=== PATIENT | female | born 1965 ===

== ENCOUNTER 2020-07-03 15:12 | Outpatient (REF) | payer OTHER, SELFPAY | END 2020-07-03 15:13 | disposition home or self-care (01) | LOC: HO.LAB 15:12 | PROVIDERS: Visit Provider Internal Medicine | DX: Z20.828 Contact with and (suspected) exposure to other viral communicable diseases (principal) | CPT/HCPCS: C9803; U0003 ==

== ENCOUNTER 2020-11-23 22:08 | Emergency (ER) | payer OTHER, SELFPAY ==
--- NOTE | ~2020-11-23 | US_ITS ---
EXAMINATION: US ABDOMEN LIMITED CLINICAL INFORMATION: Upper abdominal pain. Question cholecystitis.. COMPARISON: None TECHNIQUE: Real-time imaging of the right upper quadrant abdominal viscera. FINDINGS: PANCREAS: Normal. LIVER: The liver is normal in size. The liver contour is normal. There is diffuse increased liver parenchymal echogenicity, consistent with hepatic steatosis. Focal fatty sparing near the gallbladder fossa. No focal hepatic lesion. There is no intrahepatic biliary duct dilatation seen. GALLBLADDER: Normal. The gallbladder is physiologically distended without evidence of stones, sludge, polyps, wall thickening or pericholecystic fluid. COMMON BILE DUCT: Normal in caliber measuring 0.5 cm in diameter. RIGHT KIDNEY: Upper pole simple cyst measuring 2.7 x 2.5 x 2.3 cm. No hydronephrosis. No renal calculi or solid parenchymal lesions. The kidney measures 10.8 cm in maximum dimension. FREE FLUID: None. US/US abdomen limited IMPRESSION: Hepatic steatosis. Normal appearance of the gallbladder. Simple right renal cyst. No follow-up recommended.
[2020-11-23 22:25] VITALS: BP 129/85; PULSE 113; RESP 16; TEMP 36.6; O2SAT 98; BMI 28.3
--- NOTE | 2020-11-23 22:42 | ED.GENADULT ---
HPI - General Adult General Chief complaint: General Medical Stated complaint: Flu like symptoms Time Seen by Provider: 11/23/20 22:42 Source: patient Mode of arrival: ambulatory Limitations: no limitations Related Data Previous Rx's Medication Instructions Recorded metoprolol succinate 50 mg 50 mg PO BID #60 tab 06/18/20 tablet,extended release 24 hr Allergies Allergy/AdvReac Type Severity Reaction Status Date / Time aspirin [ASA] Allergy Intermediate SWELLING Verified 11/23/20 22:25 Sulfa (Sulfonamide Allergy Intermediate RASH, Verified 11/23/20 22:25 Antibiotics) SWELLING [SULFA (SULFONAMIDE ANTIBIOTICS)] ibuprofen Allergy Unknown swelling Uncoded 03/25/13 00:00 [facility] Past Medical History Medical History (Updated 11/23/20 @ 22:29 by Hope Hicks) COVID-19 Social History Social History Advance Directives: No Advance Directives Information Provided: No Physical Exam Vital Signs: Vital Signs: Last Vital Signs Temp 98 F 11/23/20 22:25 Pulse 113 H 11/23/20 22:25 Resp 16 11/23/20 22:25 BP 129/85 11/23/20 22:25 Pulse Ox 98 11/23/20 22:25 Body Mass Index 28.3 Discharge Plan Discharge Prescriptions: No Action metoprolol succinate 50 mg tablet extended release 24 hr 50 mg PO BID Qty: 60 RF: 5
[2020-11-23 22:57] LABS: MANUAL DIFF FLAG NO
--- NOTE | 2020-11-23 22:58 | ED.ABDPAIN ---
HPI - Abdominal Pain General Chief Complaint: General Medical Stated Complaint: Flu like symptoms Time Seen by Provider: 11/23/20 22:42 Source: patient Mode of arrival: ambulatory Limitations: no limitations History of Present Illness HPI narrative: Patient with history of IBS with diarrhea noticed little discomfort upper abdomen after eating steak last night and today since morning been having more pain in epigastric area with nausea vomiting and diarrhea. Patient vomited more than 10 times and same number of time she had watery stool. Patient feeling chills no fever no abdominal distension patient does not get this kind of problem very often with IBS she does get diarrhea and diffuse abdominal pain .patient had COVID 19 in 09/20. No cough no shortness of breath MD elicited complaint: abdominal pain Pertinent past history: other (IBS) Onset (ago): day(s) Pain Consistency: constant Location: epigastric Severity: moderate Quality: cramping Migration to: no migration Exacerbating factors: eating Relieving factors: nothing Associated symptoms: nausea, vomiting, diarrhea and chills Related Data Previous Rx's Medication Instructions Recorded metoprolol succinate 50 mg 50 mg PO BID #60 tab 06/18/20 tablet,extended release 24 hr Allergies Allergy/AdvReac Type Severity Reaction Status Date / Time aspirin [ASA] Allergy Intermediate SWELLING Verified 11/23/20 22:25 Sulfa (Sulfonamide Allergy Intermediate RASH, Verified 11/23/20 22:25 Antibiotics) SWELLING [SULFA (SULFONAMIDE ANTIBIOTICS)] ibuprofen Allergy Unknown swelling Uncoded 03/25/13 00:00 Review of Systems Review of Systems Constitutional : No Weight loss, No Fever, + Chills ENT/Mouth : No sore throat, No Rhinorrhea Eyes: No Eye Pain, No Swelling Cardiovascular : No Chest Pain, no palpitations Respiratory : No Cough, No Sputum, no shortness of breath Gastrointestinal : +Nausea, ++ Vomiting, + Diarrhea,+ abdominal Pain, no black stools Genitourinary : No Dysuria, No Urinary Frequency Musculoskeletal : No joint pain, No Myalgias, No Joint Swelling Skin : No Skin Lesions, No rash Neuro : No Weakness, No Numbness, No Dizziness, No Headache Psych : No Anxiety/Panic, No Depression Heme/Lymph: No Bruising, No Lymphadenopathy Endocrine : No Polyuria, No Polydipsia All other systems reviewed and are negative Physical Exam Vital Signs: Vital Signs: Last Vital Signs Temp 98 F 11/23/20 22:25 Pulse 89 11/23/20 23:18 Resp 15 11/23/20 23:18 BP 122/81 11/23/20 23:18 Pulse Ox 95 11/23/20 23:18 Body Mass Index 28.3 Appearance: Alert. Oriented X3. No acute distress. Eyes: PERRLA, No Nystagmus ENT: Pharynx normal. Oral Mucosa moist Neck: Normal inspection. Neck supple. CVS: Normal heart rate and rhythm. Pulses normal. Respiratory: No respiratory distress. Equal air entry bilateral, no wheezing/rales/rhonchi Abdomen: Soft epigastric tenderness+ no rebound tenderness or guarding Bowel sounds are present, no mass palpable, no CVA tenderness Skin: Skin warm and dry. Normal skin color. Normal skin turgor. Extremities: No lower extremity edema. No calf tenderness Neuro: Oriented X 3. No motor deficit. No sensory deficit.No cerebellar signs , cranial nerves II-XII intact MDM - Abdominal Pain MDM Narrative Medical decision making narrative: Patient feeling much better now taking p.o. fluids workup is negative for any acute pathology liver functions are normal ultrasound abdomen negative for cholelithiasis will discharge patient home no more vomiting or diarrhea at this time Medical Records Attestation: I reviewed the patient's medical records. Lab Data Attestation: I reviewed the patient's lab results. Result diagrams: 11/23/20 22:48 11/23/20 22:48 Labs: Lab Results 11/23/20 11/23/20 11/23/20 Range/Units 22:48 22:48 22:58 WBC 12.7 H (4.8-10.8) X10*3/uL RBC 5.14 (4.20-5.50) X10*6/uL Hgb 13.7 (12.0-16.0) g/dl Hct 42.7 (37-47) % MCV 83.1 (80-98) fL MCH 26.7 L (27.0-33.0) pg MCHC 32.1 (31.0-35.0) g/dl RDW 14.0 (11.0-16.0) % Plt Count 315 (160-400) X10*3/uL MPV 9.6 (9.4-12.3) fL Immature Gran % (Auto) 0.2 (0.0-0.4) % Neut % (Auto) 82.0 H (45-73) % Lymph % (Auto) 11.3 L (20-40) % Snyder % (Auto) 5.9 (2-11) % Eos % (Auto) 0.4 (0-4) % Baso % (Auto) 0.2 (0-2) % Lymph # (Auto) 1.4 (1.2-4.9) X10*3/uL Snyder # (Auto) 0.8 (0.1-1.2) X10*3/uL Eos # (Auto) 0.1 (0.0-0.4) X10*3/uL Baso # (Auto) 0.0 (0.0-0.2) X10*3/uL Abs Immat Gran (auto) 0.03 (0.00-0.03) X10*3/uL Absolute Neuts (auto) 10.4 H (2.0-8.3) X10*3/uL Absolute Nucleated RBC 0.000 (0.0-0.012) X10*3/uL Nucleated RBC % (auto) 0.0 (0.0-0.2) /100WBC Hold Blue Top Sodium 142 (135-145) mmol/L Potassium 3.6 (3.3-5.1) mmol/L Chloride 106 (96-108) mmol/L Carbon Dioxide 21 L (22-29) mmol/L Anion Gap 19 (12-20) BUN 20 H (9-16) mg/dL Creatinine 1.02 (0.5-1.4) mg/dL Estim Creat Clear Calc 58.1 Estimated GFR 56 Random Glucose 153 H (60-115) mg/dL Lactic Acid 1.8 (0.5-2.0) mmol/L Calcium 9.2 (8.4-10.2) mg/dL Magnesium 1.7 (1.6-2.6) mg/dL Total Bilirubin 0.7 (0.0-1.0) mg/dL AST 24 (5-31) U/L ALT 28 (0-31) U/L Alkaline Phosphatase 112 (39-117) U/L Total Protein 7.7 (6.5-8.0) g/dL Albumin 4.3 (3.5-5.0) g/dL Lipase 24 (8-78) U/L COVID-19 (MELONY) (Negative) COVID-19 Clin Com 11/23/20 11/23/20 Range/Units 22:59 23:02 WBC (4.8-10.8) X10*3/uL RBC (4.20-5.50) X10*6/uL Hgb (12.0-16.0) g/dl Hct (37-47) % MCV (80-98) fL MCH (27.0-33.0) pg MCHC (31.0-35.0) g/dl RDW (11.0-16.0) % Plt Count (160-400) X10*3/uL MPV (9.4-12.3) fL Immature Gran % (Auto) (0.0-0.4) % Neut % (Auto) (45-73) % Lymph % (Auto) (20-40) % Snyder % (Auto) (2-11) % Eos % (Auto) (0-4) % Baso % (Auto) (0-2) % Lymph # (Auto) (1.2-4.9) X10*3/uL Snyder # (Auto) (0.1-1.2) X10*3/uL Eos # (Auto) (0.0-0.4) X10*3/uL Baso # (Auto) (0.0-0.2) X10*3/uL Abs Immat Gran (auto) (0.00-0.03) X10*3/uL Absolute Neuts (auto) (2.0-8.3) X10*3/uL Absolute Nucleated RBC (0.0-0.012) X10*3/uL Nucleated RBC % (auto) (0.0-0.2) /100WBC Hold Blue Top SEE NOTE Sodium (135-145) mmol/L Potassium (3.3-5.1) mmol/L Chloride (96-108) mmol/L Carbon Dioxide (22-29) mmol/L Anion Gap (12-20) BUN (9-16) mg/dL Creatinine (0.5-1.4) mg/dL Estim Creat Clear Calc Estimated GFR Random Glucose (60-115) mg/dL Lactic Acid (0.5-2.0) mmol/L Calcium (8.4-10.2) mg/dL Magnesium (1.6-2.6) mg/dL Total Bilirubin (0.0-1.0) mg/dL AST (5-31) U/L ALT (0-31) U/L Alkaline Phosphatase (39-117) U/L Total Protein (6.5-8.0) g/dL Albumin (3.5-5.0) g/dL Lipase (8-78) U/L COVID-19 (MELONY) Negative (Negative) COVID-19 Clin Com See Note Discharge Plan Discharge Prescriptions: No Action metoprolol succinate 50 mg tablet extended release 24 hr 50 mg PO BID Qty: 60 RF: 5 PMFSH Past Medical History Medical History COVID-19 Social History Social History Alcohol intake: never Smoking Status: Never smoker Use of substances other than those prescribed or required for medical reasons: No Advance Directives: No Advance Directives Information Provided: No
[2020-11-23 22:59] LABS: Basophils Percent Auto 0.2 % (0-2); Eosinophils Absolute Auto 0.1 X10*3/uL (0.0-0.4); Eosinophils Percent Auto 0.4 % (0-4); Hematocrit 42.7 % (37-47); Hemoglobin 13.7 g/dl (12.0-16.0); Imm Gran Abs Auto 0.03 X10*3/uL (0.00-0.03); Imm Gran Pct Auto 0.2 % (0.0-0.4); Lymphocytes Absolute Auto 1.4 X10*3/uL (1.2-4.9); Lymphocytes Percent Auto 11.3 % (20-40); Mean Corpuscular HGB Conc 32.1 g/dl (31.0-35.0); Mean Corpuscular Hemoglobin 26.7 pg (27.0-33.0); Mean Corpuscular Volume 83.1 fL (80-98); Mean Platelet Volume 9.6 fL (9.4-12.3); Monocytes Absolute Auto 0.8 X10*3/uL (0.1-1.2); Monocytes Percent Auto 5.9 % (2-11); Neutrophils Absolute Auto 10.4 X10*3/uL (2.0-8.3); Platelet Count 315 X10*3/uL (160-400); Red Blood Count 5.14 X10*6/uL (4.20-5.50); White Blood Count 12.7 X10*3/uL (4.8-10.8)
[2020-11-23] MEDS: Famotidine/PF 20 MG/2 ML VIAL IVPUSH (23:09)
[2020-11-23] MEDS: ondansetron HCL 4 MG/2 ML VIAL IVPUSH (23:09)
[2020-11-23] MEDS: LORazepam 2 MG/ML VIAL 1 MG IVPUSH (23:09)
[2020-11-23] MEDS: 0.9 % Sodium Chloride 1,000 ML 999 ML IV (23:15)
[2020-11-23 23:18] VITALS: BP 122/81; PULSE 89; RESP 15; O2SAT 95
[2020-11-23 23:22] LABS: Alanine Aminotransferase 28 U/L (0-31); Albumin Level 4.3 g/dL (3.5-5.0); Alkaline Phosphatase 112 U/L (39-117); Anion Gap 19 (12-20); Aspartate Amino Transferase 24 U/L (5-31); Bilirubin Total 0.7 mg/dL (0.0-1.0); Blood Urea Nitrogen 20 mg/dL (9-16); Calcium 9.2 mg/dL (8.4-10.2); Carbon Dioxide 21 mmol/L (22-29); Chloride 106 mmol/L (96-108); Creatinine Clr Calc Pharmacy 58.1; Estimated Glomerular Filt Rate 56; Glucose Random 153 mg/dL (60-115); Lipase 24 U/L (8-78); Potassium 3.6 mmol/L (3.3-5.1); Sodium 142 mmol/L (135-145); Total Protein 7.7 g/dL (6.5-8.0)
[2020-11-23 23:28] LABS: COVID-19 Test Negative (Negative); IDNOW Serial# 9DD0AD1C
[2020-11-23 23:37] LABS: Lactic Acid 1.8 mmol/L (0.5-2.0)
[2020-11-23 23:39] LABS: Magnesium 1.7 mg/dL (1.6-2.6)
[2020-11-24] MEDS: 0.9 % Sodium Chloride 1,000 ML 999 ML IVCONT (01:02)
[2020-11-24 01:40] VITALS: BP 131/84; PULSE 81; RESP 18; O2SAT 95
== END 2020-11-24 02:16 | disposition home or self-care (01) ==
PROVIDERS: Emergency Provider Internal Medicine; PCP Family Medicine
DX: K58.9 Irritable bowel syndrome, unspecified (principal); R10.13 Epigastric pain; Z86.16 Personal history of COVID-19; Z20.822 Contact with and (suspected) exposure to COVID-19; Z79.899 Other long term (current) drug therapy
CPT/HCPCS: 36415; 76705; 80053; 83605; 83690; 83735; 85025; 87635; 96365; 96375; 99284; J2060; J2405

== ENCOUNTER 2021-04-23 12:26 | Outpatient (REF) | payer OTHER, SELFPAY ==
--- NOTE | ~2021-04-23 | XR_ITS ---
EXAMINATION: X-RAY OF THE CERVICAL SPINE AND T-SPINE. CLINICAL INFORMATION: 55-year-old female patient with pain. COMPARISON: Cervical spine x-ray on 12/06/2017. TECHNIQUE: 4 views of the C-spine and 2 views of the T-spine. FINDINGS: C-spine: Vertebral height and alignment are maintained. No fracture. There is some straightening of the normal lordotic curve. Posterior elements are normal. The disc spaces are normal. There is no change in appearance of the small ossific bodies adjacent to the anterior inferior aspects of the C4-C6 vertebral bodies. These could represent secondary areas of ossification. The C1-C2 articulation is normal. The prevertebral soft tissues are normal. T-spine: Vertebral height and alignment are normal. There is no evidence of fracture or subluxation. Paraspinal soft tissues are normal. Calcification of the nucleus pulposus is present at T4-T7. XR/XR cervical spine 3V IMPRESSION: No acute bone or joint abnormalities. Calcified nucleus pulposus in the thoracic spine.
--- NOTE | ~2021-04-23 | XR_ITS ---
EXAMINATION: X-RAY OF THE CERVICAL SPINE AND T-SPINE. CLINICAL INFORMATION: 55-year-old female patient with pain. COMPARISON: Cervical spine x-ray on 12/06/2017. TECHNIQUE: 4 views of the C-spine and 2 views of the T-spine. FINDINGS: C-spine: Vertebral height and alignment are maintained. No fracture. There is some straightening of the normal lordotic curve. Posterior elements are normal. The disc spaces are normal. There is no change in appearance of the small ossific bodies adjacent to the anterior inferior aspects of the C4-C6 vertebral bodies. These could represent secondary areas of ossification. The C1-C2 articulation is normal. The prevertebral soft tissues are normal. T-spine: Vertebral height and alignment are normal. There is no evidence of fracture or subluxation. Paraspinal soft tissues are normal. Calcification of the nucleus pulposus is present at T4-T7. XR/XR thoracic spine 3V IMPRESSION: No acute bone or joint abnormalities. Calcified nucleus pulposus in the thoracic spine.
== END 2021-04-23 12:27 | disposition home or self-care (01) ==
LOC: HO.XRAY 12:26
PROVIDERS: PCP Family Medicine; Visit Provider Family Medicine
DX: M25.50 Pain in unspecified joint (principal)
CPT/HCPCS: 72040; 72072

== ENCOUNTER 2021-05-03 12:35 | Outpatient (REF) | payer OTHER, SELFPAY ==
--- NOTE | ~2021-05-03 | MM_ITS ---
EXAMINATION: MM SCREENING DIGITAL BREAST TOMOSYNTHESIS, BILATERAL CLINICAL INFORMATION: Screening. Asymptomatic. The lifetime risk of breast cancer based on the Tyrer-Cuzick Model is 5%. COMPARISON: Mammography: 11/23/2017, 10/05/2016, 09/11/2015 TECHNIQUE: Digital breast tomosynthesis is performed in both the craniocaudal and mediolateral oblique views along with computer-aided detection (CAD). Synthesized 2D images are generated from the tomosynthesis. Additional left CC view is provided. FINDINGS: There are scattered areas of fibroglandular density (ACR BI-RADS breast composition Category b). There are no significant masses, abnormal calcifications, or other abnormalities. Parenchymal pattern is similar to prior exams. There is a small stable intramammary node posterior central 3:00 left breast similar to prior studies. The axilla and skin contours are unremarkable. MM/MM tomosynthesis screening BI IMPRESSION: No mammographic evidence of malignancy. ASSESSMENT: BI-RADS 2: Benign RECOMMENDATION: Routine annual mammography screening. This patient's information was entered into a reminder system with a target due date for their next mammogram.
== END 2021-05-03 12:36 | disposition home or self-care (01) ==
LOC: HO.MAMMO 12:35
PROVIDERS: Visit Provider Family Medicine
DX: Z12.31 Encounter for screening mammogram for malignant neoplasm of breast (principal)
CPT/HCPCS: 77063; 77067

== ENCOUNTER 2021-05-27 09:49 | Outpatient (REF) | payer OTHER, SELFPAY ==
--- NOTE | 2021-05-27 09:53 | EMG_ITS ---
Bilateral median and ulnar motor and sensory studies were performed. Bilateral radial sensory studies were performed and paraspinal muscles were tested with a needle. IMPRESSION: Unremarkable study with no evidence of entrapment neuropathy or radiculopathy. MD MARY Hogan/JANNETTE / [phone]
== END 2021-05-27 09:50 | disposition home or self-care (01) ==
LOC: HO.NEURO 09:49
PROVIDERS: PCP Family Medicine; Visit Provider Family Medicine
DX: R20.2 Paresthesia of skin (principal)
CPT/HCPCS: 95886; 95911

== ENCOUNTER → 2021-06-18 09:58 | Outpatient (BNVA) | payer OTHER, SELFPAY | PROVIDERS: PCP Family Medicine; Visit Provider Internal Medicine Gastroenterology ==

== ENCOUNTER → 2021-09-16 13:55 | Outpatient (BNVA) | payer OTHER, SELFPAY | PROVIDERS: PCP Family Medicine; Referring Provider Family Medicine; Visit Provider Internal Medicine Cardiovascular Disease | DX: R07.89 Other chest pain (principal); I49.3 Ventricular premature depolarization; I10 Essential (primary) hypertension; Z79.899 Other long term (current) drug therapy | CPT/HCPCS: 93005; 99212 ==

== ENCOUNTER 2022-07-05 13:17 | Emergency (ER) | payer OTHER, SELFPAY ==
--- NOTE | ~2022-07-05 | CT_ITS ---
EXAMINATION: CT HEAD WITHOUT CONTRAST CLINICAL INFORMATION: Right-sided severe headache. COMPARISON: Head CT 12/26/2012. TECHNIQUE: Contiguous axial imaging was performed from the skull base to vertex without intravenous administration of contrast. This CT examination was performed using dose optimization techniques as appropriate, variously including the following: *Automated exposure control *Adjustment of mA and/or kV according to patient size (this includes techniques or standardized protocols for targeted exams where dose is matched to indication/reason for exam; i.e. extremities or head) *Use of iterative reconstruction technique DLP: 676 mGy-cm. FINDINGS: There is no intracranial hemorrhage, extra-axial collection, or mass effect. Focal hypoattenuation is seen within the left occipital lobe best seen on series 2 image /55. Remainder of the rice-white differentiation appears maintained. The ventricles are normal in size without hydrocephalus. The extracranial structures are unremarkable. CT/CT head/brain wo IV con IMPRESSION: No intracranial hemorrhage. Focal hypoattenuation seen in the left occipital lobe which is suspected to be artifactual. However, brain MRI without contrast is recommended to further evaluate.
[2022-07-05 14:02] VITALS: BP 145/87; PULSE 74; RESP 16; TEMP 36.3; O2SAT 96; BMI 29.2
--- NOTE | 2022-07-05 14:08 | ED.GENADULT ---
HPI - General Adult General Chief complaint: Eye Problems Stated complaint: Swollen eye/Neck Pain/Chest pain Time Seen by Provider: 07/05/22 14:45 Related Data Home Medications Medication Instructions Recorded Confirmed amitriptyline 50 mg tablet 25 - 50 mg PO BEDTIME 06/18/21 09/16/21 baclofen 20 mg tablet 20 mg PO TID 06/18/21 09/16/21 clonazepam 0.5 mg tablet 0.5 mg PO BID PRN 06/18/21 09/16/21 duloxetine 60 mg capsule,delayed 120 mg PO DAILY 06/18/21 09/16/21 release hydroxyzine HCl 25 mg tablet 25 mg PO QID 06/18/21 09/16/21 loratadine 10 mg tablet 10 mg PO DAILY 06/18/21 09/16/21 ondansetron HCl 4 mg tablet 4 mg PO BID 06/18/21 09/16/21 prazosin 1 mg capsule 1 mg PO BEDTIME 06/18/21 09/16/21 tramadol 50 mg tablet 50 mg PO BID PRN 06/18/21 09/16/21 trazodone 100 mg tablet mg PO 06/18/21 09/16/21 Previous Rx's Medication Instructions Recorded loperamide 2 mg tablet (Imodium 2 mg PO Q6H PRN loose stool #10 11/24/20 A-D) tabs ondansetron 4 mg disintegrating 4 mg PO Q6-8H PRN nausea and 11/24/20 tablet vomiting #7 tabs pantoprazole 40 mg tablet,delayed 40 mg PO DAILY #90 tabs 06/18/21 release metoprolol succinate 50 mg 50 mg PO BID #180 tabs 06/08/22 tablet,extended release 24 hr prednisone 20 mg tablet 40 mg PO DAILY #14 tabs 07/05/22 valacyclovir 1 gram tablet 1,000 mg PO BID #14 tabs 07/05/22 (Valtrex) Allergies Allergy/AdvReac Type Severity Reaction Status Date / Time aspirin [ASA] Allergy Intermediate SWELLING Verified 06/18/21 09:59 Sulfa (Sulfonamide Allergy Intermediate RASH, Verified 06/18/21 09:59 Antibiotics) SWELLING [SULFA (SULFONAMIDE ANTIBIOTICS)] ibuprofen Allergy Unknown swelling Uncoded 06/18/21 09:59 [facility] Past Medical History Medical History COVID-19 HTN (hypertension) PVC (premature ventricular contraction) Surgical History History of esophagogastroduodenoscopy (EGD) Hx of colonoscopy Social History Social History Alcohol intake: never Advance Directives: No Advance Directives Information Provided: No Physical Exam ED Vital Signs: Vital Signs - 24 hr 07/05/22 14:02 Temperature 97.3 F Pulse Rate 74 Respiratory Rate 16 Blood Pressure 145/87 H Pulse Oximetry 96 Oxygen Delivery Method Room Air BMI result Body Mass Index 29.2 Course Course Course Narrative: 56F with rt eye pain since Monday and blurry vision and spread to rt rastafarian, rt ear and nose with changes in hearing (muffled). Taking old script of Tobramycin/Dex, denies trauma or hx of glaucoma. GEN: NAD HEAD: ttp over right temporal EYE: OS-mid pupil fixed, pain on lateral ONLY movement, no conjunctival redness or swelling FACE: mild facial swelling noted to right side EARS: wnl, but pain on exam of rt ext canal, no vesicles noted THROAT: wnl LUNGS: CTAB CVS: RRR ABD: NT/ND ?Shingles vs. acute angle glaucoma Discharge Plan Discharge Clinical Impression: Acute facial pain, Zoster Patient Disposition: Home, Self-Care Instructions: Shingles (ED) Additional Instructions: There is a possibility that the pain in the face is caused by herpes zoster, also known as shingles. I am recommending that you take medications that have been prescribed for the next week, as this should improve your symptoms. It is important for you to follow-up with your primary care doctor and also an administrative volunteer tomorrow to be sure there is no involvement of the cornea of your eye. It is probable that your visual disturbance is secondary to the swelling around the eye. Prescriptions: New prednisone 20 mg tablet 40 mg PO DAILY Qty: 14 0RF valacyclovir [Valtrex] 1 gram tablet 1,000 mg PO BID Qty: 14 0RF No Action metoprolol succinate 50 mg tablet extended release 24 hr 50 mg PO BID Qty: 180 3RF ondansetron 4 mg tablet,disintegrating 4 mg PO Q6-8H PRN (Reason: nausea and vomiting) Qty: 7 0RF loperamide [Imodium A-D] 2 mg tablet 2 mg PO Q6H PRN (Reason: loose stool) Qty: 10 0RF duloxetine 60 mg capsule,delayed release(DR/EC) 120 mg PO DAILY trazodone 100 mg tablet PO clonazepam 0.5 mg tablet 0.5 mg PO BID PRN prazosin 1 mg capsule 1 mg PO BEDTIME baclofen 20 mg tablet 20 mg PO TID tramadol 50 mg tablet 50 mg PO BID PRN hydroxyzine HCl 25 mg tablet 25 mg PO QID loratadine 10 mg tablet 10 mg PO DAILY amitriptyline 50 mg tablet 25 - 50 mg PO BEDTIME ondansetron HCl 4 mg tablet 4 mg PO BID pantoprazole 40 mg tablet,delayed release (DR/EC) 40 mg PO DAILY Qty: 90 2RF Interventions: ED Discharge Assessment Last Done: 07/05/22 16:57 Discharge Date/Time: 07/05/22 17:01
[2022-07-05 15:44] VITALS: BP 145/90; PULSE 69; RESP 18; TEMP 36.6; O2SAT 97
[2022-07-05 15:44] LABS: Erythrocyte Sedimentation Rate 23 MM/HR (0-20)
== END 2022-07-05 17:01 | disposition home or self-care (01) ==
PROVIDERS: Student in an Organized Health Care Education/Training Program; Emergency Provider Emergency Medicine; PCP Family Medicine
DX: H57.11 Ocular pain, right eye (principal); H53.8 Other visual disturbances; R51.9 Headache, unspecified; Z79.899 Other long term (current) drug therapy
CPT/HCPCS: 36415; 70450; 85652; 86140; 99283; 99284

== ENCOUNTER 2022-09-13 09:02 | Outpatient (REF) | payer OTHER, SELFPAY | END 2022-09-13 09:03 | disposition home or self-care (01) | LOC: HO.XRAY 09:02 | PROVIDERS: PCP Family Medicine; Visit Provider Family Medicine | DX: Z13.89 Encounter for screening for other disorder (principal) ==

== ENCOUNTER 2022-09-15 08:37 | Outpatient (REF) | payer OTHER, SELFPAY ==
--- NOTE | ~2022-09-15 | FL_ITS ---
EXAMINATION: FL BARIUM SWALLOW CLINICAL INFORMATION: Dysphasia. COMPARISON: 03/09/2015. TECHNIQUE: Barium swallow examination is performed using fluoroscopic evaluation in addition to multiple fluoroscopic spot views. The patient is imaged both upright and prone and using both thick and thin sulfate. Patient swallowed half-inch diameter barium tablet. Fluoroscopy time: 1.8 minutes DAP: 4.582 Gycm2 DLP: 44.689 mGy FINDINGS: There is normal apposition of the vocal cords while saying E. There is normal elevation of the soft palate while saying candy. Patient swallowed thin and thick barium and a half-inch diameter barium tablet without difficulty. No nasopharyngeal reflux or tracheal aspiration was identified. There is mild hypertrophy of the cricopharyngeal muscle without evidence of Zenker's diverticulum. No mucosal abnormalities were identified. There is some hypomotility present with occasional tertiary contractions being seen. No hiatal hernia or gastroesophageal reflux. FL/FL barium swallow IMPRESSION: Mild esophageal hypomotility with occasional tertiary contractions. Otherwise unremarkable esophagram.
== END 2022-09-15 08:38 | disposition home or self-care (01) ==
LOC: HO.XRAY 08:37
PROVIDERS: Visit Provider Family Medicine
DX: R13.10 Dysphagia, unspecified (principal); R07.89 Other chest pain
CPT/HCPCS: 74220

== ENCOUNTER → 2022-10-18 10:40 | Outpatient (REF) | payer OTHER, SELFPAY ==
--- NOTE | 2022-10-18 11:32 | CA_ITS ---
Acquisition Time: 2022-10-18 11:20:17 Total Exercise Time: 00:05:49 Test Indications: CP Medications: SEE H Protocol: PAGE Max HR: 144 BPM 89% of Pred: 161 BPM Max BP: 156/072 mmHG Max Work Load: 7.0 METS Exercise stress test 5 min 49 sec of Page protocol achieving 83% MPHR, with request to stop due to moderate SOB, no chest discomfort, without arrythimias, with normotensive response to exercise, without EKG changes meeting criteria for ischemia, Echo images obtained by tech at rest and immediately post peak exercise. Definity contrast used. Test reviewed with Dr. Rangel, Referred By: Darrell Rangel Overread By: EITAN BREAUX
== END ==
LOC: HO.CARD 10:40
PROVIDERS: PCP Family Medicine; Visit Provider Internal Medicine Cardiovascular Disease
DX: R07.89 Other chest pain (principal)
CPT/HCPCS: 93350; Q9957

== ENCOUNTER 2022-10-25 08:37 | Outpatient (REF) | payer OTHER, SELFPAY ==
--- NOTE | ~2022-10-25 | CT_ITS ---
EXAMINATION: CT ABDOMEN AND PELVIS WITHOUT AND WITH CONTRAST CLINICAL INFORMATION: Follow up adrenal adenoma. COMPARISON: None available. TECHNIQUE: Multidetector volumetric imaging was performed of the abdomen and pelvis before and after the IV administration of 85 mL of Omnipaque 300 intravenous contrast. Sagittal and coronal reformatted images were obtained on the technologist's workstation. This CT examination was performed using dose optimization techniques as appropriate, variously including the following: *Automated exposure control *Adjustment of mA and/or kV according to patient size (this includes techniques or standardized protocols for targeted exams where dose is matched to indication/reason for exam; i.e. extremities or head) *Use of iterative reconstruction technique DLP: 1186 mGy-cm FINDINGS: LUNG BASES: There is minimal bibasilar dependent atelectasis. The heart size is normal. LIVER, GALLBLADDER, AND BILIARY TREE: The liver is normal in size, shape, and diffuse hypo-attenuation. No focal hepatic lesion or biliary ductal dilatation is present. The gallbladder is unremarkable with no evidence of radiopaque gallstones, gallbladder wall thickening, or obvious pericholecystic inflammatory changes. PANCREAS: Unremarkable. SPLEEN: Unremarkable. ADRENAL GLANDS: The right adrenal gland is unremarkable. There is a left adrenal lesion measuring 2.5 x 2.1 x 2.5 cm. Previously measured 1.9 x 1.8 cm. On precontrast images it measures 0.69 HU, post contrast it measures 73.49 HU and on delayed images it measures 35 HU. Absolute washout is 52.9% is indeterminate however, lobe precontrast examination is suggestive of an adenoma. Related washout of 52.4% is suggestive of an adenoma. KIDNEYS AND URETERS: The kidneys are normal in size, shape, and attenuation. No hydronephrosis, hydroureter, or calculi seen. No perinephric stranding. There is a 3 cm simple cyst upper/midpole right kidney. There is good opacification of bilateral kidney pelvises and ureters without any dilation or intraluminal filling defect. BLADDER: Unremarkable. GASTROINTESTINAL TRACT: There is scattered stool, diverticula and gas seen throughout the colon without distention or diverticulitis. The small bowel loops are normal caliber. Appendix is not visualized. The stomach is nondistended. No inflammatory processes or free fluid seen. ABDOMINAL WALL: No significant hernia is appreciated. LYMPH NODES: Normal. VASCULAR: Unremarkable. PELVIC VISCERA: Unremarkable. OSSEOUS STRUCTURES: No aggressive lytic or sclerotic process seen. CT/CT abdomen pelvis wo/w IV con IMPRESSION: Left adrenal adenoma with minimal increase. Colonic diverticulosis with mild constipation. Fleischner guidelines were followed.
[2022-10-25] MEDS: iohexoL 350 MG/ML 100 ML INFUS..BTL IV (09:40)
[2022-10-25 10:11] LABS: GFR POC 60
== END 2022-10-25 08:38 | disposition home or self-care (01) ==
LOC: HO.CT 08:37
PROVIDERS: Visit Provider Family Medicine
DX: D35.02 Benign neoplasm of left adrenal gland (principal)
CPT/HCPCS: 74178; 82565; Q9967

== ENCOUNTER 2022-10-26 11:20 | Outpatient (REF) | payer OTHER, SELFPAY ==
--- NOTE | ~2022-10-26 | US_ITS ---
EXAMINATION: US ABDOMEN COMPLETE CLINICAL INFORMATION: Fatty liver. COMPARISON: CT abdomen and pelvis 10/25/2022. Ultrasound abdomen limited 11/24/2020. Ultrasound abdomen complete 09/13/2018. TECHNIQUE: Real-time imaging of the abdominal viscera. FINDINGS: PANCREAS: The head and body of the pancreas is homogeneous in echotexture. The tail is obscured by overlying gas. ABDOMINAL AORTA: The proximal, mid, and distal segments are normal in caliber. INFERIOR VENA CAVA: Visualized portions are normal. LIVER: The liver is enlarged measuring 17.0 cm. The liver contour is normal. There is a diffuse hepatic increased echogenicity with focal fatty sparing around the gallbladder. No focal hepatic lesion. There is no intrahepatic biliary duct dilatation seen. GALLBLADDER: There is echogenic sludge or small gallstones. The gallbladder is physiologically distended without evidence of polyps, wall thickening or pericholecystic fluid. The gallbladder wall thickness is 0.2 cm. COMMON BILE DUCT: Normal in caliber measuring 0.3 cm in diameter. RIGHT KIDNEY: There is a right kidney upper pole septation measuring 3.5 x 2.8 x 2.3 cm. No hydronephrosis or renal calculi. The kidney measures 10.3 cm in maximum dimension. LEFT KIDNEY: There is a dilated pelvicalyceal system. No hydronephrosis. No renal calculi or focal parenchymal lesions. The kidney measures 9.8 cm in maximum dimension. SPLEEN: Normal. The spleen measures 8.5 cm in maximum dimension. FREE FLUID: None. US/US abdomen complete IMPRESSION: Echogenic sludge or small gallstones. No wall thickening. Mild hepatomegaly. No focal lesion seen. Mild hepatic steatosis. Septated cyst upper pole right kidney. There is mild left pelvicalyceal dilatation. The rest of the abdominal ultrasound is unremarkable.
== END 2022-10-26 11:21 | disposition home or self-care (01) ==
LOC: HO.US 11:20
PROVIDERS: Visit Provider Family Medicine
DX: K76.0 Fatty (change of) liver, not elsewhere classified (principal)
CPT/HCPCS: 76700

== ENCOUNTER 2023-01-16 11:05 | Outpatient (REF) | payer OTHER, SELFPAY | END 2023-01-16 11:06 | disposition home or self-care (01) | LOC: HO.HOSX 11:05 | PROVIDERS: Visit Provider Physician Assistant | DX: Z13.89 Encounter for screening for other disorder (principal) ==

== ENCOUNTER 2023-02-28 15:11 | Outpatient (REF) | payer OTHER, SELFPAY ==
--- NOTE | ~2023-02-28 | MM_ITS ---
EXAMINATION: MM SCREENING DIGITAL BREAST TOMOSYNTHESIS, BILATERAL CLINICAL INFORMATION: Screening. Asymptomatic. The lifetime risk of breast cancer based on the Tyrer-Cuzick Model is 4%. COMPARISON: Mammography: This study is compared with prior exams dating back to 2016. TECHNIQUE: Digital breast tomosynthesis is performed in both the craniocaudal and mediolateral oblique views along with computer-aided detection (CAD). Synthesized 2D images are generated from the tomosynthesis. FINDINGS: There are scattered areas of fibroglandular density (ACR BI-RADS breast composition Category b). There are no significant masses, abnormal calcifications, or other abnormalities. MM/MM tomosynthesis screening BI IMPRESSION: No mammographic evidence of malignancy. ASSESSMENT: BI-RADS BI-RADS 1 - Negative RECOMMENDATION: Routine annual mammography screening. 1 year F/U This examination should not preclude the clinical evaluation of a suspicious palpable abnormality. This patient's information was entered into a reminder system with a target due date for their next mammogram.
== END 2023-02-28 15:12 | disposition home or self-care (01) ==
LOC: HO.MAMMO 15:11
PROVIDERS: PCP Family Medicine; Visit Provider Family Medicine
DX: Z12.31 Encounter for screening mammogram for malignant neoplasm of breast (principal)
CPT/HCPCS: 77063; 77067

== ENCOUNTER → 2023-02-28 15:30 | Outpatient (BNV) | payer OTHER, SELFPAY | PROVIDERS: PCP Family Medicine; Visit Provider Radiology Diagnostic Radiology | DX: Z12.31 Encounter for screening mammogram for malignant neoplasm of breast (principal) | CPT/HCPCS: 77063; 77067 ==

== ENCOUNTER 2023-08-23 08:59 | Outpatient (REF) | payer OTHER, SELFPAY ==
[2023-08-23 11:41] LABS: Hematocrit 39.1 % (37.0-47.0); Hemoglobin 12.3 g/dl (12.0-16.0); Mean Corpuscular HGB Conc 31.5 g/dl (31.0-35.0); Mean Corpuscular Hemoglobin 26.1 pg (27.0-33.0); Mean Corpuscular Volume 82.8 fL (80.0-98.0); Mean Platelet Volume 10.1 fL (9.4-12.3); Platelet Count 284 X10*3/uL (160-400); Red Blood Count 4.72 X10*6/uL (4.20-5.50); Red Cell Distribution Width 13.9 % (11.0-16.0); White Blood Count 6.1 X10*3/uL (4.8-10.8)
[2023-08-23 11:51] LABS: Estimated Average Glucose 128 mg/dL; Hemoglobin A1c % 6.1 % (<6.0)
[2023-08-23 11:53] LABS: Rheumatoid Factor < 13.0 IU/mL (<15.0)
[2023-08-23 12:19] LABS: Alanine Aminotransferase 29 U/L (0-31); Albumin Level 4.1 g/dL (3.5-5.0); Alkaline Phosphatase 109 U/L (39-117); Anion Gap 15 (12-20); Aspartate Amino Transferase 23 U/L (5-31); Bilirubin Direct 0.2 mg/dL (0.0-0.5); Bilirubin Total 0.5 mg/dL (0.0-1.0); Blood Urea Nitrogen 16 mg/dL (9-16); C Reactive Protein 0.93 mg/dL (< or = 0.50); Calcium 9.3 mg/dL (8.4-10.2); Carbon Dioxide 22 mmol/L (22-29); Chloride 107 mmol/L (96-108); Cholesterol 197 mg/dL (<200); Estimated Glomerular Filt Rate > 60; Glucose Random 120 mg/dL (60-115); HDL Cholesterol 54 mg/dL (>40); LDL Cholesterol Calculated 127 mg/dL (<100); Potassium 3.8 mmol/L (3.3-5.1); Sodium 140 mmol/L (135-145); Total Protein 7.5 g/dL (6.5-8.0); Triglycerides 82 mg/dL (<150)
[2023-08-23 12:26] LABS: Free T4 (Free Thyroxine) 0.98 ng/dL (0.71-1.85); Thyroid Stimulating Hormone 2.02 uIU/mL (0.32-4.0); Vitamin D 25-OH Total 29.6 ng/mL (>30)
[2023-08-23 12:30] LABS: Erythrocyte Sedimentation Rate 21 MM/HR (0-20)
[2023-08-23 13:38] LABS: CT PCR NOT DETECTED (Not Detect.); NG PCR NOT DETECTED (Not Detect.)
[2023-08-24 08:03] LABS: HBS Num1 21.98 mIU/mL (0-7.99); HBsAGNum1 0.34 S/CO (0.00-0.99); HIV AB/AG Nonreactive (Nonreactive); HIV Num 1 0.07 S/CO (0.00-0.99); Hepatitis B Surface Antigen Negative (Negative); ~HepC Num1 0.17 S/CO (0.00-0.79); ~Hepatitis B Surface Antibody REACTIVE (Nonreactive); ~Hepatitis C Antibody Nonreactive (Nonreactive)
[2023-08-25 05:34] LABS: Lyme Abs Screen <0.90 index
[2023-08-25 09:09] LABS: RPR Rapid Plasma Reagin NON-REACTIVE (NON-REACTIVE)
[2023-08-29 11:19] LABS: Anti Nuclear Antibody Screen NEGATIVE (NEGATIVE)
== END 2023-08-23 09:00 | disposition home or self-care (01) ==
LOC: HO.HHCL 08:59
PROVIDERS: Visit Provider Family Medicine
DX: Z11.4 Encounter for screening for human immunodeficiency virus [HIV] (principal); I10 Essential (primary) hypertension; M25.50 Pain in unspecified joint; K76.0 Fatty (change of) liver, not elsewhere classified
CPT/HCPCS: 0353U; 36415; 80048; 80061; 80076; 82105; 82306; 83036; 84439; 84443; 85027; 85652; 86038; 86140; 86431; 86592; 86617; 86618; 86706; 86803; 87340; 87389

== ENCOUNTER 2023-09-07 13:23 | Outpatient (REF) | payer OTHER, SELFPAY ==
--- NOTE | ~2023-09-07 | US_ITS ---
EXAMINATION: US EXTRACRANIAL CAROTID DUPLEX, BILATERAL CLINICAL INFORMATION: Dizziness. COMPARISON: CTA neck 09/08/2023. TECHNIQUE: Real-time ultrasound and Doppler techniques (integrating B-mode 2-D vascular images, Doppler spectral analysis and color-flow Doppler imaging) were utilized to interrogate the extracranial carotid arteries, the vertebral arteries and proximal subclavian arteries bilaterally. The degree of stenosis is determined by criteria similar to NASCET. FINDINGS: Right Side: 1. There is no atherosclerotic plaque seen in the bifurcation/proximal ICA region. 2. The common carotid artery PSV proximally is 82 cm/s and distally 62 cm/s. 3. The proximal internal carotid artery velocities are 48 cm/s systolic and 14 cm/s diastolic. 4. The proximal external carotid artery PSV is 82 cm/s. 5. The vertebral artery shows antegrade flow. 6. The subclavian artery waveforms are normal. Left Side: 1. There is no atherosclerotic plaque seen in the bifurcation/proximal ICA region. 2. The common carotid artery PSV proximally is 103 cm/s and distally 74 cm/s. 3. The proximal internal carotid artery velocities are 104 cm/s systolic and 34 cm/s diastolic. 4. The proximal external carotid artery PSV is 60 cm/s. 5. The vertebral artery shows antegrade flow. 6. The subclavian artery waveforms are normal. Incidental note made of small nodules in the thyroid measuring a maximum of 1.0 cm. No follow-up imaging is recommended. US/US carotid duplex BI IMPRESSION: 1. RIGHT: Normal right internal carotid artery without atherosclerotic plaque or hemodynamically significant stenosis. 2. LEFT: Normal left internal carotid artery without atherosclerotic plaque or hemodynamically significant stenosis.
== END 2023-09-07 13:24 | disposition home or self-care (01) ==
LOC: HO.US 13:23
PROVIDERS: PCP Family Medicine; Visit Provider Student in an Organized Health Care Education/Training Program
DX: R42 Dizziness and giddiness (principal)
CPT/HCPCS: 93880

== ENCOUNTER 2023-09-08 22:03 | Emergency (ER) | payer OTHER, SELFPAY ==
--- NOTE | ~2023-09-08 | CT_ITS ---
EXAMINATION: CT HEAD WITHOUT CONTRAST CT ANGIOGRAM HEAD CT ANGIOGRAM NECK CLINICAL INFORMATION: Reason for Exam persistent dizziness and unsteady gait for 2wks COMPARISON: CT head 07/05/2022 TECHNIQUE: Initial noncontrast internal audit consultant imaging of the head and neck was performed. Noncontrast head CT was also performed. Test bolus sequences followed by intravenous administration 75 mL of Omnipaque 350. Helical imaging was performed in the axial plane from the aortic arch to the skull vertex. Delayed postcontrast imaging of the head was also performed. The data was processed at the cath lab technologist's workstation for generation of MIP sequences. Angled MIPs and volume rendered reformatted images were also generated at an offline 3D workstation. Stenoses are assessed in accordance with Limon et al. Quantification of Carotid Stenosis on CT Angiography. AJR 2006. 27(1):13-19. [address] CT examination was performed using dose optimization techniques as appropriate, variously including the following: *Automated exposure control *Adjustment of mA and/or kV according to patient size (this includes techniques or standardized protocols for targeted exams where dose is matched to indication/reason for exam; i.e. extremities or head) *Use of iterative reconstruction technique DLP: 641 mGy-cm FINDINGS: CT HEAD: There is no evidence of acute intracranial hemorrhage. No mass-effect or ventricular shift is noted. No acute, territorial loss of rice-white differentiation. Partially empty sella turcica. Stable hypodensity along the inferior basal ganglia bilaterally which may represent dilated perivascular spaces. No abnormal intracranial enhancement is visualized. The ventricles and sulci are appropriate in size and configuration for the patient's stated age. Periventricular and subcortical white matter hypodensity is nonspecific but likely represents chronic microvascular ischemic change. No depressed calvarial fracture. A total thickening in the left sphenoid sinus with additional trace scattered paranasal sinus mucosal thickening. The mastoid air cells are well-aerated. CTA HEAD: Suboptimal evaluation secondary to significant intracranial venous contamination. Anterior circulation: Right internal carotid artery: No hemodynamically significant stenosis. Right middle cerebral artery: No hemodynamically significant stenosis. Right anterior cerebral artery: No hemodynamically significant stenosis. Left internal carotid artery: No hemodynamically significant stenosis. Left middle cerebral artery: No hemodynamically significant stenosis. Left anterior cerebral artery: No hemodynamically significant stenosis. Mild infundibular prominence of the left aspect of the anterior communicating artery. Posterior circulation: Right vertebral artery: No hemodynamically significant stenosis. Left vertebral artery: Nondominant. Predominantly terminates at the left PICA with a markedly diminutive/hypoplastic distal V4 segment. Basilar artery: No hemodynamically significant stenosis. Right posterior cerebral artery: No hemodynamically significant stenosis. Left posterior cerebral artery: Diminutive P1 segment with patent posterior commuting artery. The major dural venous sinuses are grossly within normal limits given arterial technique. CTA NECK: Aortic arch: Normal anatomy. Right common carotid artery: No hemodynamically significant stenosis. Right proximal internal carotid artery: No hemodynamically significant stenosis. Right mid/distal internal carotid artery: No hemodynamically significant stenosis. Left common carotid artery: No hemodynamically significant stenosis. Left proximal internal carotid artery: No hemodynamically significant stenosis. Left mid/distal internal carotid artery: No hemodynamically significant stenosis. Right vertebral artery: No hemodynamically significant stenosis. Left vertebral artery: Nondominant. Irregularity in the proximal V1 segment is favored to be technical. The remaining cervical course is without flow-limiting stenosis. CT NECK: Small hypodense focus along the left vallecula may represent a cyst. Interosseous hemangioma in the T1 vertebral body. CT/CT head/brain wo IV con IMPRESSION: CT HEAD: No acute intracranial hemorrhage or territorial loss of rice-white differentiation. CTA NECK: No hemodynamically significant stenosis. Approximately 4 mm hypodense focus along the left vallecula may represent a cyst but is indeterminate. CTA HEAD: No proximal vessel occlusion or high-grade stenosis.
--- NOTE | ~2023-09-08 | CT_ITS ---
EXAMINATION: CT HEAD WITHOUT CONTRAST CT ANGIOGRAM HEAD CT ANGIOGRAM NECK CLINICAL INFORMATION: Reason for Exam persistent dizziness and unsteady gait for 2wks COMPARISON: CT head 07/05/2022 TECHNIQUE: Initial noncontrast guardian family member imaging of the head and neck was performed. Noncontrast head CT was also performed. Test bolus sequences followed by intravenous administration 75 mL of Omnipaque 350. Helical imaging was performed in the axial plane from the aortic arch to the skull vertex. Delayed postcontrast imaging of the head was also performed. The data was processed at the echo vascular technologist's workstation for generation of MIP sequences. Angled MIPs and volume rendered reformatted images were also generated at an offline 3D workstation. Stenoses are assessed in accordance with Limon et al. Quantification of Carotid Stenosis on CT Angiography. AJR 2006. 27(1):13-19. [address] CT examination was performed using dose optimization techniques as appropriate, variously including the following: *Automated exposure control *Adjustment of mA and/or kV according to patient size (this includes techniques or standardized protocols for targeted exams where dose is matched to indication/reason for exam; i.e. extremities or head) *Use of iterative reconstruction technique DLP: 641 mGy-cm FINDINGS: CT HEAD: There is no evidence of acute intracranial hemorrhage. No mass-effect or ventricular shift is noted. No acute, territorial loss of rice-white differentiation. Partially empty sella turcica. Stable hypodensity along the inferior basal ganglia bilaterally which may represent dilated perivascular spaces. No abnormal intracranial enhancement is visualized. The ventricles and sulci are appropriate in size and configuration for the patient's stated age. Periventricular and subcortical white matter hypodensity is nonspecific but likely represents chronic microvascular ischemic change. No depressed calvarial fracture. A total thickening in the left sphenoid sinus with additional trace scattered paranasal sinus mucosal thickening. The mastoid air cells are well-aerated. CTA HEAD: Suboptimal evaluation secondary to significant intracranial venous contamination. Anterior circulation: Right internal carotid artery: No hemodynamically significant stenosis. Right middle cerebral artery: No hemodynamically significant stenosis. Right anterior cerebral artery: No hemodynamically significant stenosis. Left internal carotid artery: No hemodynamically significant stenosis. Left middle cerebral artery: No hemodynamically significant stenosis. Left anterior cerebral artery: No hemodynamically significant stenosis. Mild infundibular prominence of the left aspect of the anterior communicating artery. Posterior circulation: Right vertebral artery: No hemodynamically significant stenosis. Left vertebral artery: Nondominant. Predominantly terminates at the left PICA with a markedly diminutive/hypoplastic distal V4 segment. Basilar artery: No hemodynamically significant stenosis. Right posterior cerebral artery: No hemodynamically significant stenosis. Left posterior cerebral artery: Diminutive P1 segment with patent posterior commuting artery. The major dural venous sinuses are grossly within normal limits given arterial technique. CTA NECK: Aortic arch: Normal anatomy. Right common carotid artery: No hemodynamically significant stenosis. Right proximal internal carotid artery: No hemodynamically significant stenosis. Right mid/distal internal carotid artery: No hemodynamically significant stenosis. Left common carotid artery: No hemodynamically significant stenosis. Left proximal internal carotid artery: No hemodynamically significant stenosis. Left mid/distal internal carotid artery: No hemodynamically significant stenosis. Right vertebral artery: No hemodynamically significant stenosis. Left vertebral artery: Nondominant. Irregularity in the proximal V1 segment is favored to be technical. The remaining cervical course is without flow-limiting stenosis. CT NECK: Small hypodense focus along the left vallecula may represent a cyst. Interosseous hemangioma in the T1 vertebral body. CT/CT angio head neck IMPRESSION: CT HEAD: No acute intracranial hemorrhage or territorial loss of rice-white differentiation. CTA NECK: No hemodynamically significant stenosis. Approximately 4 mm hypodense focus along the left vallecula may represent a cyst but is indeterminate. CTA HEAD: No proximal vessel occlusion or high-grade stenosis.
[2023-09-08 22:09] VITALS: BP 133/83; PULSE 78; RESP 18; TEMP 35.9; O2SAT 97; BMI 29.8
[2023-09-08 22:26] VITALS: BP 153/83; PULSE 75; RESP 20; O2SAT 96
--- NOTE | 2023-09-08 22:48 | ECG_ITS ---
Test Reason : STROKE Blood Pressure : / mmHG Vent. Rate : 071 BPM Atrial Rate : 071 BPM P-R Int : 166 ms QRS Dur : 076 ms QT Int : 406 ms P-R-T Axes : 045 -17 -22 degrees QTc Int : 441 ms Normal sinus rhythm ST & T wave abnormality, consider anterior ischemia and inferior ischemia Abnormal ECG When compared with ECG of 30-MAR-2019 21:52, No significant change was found Referred By: Nimisha Maier Electronically Signed By:AZUL COWAN
[2023-09-08 22:59] LABS: MANUAL DIFF FLAG NO
[2023-09-08 23:00] LABS: Basophils Percent Auto 0.4 % (0-2); Eosinophils Absolute Auto 0.1 X10*3/uL (0.0-0.4); Eosinophils Percent Auto 1.5 % (0-4); Hematocrit 36.9 % (37.0-47.0); Hemoglobin 11.6 g/dl (12.0-16.0); Imm Gran Abs Auto 0.02 X10*3/uL (0.00-0.03); Imm Gran Pct Auto 0.3 % (0.0-0.4); Lymphocytes Absolute Auto 2.7 X10*3/uL (1.2-4.9); Lymphocytes Percent Auto 34.4 % (20-40); Mean Corpuscular HGB Conc 31.4 g/dl (31.0-35.0); Mean Corpuscular Volume 82.6 fL (80.0-98.0); Mean Platelet Volume 9.8 fL (9.4-12.3); Monocytes Absolute Auto 0.6 X10*3/uL (0.1-1.2); Monocytes Percent Auto 7.5 % (2-11); Neutrophils Absolute Auto 4.4 x10*3/uL (2.0-8.3); Neutrophils Percent Auto 55.9 % (45-73); Platelet Count 251 X10*3/uL (160-400); Red Blood Count 4.47 X10*6/uL (4.20-5.50); Red Cell Distribution Width 13.8 % (11.0-16.0); White Blood Count 7.9 X10*3/uL (4.8-10.8)
[2023-09-08 23:14] LABS: Alanine Aminotransferase 28 U/L (0-31); Albumin Level 3.9 g/dL (3.5-5.0); Alkaline Phosphatase 120 U/L (39-117); Anion Gap 13 (12-20); Aspartate Amino Transferase 30 U/L (5-31); Bilirubin Total 0.2 mg/dL (0.0-1.0); Blood Urea Nitrogen 15 mg/dL (9-16); Carbon Dioxide 21 mmol/L (22-29); Chloride 108 mmol/L (96-108); Creatinine Clr Calc Pharmacy 59.2; Estimated Glomerular Filt Rate > 60; Glucose Random 170 mg/dL (60-115); Potassium 4.1 mmol/L (3.3-5.1); Sodium 138 mmol/L (135-145); Total Protein 7.5 g/dL (6.5-8.0)
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
[2023-09-08 23:29] LABS: Troponin-I High Sensitivity < 2.7 ng/L (<3.5-17.0)
[2023-09-08] MEDS: iohexoL 350 MG/ML 100 ML INFUS..BTL 85 ML IV (23:52)
[2023-09-09 00:12] VITALS: BP 138/76; PULSE 69; RESP 17; TEMP 36.7; O2SAT 96
[2023-09-09 00:20] LABS: Appearance Urine Clear; Color Urine Yellow; Glucose Urine UA Negative (Negative); Leukocyte Esterase Urine Negative (Negative); Nitrite Urine Negative (Negative); PH 5.5 (5.0-9.0); Specific Gravity - Urine >= 1.030 (1.005-1.025); UMIC TRIGGER UACC YES; Urine Blood Trace (Negative); Urine Ketones Negative (Negative); Urine Protein Negative (Neg-Trace)
[2023-09-09 00:29] LABS: Bacteria Urine 2+ (None Seen); Hyaline Casts Urine 0-2 /LPF (0-2); RBC Urine 0-2 /HPF (0-2); Squamous Epithelial Cell Urine 0-2 /HPF (0-2); WBC Urine 0-5 /HPF (0-5)
[2023-09-09] MEDS: 0.9 % Sodium Chloride 1,000 ML 999 ML IV (01:15)
== END 2023-09-09 02:48 | disposition home or self-care (01) ==
PROVIDERS: Emergency Provider Student in an Organized Health Care Education/Training Program; PCP Family Medicine
DX: R42 Dizziness and giddiness (principal); R26.81 Unsteadiness on feet; I10 Essential (primary) hypertension; I49.3 Ventricular premature depolarization; Z79.899 Other long term (current) drug therapy
CPT/HCPCS: 36415; 70450; 70496; 70498; 80053; 81001; 84484; 85025; 93005; 96360; 99284; 99285; Q9967

== ENCOUNTER → 2023-09-08 22:48 | Outpatient (BNV) | payer OTHER, SELFPAY | PROVIDERS: Emergency Provider Student in an Organized Health Care Education/Training Program; PCP Family Medicine; Visit Provider Internal Medicine | DX: R94.31 Abnormal electrocardiogram [ECG] [EKG] (principal) | CPT/HCPCS: 93010 ==

== ENCOUNTER 2023-09-21 14:45 | Outpatient (AMB) | payer OTHER, SELFPAY ==
[2023-09-21 14:47] VITALS: BP 110/72; BMI 30.4
--- NOTE | 2023-09-21 14:47 | MHC.OFFVIS ---
Intake Vital Signs 09/21/23 14:47 Height 5 ft 2 in Weight 166 lb 3.657 oz BMI 30.4 BP 110/72 Blood Pressure Location Lt brachial Position Sitting Intake Visit Reasons: 2 yrs followup w/ekg dx: atypical cp Intake Note: pt its for a 2 month f/yp with ekg. pt been feeling dizzy, some chest pain. [employer] Social Worker Required: No Accompanied by: Self / Same As Patient Allergies aspirin [ASA] Allergy (Intermediate, Verified 09/08/23 22:09) SWELLING Sulfa (Sulfonamide Antibiotics) [SULFA (SULFONAMIDE ANTIBIOTICS)] Allergy (Intermediate, Verified 09/08/23 22:09) RASH, SWELLING ibuprofen Allergy (Unknown, Uncoded 09/08/23 22:09) swelling Medication List - Last Reviewed 09/21/23 by Brittany Brody MA baclofen 20 mg PO TID clonazepam 0.5 mg PO BID PRN duloxetine 120 mg PO DAILY hydroxyzine HCl 25 mg PO QID omeprazole 20 mg PO DAILY trazodone mg PO trazodone 200 mg PO BEDTIME HPI HPI Comments History of Present Illness Details Savi comes for follow-up for her PVCs and hypertension although she is currently not taking metoprolol. Despite that she has not having any significant symptoms of palpitation blood pressure is well controlled. Recently she was having symptoms of dizziness which she describes where she says that eyes fluttering and she gets severely imbalance and she says she walks like a drunk. She fell down and on a burden she came to the emergency for evaluation. She had a workup done including CTA of neck and head CT which showed no acute intracranial pathology and no evidence of stenosis. She comes for follow-up. Continues to be very limited with activity level and feels imbalance. [facility] Medical History PVC (premature ventricular contraction) HTN (hypertension) COVID-19 Surgical History History of esophagogastroduodenoscopy (EGD) Hx of colonoscopy Social History Alcohol intake: never Review of Systems Const Denies chills, Denies fatigue, Denies fever(s), Reports frequent falls, Reports weakness, Denies weight gain and Denies weight loss ENT Reports dizziness Card Denies chest pain, Denies leg edema, Reports lightheadedness, Denies palpitations, Denies dyspnea and Denies dyspnea on exertion Resp Denies cough, Denies dyspnea and Denies dyspnea on exertion GI Denies hematochezia Musc Denies abnormal gait, Denies muscle weakness, Denies numbness, Denies radiating pain into limb and Denies tingling Neuro Denies abnormal gait, Reports dizziness, Reports frequent falls, Denies numbness, Denies tingling and Reports weakness Endo Denies fatigue and Denies palpitations Physical Exam Vital Signs: Last Vital Signs BP 110/72 09/21/23 14:47 BMI result Body Mass Index 30.4 Const General: cooperative, comfortable, no acute distress, alert and awake Nutritional Appearance: overweight Orientation/consciousness: patient oriented x3 Limitations: no limitations Neck Neck: Yes trachea midline, Yes supple and Yes no JVD Resp Effort & Inspection: normal respiratory effort Auscultation: clear to auscultation bilaterally Cardio Jugular venous distension: no JVD Palpation: normal PMI Rate: regular rate Rhythm: regular rhythm Heart sounds: S1 normal heart sound present, S2 normal heart sound present, no click, no gallops, no murmurs and no rubs GI Auscultation: normal bowel sounds Skin General skin exam: no rashes or lesions noted Neuro General: patient oriented x3 and no focal motor deficits Extrem General: Yes no clubbing, cyanosis or edema Office Procedures EKG Details: EKG shows normal sinus rhythm with nonspecific T-wave changes, unchanged from EKG from 1 week ago [id number], Complete Assessment & Plan Assessment & Plan (1) PVC (premature ventricular contraction): Code(s): I49.3 - Ventricular premature depolarization Plan: No significant symptoms related to PVCs. Currently of metoprolol therapy without increased symptoms at this point time can continue to hold metoprolol therapy. Use only if she becomes significantly symptomatic. Avoidance of stimulants was discussed. Stress mitigation strategies were discussed. Benign nature of isolated PVCs in setting of normal structure of the heart was discussed with her. (2) HTN (hypertension): Code(s): I10 - Essential (primary) hypertension Plan: Hypertension which is currently well optimized without any medications. Continue stress mitigation strategies. Continue participate in heart healthy lifestyle. Low-salt diet was discussed. Advised to increase exercise activity as well as participate in weight loss program. She understands and agrees. (3) Vertigo: Code(s): R42 - Dizziness and giddiness Plan: Recent symptoms highly suggestive of vertigo. There is no obvious intracranial pathology or carotid artery disease. Advised to seek your care and I think she may benefit from physical therapy consultation. Will follow up in the clinic in 2 years time, sooner p.r.n.. Thank you for allowing me to partake in the care Medications: Discontinued metoprolol succinate ER Discontinued Reason: Patient no longer taking 50 mg PO BID 180 tabs 3RF Coding Level of Care Code Est Pt Level 4 (72283) Diagnoses PVC (premature ventricular contraction) I49.3 HTN (hypertension) I10 Vertigo R42 CPT Codes EKG - CPT: 85857-[id number], Complete ([id number])
== END 2023-09-21 15:20 | disposition home or self-care (01) ==
PROVIDERS: PCP Family Medicine; Visit Provider Internal Medicine Cardiovascular Disease
DX: I49.3 Ventricular premature depolarization (principal); I10 Essential (primary) hypertension; R42 Dizziness and giddiness
CPT/HCPCS: 93010; 99214

== ENCOUNTER → 2023-09-21 14:45 | Outpatient (BNVA) | payer OTHER, SELFPAY | PROVIDERS: PCP Family Medicine; Visit Provider Internal Medicine Cardiovascular Disease | DX: I49.3 Ventricular premature depolarization (principal); I10 Essential (primary) hypertension; R42 Dizziness and giddiness | CPT/HCPCS: 93005; 99212 ==

== ENCOUNTER 2023-10-08 14:11 | Outpatient (REF) | payer OTHER, SELFPAY ==
--- NOTE | ~2023-10-08 | MR_ITS ---
EXAMINATION: MR BRAIN WITHOUT CONTRAST CLINICAL INFORMATION: Vertigo, dizziness, presyncope COMPARISON: CTA 09/08/2023 TECHNIQUE: MRI of the brain was obtained using routine sequences without contrast. FINDINGS: No acute infarct. No acute intracranial hemorrhage or extra-axial fluid collection. Mild global cerebral volume loss. Patchy T2 FLAIR hyperintense foci in the subcortical and periventricular white matter and brainstem, nonspecific but presumably mild chronic microangiopathy. Prominent perivascular spaces within the inferior basal ganglia. No mass lesion, mass effect, or herniation pattern. Normal intracranial arterial and dural venous sinus flow voids. Partially empty sella. The orbits are grossly unremarkable. Retention cysts in the left sphenoid and bilateral maxillary sinuses. Normal marrow signal. MR/MR head/brain wo con IMPRESSION: 1. No acute intracranial findings. 2. Mild global cerebral volume loss and white matter disease, presumed mild chronic microangiopathy. 3. Partially empty sella.
== END 2023-10-08 14:12 | disposition home or self-care (01) ==
LOC: HO.MRI 14:11
PROVIDERS: PCP Family Medicine; Visit Provider Student in an Organized Health Care Education/Training Program
DX: R42 Dizziness and giddiness (principal)
CPT/HCPCS: 70551

== ENCOUNTER → 2023-10-31 13:05 | Outpatient (REF) | payer OTHER, SELFPAY | LOC: HO.SL 13:05 | PROVIDERS: PCP Family Medicine; Visit Provider Family Medicine | DX: G47.30 Sleep apnea, unspecified (principal); R06.83 Snoring; R40.0 Somnolence | CPT/HCPCS: 95806 ==

== ENCOUNTER → 2023-10-31 19:00 | Outpatient (BNV) | payer OTHER, SELFPAY | PROVIDERS: PCP Family Medicine; Visit Provider Internal Medicine | DX: R06.83 Snoring (principal) | CPT/HCPCS: 95806 ==

== ENCOUNTER 2023-11-01 15:00 | Outpatient (RCR) | payer OTHER, SELFPAY ==
[2023-10-23 14:09] VITALS: BP 140/76; PULSE 74
== END 2024-01-16 10:29 | disposition home or self-care (01) ==
LOC: HO.PT 15:00
PROVIDERS: PCP Family Medicine; Visit Provider Family Medicine
DX: H81.10 Benign paroxysmal vertigo, unspecified ear (principal)
CPT/HCPCS: 95992; 97161; 97162

== ENCOUNTER 2024-01-23 16:57 | Outpatient (REF) | payer OTHER, SELFPAY ==
--- NOTE | ~2024-01-23 | XR_ITS ---
EXAMINATION: XR LEFT HIP XR LEFT KNEE CLINICAL INFORMATION: Pain due to injury, fall. TECHNIQUE: 4 views left knee. 2 views left hip. COMPARISON: Left hip 05/17/2019. FINDINGS: LEFT KNEE: Trace joint effusion. Minimal degenerative changes in the medial and patellofemoral compartments with joint space narrowing and minimal osteophyte formation. LEFT HIP: Mild degenerative changes in the left hip with joint space narrowing and hypertrophic change. Alignment maintained. Limited visualization due to bone and overlying soft tissue structures. XR/XR knee LT 4V IMPRESSION: 1. Mild degenerative changes in the left hip. 2. Minimal degenerative changes in the left knee. 3. Additional imaging with CT scan should be considered for further evaluation if there is clinical concern for fracture or other underlying pathology.
--- NOTE | ~2024-01-23 | XR_ITS ---
EXAMINATION: XR LEFT HIP XR LEFT KNEE CLINICAL INFORMATION: Pain due to injury, fall. TECHNIQUE: 4 views left knee. 2 views left hip. COMPARISON: Left hip 05/17/2019. FINDINGS: LEFT KNEE: Trace joint effusion. Minimal degenerative changes in the medial and patellofemoral compartments with joint space narrowing and minimal osteophyte formation. LEFT HIP: Mild degenerative changes in the left hip with joint space narrowing and hypertrophic change. Alignment maintained. Limited visualization due to bone and overlying soft tissue structures. XR/XR hip LT min 2V IMPRESSION: 1. Mild degenerative changes in the left hip. 2. Minimal degenerative changes in the left knee. 3. Additional imaging with CT scan should be considered for further evaluation if there is clinical concern for fracture or other underlying pathology.
== END 2024-01-23 16:58 | disposition home or self-care (01) ==
LOC: HO.XRAY 16:57
PROVIDERS: Absent Provider Family Medicine; PCP Family Medicine; Visit Provider Nurse Practitioner Family
DX: M25.562 Pain in left knee (principal); M25.552 Pain in left hip; Z91.81 History of falling
CPT/HCPCS: 73502; 73564

== ENCOUNTER 2024-02-12 09:51 | Outpatient (AMB) | payer OTHER, SELFPAY ==
--- NOTE | 2024-02-12 09:51 | A.OFFVIS_ITS ---
Intake Visit Reasons: Gastroesophageal reflux disease (GERD) Intake Note: Savi presents in the office as a follow up for GERD. CC: She states she is still having acid reflux. She had a study for her swallowing and wants results. Studio Technician Video Operator Required: No Allergies aspirin [ASA] Allergy (Intermediate, Verified 09/08/23 22:09) SWELLING Sulfa (Sulfonamide Antibiotics) [SULFA (SULFONAMIDE ANTIBIOTICS)] Allergy (Intermediate, Verified 09/08/23 22:09) RASH, SWELLING ibuprofen Allergy (Unknown, Uncoded 09/08/23 22:09) swelling HPI HPI Gastroesophageal reflux disease (GERD): Details: 58 yr old f with hx of OA, hematuria, called for f/u of GI sx LAST seen 2020 RECAP--originally pt of erik Patient was seen in April 2018- by her and by me 2018 last h/o persistent loose movements and cramping Labs in [facility] from 2012 and 2013 were negative for celiac sprue but patient wanted to be sure via EGD biopsy. Patient underwent an EGD with Dr Lazar on 07/17. Was noted for a small hiatal hernia with gastric cobblestoning. The small intestine villi were normal. Biopsy were negative for celiac sprue but positive for h.pylori. received treatment for H pylori she was also seen for MEANS, imaging studies with fatty liver. has seen urology for abdo pain and hematuria colonoscopy 2013--normal but no rando bx taken, minor diverticulosis EGD done 08/2019 with savary dilation with small tear seen - esophageal bx were nml Ba swallow by PCP: 09/22 Mild esophageal hypomotility with occasional tertiary contractions, mild cricopharyngeal thickening INTERIM: she was having diarrhea she changed diet and stopped lactose products prachi milk and its improved a lot she is due colonoscopy she feels like a lot of mucous in her throat she feels food getting stuck sometimes, usu solids, rice she is taking omeprazole 20 mg but still has break thru attacks A/P: 1/ dysphagia, likely related to GERD, or due to cricopharyngeal hypertrophy 2/ diarrhea, 2/2 to lactose intolerance PLAN: 1/ She wants to hold on EGD with dilation--will increase omeprazole to 40 mg in meantime 2/ colonoscopy screening, [facility] Medical History PVC (premature ventricular contraction) HTN (hypertension) COVID-19 Surgical History History of esophagogastroduodenoscopy (EGD) Hx of colonoscopy Social History Alcohol intake: never Telehealth Telehealth Telehealth Platform: Telephone Location of provider rendering services: practice address Location of patient: address on file Patient Identification confirmed using: Name, : Yes Telehealth method: voice only Patient verbally consented to treatment: Yes Patient verbally consented to billing insurance company: Yes Patient informed of any privacy concerns related to visit: Yes Minutes spent on Phone/Video with Pt.: 9 Assessment & Plan Assessment & Plan (1) GERD with stricture: Code(s): K21.9 - Gastro-esophageal reflux disease without esophagitis; K22.2 - Esophageal obstruction Category: Medical Plan: see above (2) Screening for colon cancer: Code(s): Z12.11 - Encounter for screening for malignant neoplasm of colon Category: Medical Plan: see above Coding Level of Care Code Tele Est Pt Level 3 (34098) Diagnoses GERD with stricture K21.9; K22.2 Screening for colon cancer Z12.11
== END 2024-02-12 11:06 | disposition home or self-care (01) ==
LOC: HO.HGI 09:51
PROVIDERS: PCP Family Medicine; Visit Provider Internal Medicine Gastroenterology
DX: K21.9 Gastro-esophageal reflux disease without esophagitis (principal); K22.2 Esophageal obstruction; Z12.11 Encounter for screening for malignant neoplasm of colon
CPT/HCPCS: 99213

== ENCOUNTER → 2024-02-12 09:51 | Outpatient (BNVA) | payer OTHER, SELFPAY | PROVIDERS: PCP Family Medicine; Visit Provider Internal Medicine Gastroenterology ==

== ENCOUNTER 2024-02-19 12:38 | Outpatient (REF) | payer OTHER, SELFPAY ==
--- NOTE | ~2024-02-19 | XR_ITS ---
EXAMINATION: BILATERAL HIPS WITH SACRUM AND COCCYX CLINICAL INFORMATION: Fell on December 21 still having pain COMPARISON: Left hip 01/23/2024, CT abdomen pelvis 10/25/2022 TECHNIQUE: Single view pelvis and both hips, 3 views sacrum and coccyx FINDINGS: No fractures are seen. 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 XR/XR sacrum coccyx min 2V IMPRESSION: No evidence of an acute osseous injury. 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 As stated previously, if there is concern for an occult fracture which would require treatment, recommend CT scan.
--- NOTE | ~2024-02-19 | XR_ITS ---
EXAMINATION: BILATERAL HIPS WITH SACRUM AND COCCYX CLINICAL INFORMATION: Fell on December 21 still having pain COMPARISON: Left hip 01/23/2024, CT abdomen pelvis 10/25/2022 TECHNIQUE: Single view pelvis and both hips, 3 views sacrum and coccyx FINDINGS: No fractures are seen. 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 XR/XR hip BI w PEL1V IMPRESSION: No evidence of an acute osseous injury. 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 As stated previously, if there is concern for an occult fracture which would require treatment, recommend CT scan.
== END 2024-02-19 12:39 | disposition home or self-care (01) ==
LOC: HO.HHCX 12:38
PROVIDERS: Visit Provider Family Medicine
DX: M79.18 Myalgia, other site (principal)
CPT/HCPCS: 72220; 73521

== ENCOUNTER 2024-02-24 15:09 | Outpatient (REF) | payer OTHER, SELFPAY ==
--- NOTE | ~2024-02-24 | MR_ITS ---
EXAMINATION: MR KNEE WITHOUT CONTRAST, LEFT CLINICAL INFORMATION: Significant pain, status post fall. COMPARISON: None available. TECHNIQUE: MRI of the knee without contrast was performed using routine sequences on a high-field scanner. FINDINGS: MENISCI: Medial Meniscus: There is fraying/tear of the inner aspect of the midportion of the posterior horn. Lateral Meniscus: Intact LIGAMENTS: Cruciate: ACL is intact. Mild T2 signal in the PCL could reflect mucoid degeneration or sprain. Collateral: Grade 2 sprain/partial tear MCL. Biceps femoris tendon is intact. Mild edema associated with the fibular collateral ligament, from possible sprain. Intact iliotibial band. EXTENSOR MECHANISM: Intact ARTICULAR CARTILAGE/BONE: Patellofemoral Compartment: Mild lateral patellar subluxation. No significant chondral loss. Medial Compartment: No significant chondral loss. Lateral Compartment: Severe edema in the mid/posterior aspect of the lateral femoral condyle. Findings compatible with severe bone contusion. There is linear configuration to some of the signal changes in the posterior aspect of the femoral condyle, best seen on the sagittal sequences, which could represent undisplaced fracture/trabecular microfracture. Edema in the posterior aspect of the lateral tibial plateau, compatible with bone contusion. No significant chondral loss is appreciated. JOINT FLUID AND BURSAE: Small-moderate effusion. No significant Monterroso's cyst. Subcutaneous edema. Increased signal in the popliteus tendon, which could reflect reactive edema or strain. Mild proximal medial gastrocnemius tendinosis. MR/MR knee LT wo con IMPRESSION: 1. Fraying/tear in the inner aspect of the midportion of the posterior horn of the medial meniscus. 2. Mucoid degeneration versus sprain PCL. 3. Grade 2 sprain/partial tear MCL. Possible sprain fibular collateral ligament. 4. Severe edema in the mid/posterior aspect of the lateral femoral condyle, compatible with severe bone contusion. Linear signal changes in the posterior aspect of the lateral femoral condyle, could represent undisplaced fracture/trabecular microfracture. Bone contusion in the posterior aspect of the lateral tibial plateau. 5. Small-moderate effusion. 6. Popliteus tendon reactive edema versus strain. Mild proximal medial gastrocnemius tendinosis. The report will be called to the ordering clinician by a [place] [facility] Physician Cafe Server.
== END 2024-02-24 15:10 | disposition home or self-care (01) ==
LOC: HO.MRI 15:09
PROVIDERS: PCP Family Medicine; Visit Provider Family Medicine
DX: M25.562 Pain in left knee (principal)
CPT/HCPCS: 73721

== ENCOUNTER 2024-03-12 15:00 | Outpatient (REF) | payer OTHER, SELFPAY ==
--- NOTE | ~2024-03-12 | MM_ITS ---
EXAMINATION: MM SCREENING DIGITAL BREAST TOMOSYNTHESIS, BILATERAL CLINICAL INFORMATION: Screening. Asymptomatic. COMPARISON: Mammography: This study is compared with prior exams dating back to 2012 TECHNIQUE: Digital breast tomosynthesis is performed in both the craniocaudal and mediolateral oblique views along with computer-aided detection (CAD). Synthesized 2D images are generated from the tomosynthesis. FINDINGS: There are scattered areas of fibroglandular density (ACR BI-RADS breast composition Category b). There are no significant masses, abnormal calcifications, or other abnormalities. MM/MM tomosynthesis screening BI IMPRESSION: No mammographic evidence of malignancy. ASSESSMENT: BI-RADS BI-RADS 1 - Negative RECOMMENDATION: Routine annual mammography screening. 1 year F/U This examination should not preclude the clinical evaluation of a suspicious palpable abnormality. This patient's information was entered into a reminder system with a target due date for their next mammogram. Electronically signed by: Soco Faith MD 04/10/2024 08:02 AM EDT
== END 2024-03-12 15:01 | disposition home or self-care (01) ==
LOC: HO.MAMMO 15:00
PROVIDERS: PCP Family Medicine; Visit Provider Family Medicine
DX: Z12.31 Encounter for screening mammogram for malignant neoplasm of breast (principal)
CPT/HCPCS: 77063; 77067

== ENCOUNTER 2024-03-18 10:07 | Outpatient (AMB) | payer OTHER, SELFPAY ==
[2024-03-18 10:12] VITALS: BP 128/84; PULSE 71
--- NOTE | 2024-03-18 10:12 | A.OFFVIS_ITS ---
Vital Signs 03/18/24 10:12 Height 5 ft 2 in Weight 164 lb 0.383 oz BMI 30.0 BP 128/84 Blood Pressure Location Lt brachial Position Sitting Pulse 71 Pulse Source Pulse Oximeter Intake Visit Reasons: Empty sella Intake Note: New patient present today for Empty sella office visit. Psychiatric Clinical Nurse Specialist Required: No Allergies aspirin [ASA] Allergy (Intermediate, Verified 03/18/24 10:16) SWELLING Sulfa (Sulfonamide Antibiotics) [SULFA (SULFONAMIDE ANTIBIOTICS)] Allergy (Intermediate, Verified 03/18/24 10:16) RASH, SWELLING ibuprofen Allergy (Unknown, Uncoded 03/18/24 10:16) swelling HPI Comments Details: Is a 58-year-old female sent to endocrinology for evaluation of partial empty sella syndrome. MRI performed because of vertigo The patient denies any symptoms of adrenal insufficiency or hypothyroidism or denies any breast discharge. She complains of blurry vision . No sx of acromegaly PFSH Medical History PVC (premature ventricular contraction) HTN (hypertension) COVID-19 Surgical History History of esophagogastroduodenoscopy (EGD) Hx of colonoscopy Social History Alcohol intake: never Physical Exam Const Other: There are no acromegalic or cushingoid features. There is no visual field loss by gross confrontation Assessment & Plan Assessment & Plan (1) Empty sella syndrome: Code(s): E23.6 - Other disorders of pituitary gland Category: Medical Plan: This is a 58-year-old female with a history of partial empty sella syndrome seen on MRI of the brain. Most commonly, partial empty sella syndrome is a benign radiologic finding incidentally. However, will rule out in rare cases the presence of hyperprolactinemia or cortisol deficiency. Patient appears to be clinically and biochemically euthyroid Plan is to obtain a.m. cortisol and prolactin. I will also obtain a MRI dedicated pituitary with gadolinium to rule out a pituitary mass which could mimic partial empty sella syndrome. I do not think her vertigo is related to the pituitary finding but her primary care provider should refer her for neurological assessment. This was told to the patient Orders: Orders Prolactin Today E23.6 - Other disorders of pituitary gland MR head/brain wo/w con Today E23.6 - Other disorders of pituitary gland Cortisol Random Today E23.6 - Other disorders of pituitary gland Coding Level of Care Code New Pt Level 4 (01402) Diagnoses Empty sella syndrome E23.6
== END 2024-03-18 10:37 | disposition home or self-care (01) ==
PROVIDERS: PCP Family Medicine; Visit Provider Internal Medicine Endocrinology, Diabetes & Metabolism
DX: E23.6 Other disorders of pituitary gland (principal)
CPT/HCPCS: 99204

== ENCOUNTER → 2024-03-18 10:07 | Outpatient (BNVA) | payer OTHER, SELFPAY | PROVIDERS: PCP Family Medicine; Visit Provider Internal Medicine Endocrinology, Diabetes & Metabolism | DX: E23.6 Other disorders of pituitary gland (principal) | CPT/HCPCS: 99202 ==

== ENCOUNTER 2024-03-28 09:07 | Outpatient (REF) | payer OTHER, SELFPAY ==
[2024-03-28 11:04] LABS: Cortisol Random 12.2 ug/dL
[2024-03-29 21:48] LABS: Prolactin 4.1 ng/mL
== END 2024-03-28 09:08 | disposition home or self-care (01) ==
LOC: HO.LAB 09:07
PROVIDERS: PCP Family Medicine; Visit Provider Internal Medicine Endocrinology, Diabetes & Metabolism
DX: E23.6 Other disorders of pituitary gland (principal)
CPT/HCPCS: 36415; 82533; 84146

== ENCOUNTER 2024-04-02 12:48 | Outpatient (AMB) | payer OTHER, SELFPAY ==
--- NOTE | 2024-04-02 13:17 | MHC.OFFVIS ---
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 Patient reports she was walking fast in her backyard and there was a puddle of water mixed with soap from her grandson cleaning the grill, she slipped and fell backwards however she did not hit her knee. She is unsure if she twisted her knee at the time of the fall but immediately had pain once she stood up. She was unable to sleep for about a week due to her pain. She had vertigo so since the fall she feels instability. A month ago she was experiencing severe pains so she was taking Tylenol every 6-8 hours but did not find relief so she would also take the baclofen after. Now she had slight pain throughout the day but her pain is mainly in the night time sometimes waking her up since she sleeps on her side. She wore a compression sleeve, this helped mildly but did not relief the pain. 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 The patient reports that on that date, she fell onto her left knee, and immediately began to experience pain upon rising. The patient reports that her pain was ?excruciating? when it 1st occurred, but since that date, her pain has been steadily decreasing, and she states that her pain is very mild now. The patient states that her pain does still make it difficult for her asleep, as she likes to sleep on her left side and she experiences pain when doing so. Patient did have an MRI performed previously, and would like to discuss the results. The patient reports that she Patient denies any numbness or tingling in the left lower extremity. No other acute complaints or concerns at this time. [facility] Medical History (Updated 04/16/24 @ 09:48 by MAR Dunn) Empty sella syndrome PVC (premature ventricular contraction) HTN (hypertension) COVID-19 Surgical History History of esophagogastroduodenoscopy (EGD) Hx of colonoscopy Social History Alcohol intake: never Review of Systems Const All systems reviewed & are unremarkable except as noted in HPI and below Physical Exam Vital Signs: BMI result Body Mass Index 31.0 Extrem Other: On inspection, there is no visible deformity of the left knee No edema, erythema, ecchymosis noted No lacerations, abrasions, open areas No evidence of infection Patient reports mild tenderness to palpation of the joint No tenderness to palpation of the patella, parapatellar region, posterior knee, quad tendon, patellar tendon, tibial tubercle Patient is able to extend the left knee to 0 degrees and flex to approximately 120 degrees without difficulty No ligamentous laxity noted Distal sensation intact Capillary refill brisk Mildly positive Luca's of the medial joint line on the left Results Reviewed Results Reviewed: MRI obtained on 02/24/2024 and independently reviewed by me, Karlos Mckinney PA-C, demonstrate small tear or fraying of the medial meniscus on the left Radiologist reading: IMPRESSION: 1. Fraying/tear in the inner aspect of the midportion of the posterior horn of the medial meniscus. 2. Mucoid degeneration versus sprain PCL. 3. Grade 2 sprain/partial tear MCL. Possible sprain fibular collateral ligament. 4. Severe edema in the mid/posterior aspect of the lateral femoral condyle, compatible with severe bone contusion. Linear signal changes in the posterior aspect of the lateral femoral condyle, could represent undisplaced fracture/trabecular microfracture. Bone contusion in the posterior aspect of the lateral tibial plateau. 5. Small-moderate effusion. 6. Popliteus tendon reactive edema versus strain. Mild proximal medial gastrocnemius tendinosis. Dictated By: Cuate Wahl MD . Assessment & Plan Assessment & Plan (1) Tear of meniscus of left knee: Code(s): S83.207A - Unspecified tear of unspecified meniscus, current injury, left knee, initial encounter Category: Medical Plan 1. Medial meniscus tear of left knee Date of injury 01/23/2024 Patient is educated about this injury and the typical recovery course Patient is educated on the potential treatment options available Due to the patient's improvement with the last month and relatively mild findings on her MRI, both the patient and I feel it is best to proceed with conservative management at this time Patient be referred to physical therapy for strengthening, range of motion, stabilization of the left knee Patient is also educated conservative measures, such as rest, ice, elevation, and [id number] pain medication as needed Patient is amenable to this plan If Conservative measures are ineffective, the patient is advised to return to the office to discuss further treatment options Patient will follow-up as needed with acute concerns Coding Level of Care Code New Pt Level 3 (23738) Diagnoses Tear of meniscus of left knee S83.207A
[2024-04-02 13:19] VITALS: BMI 31.0
== END 2024-04-02 13:57 | disposition home or self-care (01) ==
PROVIDERS: PCP Family Medicine
DX: S83.207A Unspecified tear of unspecified meniscus, current injury, left knee, initial encounter (principal); W01.0XXA Fall on same level from slipping, tripping and stumbling without subsequent striking against object, initial encounter
CPT/HCPCS: 99203

== ENCOUNTER → 2024-04-02 12:48 | Outpatient (BNVA) | payer OTHER, SELFPAY | PROVIDERS: PCP Family Medicine | DX: S83.207A Unspecified tear of unspecified meniscus, current injury, left knee, initial encounter (principal) | CPT/HCPCS: 99202 ==

== ENCOUNTER → 2024-04-19 13:01 | Outpatient (BNV) | payer OTHER, SELFPAY | PROVIDERS: PCP Family Medicine; Visit Provider Radiology Diagnostic Radiology | DX: E23.6 Other disorders of pituitary gland (principal) | CPT/HCPCS: 70553 ==

== ENCOUNTER 2024-04-19 13:06 | Outpatient (REF) | payer OTHER, SELFPAY ==
--- NOTE | ~2024-04-19 | MR_ITS ---
EXAMINATION: MR BRAIN/SELLA WITHOUT AND WITH CONTRAST CLINICAL INFORMATION: Other disorders of the pituitary gland. Patient complaining of blurry vision, facial weakness, bilateral arm and leg weakness, headaches. COMPARISON: MRI brain 10/08/2023. MRI brain 04/28/2013. TECHNIQUE: Multiplanar multisequence MR imaging of the brain/sella was done prior to and following the intravenous administration of 4 mL IV Gadavist. Standard pituitary protocol sequences were utilized, exam performed on a 1.5 Jennifer Siemens magnet. FINDINGS: SELLA: -There is a partial empty sella present indicating incompetence of the diaphragma sella. Minimal left deviation of the infundibulum, with normal enhancement pattern and size. -The pituitary gland shows a concave superior border, and demonstrates no masses or abnormal/differential enhancement to suggest an underlying lesion. -The parasellar structures and suprasellar structures appear normal. No mass effect. The cavernous sinuses are normal. Meckel's caves are normal in size and signal. BRAIN: -There is no diffusion restriction. -There is no intracranial hemorrhage, acute infarction, mass effect, or edema. -Ventricles, sulci, and cisterns are normal in size and configuration for patient age. No shift of midline. Basal cisterns are patent. -There are a scattered punctate and minimally confluent foci of white matter T2 hyperintensity in the periventricular, subcortical, and hemispheric deep white matter and sallie (including the MLF's), nonspecific, but most likely sequela of microvascular ischemia. No specific pattern suggestive of demyelination. -Midline structures appear normally formed. -Posterior fossa structures appear normal. Cerebellar tonsils are appropriately located. -Major flow voids are preserved within the skull base. -After contrast administration, there is no abnormal intra-axial enhancement. -There is a smooth extra-axial dural-based right frontal enhancing meningioma measuring 1.3 x 0.5 x 0.8 cm (AP, TRV, CC). (Series 15, image 20; series 13, image 11). No underlying mass effect is evident. -The globes and orbital contents demonstrate no abnormalities. -Small amount of dependent mucosal thickening present in the medial left sphenoid sinus. Paranasal sinuses are otherwise normally pneumatized. -Nasal septum is midline. -The mastoids and tympanic cavities are normally aerated. -Extracranial soft tissues demonstrate no abnormalities. -No suspicious bone marrow changes are evident. TM joints demonstrate mild arthritic change. -Atlantoaxial joint is normally aligned. Mild degenerative changes. MR/MR head/brain wo/w con IMPRESSION: 1. Pituitary and sella are normal aside from a partial empty sella (indicating diaphragmatic sella incompetence). No evidence of focal pituitary gland lesion. 2. No evidence of intracranial hemorrhage, acute infarction, mass effect, or edema. No abnormal intra-axial enhancement. 3. There is a small right frontal dural based enhancing meningioma measuring 1.3 x 0.5 x 0.8 cm without underlying mass effect, unchanged from 10/08/2023.. 4. There are numerous bilateral scattered foci of punctate and minimally confluent white matter T2 hyperintensity in the supratentorial periventricular, subcortical, and hemispheric deep white matter, and sallie. Although no distribution or morphology specific to demyelinating disease, there can be considerable overlap in appearance with nonspecific small vessel ischemic changes. 5. Additional ancillary findings as discussed in the body of the report. Electronically signed by: Manjinder Khoury MD 05/28/2024 11:02 AM EDT
[2024-04-19] MEDS: gadobutroL 2 ML VIAL IVPUSH ×2 (14:54→14:56)
== END 2024-04-19 13:07 | disposition home or self-care (01) ==
LOC: HO.MRI 13:06
PROVIDERS: PCP Family Medicine; Visit Provider Internal Medicine Endocrinology, Diabetes & Metabolism
DX: E23.6 Other disorders of pituitary gland (principal)
CPT/HCPCS: 70553; A9585

== ENCOUNTER 2024-07-16 16:09 | Outpatient (REF) | payer OTHER, SELFPAY ==
[2024-07-22 11:43] LABS: Alphahydroxymidazolam,GCMS Ur NEGATIVE; Alphahydroxytriazolam, GCMS Ur NEGATIVE; Alprazolam, GCMS Urine NEGATIVE; Aminoclonazepam, GCMS Urine 87 (H); Flurazepam Metabolite,GCMS Ur NEGATIVE; Lorazepam GCMS Urine NEGATIVE; Nordiazepam, GCMS Urine NEGATIVE; Oxazepam, GCMS Urine NEGATIVE; Temazepam, GCMS Urine NEGATIVE
== END 2024-07-16 16:10 | disposition home or self-care (01) ==
LOC: HO.LNP 16:09
PROVIDERS: Visit Provider Family Medicine
DX: F39 Unspecified mood [affective] disorder (principal)
CPT/HCPCS: 80346

== ENCOUNTER 2024-07-18 10:54 | Outpatient (AMB) | payer OTHER, SELFPAY ==
[2024-07-18 10:59] VITALS: BP 128/78; PULSE 78; BMI 31.2
--- NOTE | 2024-07-18 10:59 | A.OFFVIS_ITS ---
Vital Signs 07/18/24 10:59 Height 5 ft 1 in Weight 165 lb 5.547 oz BMI 31.2 BP 128/78 Blood Pressure Location Rt brachial Position Sitting Pulse 78 Pulse Source Pulse Oximeter Intake Visit Reasons: f/u empty sellar syndrome Intake Note: Patient present today for Empty Sella Syndrome follow-up: Consumer Credit Counselor Required: No Accompanied by: Significant Other Allergies aspirin [ASA] Allergy (Intermediate, Verified 07/18/24 11:01) SWELLING Sulfa (Sulfonamide Antibiotics) [SULFA (SULFONAMIDE ANTIBIOTICS)] Allergy (Intermediate, Verified 07/18/24 11:01) RASH, SWELLING ibuprofen Allergy (Unknown, Uncoded 07/18/24 11:01) swelling Medication List - Last Reconciled 07/18/24 by Sunil Keen MD acetaminophen ER 650 mg PO Q12H PRN baclofen 20 mg PO TID cetirizine 10 mg PO DAILY clonazepam 0.5 mg PO BID PRN duloxetine 120 mg PO DAILY hydroxyzine HCl 25 mg PO QID metoprolol tartrate 50 mg PO BID omeprazole 40 mg PO DAILY sodium,potassium,mag sulfates 17.5-3.13-1.6 gram (Suprep Bowel Prep Kit) DILUTE; drink 1/2 at 6-8 pm and half at 11 PM- 1AM trazodone 200 mg PO BEDTIME HPI Comments Details: Is a 58-year-old female sent to endocrinology for evaluation of partial empty sella syndrome. MRI performed because of vertigo The patient denies any symptoms of adrenal insufficiency or hypothyroidism or denies any breast discharge. She complains of blurry vision . No sx of acromegaly . Workup for adrenal insufficiency and hyperprolactinemia were negative. MRI showed normal pituitary gland but empty sella but other findings as noted 3. There is a small right frontal dural based enhancing meningioma measuring 1.3 x 0.5 x 0.8 cm without underlying mass effect, unchanged from 10/08/2023.. 4. There are numerous bilateral scattered foci of punctate and minimally confluent white matter T2 hyperintensity in the supratentorial periventricular, subcortical, and hemispheric deep white matter, and sallie. Although no distribution or morphology specific to demyelinating disease, there can be considerable overlap in appearance with nonspecific small vessel ischemic changes. 5. Additional ancillary findings as discussed in the body of the report [facility] Medical History Empty sella syndrome PVC (premature ventricular contraction) HTN (hypertension) COVID-19 Surgical History History of esophagogastroduodenoscopy (EGD) Hx of colonoscopy Social History Alcohol intake: never Physical Exam Vital Signs: BMI result Body Mass Index 31.2 Assessment & Plan Assessment & Plan (1) Empty sella syndrome: Code(s): E23.6 - Other disorders of pituitary gland Category: Medical Plan: This is a 58-year-old female with a history of partial empty sella syndrome seen on MRI of the brain. Workup shows normal pituitary axis but other findings on MRI At This point, there is no need for any further endocrine workup or follow-up. I did discuss the other findings with the patient MRI including the possible presence of hemangioma. I will contact the patient's primary care provider at [facility] so she can make a referral to a neurosurgeon/neurologist for further evaluation. I also informed the patient to contact her primary care provider regarding the above. Coding Level of Care Code Est Pt Level 3 (76166) Diagnoses Empty sella syndrome E23.6
== END 2024-07-18 11:20 | disposition home or self-care (01) ==
PROVIDERS: PCP Family Medicine; Visit Provider Internal Medicine Endocrinology, Diabetes & Metabolism
DX: E23.6 Other disorders of pituitary gland (principal)
CPT/HCPCS: 99213

== ENCOUNTER → 2024-07-18 10:54 | Outpatient (BNVA) | payer OTHER, SELFPAY | PROVIDERS: PCP Family Medicine; Visit Provider Internal Medicine Endocrinology, Diabetes & Metabolism | DX: E23.6 Other disorders of pituitary gland (principal) | CPT/HCPCS: 99212 ==

== ENCOUNTER 2024-08-28 14:00 | Outpatient (REF) | payer OTHER, SELFPAY ==
--- OUTSIDE RECORDS SUMMARY | 2024-08-28 18:02 | XMS_ITS | Encounter Summary ---
Author Organization [employer] Address [address] [place] [address] Care Team Providers Care Bending Press Operator Name Role Phone Peyton Multani DO Primary Care Provider + [phone] Betito Irving Unavailable Unavailable Reason for Visit * Reason Onset Date Comments Referral 07/18/2024 Encounter Details Date Type Department Care Team ([facility] st Contact Info) Description 07/18/[address] [facility] MEDICINE [address] [place] [address] Peyton Multani DO [address] [place] [address] Referral Social History Tobacco Use Types Packs/Day Years Used Date Smoking Tobacco: Former Cigarettes Passive Smoke Exposure: Past Smokeless Tobacco: Never Alcohol Use Standard Drinks/Week Comments Never 0 (1 standard drink = 0.6 oz pur e alcohol) Depression Answer Date Recorded Patient Health Questionnaire-9 Score 6 10/10/2023 Patient Health Questionnaire-9 Score 6 10/10/2023 Last PHQ-9: Questionnaire Data Not on file 0 10/10/2023 Housing Stability Answer Date Recorded What is your housing situation today? I have courtney silva 10/17/[address] you li ve. Do you have problems with any of the following? None of the above 10/17/2023 Food Insecurity Answer Date Recorded Within the past 12 months, y ou worried that your food would run out before you got money to buy more: Never True 10/17/2023 Within the past 12 months,th e food you bought just didn't last and you didn't have enough money to get more: Never True Transportation Answer Date Recorded In the past 12 months, has l ack of transportation kept you from medical appts, meetings, work or from getting things needed for daily living? No 10/17/2023 Utilities Answer Date Recorded In the past 12 months, has t he electric, gas, oil or water company threatened to shut off services in your home? No 10/17/2023 Depression Answer Date Recorded Patient Health Questionnaire-2 Score 1 10/10/2023 Comments Unknown Sex and Gender Information Value Date Recorded Sex Assigned at Female 05/30/2022 10:22 AM EDT Legal Sex Female 10:22 AM EDT Gender Identity Female 05/30/2022 10:22 AM EDT Sexual Orientation Straight 05/30/2022 10 :22 AM EDT documented as of this encounter Miscellaneous Notes * Telephone Encounter - Brigida Bhatti RN - 08/12/2024 1:22 PM EST RN spoke to PCP in regards to below (referral not placed). RN advised referral will be placed todayas STAT. TC placed to patient [phone] in regards to below message the wireless caller you are calling is not available . RN unable to leave VM. TC placed to , who reports the patientis not with him but he will advise the patient to return call to [facility] when able. * Telephone Encounter - Sang Watson - 08/12/2024 12:48 PM EST Tc from pt requesting status on Neurosrugery referral. Please contact pt at [phone]. ([employer] Speaker) * Telephone Encounter - Brigida Bhatti RN - 07/22/2024 12:37 PM EST Incoming call from patient in regards to below message. Patient reports she does not want an appointment with PCP to discuss MRI results. Patient would just like for PCP to place neurosurgery referral STAT. Patient informed PCP will be advised to place referral and patient will receive a letter in the mail with appointment date and time or a call from neurosrugery office with appointment date andtime. Patient to f/u PRN. * Telephone Encounter - Brigida Bhatti RN - 07/19/2024 10:06 AM EST TC x2 placed to patient [phone] the wireless caller is not available in regards to below message. TC placed to [phone] however no answer, RN left requesting CB to red team nurses. Patient to f/u PRN. * Telephone Encounter - Brigida Bhatti RN - 07/18/2024 2:10 PM EST TC placed to patient [phone] the wireless caller is not available in regards to below message. RN will re-attempt tomorrow. * Telephone Encounter - Sang Watson - 07/18/2024 12:32 PM EST Tc from pt calling to request a referral for neurosurgeon. Pt stated she had an abnormal MRI as well as her Chemical Packager advised her to request referral for neurosurgeon MIGUEL. Please contact pt at [phone]. documented in this encounter Plan of Treatment Upcoming Encounters Date Type Department Care Team (Late st Contact Info) Description 10/01/2024 11:15 AM EST Office Visit [address] [address] Peyton Multani DO [address] [place] [address] 10/21/2024 2:00 PM EDT Clinical Support [address] [address] Odalis Anderson RN documented as of this encounter Visit Diagnoses Not on filedocumented in this encounter Additional Health Concerns Assessment Noted Time PHQ-9 Depression Total Score: 6 10/10/19 24 10:49 AM EDT documented as of this encounter Care Teams Bending Press Operator Relationship Specialty Start Date End Date Peyton Multani DO [address] [place] [address] PCP - General Family Medicine 04/17/13 Betito Irving FNP [address] [place] [address] Nurse Practitioner Family Medicine 06/13/23 documented as of this encounter
--- OUTSIDE RECORDS SUMMARY | 2024-08-28 18:02 | XMS_ITS | Encounter Summary ---
Author Organization [employer] Address [address] 7t [place] [address] Care Team Providers Care Shaping Machine Tender Name Role Phone TitoPetyon everett Primary Care Provider + [phone] Betito Irving Unavailable Unavailable Reason for Visit * Reason Onset Date Comments Referral 08/22/2024 Encounter Details Date Type Department Care Team (Late st Contact Info) Description 08/22/[address] [facility] [address] [place] [address] Brigida Bhatti, RN [address] [place] [address] Referral Social History Tobacco Use Types Packs/Day [...] Telephone Encounter - Brigida Bhatti RN - 08/27/2024 10:40 AM EST Noted. * Telephone Encounter - Brigida Bhatti RN - 08/27/2024 10:19 AM EST Insurance enrollment spoke to RN in regards to this patient. Patient called insurance enrollment instead of calling insurance directly in regards to determining offices which accept patients insurance. RN informed insurance enrollment of situation: -Patient had abnormal brain MRI ordered by endocrinology which requires referral to neurosurgery ([facility] endo provider contacted PCP directly to place referral and recommended neurosurgery at [facility]) -PCP placed STAT referral to [facility] however [facility] does not accept patients insurance -Referral sent to [facility] spine center however they do not see patient for dx needed -[facility] neurosurgery does not accept patients insurance -[facility] neurosurgery also does not accept patients insurance -Patient advised we can trial a PA for [facility] neurosurgery however patient was not interested after RNprovided patient with information needed per referral team (see above). Per insurance enrollment, patient is now interested in PA process for [facility] and patient willalso call the number on the back of her insurance card to inquire on which neurosurgery offices arecovered by the patients insurance. RN has contacted Sharon in referrals and notified her of patients decision to proceed with PA process for [facility]. Per above messages, referral team needed the following information from the patient for the PA process: [facility] [address] [place] [address] Provider Name: Dr. Dina Sawant NPI of Provider: [id number] NPI of facility: [id number] NPI numbers were provided to RN by insurance enrollment Per referrals, Sharon will work on process PA for [facility] referral. RN will update from referral team. Sending to referral team for above information. * Telephone Encounter - Gina Whitley - 08/26/2024 3:43 PM EST Tc from pt returning call pt was advised message placed above , as pt verbalized Ok and will be reaching out to insurance. * Telephone Encounter - Brigida Bhatti RN - 08/26/2024 2:50 PM EST RN received call from referral team. RN was informed [facility] does NOT accept patients insurance. RN was advised patient can proceed with PA process to [facility] or can call the phone number on the back of her insurance card to inquire which offices accept patients insurance. TC placed to [phone] to inform of above message the wireless caller you are calling is not available . TC placed to secondary number [phone] however no answer, RN left requesting CB to red team nurses. Patient to f/u PRN. * Telephone Encounter - Brigida Bhatti RN - 08/26/2024 2:34 PM EST TC placed to patient [phone] however automated recording the wireless caller you are calling is not available . TC placed to spouse [phone] however no answer, RN left requesting CB to red team nurses. Patient to f/u PRN. * Telephone Encounter - Sang Watson - 08/23/2024 4:52 PM EST Tc from pt returning call regarding message prior. * Telephone Encounter - Brigida Bhatti RN - 08/23/2024 2:06 PM EST RN informed by referral team: -[facility] spine center does not see patient for diagnosis in which patient needs to be referred for -[facility] does not accept patients insurance RN was advised patient can either continue with PA process to be seen at [facility] or patient will need to call the number on the back of her insurance card to inquire which neurosurgery offices patient can be seen. TC placed to patient [phone] the wireless caller you are calling is not available , RN unableto leave VM. TC placed to spouse [phone] however spouse reports he is not with the patient right now and will return call to [facility] when patient is with him. PCP recommended referral be sent to [facility]. RN called Sharon in referral team to notify of PCP recommendation. Sharon reports she [facility] RN will await for referral update. * Telephone Encounter - Brigida Bhatti RN - 08/23/2024 1:55 PM EST Patient walked into red team FD today stating she would like to be referred to [facility] spine instead [facility]. RN advised patient, referral team would be notified to process referral to [facility] spine center. Patient verbalized understanding. RN called Sharon in referrals to inform patient has decided for referral to be processed to [facility] spine center. Sharon will work on referral. * Telephone Encounter - Brigida Bhatti RN - 08/22/2024 12:30 PM EST Patient presented to Red Team FD stating she was informed by [facility] neurosurgery that their office does not accept patients insurance. RN called referral team who reports they processed referral to [facility] d/t PCP request in clinical question notes. RN was informed [facility] spine center DOES accept patients insurance. RN spoke to PCP who reports she requested it to [facility] as that is where Dr. Keen advised her the patient should be seen. Dr. Multani is agreeable for referral to be changed to [facility] spine center. RN notified patient who reports she will go to insurance enrollment to see if insurance can be changed to an insurance that is accepted by [facility] and will return to red team. Patient returned to red team with Hyun from insurance enrollment who reports a PA form can be completed to the patients insurance to see if they will approve the visit. RN called referral team and spoke to Candelario with Hyun and the patient. RN was informed the PA is something that can be completed however per referral team 99% of the time the PA's are denied if there are other offices in the area in which patient can be seen with her insurance. Patient reports she wants to be seen by [facility] as she wants the best doctor for her health and that is where the lead caster said to go . Vi reports the patient will need to call the office to obtain the following information: Facility name and address Phone Fax Provider Name NPI of provider NPI of facility The patient will then need to return to [facility] with this information for it to be provided to the referral team for the PA process to be started. RN was able to locate facility address, provider name, phone and fax online: [facility] Neurosurgery [address] [place] [address] [facility] [address] [place] [address] Provider Name: Dina Sawant RN provided patient with a printed out document with the above information and advised the patient to call the office to obtain the providers NPI and the facility NPI number. Patient is aware once that information is obtained to return to [facility] to begin PA process. Patient to f/u PRN. documented in this encounter Plan of Treatment Upcoming Encounters Date Type Department Care Team ([facility] st Contact Info) Description 10/01/2024 11:15 AM EST Office Visit [address] [place] [address] [address] P[place] [address] 10/21/2024 2:00 PM EDT Clinical Support [address] [place] [address] [address] Odalis Anderson RN documented as of this encounter Visit Diagnoses Not on filedocumented in this encounter Additional Health Concerns Assessment Noted Time PHQ-9 Depression Total Score: 6 10/10/19 24 10:49 AM EDT documented as of this encounter Care Teams Shaping Machine Tender Relationship Specialty Start Date End Date Peyton Multani DO [address] [place] [address] PCP - General Family Medicine 04/17/13 Betito Irving FNP [address] [place] [address] Nurse Practitioner Family Medicine 06/13/23 documented as of this encounter
--- OUTSIDE RECORDS SUMMARY | 2024-08-28 18:02 | XMS_ITS | Encounter Summary ---
Author Organization [employer] Address [address] [facility] 7t [place] [address] Care Team Providers Care Software Business Analyst Name Role Phone Peyton Multani DO Primary Care Provider [phone] Betito Irving Unavailable Unavailable Reason for Referral * Consultation (STAT) - Authorized Specialty Diagnoses / Procedures Referred By Sang alamo Referred To Contact Neurosurgery Diagnoses Abnormal brain MRI Peyton Multani DO [address] [place] [address] Phone: tel: fax: Rupesh العلي [address] [place] [address] Phone: tel: fax: Referral ID Status Reason Start Date Expiration Date Visits Requested Visits Authorized [id number] Authorized Specialty Services Required 08/12/2024 08/12/2025 1 1 Encounter Details Date Type Department Care Team (Late st Contact Info) Description 08/12/2024 Orders Only [facility] [address] [place] [address] Peyton Multani DO [address] [place] [address] Abnormal brain MRI (Primary Dx) Social History Tobacco Use Types Packs/Day Years [...] AM EDT documented as of this encounter Progress Notes * Peyton Multani DO - 08/12/2024 1:29 PM EST NS referral placed. documented in this encounter Plan of Treatment Upcoming Encounters Date Type Department Care Team (Late st Contact Info) Description 10/01/2024 11:15 AM EST Office Visit [facility] [address] [place] [address] Peyton Multani DO [address] [place] [address] 10/21/2024 2:00 PM EDT Clinical Support [facility] [address] [place] [address] Odalis Anderson RN Pending Results Name Type Priority Associated Diagnoses Date /Time Referral to Neurosurgery Outpatient Referral STAT Abnormal brain MRI 08/26/2024 Scheduled Referrals Name Type Priority Associated Diagnoses Order Schedule Referral to Neurosurgery Outpatient Referral STAT Abnormal brain MRI Expected: 08/12/2024 (Approximate), Expires: 08/12/2025 documented as of this encounter Visit Diagnoses Diagnosis Abnormal brain MRI- Primary Nonspecific (abnormal) findings on radiological and other examination of skull and head documented in this encounter Additional Health Concerns Assessment Noted Time PHQ-9 Depression Total Score: 6 10/10/19 24 10:49 AM EDT documented as of this encounter Care Teams Software Business Analyst Relationship Specialty Start Date End Date Peyton Multani DO [address] [place] [address] PCP - General Family Medicine 04/17/13 Betito Irving FNP [address] [place] [address] Nurse Practitioner Family Medicine 06/13/23 documented as of this encounter
--- OUTSIDE RECORDS SUMMARY | 2024-08-28 18:02 | XMS_ITS | Encounter Summary ---
Author Organization [employer] Address [address] [facility] 7t [place] [address] Care Team Providers Care Toe Trimmer Name Role Phone Peyton Multani DO Primary Care Provider + [phone] Betito Irving Unavailable Unavailable Reason for Visit * Reason Onset Date Comments Med Refill 02/23/2024 Encounter Details Date Type Department Care Team ([facility] st Contact Info) Description 02/23/2024 Telephone [facility] [address] [place] [address] Peyton Multani DO [address] [place] [address] Med Refill Social History Tobacco Use Types Packs/Day Years [...] is your housing situation today? I have courtneyharitha silva 10/17/[address] you [...] encounter Miscellaneous Notes * Telephone Encounter - Peyton Avalos LPN - 02/23/2024 9:55 AM EDT Medication is prescribed by Cardiology. * Telephone Encounter - Laura Gay - 02/23/2024 9:53 AM EDT TC from pt requesting medication refill. Medications needing refill : metoprolol succinate XL (Toprol-XL) 50 MG 24 hr tablet To be sent to: [facility] Pharmacy documented in this encounter Plan of Treatment Upcoming Encounters Date Type Department Care Team (Late st Contact Info) Description 10/01/2024 11:15 AM EST Office Visit [facility] MEDICINE [address] [place] [address] Peyton Multani DO [address] [place] [address] 10/21/2024 2:00 PM EDT Clinical Support [facility] MED[facility]INE [address] [place] [address] Odalis Anderson RN documented as of this encounter Visit Diagnoses Not on filedocumented in this encounter Additional Health Concerns Assessment Noted Time PHQ-9 Depression Total Score: 6 10/10/19 24 10:49 AM EDT documented as of this encounter Care Teams Toe Trimmer Relationship Specialty Start Date End Date Peyton Multani DO [address] [place] [address] PCP - General Family Medicine 04/17/13 Betito Irving FNP [address] [place] [address] Nurse Practitioner Family Medicine 06/13/23 documented as of this encounter
--- OUTSIDE RECORDS SUMMARY | 2024-08-28 18:02 | XMS_ITS | Encounter Summary ---
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 OPERATOR RV Encounter Details Date Type Department Care Team (Latest Contact Info) Description 08/28/2024 2:00 PM EST Clinical Support [facility] MEDICINE [address] [place] [address] Odalis Anderson RN Mood disorder (CMS/HCC) (Primary Dx) Social History Tobacco Use Types [...] AM EDT documented as of this encounter Plan of Treatment Upcoming Encounters Date Type Department Care Team (Late st Contact Info) Description 10/01/2024 11:15 AM EST Office Visit [address] [address] Peyton Multani DO [address] [place] [phone] 10/21/2024 2:00 PM EDT Clinical Support [address] [address] Odalis Anderson, MAO Scheduled Orders Name Type Priority Associated Diagnoses Orde r Schedule Drug Monitoring, Benzodiazepines, Quantitative, Urine Lab Routine Mood disorder ([facility]/HCC) Ordered: 08/28/2024 documented as of this encounter Procedures Procedure Name Priority Date/Time Associated Diagnosis Comments POCT JESENIA-14 URINE DRUG SCREEN Routine 08/28/2024 2:42 PM EST Mood disorder (CMS/HCC) documented in this encounter Results * (ABNORMAL) POCT JESENIA-14 Urine Drug Screen (08/28/2024 2:42 PM EST) Benzodiazepines Screen, Urine Negative Urine Urine specimen obtained by clean catch procedure / Unknown 08/28/2024 2:42 PM EST Narrative Odalis Anderson RN - 08/28/2024 2:42 PM EST UTOX cup Lot#[id number] Exp. 04/24/26 Internal Pass Control Negative for all substances us Peyton Multani DO POINT OF CARE TEST ENTER/DANNIE T ORDERABLES Final Result documented in this encounter Visit Diagnoses Diagnosis Mood disorder (CMS/HCC)- Primary Unspecified episodic mood disorder documented in this encounter Additional Health Concerns Assessment Noted Time PHQ-9 Depression Total Score: 6 10/10/19 24 10:49 AM EDT documented as of this encounter Care Teams Turner Splitter Machine Operator Relationship Specialty Start Date End Date Peyton Multani DO [address] [place] [address] PCP - General Family Medicine 04/17/13 Betito Irving FNP [address] [place] [address] Nurse Practitioner Family Medicine 06/13/23 documented as of this encounter
--- OUTSIDE RECORDS SUMMARY | 2024-08-28 18:02 | XMS_ITS | Encounter Summary ---
Author Organization [employer] Address [address] 7t [place] [address] Care Team Providers Care Ice Cream Machine Operator Name Role Phone Peyton Multani DO Primary Care Provider Betito Irving Unavailable Unavailable Encounter Details Date Type Department Care Team (Latest Contact Info) Description 08/16/2024 Travel Social History Tobacco Use Types Packs/Day Years [...] Description 10/01/2024 11:15 AM EST Office Visit [address] [address] Peyton Multani DO [address] [place] [address] 10/21/2024 2:00 PM EDT Clinical Support [address] [address] Odalis Anderson, MAO documented as of this encounter Visit Diagnoses Not on filedocumented in this encounter Additional Health Concerns Assessment Noted Time PHQ-9 Depression Total Score: 6 10/10/19 24 10:49 AM EDT documented as of this encounter Care Teams Ice Cream Machine Operator Relationship Specialty Start Date End Date Peyton Multani DO [address] [place] [address] PCP - General Family Medicine 04/17/13 Betito Irving FNP [address] [place] [address] Nurse Practitioner Family Medicine 06/13/23 documented as of this encounter
--- OUTSIDE RECORDS SUMMARY | 2024-08-28 18:02 | XMS_ITS | Encounter Summary ---
Author Organization [employer] Address [address] [address] [facility] [address]t [place] [address] Care Team Providers Care Education Trainer Name Role Phone Peyton Multani DO Primary Care Provider + [phone] Betito Irving Unavailable Unavailable Reason for Visit * Reason Onset Date Comments Results 01/24/2024 Encounter Details Date Type Department Care Team ([facility] st Contact Info) Description 01/24/2024 Telephone [facility] MEDICINE [address] [place] [address] Peyton Multani DO [address] [place], [place] [phone] Results Social History Tobacco Use Types Packs/Day Years [...] encounter Miscellaneous Notes * Telephone Encounter - Quinton Pineda RN - 01/25/2024 11:14 AM EDT T/C to pt. To inform that her x-ray result is still pending did not read yet. Advised that will give call once [facility] receive result. Pt. Verbally agreed and understood. * Telephone Encounter - Sang Watson - 01/24/2024 12:02 PM EDT TC from pt requesting call back regarding Results. Type of results: Xray Date when done: 01/22 Facility: [facility] Armenian Speaker documented in this encounter Plan of Treatment Upcoming Encounters Date Type Department Care Team (Late st Contact Info) Description 10/01/2024 11:15 AM EST Office Visit [facility] MED[facility] [address] [place] [address] Peyton Multani DO [address] [place] [address] 10/21/2024 2:00 PM EDT Clinical Support [facility] [address] [place] [address] Odalis Anderson, RN documented as of this encounter Visit Diagnoses Not on filedocumented in this encounter Additional Health Concerns Assessment Noted Time PHQ-9 Depression Total Score: 6 10/10/19 24 10:49 AM EDT documented as of this encounter Care Teams Education Trainer Relationship Specialty Start Date End Date Peyton Multani DO [address] [place] [address] PCP - General Family Medicine 04/17/13 Betito Irving FNP [address] [place] [address] Nurse Practitioner Family Medicine 06/13/23 documented as of this encounter
--- OUTSIDE RECORDS SUMMARY | 2024-08-28 18:02 | XMS_ITS | Encounter Summary ---
Author Organization [employer] Address [address] [facility] [address] [address] 7[address] [place] [address] Care Team Providers Care Chief Psychology Name Role Phone Peyton Multani DO Primary Care Provider + [phone] Betito Irving Unavailable Unavailable Reason for Visit * Reason Comments Med Refill Encounter Details Date Type Department Care Team ([facility] st Contact Info) Description 07/16/2024 Refill [facility] MED[facility]INE [address] [place] [address] Peyton Multani DO [address] [place] [address] Mood disorder (CMS/HCC) Social History Tobacco Use Types Packs/Day Years [...] Description 10/01/2024 11:15 AM EST Office Visit [address] [address] Peyton Multani DO [address] [place] [address] 10/21/2024 2:00 PM EDT Clinical Support [address] [address] Odalis Anderson, MAO documented as of this encounter Visit Diagnoses Diagnosis Mood disorder (CMS/[facility]) Unspecified episodic mood disorder documented in this encounter Additional Health Concerns Assessment Noted Time PHQ-9 Depression Total Score: 6 10/10/19 24 10:49 AM EDT documented as of this encounter Care Teams Chief Psychology Relationship Specialty Start Date End Date Peyton Multani DO [address] [place] [address] PCP - General Family Medicine 04/17/13 Betito Irving FNP [address] [place] [address] Nurse Practitioner Family Medicine 06/13/23 documented as of this encounter
--- OUTSIDE RECORDS SUMMARY | 2024-08-28 18:02 | XMS_ITS | Encounter Summary ---
Author Organization [employer] Address [address] [facility] [address] 7[address] [place] [address] Care Team Providers Care Rural Service Engineer Name Role Phone Peyton Multani Primary Care Provider + [phone] Betito Irving Unavailable Unavailable Reason for Visit * Reason Onset Date Comments UTOX Neg BZO 08/28/2024 Encounter Details Date Type Department Care Team (Late st Contact Info) Description 08/28/2024 Telephone [facility] MEDICINE [address] [place] [address] Odalis Anderson, MAO UTOX Neg BZO Social History Tobacco Use Types Packs/Day Years [...] encounter Miscellaneous Notes * Telephone Encounter - Odalis Anderson RN - 08/28/2024 2:46 PM EST Pt had BANKING SERVICES OFFICER RV appt today UTOX was neg BZO, sent out for confirmation documented in this encounter Plan of Treatment Upcoming Encounters Date Type Department Care Team (Late st Contact Info) Description 10/01/2024 11:15 AM EST Office Visit [address] [address] Peyton Multani DO [address] [place] [address] 10/21/2024 2:00 PM EDT Clinical Support [address] [address] Odalis Anderson, MAO documented as of this encounter Visit Diagnoses Not on filedocumented in this encounter Additional Health Concerns Assessment Noted Time PHQ-9 Depression Total Score: 6 10/10/19 24 10:49 AM EDT documented as of this encounter Care Teams Rural Service Engineer Relationship Specialty Start Date End Date Peyton Multani DO [address] [place] [address] PCP - General Family Medicine 04/17/13 Betito Irving FNP [address] [place] [address] Nurse Practitioner Family Medicine 06/13/23 documented as of this encounter
--- OUTSIDE RECORDS SUMMARY | 2024-08-28 18:02 | XMS_ITS | Clinical Summary ---
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 Remove & discard patch within 12 hours or as directed by MD. 30 patch 5 3 Active omeprazole OTC (PriLOSEC OTC) 20 MG EC tablet Take 1 tablet (20 mg) by mouth before breakfast. Do not crush, chew, or split. 30 tablet 11 4 10/17/19 25 Active meclizine (Antivert) 12.5 MG tabletIndicatio ns:Vertigo TAKE 1 TABLET BY MOUTH THREE TIMES DAILY IN THE MORNING, AT NOON, AND AT BEDTIME NEEDED FOR DIZZINESS OR FOR NAUSEA 30 tablet 4 Active ondansetron (Zofran) 4 MG tablet TAKE 1 TABLET BY MOUTH EVERY 8 HOURS NEEDED FOR NAUSEA FOR UP TO 7 DAYS 10 tablet 4 Active DULoxetine (Cymbalta) [address] capsuleIndicati ons:Mood disorder (CMS/HCC) Take 1 capsule (60 mg) by mouth 2 times daily. Do not crush or chew. 180 capsule 3 4 Active hydrOXYzine HCl (Atarax) 25 MG tabletIndicatio ns:Mood disorder (CMS/HCC) Take 1 tablet (25 mg) by mouth every 6 (six) hours if needed for anxiety. 200 tablet 11 4 Active traZODone (Desyrel) 100 MG tabletIndicatio ns:Mood disorder (CMS/HCC) Take 2 tablets (200 mg) by mouth at bedtime. 180 tablet 3 4 Active baclofen (Lioresal) 10 MG tablet Take 1 tablet (10 mg) by mouth if needed in the morning, at noon, and at bedtime for muscle spasms. 60 tablet 3 4 Active famotidine (Pepcid) 40 MG tablet Take 1 tablet (40 mg) by mouth at bedtime. 30 tablet 3 4 02/19/20 25 Active metoprolol succinate XL (Toprol-XL) 50 MG 24 hr tablet Take 1 tablet (50 mg) by mouth 2 times daily. Do not crush or chew.TAKE 1 TABLET BY MOUTH TWICE DAILY IN THE MORNING AND IN THE EVENING 90 tablet 1 4 Active naloxone (Narcan) 4 mg/0.1 mL nasal sprayIndication s:Mood disorder (CMS/HCC) Administer 1 spray (4 mg) into affected nostril(s) if needed for opioid reversal. May repeat every 2-3 minutes if needed, alternating nostrils, until medical assistance becomes available. 2 each 3 4 07/16/20 25 Active clonazePAM (KlonoPIN) 0.5 MG tabletIndicatio ns:Mood disorder (CMS/HCC) Take 1 tablet (0.5 mg) by mouth 2 times daily for 28 days. Do not start before July 19, 2024. 56 tablet 4 Active cetirizine (ZyrTEC) 10 MG tablet TAKE 1 TABLET BY MOUTH EVERY DAY 30 tablet 5 4 Active Active Problems Problem Noted Date Diagnosed Date Gastroenteritis 10/17/2023 PVC (premature ventricular contraction) 10/17/19 24 Unsteady gait 10/17/2023 Vertigo 10/17/2023 Zoster 10/17/2023 Polyarthralgia 10/17/2023 Assessment & Plan (10/17/2023 2:22 PM EDT): Likely 2/2 FM -ESR, CRP minimally elevated JUL 2023 -JAHAIRA, RF, and lyme negative JUL 2023 -encouraged tylenol prn -cont baclofen as needed -encouraged lidocaine patches -she declines PT and rheum eval -encouraged trial acupuncture Sleep-disordered breathing 10/17/2023 Assessment & Plan (10/17/2023 2:22 PM EDT): Heavy snoring with daytime fatigue, possible EFE -keep sleep study next mos as scheduled Empty sella 10/17/2023 Assessment & Plan (10/17/2023 2:23 PM EDT): Seen on MRI -referred to endo for eval Imbalance 08/25/2023 Assessment & Plan (08/25/2023 6:20 AM EST): Pt w 2 weeks of imbalance sensation does appears vertigo for description but also dizziness sometimes CN exam normal II to XII , Strength in 4 extremities 4/5-noted some generalized weakness but per pt is at her baseline ,normal sensory evaluation in all extremities. Normal finger to nose test, Normal gait. Pierson -Hallpike maneuver did elicit intense symptoms , no nystagmus seen on exam Possible vertigo but concerning w presyncope when did Pierson -Hallpike maneuver and then recover quickly From recent labs pt has normal test only mild elevated inflammatory markers but noted to be chronic --annual exam labs 08/24/2023 has mild chronic elevated inflammatory markers, CBC wnl,chem wnl w normal electrolytes ,hb1AC 6.1,TSH wnl -advised Hydration -start Meclizine prn Q 8 and zofran prn x nausea -discussed home head exercises and advised to do changes in position slowly -referred today for MRI brain w/o contrast for intense symptoms to r/o central vertigo -carotid US -has apt w cards in 09/01/2023 -advised to discuss as well w her specialist -alarm sings and symptoms discussed w pt - noted elevated inflammatory markers --already in eval by PCP Hyperlipidemia 12/15/2022 Assessment & Plan (10/17/2023 2:16 PM EDT): LDL unchanged JUL 2023 -ASCVD 10-year risk 3.8% -cont lifestyle modifications Allergic rhinitis 12/15/2022 BMI 31.0-31.9,adult 12/15/2022 Prediabetes 12/15/2022 Assessment & Plan (10/17/2023 2:17 PM EDT): A1c 6.1% JUL 2023 -encouraged dietary changes and weight loss for prevention of DM History of COVID-19 09/20/2022 Assessment & Plan (09/20/2022 12:06 PM EST): Per patient report, symptom onset less than 24 hours ago. C/O ear pain. This provider has requested triage nurse call to patient. Chronic gastroesophageal reflux disease 09/02/19 Assessment & Plan (10/17/2023 2:18 PM EDT): Uncontrolled -EGD with esophageal dilation JUL 2019 -continue prilosec daily -encouraged repeat EGD, as per GI Mood disorder 07/26/2022 Assessment & Plan (12/14/2023 2:59 PM EDT): vs. anxious depression. Counseling would probably be helpful, but the copays are prohibitive. Chronic pain and medical concerns affect her mood, but in general she continues doing well with medication and will continue Duloxetine 60 mg BID, Trazodone 100 mg 1-2 tabs at bedtime, Clonazepam 0.5 mg BID prn anxiety, Hydroxyzine 25 mg q 6 prn anxiety. Since this provider will be retiring, patient is now referred back to her PCP for further medication management. For any issues or concerns, she should contact [facility]. All her questions were answered. I have wished her well. She agrees with the plan. Assessment & Plan (10/17/2023 2:17 PM EDT): -she denies any current SI/HI -she has the number for crisis and contracts for safety -continue med regimen as per ADRIANA Irving -f/u with ADRIANA Irving as scheduled Assessment & Plan (10/10/2023 12:01 PM EDT): vs. anxious depression. Counseling would probably be helpful, but the copays are prohibitive. Current issue of severe vertigo is affecting her mood, but in general she continues doing well with medication and will continue Duloxetine 60 mg BID, Trazodone 100 mg 1-2 tabs at bedtime, Clonazepam 0.5 mg BID prn anxiety, Hydroxyzine 25 mg q 6 prn anxiety. On 06/13/2023 provider informed pt that I would be retiring, but we would make every effort to ensure continuity of care. F/U with me in 2 months. She agrees with the plan. Assessment & Plan (08/15/2023 12:32 PM EST): vs. anxious depression. Counseling would probably be helpful, but the copays are prohibitive. She continues doing well with medication and will continue Duloxetine 60 mg BID, Trazodone 100 mg 1-2 tabs at bedtime, Clonazepam 0.5 mg BID prn anxiety, Hydroxyzine 25 mg q 6 prn anxiety. On 06/13/2023 provider informed pt that I would be retiring, but we would make every effort to ensure continuity of care. F/U with me in 2 months. She agrees with the plan. Assessment & Plan (06/13/2023 2:54 PM EST): vs. anxious depression. Counseling would probably be helpful, but the copays are prohibitive. She did not start Wellbutrin XL 150 mg and feels current meds are sufficient. Will continue Duloxetine 60 mg BID, Trazodone 100 mg 1-2 tabs at bedtime, Clonazepam 0.5 mg BID prn anxiety, Hydroxyzine 25 mg q 6 prn anxiety. Today 06/13/2023 provider informed pt that I would be retiring within the year, but we would make every effort to ensure continuity of care. F/U with me in 2 months. She agrees with the plan. Assessment & Plan (05/02/2023 12:53 PM EDT): vs. anxious depression. Not doing as well, with anhedonia and low energy. Counseling would probably be helpful, but the copays are prohibitive. May choose to add Wellbutrin XL 150 mg in the morning. Rx sent, so she can start it if she decides, then do take consistently every morning.. Continue Duloxetine 60 mg BID, Trazodone 100 mg 1-2 tabs at bedtime, Clonazepam 0.5 mg BID prn anxiety, Hydroxyzine 25 mg q 6 prn anxiety. F/U with me in 6 weeks. She agrees with the plan. Assessment & Plan (01/19/2023 1:33 PM EDT): vs. anxious depression. Doing well. Continue current plan: Duloxetine 60 mg BID, Trazodone 100 mg 1-2 tabs at bedtime, Clonazepam 0.5 mg BID prn anxiety, Hydroxyzine 25 mg q 6 prn anxiety. F/U with me in 2-3 months. She agrees with the plan. Assessment & Plan (11/17/2022 12:14 PM EDT): vs. anxious depression. Recommended taking the Duloxetine 60 mg BID every day. Continue other medications as usual. F/U with PCP regarding excessive fatigue. F/U with me in 6-8 weeks. She agrees with the plan. Assessment & Plan (09/20/2022 12:04 PM EST): vs. anxious depression. Continue current medications. F/U with me in 6-8 weeks. She agrees with the plan. Assessment & Plan (07/26/2022 11:46 AM EST): vs. anxious depression. Sleep has improved and she has not needed Prazosin 2 mg. Reviewed with patient that she could resume this if needed for recurrence of nightmares. Otherwise continue current medications. F/U with me in 6-8 weeks. She agrees with the plan. Adenoma of left adrenal gland 05/20/2015 Assessment & Plan (10/17/2023 2:20 PM EDT): Dx'd on CT scan Mar 2013, s/p endo eval -CT abd with minimal increase L adrenal adenoma Sep 2022 -no need for further biochemical eval per endo -f/u with endo prn Diverticulosis 05/20/2015 Essential hypertension 05/20/2015 Assessment & Plan (10/17/2023 2:14 PM EDT): BP controlled -cont metoprolol BID as per cards -Cr/GFR nml JUL 2023 and urine microalbumin wnl AUG 2022 -there is EKG in chart -s/p optho visit with [facility] 2022 Irritable bowel syndrome with diarrhea 5 Assessment & Plan (10/17/2023 2:20 PM EDT): Alternating with constipation -encouraged fiber supplementation and probiotic daily -continue colace prn -continue bentyl prn as per GI -strongly advised schedule f/u with GI Fatty liver 05/20/2015 Assessment & Plan (10/17/2023 2:16 PM EDT): -abd US with echogenic liver, no focal lesions Sep 2022 -AFP and LFTs nml JUL 2023 -Hep A/B immune Supraventricular tachycardia 05/20/2015 Assessment & Plan (10/17/2023 2:18 PM EDT): -cont metoprolol BID -avoid caffeine and alcohol -repeat ECHO as per cardiology -f/u with cards as scheduled, due Aug 2025 Resolved Problems Problem Noted Date Diagnosed Date Resolved Date Acute facial pain 10/17/2023 02/19/2024 Generalized anxiety disorder 05/20/2015 09/20/2022 Hyperlipidemia LDL goal <130 05/20/2015 12/15/2022 Major depression, recurrent, chronic 05/20/2015 09/20/2022 Encounters Date Type Department Care Team Description 08/28/2024 2:00 PM EST Clinical Support [facility] [address] [place] [address] Odalis Anderson, MAO Mood disorder (CMS/HCC) (Primary Dx) 08/28/2024 Telephone [facility] [address] [place] [address] Odalis Anderson, RN UTOX Neg BZO 08/28/2024 Travel 08/22/2024 Telephone [facility] [address] [place] [address] Brigida Bhatti, supervisor hardboard 08/16/[address] [address] Savannah Mcrae MA Recall Appt. 08/16/2024 Travel 08/12/2024 Orders [address] [place] [address] Peyton Multani DO Abnormal brain MRI (Primary Dx) 07/18/2024 [facility] [address] [facility] [place] [place] [address] Peyton Multani DO Referral 07/18/[address] [address] Peyton Multani DO 07/17/2024 Refill [facility] [address] [place] [address] Peyton Multani DO 07/16/2024 1:30 PM EST Clinical Support [address] [place] [address] Odalis Anderson RN Mood disorder (CMS/HCC) (Primary Dx) 07/16/2024 Refill [facility] [address] [place] [phone] Peyton Multani DO Mood disorder (CMS/HCC) 07/16/[address] [address] Odalis Anderson RN Mood disorder (CMS/HCC) 07/16/2024 Travel 07/16/[address] [address] Odalis Anderson, MAO Recommend EMERGENCY ROOM SPECIALIST Tier 1 06/21/2024 Refill [facility] [address] [place] [address] Peyton Multani DO Mood disorder (CMS/HCC) from Last 3 Months Immunizations Name Administration Dates Next Due Hep A, Adult 07/01/2014,10/17/2013 Hep B, adult 07/01/2014,12/30/2013,10/17/2013 Influenza Injectable Quadriv alant Preservative Free IIV4 MDCK 05/12/2022,04/23/2021 Influenza injectable quadriv alent IIV4 with preservative 07/10/2017,06/06/2016,04/27/2015 Influenza injectable quadriv alent preservative free 07/28/2023,05/06/2019 Influenza, IIV3, injectable 07/01/2014 Influenza, Split (incl. ladonna fied surface antigen) 06/18/2013 Tdap 07/28/2023,06/18/2013 Zoster, Recombinant 06/18/2021,04/15/2021 Social History Tobacco Use Types Packs/Day Years Used Date Smoking Tobacco: Former Cigarettes Passive Smoke Exposure: Past Smokeless Tobacco: Never Tobacco Cessation:Counseling Given: Not Answered Alcohol Use Standard Drinks/Week Comments Never 0 [...] Orientation Straight 05/30/2022 10 :22 AM EDT Last Filed Vital Signs Vital Sign Reading Time Taken Comments Blood Pressure 136/86 02/19/2024 11:35 AM EDT Pulse 70 02/19/2024 11:35 AM EDT Temperature 37.4 ??C (99.4 ??F) 02/19/2024 11:35 AM E DT Respiratory Rate 16 02/19/2024 11:35 AM EDT Oxygen Saturation 98% 02/19/2024 11:35 AM EDT Inhaled Oxygen Concentration - - Weight 74.6 kg (164 lb 6.4 oz) 02/19/2024 11:35 AM EDT Height 154.9 cm (5' 1 ) 02/19/2024 11:35 AM EDT Body Mass Index 31.06 02/19/2024 11:35 AM EDT Plan of Treatment Upcoming Encounters Date Type Department Care Team (Late st Contact Info) Description 10/01/2024 11:15 AM EST Office Visit [address] [address] Peyton Multani DO [address] [place] [id number] 10/21/2024 2:00 PM EDT Clinical Support [address] [address] Odalis Anderson, MAO Health Maintenance Due Date Last Done Comments CT Colonography 1965 Colonoscopy 1965 Colorectal Cancer Screening 1965 FIT DNA/Cologuard 1965 FIT 1965 FOBT 1965 Sigmoidoscopy 1965 Alcohol/Substance Use Screening 1975 Pap Smear 1984 Cervical Cancer Screening 1993 HPV/Cotest 1993 Pneumococcal Vaccine: 50+ Years (1 of 1 - PCV) 2013 RSV Patients and Patients Aged 60 years or older (1 - Risk 60-74 years 1-dose series) 2023 COVID-19 Vaccine ( season) 2024 07/29/2021, 12/31/2020, 12/02/2020 Influenza Vaccine (#1) 2024 , 05/12/2022, 04/23/2021, Additional history exists Diabetes: Hemoglobin A1C 08/23/2024 024, 09/05/2022, 12/31/2020, Additional history exists Depression Screening 10/09/2024 10/10/2023, 10/10/19 SDOH Screening 10/16/2024 10/17/2023 Tobacco Screening 02/18/2025 02/19/2024 Mammogram 03/12/2026 03/12/2024, 0 07/2022, 05/03/2021, Additional history exists Lipid Panel 08/23/2028 08/23/2023, 12/2022, 12/31/2020 DTaP/Tdap/Td Vaccines (3 - Td or Tdap) 07/28/2033 07/28/2023, 06/18/2013 Hepatitis A Vaccines Completed 07/01/2014, 10/18/19 Hepatitis B Vaccines Completed 07/01/2014, 12/30/2013, 10/17/2013 Zoster Vaccines Completed 06/18/2021, 04/15/2021 HIV Screening Completed 08/23/2023, 12/2022, 12/31/2020 Hepatitis C Screening Completed 08/23/2023 , 09/05/2022, 12/31/2020 HIB Vaccines Aged Out No longer eligi ble based on patient's age to complete this topic HPV Vaccines Aged Out No longer eligi ble based on patient's age to complete this topic IPV Vaccines Aged Out No longer eligi ble based on patient's age to complete this topic Meningococcal Vaccine Aged Out No jaron kathi eligible based on patient's age to complete this topic RSV under 20 months Aged Out No longe r eligible based on patient's age to complete this topic Rotavirus Vaccines Aged Out No longer eligible based on patient's age to complete this topic Procedures Procedure Name Priority Date/Time Associated Diagnosis Comments POCT JESENIA-14 URINE DRUG SCREEN Routine 08/28/2024 2:42 PM EST Mood disorder (CMS/HCC) POCT JESENIA-14 URINE DRUG SCREEN Routine 07/16/2024 2:08 PM EST Mood disorder (CMS/HCC) DRUG MONITORING, BENZODIAZEPINES, QUANTITATIVE, URINE Routine 07/16/2024 1:30 PM EST Mood disorder (CMS/HCC) BI MAMMOGRAM SCREENING TOMOSYNTHESIS BILATERAL Routine 03/12/2024 3:05 PM EDT Encounter for screening mammogram for breast cancer HEPATITIS C AB W/REFL TO HCV RNA, QN, PCR Routine 08/23/2023 9:03 AM EST Essential hypertension HIV 1/2 ANTIGEN/ANTIBODY, FOURTH GENERATION W/RFL Routine 08/23/2023 9:03 AM EST Essential hypertension HEMOGLOBIN A1C Routine 08/23/2023 9:03 AM EST Essential hypertension LIPID PANEL, STANDARD Routine 08/23/2023 9:03 AM EST Essential hypertension from Last 3 Months or Most Recently Relevant to Health Maintenance Results * (ABNORMAL) POCT JESENIA-14 Urine Drug Screen (08/28/2024 2:42 PM EST) Only the most recent of2 resultswithin the time period is included. Benzodiazepines Screen, Urine Negative Urine Urine specimen obtained by clean catch procedure / Unknown 08/28/2024 2:42 PM EST Odalis Hay RN - 08/28/2024 2:42 PM EST UTOX cup Lot#[id number] Exp. 04/24/26 Internal Pass Control Negative for all substances Peyton Multani DO POINT OF CARE TEST ENTER/DANNIE T ORDERABLES Final Result * Drug Monitoring, Benzodiazepines, Quantitative, Urine (07/16/2024 1:30 PM EST) Nordiazepam, GCMS Urine NEGATIVE [facility] Oxazepam, GCMS Urine NEGATIVE [facility] Lorazepam GCMS Urine NEGATIVE [facility] Alprazolam, GCMS Urine NEGATIVE [facility] Alphahydroxytriazolam, GCMS Ur NEGATIVE [facility] Temazepam, GCMS Urine NEGATIVE [facility] Alphahydroxymidazolam, GCMS Ur NEGATIVE [facility] Aminoclonazepam, GCMS Urine 87 (H) [facility] Comment:REFERENCE RANGE: <25 ng/mLTHIS TEST PERFORMED AT:[facility] [employer] [address] [phone] DIRECTOR: YAESMIN CARSON MD Flurazepam Metabolite,GCMS Ur NEGATIVE [facility] Benzodiazepines Comments SEE NOTE [facility] Comment:This drug testing is for medical treatment only.Analysis was performed as non-forensic testing andthese results should be used only by healthcareproviders to render diagnosis or treatment, or tomonitor progress of medical conditions.Benzodiazepines Notes:Aminoclonazepam detected is consistent with the use ofthe drug Clonazepam.LDT Notes:Confirmation tests were developed and their analyticalperformance characteristics have been determined by[employer]. It has not been cleared or approvedby the FDA. This assay has been validated pursuant tothe CLIA regulations and is used for clinical purposes.Healthcare Providers needing Interpretation assistance,please contact us at [phone] ( )M- F, 8am to 10pm ESTTHIS TEST PERFORMED AT:[facility] [address] [phone] DIRECTOR: YASEMIN CARSON MD Urine (Urine, Random) 07/16/2024 1:30 PM EST 07/16/2024 4:12 PM EST us Peyton Multani DO LAB URINE ORDERABLES Final R esult [facility] [address] [place] [address] [phone] * BI Mammogram Screening Tomosynthesis Bilateral (03/12/2024 3:05 PM EDT) Anatomical Region Laterality Modality Breast Bilateral Mammography 03/12/2024 3:05 PM EDT Narrative 04/10/2024 8:05 AM EDT ? [facility] ? [address] ?[place], [place] [address] ? Mammography Report ? Signed with Addenda ? Patient: Henderson,Savi ?MR#: [id number] ?? 79 ? : 1965 ?Acct:[id number] ? Age/Sex: 58 / F ?ADM Date: 03/12/24 ? Loc: HO.MAMMO ? Attending Dr: Peyton Multani DO ? Ordering Physician: Peyton Multani DO ?Results: 1N ?? egative ? Date of Service: 03/12/24 ?Follow Up: 1 Year From Orig ?? inal Mammogram ? Procedure(s): MM tomosynthesis screening BI ?? Accession Number(s): [id number] ? cc: Peyton Multani A DO ?ADDENDUM ? ADDENDUM #1 ? ADDENDUM: ?? The current mammogram has been reviewed and remains a BI-RADS Category ?? 1. ? OVERALL ASSESSMENT: ?? BI-RADS 1 - Negative ? RECOMMENDATION: ?? 1 year F/U ? Electronically signed by: ??Jennifer Diggs MD ??04/16/2024 12:59 PM EDT RP ? Addendum Dictated By: ?Jennifer Diggs MD ? Addendum Signed By: ? <Electronically signed by Jennifer Diggs MD in OV> ? 24 1259 ?? Addendum Cosigned By: ? DD/ ? TD/TT: 03/12/24 ? EXAMINATION: ?? MM SCREENING DIGITAL BREAST TOMOSYNTHESIS, BILATERAL ? CLINICAL INFORMATION: ? Screening. Asymptomatic. ? COMPARISON: ?? Mammography: This study is compared with prior exams dating back to ?? 2011 ? TECHNIQUE: ?? Digital breast tomosynthesis is performed in both the craniocaudal and ?? mediolateral oblique views along with computer-aided detection (CAD). ? Synthesized 2D images are generated from the tomosynthesis. ? FINDINGS: ?? There are scattered areas of fibroglandular density (ACR BI-RADS breast ?? composition Category b). ? There are no significant masses, abnormal calcifications, or other ?? abnormalities. ? MM/MM tomosynthesis screening BI ?? IMPRESSION: ?? No mammographic evidence of malignancy. ? ASSESSMENT: ? BI-RADS BI-RADS 1 - Negative ? RECOMMENDATION: ?? Routine annual mammography screening. ? 1 year F/U ? This examination should not preclude the clinical evaluation of a ?? suspicious palpable abnormality. ? This patient's information was entered into a reminder system with a ?? target due date for their next mammogram. ? Electronically signed by: ??Soco Faith MD ??04/10/2024 08:02 AM ?? EDT RP ? Dictated By: ?Soco Faith MD ? Signed By: ?<Electronically signed by Soco Faith MD in OV> ?04/10/24 0802 ? DD/ 1505 ? TD/TT: 03/12/24 1520 ? Transportation Clerk: ? Procedure Note Edu Ma - 04/16/2024 [facility] [address] [place], [place] [address] Mammography Report Signed with Addenda Patient: Rufino HendersonOmer#: [id number] 79 : 1965Acct:[id number] Age/Sex: 58 / FADM Date: 03/12/24 Loc: HO.MAMMO Attending Dr: Peyton Multani DO Ordering Physician: Peyton Multaniults: 1N egative Date of Service: 03/12/24Follow Up: 1 Year From Orig ina Mammogram Procedure(s): MM tomosynthesis screening BI Accession Number(s): [id number] cc: Peyton Multani DO ADDENDUM ADDENDUM #1 ADDENDUM: The current mammogram has been reviewed and remains a BI-RADS Category 1. OVERALL ASSESSMENT: BI-RADS 1 - Negative RECOMMENDATION: 1 year F/U Electronically signed by: Jennifer Diggs MD 04/16/2024 12:59 PM EDT RP Addendum Dictated By: Jennifer Diggs MD Addendum Signed By: <Electronically signed by Jennifer Diggs MD in OV> 04/16/24 1259 Addendum Cosigned By: DD/ TD/TT: 03/12/24 EXAMINATION: MM SCREENING DIGITAL BREAST TOMOSYNTHESIS, BILATERAL CLINICAL INFORMATION: Screening. Asymptomatic. COMPARISON: Mammography: This study is compared with prior exams dating back to 2012 TECHNIQUE: Digital breast tomosynthesis is performed in both the craniocaudal and mediolateral oblique views along with computer-aided detection (CAD). Synthesized 2D images are generated from the tomosynthesis. FINDINGS: There are scattered areas of fibroglandular density (ACR BI-RADS breast composition Category b). There are no significant masses, abnormal calcifications, or other abnormalities. MM/MM tomosynthesis screening BI IMPRESSION: No mammographic evidence of malignancy. ASSESSMENT: BI-RADS BI-RADS 1 - Negative RECOMMENDATION: Routine annual mammography screening. 1 year F/U This examination should not preclude the clinical evaluation of a suspicious palpable abnormality. This patient's information was entered into a reminder system with a target due date for their next mammogram. Electronically signed by: Soco Faith MD 04/10/2024 08:02 AM EDT Dictated By: Soco Faith MD Signed By: <Electronically signed by Soco Faith MD in OV> 04/10/24 0802 DD/ 1505 TD/TT: 03/12/24 1520 Transportation Clerk: Peyton Multani DO IMG BI PROCEDURES Edited Res ult - Final * Hepatitis C Antibody with Reflex to HCV, RNA, Quantitative, Real-Time PCR (08/23/2023 9:03 AM EST) Hepatitis C Antibody Nonreactive Nonreactive [facility] Comment:Antibodies to HCV no t detected; does not exclude early acuteHCV infection. Blood Venous blood specimen / Unknown 08/23/2023 9:03 AM EST 08/23/2023 11:16 AM EST Peyton Multani DO LAB BLOOD ORDERABLES Final R esult [facility] [address] [place] [address] [phone] * HIV-1/2 Antigen and Antibodies, Fourth Generation, with Reflexes (08/23/2023 9:03 AM EST) HIV AB/AG Nonreactive Nonreactive [facility] Comment:HIV-1 p24 Ag and/or HIV-1/HIV-2 Ab not detected.A test result that is nonreactive does not exclude thepossibility of exposure to or infection with HIV-1 and/orHIV-2. Nonreactive results in this assay for individualswith prior exposure to HIV-1 and/or HIV-2 may be due toantigen and antibody levels that are below the limit ofdetection of this assay.The [employer] HIV Ag/Ab Combo assay result andsupplemental assay results should be interpreted inconjunction with the patient's clinical presentation,history and other laboratory results. If the results areinconsistent with clinical evidence, additional testing issuggested to confirm the result. Blood Venous blood specimen / Unknown 08/23/2023 9:03 AM EST 08/23/2023 11:16 AM EST Peyton Nerissa DO LAB BLOOD ORDERABLES Final R esult Performing Organization Address [facility] Co de Phone Number [facility] [address] [place] [phone] [phone] * (ABNORMAL) Hemoglobin A1c (08/23/2023 9:03 AM EST) Hemoglobin A1c 6.1(H) <6.0 % [facility] Comment:Hemoglobin A1C Refer ence Range Adults: 4.8 - 6.0 % Non diabetic: < 6.0 % Goal: < 7.0 %Additional Action Suggested: > 8.0 %Note: Hemoglobin A1c results are invalid for patients with abnormal amounts of HbF. Blood transfusions may impact the HbA1c concentration in the patient sample. Estimated Average Glucose 128 mg/dL [facility] Comment:eAG = Estimated ave rage glucose which is %A1C expressed asaverage glucose, using the formula of the H8H-OxgyyjpVhkgbgd Glucose study (ADAG), Diabetes Care, Vol.31,#8,Feb. 2007 Blood Venous blood specimen / Unknown 08/23/2023 9:03 AM EST 08/23/2023 11:16 AM EST Peyton Multani DO LAB BLOOD ORDERABLES Final R esult Performing Organization Address City/[facility]/ZIP Co de Phone Number [facility] [address] [place] [phone] * (ABNORMAL) Lipid Panel, Standard (08/23/2023 9:03 AM EST) Triglycerides 82 <150 mg/dL [facility] Comment:Desirable Triglyceri de: less than 150 mg/dLBorderline High Triglyceride 150-199 mg/dLHigh Triglyceride: 200-499 mg/dLVery High Triglyceride: greater than or equal to 5OO mg/dL Cholesterol 197 <200 mg/dL [facility] Comment:Desirable Cholestero l: less than 200 mg/dLBorderline High Cholesterol: 200-239 mg/dLHigh Cholesterol: greater than 239 mg/dL LDL Cholesterol Calculated 127(H) <100 mg/dL [facility] Comment:Desirable LDL: less than 100 mg/dLNear Optimal/Above Optimal LDL: 110- 129 mg/dLBorderline High LDL: 130-159 mg/dLHigh LDL: 160-189 mg/dLVery High LDL: greater than or equal to 190 mg/dL HDL Cholesterol 54 >40 mg/dL [facility] Comment:Desirable HDL: great er than 40 mg/dL Note: This HDL assay may give artificially low results in patients with liver disease. Blood Venous blood specimen / Unknown 08/23/2023 9:03 AM EST 08/23/2023 11:16 AM EST Peyton Multani DO LAB BLOOD ORDERABLES Final R esult [facility] [address] [place] [phone] from Last 3 Months or Most Recently Relevant to Health Maintenance Insurance [facility] Care Teams Skip Hoist Operator Relationship Specialty Start Date End Date Peyton Multani DO [address] [place] [address] PCP - General Family Medicine 04/17/13 Betito Irving FNP [address] [place] [address] Nurse Practitioner Family Medicine 06/13/23
--- OUTSIDE RECORDS SUMMARY | 2024-08-28 18:02 | XMS_ITS | Encounter Summary ---
Author Organization [employer] Address [address] [facility] 7t [place] [address] Care Team Providers Care Dental Technician Metal Name Role Phone Peyton Multani DO Primary Care Provider +1 [phone] Betito Irving Unavailable Unavailable Reason for Visit * Reason Onset Date Comments call back 09/06/2022 Encounter Details Date Type Department Care Team ([facility] st Contact Info) Description 09/06/2022 Telephone [facility] [address] [place] [address] Peyton Multani DO [address] [place] [address] call back Social History Tobacco Use Types Packs/Day Years Used Date Smoking Tobacco: Former Cigarettes Passive Smoke Exposure: Past Alcohol Use Standard Drinks/Week Comments Never 0 (1 standard drink = 0.6 oz pur e alcohol) Comments Unknown Sex and Gender Information Value Date Recorded Sex Assigned at Female 05/30/2022 10:22 AM EDT Legal Sex Female 10:22 AM EDT Gender Identity Female 05/30/2022 10:22 AM EDT Sexual Orientation Straight 05/30/2022 10 :22 AM EDT COVID-19 Exposure Response Date Recorded In the last 10 days, have yo u been in contact with someone who was confirmed or suspected to have Coronavirus/COVID-19? No / Unsure 09/02/2022 9:43 AM EST documented as of this encounter Miscellaneous Notes * Telephone Encounter - Karyn Butts RN - 09/07/2022 9:29 AM EST Looked up the number and its a number for [facility] for referrals, authorizations, and notifications. I do see that you had been in contact with them yesterday regarding an authorization for a CT scan * Telephone Encounter - Regan Sandro - 09/06/2022 3:52 PM EST Tc from renita with carlos requesting a call back regarding pt Please contact Renita at [phone] documented in this encounter Plan of Treatment Upcoming Encounters Date Type Department Care Team (Late st Contact Info) Description 10/01/2024 11:15 AM EST Office Visit [address] [address] Peyton Multani DO [address] [place] [address] 10/21/2024 2:00 PM EDT Clinical Support [address] [address] Odalis Anderson, MAO documented as of this encounter Visit Diagnoses Not on filedocumented in this encounter Additional Health Concerns Assessment Noted Time PHQ-9 Depression Total Score: 16 023 10:00 AM EST documented as of this encounter Care Teams Dental Technician Metal Relationship Specialty Start Date End Date [place] [address] PCP - General Family Medicine 04/17/13 Betito Irving FNP [address] [place] [address] Nurse Practitioner Family Medicine 06/13/23 documented as of this encounter
--- OUTSIDE RECORDS SUMMARY | 2024-08-28 18:02 | XMS_ITS | Encounter Summary ---
Author Organization [employer] Address [address] [facility] [address] 7t [place] [address] Care Team Providers Care Bioinformatics Specialist Name Role Phone Peyton Multani DO Primary Care Provider + [phone] Betito Irving Unavailable Unavailable Encounter Details Date Type Department Care Team (Late st Contact Info) Description 07/18/2024 Telephone [facility] [address] [place] [address] Peyton Multani DO [address] [place] [address] Social History Tobacco Use Types Packs/Day Years [...] Description 10/01/2024 11:15 AM EST Office Visit [address] [address] Peyton Multani DO [address] [place] [address] 10/21/2024 2:00 PM EDT Clinical Support [address] [address] Odalis Anderson, MAO documented as of this encounter Visit Diagnoses Not on filedocumented in this encounter Additional Health Concerns Assessment Noted Time PHQ-9 Depression Total Score: 6 10/10/19 24 10:49 AM EDT documented as of this encounter Care Teams Bioinformatics Specialist Relationship Specialty Start Date End Date Peyton Multani DO [address] [place] [address] PCP - General Family Medicine 04/17/13 Betito Irving FNP [address] [place] [address] Nurse Practitioner Family Medicine 06/13/23 documented as of this encounter
--- OUTSIDE RECORDS SUMMARY | 2024-08-28 18:02 | XMS_ITS | Encounter Summary ---
Author Organization [employer] Address [address] [facility] [address] 7t [place] [address] Care Team Providers Care Obgyn Nurse Name Role Phone Peyton Multani DO Primary Care Provider + [phone] Betito Irving Unavailable Unavailable Reason for Visit * Reason Comments Med Refill Encounter Details Date Type Department Care Team ([facility] st Contact Info) Description 01/08/2024 Refill [facility] [address] [place] [address] Peyton uMltani DO [address] [place] [address] Social History Tobacco Use Types Packs/Day Years [...] Description 10/01/2024 11:15 AM EST Office Visit [address] [address] Peyton Multani DO [address] [place] [address] 10/21/2024 2:00 PM EDT Clinical Support [address] [address] Odalis Anderson RN documented as of this encounter Visit Diagnoses Not on filedocumented in this encounter Additional Health Concerns Assessment Noted Time PHQ-9 Depression Total Score: 6 10/10/19 24 10:49 AM EDT documented as of this encounter Care Teams Obgyn Nurse Relationship Specialty Start Date End Date Peyton Multani DO [address] [place] [address] PCP - General Family Medicine 04/17/13 Betito Irving FNP [address] [place] [address] Nurse Practitioner Family Medicine 06/13/23 documented as of this encounter
--- OUTSIDE RECORDS SUMMARY | 2024-08-28 18:02 | XMS_ITS | Encounter Summary ---
Author Organization [employer] Address [address] [facility] [address] 7t [place] [address] Care Team Providers Care Monologist Name Role Phone Peyton Multani DO Primary Care Provider Betito Irving Unavailable Unavailable Encounter Details Date Type Department Care Team (Latest Contact Info) Description 08/28/2024 Travel Social History Tobacco Use Types Packs/Day [...] Description 10/01/2024 11:15 AM EST Office Visit [address] [address] Peyton Multani DO [address] [place] [address] 10/21/2024 2:00 PM EDT Clinical Support [address] [address] Odalis Anderson, MAO documented as of this encounter Visit Diagnoses Not on filedocumented in this encounter Additional Health Concerns Assessment Noted Time PHQ-9 Depression Total Score: 6 10/10/19 24 10:49 AM EDT documented as of this encounter Care Teams Monologist Relationship Specialty Start Date End Date Peyton Multani DO [address] [place] [address] PCP - General Family Medicine 04/17/13 Betito Irving FNP [address] [place] [address] Nurse Practitioner Family Medicine 06/13/23 documented as of this encounter
--- OUTSIDE RECORDS SUMMARY | 2024-08-28 18:02 | XMS_ITS | Encounter Summary ---
Author Organization [employer] Address [address] [facility] [address] [place] [address] Care Team Providers Care Hand Rigger Name Role Phone Peyton Multani Primary Care Provider + [phone] Betito Irving Unavailable Unavailable Reason for Visit * Reason Onset Date Comments Recall Appt. 08/16/2024 Encounter Details Date Type Department Care Team (Late st Contact Info) Description 08/16/2024 Telephone [facility] [address] [place] [address] Savannah Mcrae MA Recall Appt. Social History Tobacco Use Types Packs/Day Years [...] encounter Miscellaneous Notes * Telephone Encounter - Savannah Mcrae MA - 08/16/2024 2:14 PM EST 08/16/24-Spoke with patient schedule OV appt. 10/01/24 at 11:15am, Mailed appt. Letter. documented in this encounter Plan of Treatment Upcoming Encounters Date Type Department Care Team (Late st Contact Info) Description 10/01/2024 11:15 AM EST Office Visit [facility] [address] [place] [address] Peyton Multani DO [address] [place] [address] 10/21/2024 2:00 PM EDT Clinical Support [facility] [address] [place] [address] Odalis Anderson, MAO documented as of this encounter Visit Diagnoses Not on filedocumented in this encounter Additional Health Concerns Assessment Noted Time PHQ-9 Depression Total Score: 6 10/10/19 24 10:49 AM EDT documented as of this encounter Care Teams Hand Rigger Relationship Specialty Start Date End Date Peyton Multani DO [address] [place] [address] PCP - General Family Medicine 04/17/13 Betito Irving FNP [address] [place] [address] Nurse Practitioner Family Medicine 06/13/23 documented as of this encounter
--- OUTSIDE RECORDS SUMMARY | 2024-08-28 18:02 | XMS_ITS | Encounter Summary ---
Author Organization [employer] Address [address] [facility] 7t [place] [address] Care Team Providers Care Standards Analyst Name Role Phone Peyton Multani DO Primary Care Provider + [phone] Betito Irving Unavailable Unavailable Reason for Visit * Reason Onset Date Comments Nurse Triage 01/23/2024 Encounter Details Date Type Department Care Team ([facility] st Contact Info) Description 01/23/2024 Telephone [facility] [address] [place] [address] Peyton Multani DO [address] [place] [address] Nurse Triage Social History Tobacco Use Types Packs/Day Years [...] is your housing situation today? I have courntey silva 10/17/[address] you [...] encounter Miscellaneous Notes * Telephone Encounter - Jackie Blair RN - 01/23/2024 11:58 AM EDT Triage call Pt reports yesterday at around 700pm, Pt was walking on the grass and it was slippery and Pt fell. Pt fell backwards landing on buttocks. Pt denies hitting head. Pt reports today has muchpain especially in left knee and back of thigh. Pt is having difficulty walking due to the knee pain. Pt denies any open areas. Pt hasn't taken tylenol/ibuprofen but, reports taking baclofen and has several other meds so didn't want to take anything else. Pt is advised to come to [facility] today and it is open till 8pm. Pt agrees with this plan and insurance is verified as active. Protocol Used: Falls and Falling (Adult) Protocol-Based Disposition: See in Office or Video Visit within 3 Days Positive Triage Question: * Patient wants to be seen * All higher-acuity triage questions were negative Care Advice Discussed: * Reassurance and Education * Reasons To Call Back - You become worse. * Use a Cold Pack for Pain, Swelling, or Bruising * Use Heat on Area After 48 Hours * Telephone Encounter - Laura Gay - 01/23/2024 11:46 AM EDT Tc from pt returning call and requesting a call back, polish speaker. * Telephone Encounter - Yuliya Anderson - 01/23/2024 11:01 AM EDT Symptom: Fall , has knee and leg pain Outcome: Schedule an urgent appointment (within 1 hour) or talk to a nurse or provider soon Reason: Happened within the past 24 hours The caller accepted this outcome documented in this encounter Plan of Treatment Upcoming Encounters Date Type Department Care Team (Late st Contact Info) Description 10/01/2024 11:15 AM EST Office Visit [address] [address] Peyton Multani DO [address] [place] [address] 10/21/2024 2:00 PM EDT Clinical Support [address] [address] Odalis Anderson, MAO documented as of this encounter Visit Diagnoses Not on filedocumented in this encounter Additional Health Concerns Assessment Noted Time PHQ-9 Depression Total Score: 6 10/10/19 24 10:49 AM EDT documented as of this encounter Care Teams Standards Analyst Relationship Specialty Start Date End Date [place] [address] PCP - General Family Medicine 04/17/13 Betito Irving FNP [address] [place] [address] Nurse Practitioner Family Medicine 06/13/23 documented as of this encounter
[2024-09-04 11:49] LABS: Aminoclonazepam, GCMS Urine 169
[2024-09-04 11:50] LABS: Alphahydroxymidazolam,GCMS Ur NEGATIVE; Alphahydroxytriazolam, GCMS Ur NEGATIVE; Alprazolam, GCMS Urine NEGATIVE; Flurazepam Metabolite,GCMS Ur NEGATIVE; Lorazepam GCMS Urine NEGATIVE; Nordiazepam, GCMS Urine NEGATIVE; Oxazepam, GCMS Urine NEGATIVE; Temazepam, GCMS Urine NEGATIVE
== END 2024-08-28 14:01 | disposition home or self-care (01) ==
LOC: HO.LNP 14:00
PROVIDERS: Visit Provider Family Medicine
DX: F39 Unspecified mood [affective] disorder (principal)
CPT/HCPCS: 80346

== ENCOUNTER 2024-11-04 08:37 | Outpatient (REF) | payer OTHER, SELFPAY ==
--- NOTE | ~2024-11-04 | US_ITS ---
CLINICAL HISTORY: f u fatty liver US abdomen complete Comparison: US/FL/SR - US ABDOMEN COMPLETE - 10/26/22 11:29 EDT Findings: The visualized pancreas is normal. The aorta and inferior vena cava are normal caliber. The liver is normal in size and mildly increased in echotexture. There is no intrahepatic bile duct dilatation. The common duct is 2.5 mm in diameter. The gallbladder is normal. There is no sonographic Angel sign. The main portal vein is antegrade. The right kidney is 9.6 cm in length. 3.7 cm upper pole cyst. The left kidney is 9.8 cm in length. The spleen is normal. No ascites. IMPRESSION: Mild hepatic steatosis, similar to prior. No acute process. This document has been electronically signed by: Rigoberto Newton MD on 11/05/2024 06:51:02
--- OUTSIDE RECORDS SUMMARY | 2024-11-04 09:10 | XMS_ITS | Clinical Summary ---
Author Organization [facility] Address [address] [place] [address] Phone Care Team Providers Care Financial Sales Associate Name Role Phone Peyton Multani Primary Care Provider +[phone] Allergies Active Allergy Reactions Criticality Noted Date Comments Aspirin Angioedema,Swelling High 06/18/2013 Sulfacarbamide Rash High 06/18/2013 Medications baclofen (LIORESAL) 10 mg tablet Take 1 tablet (10 mg total) by mouth 3 times daily as needed. 4 Active cetirizine (ZyrTEC) 10 mg tablet Take 1 tablet (10 mg total) by mouth 1 (one) time each day. 4 Active acetaminophen (TYLENOL 8 HOUR) 650 mg 8 hr tablet TAKE 1 TABLET BY MOUTH EVERY 8 HOURS NEEDED FOR MILD PAIN, DO NOT BREAK, CRUSH, DISSOLVE OR CHEW 4 Active clonazePAM (KlonoPIN) 0.5 mg tablet Take 1 tablet (0.5 mg total) by mouth 2 times daily. Max Daily Amount: 1 mg 4 Active DULoxetine (CYMBALTA) [address] capsule TAKE 1 CAPSULE BY MOUTH TWICE DAILY, DO NOT BREAK, CRUSH, DISSOLVE OR CHEW Active hydrOXYzine HCL (ATARAX) 25 mg tablet Take 1 tablet (25 mg total) by mouth every 6 (six) hours if needed. for anxiety Active metoprolol succinate (TOPROL-XL) 50 mg 24 hr tablet Take 1 tablet (50 mg total) by mouth 2 times daily. 4 Active naloxone (NARCAN) 4 mg/0.1 mL nasal spray Administer 1 each (4 mg total) into affected nostril(s). 4 07/16/20 25 Active omeprazole (PriLOSEC) [address] capsule TAKE 1 CAPSULE BY MOUTH EVERY DAY BEFORE BREAKFAST, DO NOT BREAK, CRUSH, DISSOLVE OR CHEW 4 Active traMADoL (ULTRAM) 50 mg tablet TAKE 1 TABLET BY MOUTH TWICE DAILY IN THE MORNING AND AT BEDTIME NEEDED FOR SEVERE PAIN FOR UP TO 7 DAYS 4 Active traZODone (DESYREL) 100 mg tablet Take 2 tablets (200 mg total) by mouth. at bedtime Active Active Problems Problem Noted Date Diagnosed Date Meningioma 10/04/2024 Assessment & Plan (10/04/2024 4:27 PM EST): I reviewed the MRI findings in detail with Ms. Henderson describing the partially empty sella the small incidental meningioma and that there is no posterior fossa lesion to cause her dizziness and imbalance. I suspect she does have vertigo as PT with Hallpike Otway maneuvers did help for short time. She had no improvement on meclizine and continues to have symptoms. She describes extreme imbalance and episodes of nystagmus however I found nothing worrisome on exam today. I recommended that she see her ve teacher for the blurry and cloudy vision and we will repeat the MRI of the brain in 1 year to follow this meningioma. Encounters Date Type Department Care Team Description 10/04/2024 2:45 PM EST Office Visit [facility] [place] [address] [place] [address] Lani John MD Meningioma (CMS/HCC) (Primary Dx) from Last 3 Months Surgical History Surgery Date Site/Laterality Comments APPENDECTOMY HYSTERECTOMY Medical History Medical History Date Comments Hypertension Anxiety Depression Social History Tobacco Use Types Packs/Day Years Used Date Smoking Tobacco: Never Assessed Comments Unknown Sex and Gender Information Value Date Recorded Sex Assigned at Not on file Legal Sex Female 3:14 PM EST Gender Identity Not on file Sexual Orientation Not on file Obstetrics History Last Filed Vital Signs Vital Sign Reading Time Taken Comments Blood Pressure - - Pulse - - Temperature - - Respiratory Rate - - Oxygen Saturation - - Inhaled Oxygen Concentration - - Weight 77.1 kg (170 lb) 10/04/2024 2:46 PM EST Height 152.4 cm (5') 10/04/2024 2:46 PM EST Body Mass Index 33.2 10/04/2024 2:46 PM EST Plan of Treatment Health Maintenance Due Date Last Done Comments Breast Cancer Screening 1965 Cervical Cancer Screening: Pap Smear 1984 Pneumococcal Vaccine: 50+ Years (1 of 1 - PCV) 2013 Colorectal Cancer Screening: Colonoscopy 06/29/2022 Social Influencers of Health Screening 06/29/2022 RSV Immunization Adult Patients (1 - Risk 60-74 years 1-dose series) 2023 COVID-19 Vaccine ( season) 2024 07/29/2021, 12/31/2020, 12/02/2020 Hypertension/CHF/CAD Annual BMP Blood Test 10/05/2024 Depression Screening 10/01/2025 10/01/2024 Cholesterol Screening (Lipid Panel) 08/23/2028 08/23/2023 DTaP,Tdap,and Td Vaccines (3 - Td or Tdap) 07/28/2033 07/28/2023, 06/18/2013 Hepatitis A Vaccines Completed 07/01/2014, 10/18/19 Hepatitis B Vaccines Completed 07/01/2014, 12/30/2013, 10/17/2013 Zoster Vaccines Completed 06/18/2021, 04/15/2021 HIV Screening Completed 08/23/2023 Hepatitis C Screening Completed 08/23/2023 Influenza Vaccine Completed 10/01/2024, , 05/12/2022, Additional history exists HIB Vaccines Aged Out No longer eligi ble based on patient's age to complete this topic HPV Vaccines Aged Out No longer eligi ble based on patient's age to complete this topic IPV Vaccines Aged Out No longer eligi ble based on patient's age to complete this topic MMR Vaccines Aged Out No longer eligi ble based on patient's age to complete this topic Meningococcal ACWY Vaccine Aged Out N o longer eligible based on patient's age to complete this topic Meningococcal B Vacine Aged Out No lo nger eligible based on patient's age to complete this topic Pneumococcal Vaccine: Pediatrics (0 to 5 Years) and At-Risk Patients (6 to 64 Years) Aged Out No longer eligible based on patient's age to complete this topic RSV Immunization Patients Under 20 months Aged Out No longer eligible based on patient's age to complete this topic Varicella Vaccines Aged Out No longer eligible based on patient's age to complete this topic Insurance [facility] [employer] Care Teams Financial Sales Associate Relationship Specialty Start Date End Date Peyton Multani DO [address] [place] [address] PCP - General Internal Medicine 11/11/21
--- OUTSIDE RECORDS SUMMARY | 2024-11-04 09:10 | XMS_ITS | Encounter Summary ---
Author Organization [employer] Address [address] [facility] 7t [place] [address] Care Team Providers Care Enthone Solder Stripper Name Role Phone Peyton Multani DO Primary Care Provider + [phone] Betito Irving Unavailable Unavailable Reason for Visit * Reason Onset Date Comments Med Refill 02/23/2024 Encounter Details Date Type Department Care Team ([facility] st Contact Info) Description 02/23/2024 Telephone [facility] [address] [place] [address] Peyton Multani DO [address] [place] [address] Med Refill Social History Tobacco Use Types [...] 24 hr tablet To be sent to: [facility] documented in this encounter Plan of Treatment Not on file documented as of this encounter Visit Diagnoses Not on filedocumented in this encounter Additional Health Concerns Assessment Noted Time PHQ-9 Depression Total Score: 6 10/10/19 24 10:49 AM EDT documented as of this encounter Care Teams Enthone Solder Stripper Relationship Specialty Start Date End Date Peyton Multani DO [address] [place] [address] PCP - General Family Medicine 04/17/13 Betito Irving FNP [address] [place] [address] Nurse Practitioner Family Medicine 06/13/23 documented as of this encounter
--- OUTSIDE RECORDS SUMMARY | 2024-11-04 09:10 | XMS_ITS | Encounter Summary ---
Author Organization [employer] Address [address] 7[address] [place] [address] Care Team Providers Care Explosion Welder Name Role Phone Peyton Multani DO Primary Care Provider + [phone] Betito Irving Unavailable Unavailable Reason for Visit * Reason Onset Date Comments Referral 09/25/2024 Encounter Details Date Type Department Care Team ([facility] st Contact Info) Description 09/25/2024 Telephone [facility] MEDICINE [address] [place] [address] Peyton Multani DO [address] [place] [address] Referral Social History Tobacco Use Types Packs/Day [...] encounter Miscellaneous Notes * Telephone Encounter - Liang Fulton - 09/25/2024 12:14 PM EST TC from pt requesting to Change Location from [facility] for referral for Neurology on 08/12/24 due to [facility] not dealing with PT Diagnosis. Contact pt at [phone] documented in this encounter Plan of Treatment Not on file documented as of this encounter Visit Diagnoses Not on filedocumented in this encounter Additional Health Concerns Assessment Noted Time PHQ-9 Depression Total Score: 6 10/10/19 24 10:49 AM EDT documented as of this encounter Care Teams Explosion Welder Relationship Specialty Start Date End Date Peyton Multani DO [address] [place] [address] PCP - General Family Medicine 04/17/13 Betito Irving FNP [address] [place] [address] Nurse Practitioner Family Medicine 06/13/23 documented as of this encounter
--- OUTSIDE RECORDS SUMMARY | 2024-11-04 09:10 | XMS_ITS | Encounter Summary ---
Author Organization [employer] Address [address] 7[address] [place] [address] Care Team Providers Care Blood Typer Name Role Phone Peyton Multani DO Primary Care Provider + [phone] Betito Irving Unavailable Unavailable Encounter Details Date Type Department Care Team (Late st Contact Info) Description 07/18/2024 Telephone [facility] MEDICINE [address] [place] [address] Peyton Multani DO [address] [place] [address] Social History Tobacco Use Types Packs/Day Years [...] as of this encounter Plan of Treatment Not on file documented as of this encounter Visit Diagnoses Not on filedocumented in this encounter Additional Health Concerns Assessment Noted Time PHQ-9 Depression Total Score: 6 10/10/19 24 10:49 AM EDT documented as of this encounter Care Teams Blood Typer Relationship Specialty Start Date End Date Peyton Multani DO [address] [place] [address] PCP - General Family Medicine 04/17/13 Betito Irving FNP [address] [place] [address] Nurse Practitioner Family Medicine 06/13/23 documented as of this encounter
--- OUTSIDE RECORDS SUMMARY | 2024-11-04 09:10 | XMS_ITS | Clinical Summary ---
Author Organization [employer] Address [address] [facility] [address] 7t [place] [address] Care Team Providers Care Laminating Machine Tender Name Role Phone Peyton Multani DO Primary Care Provider [phone] Betito Irving Unavailable Unavailable Allergies Active Allergy [...] chew, or split. 30 tablet 11 4 Active meclizine (Antivert) 12.5 MG tabletIndicatio ns:Vertigo [...] & Plan (10/17/2023 2:22 PM EDT): Likely 2/ FM -ESR, CRP minimally elevated JUL 2023 [...] Normal finger to nose test, Normal gait. [place] -Hallpike maneuver did elicit intense symptoms , no nystagmus seen on exam Possible vertigo but concerning w presyncope when did Dona -Hallpike maneuver and then recover quickly From [...] any issues or concerns, she should contact [facility]. All her questions were answered. I [...] EKG in chart -s/p optho visit with [facility] 2022 Irritable bowel syndrome with diarrhea 5 [...] Encounters Date Type Department Care Team Description 10/15/2024 2:00 PM EDT Clinical Support [facility] MEDICINE [address] [place] [address] Brigida Bhatti RN Forgetfulness [R68.89] 10/15/2024 Travel 10/01/2024 11:15 AM EST Office Visit [facility] MEDICINE [address] [place] [address] Peyton Multani DO Essential hypertension (Primary Dx); Other hyperlipidemia; Fatty liver; Mood disorder (CMS/HCC); Prediabetes; Supraventricular tachycardia (CMS/HCC); Chronic gastroesophageal reflux disease; Irritable bowel syndrome with diarrhea; Adenoma of left adrenal gland; Polyarthralgia; Sleep-disordered breathing; Empty sella (CMS/HCC); Abnormal brain MRI; Acute pain of left knee; Forgetfulness; Healthcare maintenance; Encounter for immunization 10/01/2024 Travel 09/25/2024 Telephone [facility] [place] [address] Peyton Multani DO Referral 09/09/2024 Telephone [facility] [place] [address] Peyton Multani DO Referral (Pt walked in stating she received a letter from [facility] stating they do not take her current insurance and can not move forward with an appointment. Pt states she would like for the referral to be sent to a different neurosurgery office that does take her insurance stating she needs an urgent appt. ) 08/28/2024 2:00 PM EST Clinical Support [facility] [place] [address] Odalis Anderson RN Mood disorder ([facility]) (Primary Dx) 08/28/2024 Telephone [facility] [place] [address] Odalis Anderson RN UTOX Neg BZO 08/28/2024 Travel 08/22/2024 Telephone [facility] [place] [address] Brigida Bhatti RN Referral 08/16/[address] [address] Savannah Mcrae [place] Recall Appt. 08/16/2024 Travel 08/12/2024 Orders Only [facility] [place] [address] Peyton Multani DO Abnormal brain MRI (Primary Dx) from Last 3 Months Immunizations Name Administration Dates Next Due Hep A, Adult 07/01/2014,10/17/2013 Hep B, adult 07/01/2014,12/30/2013,10/17/2013 Influenza Injectable Quadriv alant Preservative Free IIV4 MDCK 05/12/2022,04/23/2021 Influenza injectable quadriv alent IIV4 with preservative 07/10/2017,06/06/2016,04/27/2015 Influenza injectable quadriv alent preservative free 07/28/2023,05/06/2019 Influenza, IIV3, injectable 07/01/2014 Influenza, Split (incl. ladonna fied surface antigen) 06/18/2013 Influenza, seasonal, injecta ble, preservative free 10/01/2024 Tdap 07/28/2023,06/18/2013 Zoster, Recombinant 06/18/2021,04/15/2021 Social History Tobacco Use Types Packs/Day Years Used Date Smoking Tobacco: Former Cigarettes Passive Smoke Exposure: Past Smokeless Tobacco: Never Tobacco Cessation:Counseling Given: Not Answered Alcohol Use Standard Drinks/Week Comments Never 0 (1 standard drink = 0.6 oz pur e alcohol) Depression Answer Date Recorded Patient Health Questionnaire-9 Score 16 10/01/2024 Patient Health Questionnaire-9 Score 16 10/01/2024 Last PHQ-9: Questionnaire Data Not on file 0 10/01/2024 Housing Stability Answer Date Recorded What is your housing situation today? I have courtney shira 10/17/[address] you li [...] Answer Date Recorded Patient Health Questionnaire-2 Score 6 10/01/2024 Comments Unknown Sex and Gender Information Value Date Recorded Sex Assigned at Female 05/30/2022 10:22 AM EDT Legal Sex Female 10:22 AM EDT Gender Identity Female 05/30/2022 10:22 AM EDT Sexual Orientation Straight 05/30/2022 10 :22 AM EDT Last Filed Vital Signs Vital Sign Reading Time Taken Comments Blood Pressure 140/81 10/01/2024 11:14 AM EST Pulse 78 10/01/2024 11:14 AM EST Temperature 36.3 ??C (97.4 ??F) 10/01/2024 1 1:14 AM EST Respiratory Rate 20 10/01/2024 11:1 4 AM EST Oxygen Saturation 98% 10/01/2024 11: 14 AM EST Inhaled Oxygen Concentration - - Weight 77.5 kg (170 lb 12.8 oz) 025 11:14 AM EST Height 154.9 cm (5' 1 ) 10/01/2024 11:1 4 AM EST Body Mass Index 32.27 10/01/2024 11:14 AM EST Plan of Treatment Health Maintenance Due [...] Vaccine ( season) 2024 07/29/2021, 12/31/2020, 12/02/2020 Diabetes: Hemoglobin A1C 08/23/2024 024, 09/05/2022, 12/31/2020, Additional history exists SDOH Screening 10/16/2024 10/17/2023 Depression Monitoring (PHQ-9) 04/03/2025 10/01/2024, 10/01/2024 Depression Screening 10/01/2025 10/01/2024, 10/02/19 Tobacco Screening 10/01/2025 10/01/2024 Mammogram 03/12/2026 03/12/2024, 07/2022, 05/03/2021, Additional history exists Lipid Panel 08/23/2028 08/23/2023, 12/2022, 12/31/2020 DTaP/Tdap/Td Vaccines (3 - Td or Tdap) 07/28/2033 07/28/2023, 06/18/2013 Hepatitis A Vaccines Completed 07/01/2014, 10/18/19 14 Hepatitis B Vaccines Completed 07/01/2014, 12/30/2013, 10/17/2013 Zoster Vaccines Completed 06/18/2021, 04/15/2021 HIV Screening Completed 08/23/2023, 12/2022, 12/31/2020 Hepatitis C Screening Completed 08/23/2023 , 09/05/2022, 12/31/2020 Influenza Vaccine Completed 10/01/2024, , 05/12/2022, Additional [...] 08/28/2024 2:42 PM EST Mood disorder (CMS/HCC) DRUG MONITORING, BENZODIAZEPINES, QUANTITATIVE, URINE Routine 08/28/2024 2:00 PM EST Mood disorder (CMS/HCC) BI MAMMOGRAM [...] / Unknown 08/28/2024 2:42 PM EST Odalis Hay, RN - 08/28/2024 2:42 PM EST UTOX cup Lot#[id number] Exp. 04/24/26 Internal Pass Control Negative for all substances Peyton Multani DO POINT OF CARE TEST ENTER/DANNIE T ORDERABLES Final Result * Drug Monitoring, Benzodiazepines, Quantitative, Urine (08/28/2024 2:00 PM EST) Nordiazepam, GCMS Urine NEGATIVE [facility] Oxazepam, GCMS Urine NEGATIVE [facility] Lorazepam GCMS Urine NEGATIVE [facility] Alprazolam, GCMS Urine NEGATIVE [facility] Alphahydroxytriazolam , GCMS Ur NEGATIVE [facility] Temazepam, GCMS Urine NEGATIVE [facility] Alphahydroxymidazolam ,GCMS Ur NEGATIVE [facility] Aminoclonazepam, GCMS Urine 169 [facility] Comment:REFERENCE RANGE: <25 ng/mL Flurazepam Metabolite,GCMS Ur NEGATIVE [facility] Benzodiazepines Comments SEE NOTE [facility] Comment:This drug testing is for medical treatment only. Analysiswas performed as non-forensic testing and these resultsshould be used only by healthcare providers torender diagnosis or treatment, or to monitor progress ofmedical conditions.Benzodiazepines Notes:Aminoclonazepam detected is consistent with the use of thedrug Clonazepam.LDT Notes:Confirmation tests were developed and their analyticalperformance characteristics have been determined by [employer]. It has not been cleared orapproved by the FDA. This assay has been validated pursuantto the CLIA regulations and is used for clinical purposes.Healthcare Providers needing Interpretation assistance,please contact us at [phone] ( ) M-F,8am to 10pm ESTTHIS TEST PERFORMED AT:[facility] [address] [phone] DIRECTOR: YASEMIN CARSON MD Urine (Urine, Random) 08/28/2024 2:00 PM EST 08/28/2024 6:00 PM EST us Peyton Multani DO LAB URINE ORDERABLES Final R esult [facility] [address] [place] [phone] [phone] * BI Mammogram Screening Tomosynthesis Bilateral (03/12/2024 3:05 PM EDT) Anatomical Region Laterality Modality Breast Bilateral Mammography 03/12/2024 3:05 PM EDT Narrative 04/10/2024 8:05 AM EDT ? [facility] [place] ? [address] [place] [address] ? Mammography Report ? Signed with Addenda ? Patient: Henderson,Savi ?MR#: [id number] ?? 79 ? : 1965 ?Acct:[id number] ? Age/Sex: 58 / F ?ADM Date: 08/13/24 ? Loc: HO.MAMMO ? Attending Dr: Peyton Multani DO ? Ordering Physician: Peyton Multani DO ?Results: 1N ?? egative ? Date of Service: 03/12/24 ?Follow Up: 1 Year From Orig ?? inal Mammogram ? Procedure(s): MM tomosynthesis screening BI ?? Accession Number(s): [id number] ? cc: Peyton Multani DO ?ADDENDUM ? ADDENDUM #1 ? ADDENDUM: [...] by Jennifer Diggs MD in OV> ? 04/16/24 1259 ?? Addendum Cosigned By: ? DD/ [...] DD/ 1505 ? TD/TT: 03/12/24 1520 ? Utility Service Worker: ? Procedure Note Francesca, Image - 04/16/2024 [facility] [address] [place] [address] Mammography Report Signed with Radha Patient: Ismael Henderson#: [id number] 79 : 1965Acct:[id number] Age/Sex: 58 / FADM Date: 03/12/24 Loc: HO.MAMMO Attending Dr: Peyton Multani DO Ordering Physician: Peyton Multaniults: 1N egative Date of Service: 03/12/24Follow Up: 1 Year From Orig inal Mammogram Procedure(s): MM tomosynthesis screening BI Accession Number(s): [id number] cc: Peyton Multani DO ADDENDUM ADDENDUM #1 ADDENDUM: The current mammogram has been reviewed and remains a BI-RADS Category 1. OVERALL ASSESSMENT: BI-RADS 1 - Negative RECOMMENDATION: 1 year F/U Electronically signed by: Jennifer Diggs MD 04/16/2024 12:59 PM EDT Addendum Dictated By: Jennifer Diggs MD Addendum [...] 04/10/24 0802 DD/ 1505 TD/TT: 03/12/24 1520 Utility Service Worker: us Peyton Multani DO IMG BI PROCEDURES Edited Res ult - Final * Hepatitis C Antibody with Reflex to HCV, RNA, Quantitative, Real-Time PCR (08/23/2023 9:03 AM EST) Hepatitis C Antibody Nonreactive Nonreactive [facility] Comment:Antibodies to HCV no t detected; does not exclude early acuteHCV infection. Blood Venous blood specimen / Unknown 08/23/2023 9:03 AM EST 08/23/2023 11:16 AM EST Peyton Nerissa DO LAB BLOOD ORDERABLES Final R ult Performing Organization Address [facility] Co de Phone Number [facility] [address] [place] [phone] * HIV-1/2 Antigen and Antibodies, Fourth Generation, with Reflexes (08/23/2023 9:03 AM EST) HIV AB/AG Nonreactive Nonreactive [facility] Comment:HIV-1 p24 Ag and/or HIV-1/HIV-2 Ab not detected.A test result that is nonreactive does not exclude thepossibility of exposure to or infection with HIV-1 and/orHIV-2. Nonreactive results in this assay for individualswith prior exposure to HIV-1 and/or HIV-2 may be due toantigen and antibody levels that are below the limit ofdetection of this assay.The [employer] HIV Ag/Ab Combo assay result andsupplemental assay results should be interpreted inconjunction with the patient's clinical presentation,history and other laboratory results. If the results areinconsistent with clinical evidence, additional testing issuggested to confirm the result. Blood Venous blood specimen / Unknown 08/23/2023 9:03 AM EST 08/23/2023 11:16 AM EST Peyton Multani DO LAB BLOOD ORDERABLES Final R esult Performing Organization Address City/[facility]/ZIP Co de Phone Number [facility] [address] [place] [phone] * (ABNORMAL) Hemoglobin A1c (08/23/2023 9:03 AM EST) Hemoglobin A1c 6.1(H) <6.0 % [facility] Comment:Hemoglobin A1C Refer ence Range Adults: 4.8 - 6.0 % Non diabetic: < 6.0 % Goal: < 7.0 %Additional Action Suggested: > 8.0 %Note: Hemoglobin A1c results are invalid for patients with abnormal amounts of HbF. Blood transfusions may impact the HbA1c concentration in the patient sample. Estimated Average Glucose 128 mg/dL [facility] Comment:eAG = Estimated ave rage glucose which is %A1C expressed asaverage glucose, using the formula of the V6A-HkgsylpTuyxojp Glucose study (ADAG), Diabetes Care, Vol.31,#8,Feb. 2007 Blood Venous blood specimen / Unknown 08/23/2023 9:03 AM EST 08/23/2023 11:16 AM EST Peyton Multani DO LAB BLOOD ORDERABLES Final R esult [facility] [address] [place] [phone] * (ABNORMAL) Lipid Panel, Standard (08/23/2023 9:03 AM EST) Triglycerides 82 <150 mg/dL [facility] Comment:Desirable Triglyceri de: less than 150 mg/dLBorderline High Triglyceride 150-199 mg/dLHigh Triglyceride: 200-499 mg/dLVery High Triglyceride: greater than or equal to 5OO mg/dL Cholesterol 197 <200 mg/dL [facility] Comment:Desirable Cholestero l: less than 200 mg/dLBorderline High Cholesterol: 200-239 mg/dLHigh Cholesterol: greater than 239 mg/dL LDL Cholesterol Calculated 127(H) <100 mg/dL [facility] Comment:Desirable LDL: less than 100 mg/dLNear Optimal/Above Optimal LDL: 110- 129 mg/dLBorderline High LDL: 130-159 mg/dLHigh LDL: 160-189 mg/dLVery High LDL: greater than or equal to 190 mg/dL HDL Cholesterol 54 >40 mg/dL [facility] Comment:Desirable HDL: great er than 40 mg/dL Note: This HDL assay may give artificially low results in patients with liver disease. Blood Venous blood specimen / Unknown 08/23/2023 9:03 AM EST 08/23/2023 11:16 AM EST us Peyton Multani DO LAB BLOOD ORDERABLES Final R esult [facility] [address] [place] [phone] from Last 3 Months or Most Recently Relevant to Health Maintenance Insurance [facility] Care Teams Laminating Machine Tender Relationship Specialty Start Date End Date Peyton Multani DO [address] [place], [place] PCP - General Family Medicine 04/17/13 Betito Irving FNP [address] [place], [place] Nurse Practitioner Family Medicine 06/13/23
--- OUTSIDE RECORDS SUMMARY | 2024-11-04 09:11 | XMS_ITS | Encounter Summary ---
Author Organization [employer] Address [address] [place] [address] Care Team Providers Care Panel Cutter Name Role Phone Peyton Multani DO Primary Care Provider + [phone] Betito Irving Unavailable Unavailable Reason for Visit * Reason Comments Med Refill Encounter Details Date Type Department Care Team ([facility] st Contact Info) Description 01/08/2024 Refill [facility] MEDICINE [address] [place] [address] Peyton Multani DO [address] [place] [address] Social History Tobacco Use Types Packs/Day Years [...] documented as of this encounter Care Teams Panel Cutter Relationship Specialty Start Date End Date Peyton Multani DO [address] [place] [address] PCP - General Family Medicine 04/17/13 Betito Irving FNP [address] [place] [address] Nurse Practitioner Family Medicine 06/13/23 documented as of this encounter
--- OUTSIDE RECORDS SUMMARY | 2024-11-04 09:11 | XMS_ITS | Encounter Summary ---
Author Organization [employer] Address [address] [place] [address] Care Team Providers Care Steam Power Plant Operator Name Role Phone Peyton Multani DO Primary Care Provider + [phone] Betito Irving Unavailable Unavailable Reason for Visit * Reason Onset Date Comments Results 01/24/2024 Encounter Details Date Type Department Care Team ([facility] st Contact Info) Description 01/24/2024 Telephone [facility] MEDICINE [address] [place] [address] Peyton Multani DO [address] [place], [place] [phone] Results Social History Tobacco Use Types Packs/Day [...] yet. Advised that will give call once [facility] receive result. Pt. Verbally agreed and understood. * Telephone Encounter - Sang Watson - 01/24/2024 12:02 PM EDT TC from pt requesting call back regarding Results. Type of results: Xray Date when done: 01/22 Facility: [facility] [employer] documented in this encounter Plan of Treatment Not on file documented as of this encounter Visit Diagnoses Not on filedocumented in this encounter Additional Health Concerns Assessment Noted Time PHQ-9 Depression Total Score: 6 10/10/19 24 10:49 AM EDT documented as of this encounter Care Teams Steam Power Plant Operator Relationship Specialty Start Date End Date Peyton Multani DO [address] [place] [address] PCP - General Family Medicine 04/17/13 Betito Irivng FNP [address] [place] [address] Nurse Practitioner Family Medicine 06/13/23 documented as of this encounter
--- OUTSIDE RECORDS SUMMARY | 2024-11-04 09:11 | XMS_ITS | Encounter Summary ---
Author Organization [employer] Address [address] [place] [address] Care Team Providers Care Enrollment Management Coordinator Name Role Phone Peyton Multani DO Primary Care Provider + [phone] Betito Irving Unavailable Unavailable Reason for Visit * Reason Comments Med Refill Encounter Details Date Type Department Care Team ([facility] st Contact Info) Description 07/16/2024 Refill [facility] MEDICINE [address] [place] [address] Peyton Multani DO [address] [place] [address] Mood disorder (CMS/HCC) Social History Tobacco Use [...] this encounter Visit Diagnoses Diagnosis Mood disorder (CMS/HCC) Unspecified episodic mood disorder documented in this encounter Additional Health Concerns Assessment Noted Time PHQ-9 Depression Total Score: 6 10/10/19 24 10:49 AM EDT documented as of this encounter Care Teams Enrollment Management Coordinator Relationship Specialty Start Date End Date Peyton Multani DO [address] [place] [address] PCP - General Family Medicine 04/17/13 Betito Irving FNP [address] [place] [address] Nurse Practitioner Family Medicine 06/13/23 documented as of this encounter
--- OUTSIDE RECORDS SUMMARY | 2024-11-04 09:11 | XMS_ITS | Encounter Summary ---
Author Organization [employer] Address [address] [facility] 7t [place] [address] Care Team Providers Care Plastic Cutter Name Role Phone Peyton Multani DO Primary Care Provider [phone] Betito Irving Unavailable Unavailable Reason for Visit * Reason Onset Date Comments call back 09/06/2022 Encounter Details Date Type Department Care Team ([facility] st Contact Info) Description 09/06/2022 Telephone [facility] MEDICINE [address] [place] [address] Peyton Multani DO [address] [place] [address] call back Social History Tobacco Use Types [...] CT scan * Telephone Encounter - Regan Jo - 09/06/2022 3:52 PM EST Tc from renita with carlos requesting a call back regarding pt Please contact Renita at [phone] documented in this encounter Plan of Treatment Not on file documented as of this encounter Visit Diagnoses Not on filedocumented in this encounter Additional Health Concerns Assessment Noted Time PHQ-9 Depression Total Score: 16 023 10:00 AM EST documented as of this encounter Care Teams Plastic Cutter Relationship Specialty Start Date End Date Peyton Multani DO [address] [place] [address] PCP - General Family Medicine 04/17/13 Betito Irving FNP [address] [place] [address] Nurse Practitioner Family Medicine 06/13/23 documented as of this encounter
--- OUTSIDE RECORDS SUMMARY | 2024-11-04 09:11 | XMS_ITS | Encounter Summary ---
Author Organization [employer] Address [address] [facility] [address] [address] [place] [address] Care Team Providers Care Coo Name Role Phone Peyton Multani DO Primary Care Provider + [phone] Betito Irving Unavailable Unavailable Reason for Visit * Reason Onset Date Comments Nurse Triage 01/23/2024 Encounter Details Date Type Department Care Team ([facility] st Contact Info) Description 01/23/2024 Telephone [facility] MEDICINE [address] [place] [address] Peyton Multani DO [address] [place] [address] Nurse Triage Social History Tobacco Use Types [...] else. Pt is advised to come to [facility] today and it is open till 8pm. [...] returning call and requesting a call back, taiwanese speaker. * Telephone Encounter - Yuliya Anderson [...] documented as of this encounter Care Teams Coo Relationship Specialty Start Date End Date Peyton Multani DO [address] [place] [address] PCP - General Family Medicine 04/17/13 Betito Irving FNP [address] [place] [address] Nurse Practitioner Family Medicine 06/13/23 documented as of this encounter
== END 2024-11-04 08:38 | disposition home or self-care (01) ==
LOC: HO.US 08:37
PROVIDERS: PCP Family Medicine; Visit Provider Family Medicine
DX: K76.0 Fatty (change of) liver, not elsewhere classified (principal)
CPT/HCPCS: 76700

== ENCOUNTER → 2024-11-04 08:39 | Outpatient (BNV) | payer OTHER, SELFPAY | PROVIDERS: PCP Family Medicine; Visit Provider Radiology Vascular & Interventional Radiology | DX: K76.0 Fatty (change of) liver, not elsewhere classified (principal) | CPT/HCPCS: 76700 ==

== ENCOUNTER 2025-02-06 07:13 | Day surgery (SDC) | payer OTHER, SELFPAY ==
[2025-02-04 10:21] VITALS: BMI 31.2
--- NOTE | 2025-02-05 12:10 | HO.ANESPROP2 ---
Documented by User: Steph Schmitz NP 02/05/25 12:12 HPI - Anesthesia Eval Consult details Narrative: 59yo F for Upper Endoscopy and Colonoscopy PMFSH Active Problems Active Problems: All Active Problems Tear of meniscus of left knee (Acute) Empty sella syndrome (Acute) Screening for colon cancer (Acute) PVC (premature ventricular contraction) (Acute) HTN (hypertension) (Acute) GERD with stricture (Acute) Past Medical History Medical History Empty sella syndrome PVC (premature ventricular contraction) HTN (hypertension) COVID-19 Surgical History Surgical History History of esophagogastroduodenoscopy (EGD) Hx of colonoscopy Social History Social History Alcohol intake: never Patient Tobacco Use Status: Never used Tobacco e-Cigarette/Vaping Use: Never Used Have you been hit, kicked, punched, or otherwise hurt by someone within the past year? If so, by whom?: No Are you DNR?: No Advance Directives: No Advance Directives Information Provided: Yes Meds Allergies Allergy/AdvReac Type Severity Reaction Status Date / Time aspirin (ASA) Allergy Intermediate SWELLING Verified 02/06/25 07:17 Sulfa (Sulfonamide Allergy Intermediate RASH, Verified 02/06/25 07:17 Antibiotics) (SULFA SWELLING (SULFONAMIDE ANTIBIOTICS)) ibuprofen Allergy Unknown swelling Uncoded 02/06/25 07:17 Home Medications ?Medication ?Instructions ?Recorded ?Confirmed ?Last Taken ?Type baclofen 20 mg tablet 20 mg PO TID 06/18/21 02/06/25 Unknown History clonazepam 0.5 mg tablet 0.5 mg PO BID PRN Anxiety 06/18/21 02/06/25 Unknown History duloxetine 60 mg capsule,delayed 120 mg PO DAILY 06/18/21 02/06/25 Unknown History release hydroxyzine HCl 25 mg tablet 25 mg PO QID 06/18/21 02/06/25 Unknown History trazodone 100 mg tablet 200 mg PO BEDTIME 09/21/23 02/06/25 Unknown History cetirizine 10 mg tablet 10 mg PO DAILY 02/12/24 02/06/25 Unknown History acetaminophen 650 mg 650 mg PO Q12H PRN Pain 04/02/24 02/06/25 Unknown History tablet,extended release Exam Height,Weight and Vital Signs: Height 5 ft 1 in Weight 74.843 kg Assessment and Plan Assessment Anesthesia Assessment: Chart Reviewed Documented by User: Hayden Burch MD 02/06/25 07:54 PMF Past Medical History Medical History Empty sella syndrome PVC (premature ventricular contraction) HTN (hypertension) COVID-19 Family History Family history of problems with anesthesia: No Surgical History Surgical History History of esophagogastroduodenoscopy (EGD) Hx of colonoscopy History of Problems with Anesthesia: No Social History Social History Alcohol intake: never Patient Tobacco Use Status: Never used Tobacco e-Cigarette/Vaping Use: Never Used Have you been hit, kicked, punched, or otherwise hurt by someone within the past year? If so, by whom?: No Are you DNR?: No Advance Directives: No Advance Directives Information Provided: Yes Meds Allergies Allergy/AdvReac Type Severity Reaction Status Date / Time aspirin (ASA) Allergy Intermediate SWELLING Verified 02/06/25 07:17 Sulfa (Sulfonamide Allergy Intermediate RASH, Verified 02/06/25 07:17 Antibiotics) (SULFA SWELLING (SULFONAMIDE ANTIBIOTICS)) ibuprofen Allergy Unknown swelling Uncoded 02/06/25 07:17 Home Medications ?Medication ?Instructions ?Recorded ?Confirmed ?Last Taken ?Type baclofen 20 mg tablet 20 mg PO TID 06/18/21 02/06/25 Unknown History clonazepam 0.5 mg tablet 0.5 mg PO BID PRN Anxiety 06/18/21 02/06/25 Unknown History duloxetine 60 mg capsule,delayed 120 mg PO DAILY 06/18/21 02/06/25 Unknown History release hydroxyzine HCl 25 mg tablet 25 mg PO QID 06/18/21 02/06/25 Unknown History trazodone 100 mg tablet 200 mg PO BEDTIME 09/21/23 02/06/25 Unknown History cetirizine 10 mg tablet 10 mg PO DAILY 02/12/24 02/06/25 Unknown History acetaminophen 650 mg 650 mg PO Q12H PRN Pain 04/02/24 02/06/25 Unknown History tablet,extended release Exam Airway Mallampati Class: II TM Dist: <=3cm Neck ROM: Full Loose/Missing/Broken Teeth: No Heart: ok Lungs: ok Assessment and Plan Assessment Anesthesia Assessment: Anesthesia Plan Discussed Final Anesthetic Review Family History of Problems with Anesthesia: No History of Problems with Anesthesia: No NPO: Yes ASA Class: II Final Preanesthetic Review: No Changes in Pt Med Stat, Meds/Allgs Chart Reviewed, Consent Obtained/Reviewed and Anes Risks/Benef Reviewed Patient Risk: Intermediate Procedure Risk: Intermediate Anesthetic Plan Anesthetic Plan: Agree w/ Assess. and Plan and TIVA Disposition: Standard PACU
[2025-02-06 07:19] VITALS: BMI 30.9
[2025-02-06 07:27] VITALS: BP 124/83; PULSE 77; RESP 16; TEMP 36.1; O2SAT 97
--- NOTE | 2025-02-06 07:30 | MHC.SHP ---
Pre-Procedural Eval Section A - 24 Hr Update-Section A only Date of Service: 02/06/25 Section B - Complete if H&P > 30 days Chief Complaint: screening,gerd,esophageal obstruction, Relevant Family History (Specify if Yes): No Relevant Social History: None Present Medications: see Short Stay Collaborative assessment Medical History: Significant History (Empty sella syndrome PVC (premature ventricular contraction) HTN (hypertension) COVID-19) History of Previous Operations: Relevant previous surgery/procedure and date(s) (History of esophagogastroduodenoscopy (EGD) Hx of colonoscopy) Allergies: Allergies Allergy/AdvReac Type Severity Reaction Status Date / Time aspirin (ASA) Allergy Intermediate SWELLING Verified 02/06/25 07:17 Sulfa (Sulfonamide Allergy Intermediate RASH, Verified 02/06/25 07:17 Antibiotics) (SULFA SWELLING (SULFONAMIDE ANTIBIOTICS)) ibuprofen Allergy Unknown swelling Uncoded 02/06/25 07:17 Review of Systems Sugical H&P ROS: Negative: Constitution, Cardiovascular, Respiratory, Neurological, Psychiatric, Hem-Onc, Allergic/Immunologic, Gastrointestinal, Genitourinary, Musculoskeletal, Integumentary, Endocrine and Eyes/Ears/Nose/Throat Exam Surgical H&P Exam: Normal: HEENT, Normal: Heart, Normal: Lungs, Normal: Extremities, Normal: Abdomen, Normal: Skin and Normal: Neurological Plan Diagnosis/Plan: Unchanged I have reviewed the history and physical and performed a pertinent physical examination on my patient. No changes have occurred unless specified. Time Spent With Patient Time: Total time managing care of this patient today ____ minutes.
[2025-02-06] MEDS: Lactated Ringers 1,000 ML 100 ML IVCONT (07:35)
--- NOTE | 2025-02-06 08:47 | P.OPN-COLO_ITS ---
Colonoscopy Operative Note Operative Note Date of Service: 02/06/25 Narrative: Operative Information Procedure Description: EGD, Colonoscopy Indication: dysphagia and screening Anesthesia: MAC FLEXIBLE TRANSORAL UPPER GASTROINTESTINAL ENDOSCOPY AND COLONOSCOPY PROCEDURE NOTE UPPER ENDOSCOPY Consent: Indications for the procedure and potential complications of bleeding, perforation, reaction to medications and missed diagnosis were discussed with the patient and informed consent was obtained. Instrument: Olympus GIF H 190 J mid size upper endoscope Monitoring: Vital signs and clinical assessment, continuous EKG monitoring, Pulse oximetry, Carbon Dioxide monitoring and blood pressure monitoring were done throughout the procedure. Procedure: The patient was placed in the left lateral decubitis position and pre-procedure medications were administered and a bite block was placed. The endoscope was inserted into the mouth and advanced under direct vision to the third part of duodenum. A careful inspection was made as the upper endoscope was withdrawn including a retroflexed examination of the proximal stomach; Findings and interventions are described below. Findings: Larynx:normal Esophagus: GE junction at 37 cm, diaphragm hiatus at 37 cm, mild erythema and bogginess at GEJ, bx taken also from distal and proximal esophagus, balloon dilation to 20 mm at LES and UES -no tears seen Stomach: patchy erythema. Biopsies were obtained. Grade 2 flap valve on retroflexed examination of the cardia. Duodenum: mild duodenitis, bx taken Intervention: Biopsies as noted above, balloon dilation COLONOSCOPY Instrument: Olympus variable stiffness pediatric scope 190L Colonoscopy Monitoring: Vital signs and clinical assessment, continuous EKG monitoring, Pulse oximetry, Carbon Dioxide monitoring and blood pressure monitoring were done throughout the procedure. Colon withdrawal time was 10 minutes. Procedure: The patient was placed in the left lateral decubitis position and pre-procedure medications were administered. After a digital rectal examination of the ano-rectum, the video colonoscope was inserted into the rectum and advanced through the colon to the cecum/TI. The colonoscope was slowly withdrawn in a retrograde panoramic fashion and the colon mucosa was carefully examined including a retroflexed view of the rectum. Findings and interventions are described below. Procedure Difficulty:moderate--tortuous colon, tight sigmoid due to diverticulosis Findings: Terminal Ileum-normal Cecum:normal Ascending Colon: normal Transverse Colon -normal Descending Colon:normal Sigmoid Colon: moderate severe diverticulosis with luminal narrowing and tight angles, 4-5 mm sessile polyp removed with cold forceps Rectum: Retroflexion with small internal hemorrhoids, grade I Anorectum - normal Colon preparation: [place] Bowel Preparation Scale Right colon; 2 Transverse colon: 2 Left colon; 2 (0 = Unprepared colon segment with mucosa not seen due to solid stool that cannot be cleared. 1 = Portion of mucosa of the colon segment seen, but other areas of the colon segment not well seen due to staining, residual stool and/or opaque liquid. 2 = Minor amount of residual staining, small fragments of stool and/or opaque liquid, but mucosa of colon segment seen well. 3 = Entire mucosa of colon segment seen well with no residual staining, small fragments of stool or opaque liquid) Impression and Post Procedure Diagnosis: Endoscopy Findings: gastritis esophagitis duodenitis Colonoscopy Findings: diverticulosis colon polyp internal hemorrhoids Plan: Await Pathology results Repeat Colonoscopy in 5 years if adenoma, 10 yrs if hyperplastic or earlier if clinically indicated High fiber diet leaflet avoid straining at stool, epsom salts and sitz bath, anusol supps or cream GERD precautions Above findings were reviewed with the patient and relevant handouts were provided if indicated.
[2025-02-06 08:53] VITALS: BP 121/77; PULSE 72; RESP 18; TEMP 36.6; O2SAT 96
[2025-02-06 09:05] VITALS: BP 141/82; PULSE 71; RESP 18; O2SAT 96
== END 2025-02-06 09:42 | disposition home or self-care (01) ==
PROVIDERS: PCP Family Medicine; Visit Provider Internal Medicine Gastroenterology
PROC: (CPT 45380; principal; 2025-02-06 08:30)
DX: Z12.11 Encounter for screening for malignant neoplasm of colon (principal); K63.5 Polyp of colon; K56.2 Volvulus; K57.30 Diverticulosis of large intestine without perforation or abscess without bleeding; K64.0 First degree hemorrhoids; R13.10 Dysphagia, unspecified; K22.2 Esophageal obstruction; K29.60 Other gastritis without bleeding; K20.80 Other esophagitis without bleeding; K31.89 Other diseases of stomach and duodenum; K29.80 Duodenitis without bleeding; K21.9 Gastro-esophageal reflux disease without esophagitis
CPT/HCPCS: 45380; 43249; 43239; 36415; 82657; 88305; 88313; 88342; C1726; J2003; J2704; J3010

== ENCOUNTER → 2025-02-06 07:13 | Outpatient (BNV) | payer OTHER, SELFPAY | PROVIDERS: PCP Family Medicine; Visit Provider Internal Medicine Gastroenterology | DX: K20.90 Esophagitis, unspecified without bleeding (principal); K29.90 Gastroduodenitis, unspecified, without bleeding; R13.10 Dysphagia, unspecified; Z12.11 Encounter for screening for malignant neoplasm of colon; K63.5 Polyp of colon; K57.90 Diverticulosis of intestine, part unspecified, without perforation or abscess without bleeding; K64.8 Other hemorrhoids | CPT/HCPCS: 43239; 43249; 45380 ==

== ENCOUNTER 2025-02-14 10:34 | Outpatient (REF) | payer OTHER, SELFPAY ==
--- OUTSIDE RECORDS SUMMARY | 2025-02-14 11:06 | XMS_ITS | Clinical Summary ---
Author Organization [address] [facility] Address [address] [place] [address] Phone Care Team Providers Care Rat Breeder Name Role Phone Peyton Multani Primary Care Provider [phone] Allergies Active Allergy Reactions Criticality Noted Date [...] Problems Problem Noted Date Diagnosed Date Meningioma ([facility] V24, [facility] V28) 10/04/2024 Assessment & Plan (10/04/2024 4:27 PM EST): I reviewed the MRI findings in detail with Ms. Henderson describing the partially empty sella the small incidental meningioma and that there is no posterior fossa lesion to cause her dizziness and imbalance. I suspect she does have vertigo as PT with [facility] [place] maneuvers did help for short time. She had no improvement on meclizine and continues to have symptoms. She describes extreme imbalance and episodes of nystagmus however I found nothing worrisome on exam today. I recommended that she see her incinerator plant supervisor for the blurry and cloudy vision and we will repeat the MRI of the brain in 1 year to follow this meningioma. Surgical History Surgery Date Site/Laterality Comments APPENDECTOMY [...] Vaccine ( season) 2024 07/29/2021, 12/31/2020, 12/02/2020 Depression Screening 07/31/2024 Hypertension/CHF/CAD Annual BMP Blood Test 10/05/2024 Influenza Vaccine (#1) 2025 , 07/28/2023, 05/12/2022, Additional history exists Cholesterol Screening (Lipid Panel) 08/23/2028 08/23/2023 DTaP,Tdap,and Td Vaccines (3 - Td or Tdap) 07/28/2033 07/28/2023, 06/18/2013 Hepatitis A Vaccines Completed 07/01/2014, 10/18/19 Hepatitis B Vaccines Completed 07/01/2014, 12/30/2013, 10/17/2013 Zoster Vaccines Completed 06/18/2021, 04/15/2021 HIV Screening Completed 08/23/2023 Hepatitis C Screening Completed 08/23/2023 HIB Vaccines Aged Out No longer eligi [...] age to complete this topic Meningococcal B Vaccine Aged Out No l onger eligible based on patient's age to complete this topic RSV Immunization Patients Under 20 months Aged Out No longer eligible based on patient's age to complete this topic Varicella Vaccines Aged Out No longer eligible based on patient's age to complete this topic Insurance [facility] [employer] Care Teams Rat Breeder Relationship Specialty Start Date End Date Peyton Multani DO [address] [place] [address] PCP - General Internal Medicine 11/11/21
--- OUTSIDE RECORDS SUMMARY | 2025-02-14 11:06 | XMS_ITS | Encounter Summary ---
Author Organization [employer] Address [address] [facility] [address] [place] [address] Care Team Providers Care Field Recruiter Name Role Phone Peyton Multani DO Primary Care Provider + [phone] Betito Irving Unavailable Unavailable Reason for Visit * Reason Onset Date Comments Referral 09/25/2024 Encounter Details Date Type Department Care Team ([facility] st Contact Info) Description 09/25/2024 Telephone [facility] [address] [place] [address] Peyton Multani DO [address] [place], [place] [phone] Referral Social History Tobacco Use Types Packs/Day [...] Miscellaneous Notes * Telephone Encounter - Liang Donaldo - 09/25/2024 12:14 PM EST TC from pt requesting to Change Location from [facility] for referral for Neurology on 08/12/24 due to [facility] not dealing with PT Diagnosis. Contact pt at [phone] documented in this encounter Plan of Treatment Upcoming Encounters Date Type Department Care Team (Late st Contact Info) Description 05/08/2025 1:30 PM EDT Clinical Support [facility] [address] [place] [address] Odalis Anderson, RN documented as of this encounter Visit Diagnoses Not on filedocumented in this encounter Additional Health Concerns Assessment Noted Time PHQ-9 Depression Total Score: 6 10/10/19 24 10:49 AM EDT documented as of this encounter Care Teams Field Recruiter Relationship Specialty Start Date End Date Peyton Multani DO [address] [place] [address] PCP - General Family Medicine 04/17/13 Betito Irving FNP [address] [place] [address] Nurse Practitioner Family Medicine 06/13/23 documented as of this encounter
[2025-02-14 13:04] LABS: Hematocrit 39.1 % (37.0-47.0); Hemoglobin 12.5 g/dl (12.0-16.0); Mean Corpuscular HGB Conc 32.0 g/dl (31.0-35.0); Mean Corpuscular Hemoglobin 26.3 pg (27.0-33.0); Mean Corpuscular Volume 82.3 fL (80.0-98.0); NRBC Abs Auto 0.000 X10*3/uL (0.0-0.012); NRBC Pct Auto 0.0 /100WBC (0.0-0.2); Platelet Count 290 X10*3/uL (160-400); Red Blood Count 4.75 X10*6/uL (4.20-5.50); White Blood Count 6.6 X10*3/uL (4.8-10.8)
[2025-02-14 13:17] LABS: Hemoglobin A1C 165.0236 umol/L; Total Hemoglobin (HGBA1C) 3278.2398 umol/L
[2025-02-14 13:25] LABS: Alanine Aminotransferase 42 U/L (0-31); Albumin Level 4.2 g/dL (3.5-5.0); Alkaline Phosphatase 124 U/L (39-117); Anion Gap 12 (12-20); Aspartate Amino Transferase 32 U/L (5-31); Blood Urea Nitrogen 16 mg/dL (9-16); Calcium 9.0 mg/dL (8.4-10.2); Carbon Dioxide 26 mmol/L (22-29); Chloride 107 mmol/L (96-108); Cholesterol 200 mg/dL (<200); Estimated Glomerular Filt Rate 60; HDL Cholesterol 50 mg/dL (>40); Potassium 3.9 mmol/L (3.3-5.1); Sodium 141 mmol/L (135-145); Total Protein 7.8 g/dL (6.5-8.0); Triglycerides 122 mg/dL (<150)
[2025-02-14 13:34] LABS: Microalbum/Creatinine Ratio Ur 24.6 ug/mg cr (<30)
[2025-02-14 13:47] LABS: HIV Num 1 0.05 S/CO (0.00-0.99); ~HepC Num1 0.09 S/CO (0.00-0.79); ~Hepatitis C Antibody Nonreactive (Nonreactive)
[2025-02-14 13:52] LABS: Free T4 (Free Thyroxine) 1.05 ng/dL (0.71-1.85); Thyroid Stimulating Hormone 2.57 uIU/mL (0.32-4.0)
[2025-02-14 13:53] LABS: Folate 9.2 ng/mL (> or = 4.0); Vitamin B12 586 pg/mL (200-900)
== END 2025-02-14 10:35 | disposition home or self-care (01) ==
LOC: HO.HHCL 10:34
PROVIDERS: PCP Family Medicine; Visit Provider Family Medicine
DX: Z00.00 Encounter for general adult medical examination without abnormal findings (principal); I10 Essential (primary) hypertension; E78.49 Other hyperlipidemia; K76.0 Fatty (change of) liver, not elsewhere classified; F39 Unspecified mood [affective] disorder; R73.03 Prediabetes; I47.10 Supraventricular tachycardia, unspecified; K21.9 Gastro-esophageal reflux disease without esophagitis; K58.0 Irritable bowel syndrome with diarrhea; D35.02 Benign neoplasm of left adrenal gland; M25.50 Pain in unspecified joint; G47.30 Sleep apnea, unspecified; E23.6 Other disorders of pituitary gland; M25.562 Pain in left knee; R68.89 Other general symptoms and signs; Z23 Encounter for immunization
CPT/HCPCS: 36415; 80048; 80061; 80076; 82043; 82105; 82306; 82570; 82607; 82746; 83036; 84439; 84443; 85027; 86592; 86803; 87389

== ENCOUNTER 2025-02-17 07:52 | Outpatient (AMB) | payer OTHER, SELFPAY ==
--- OUTSIDE RECORDS SUMMARY | 2025-02-17 07:54 | XMS_ITS | Encounter Summary ---
Author Organization [employer] Address [address] [facility] [address] [place] [address] Care Team Providers Care Elementary Special Education Teacher Name Role Phone Peyton Multani DO Primary Care Provider + [phone] Betito Irving Unavailable Unavailable Reason for Visit * Reason Onset Date Comments Referral 09/25/2024 Encounter Details Date Type Department Care Team ([facility] st Contact Info) Description 09/25/2024 Telephone [facility] [address] [place] [address] Peyton Multani DO [address] [place], [place] [phone] Referral Social History Tobacco Use Types Packs/Day [...] from pt requesting to Change Location from [facility] for referral for Neurology on 08/12/24 due to [facility] not dealing with PT Diagnosis. Contact pt at [phone] documented in this encounter Plan of Treatment Upcoming Encounters Date Type Department Care Team (Late st Contact Info) Description 05/08/2025 1:30 PM EDT Clinical Support [facility] [address] [place] [address] Odalis Anderson, RN documented as of this encounter Visit Diagnoses Not on filedocumented in this encounter Additional Health Concerns Assessment Noted Time PHQ-9 Depression Total Score: 6 10/10/19 24 10:49 AM EDT documented as of this encounter Care Teams Elementary Special Education Teacher Relationship Specialty Start Date End Date Peyton Multani DO [address] [place] [address] PCP - General Family Medicine 04/17/13 Betito Irving FNP [address] [place] [address] Nurse Practitioner Family Medicine 06/13/23 documented as of this encounter
--- OUTSIDE RECORDS SUMMARY | 2025-02-17 07:54 | XMS_ITS | Clinical Summary ---
Author Organization [address] [facility] Address [address] [place] [address] Phone Care Team Providers Care Touch Up Painter Name Role Phone Peyton Multani Primary Care Provider +1- [phone] Allergies Active Allergy Reactions Criticality Noted Date [...] Problems Problem Noted Date Diagnosed Date Meningioma ([facility] V24, [facility] V28) 10/04/2024 Assessment & Plan (10/04/2024 4:27 PM EST): I reviewed the MRI findings in detail with Ms. Henderson describing the partially empty sella the small incidental meningioma and that there is no posterior fossa lesion to cause her dizziness and imbalance. I suspect she does have vertigo as PT with [employer] [place] maneuvers did help for short time. She had no improvement on meclizine and continues to have symptoms. She describes extreme imbalance and episodes of nystagmus however I found nothing worrisome on exam today. I recommended that she see her dehydrator tender for the blurry and cloudy vision and [...] patient's age to complete this topic Insurance [facility] PL[facility] Care Teams Touch Up Painter Relationship Specialty Start Date End Date Peyton Multani DO [address] [place] [address] PCP - General Internal Medicine 11/11/21
--- NOTE | 2025-02-17 08:56 | A.OFFVIS_ITS ---
Intake Visit Reasons: s/P double; Dr. Nguyen Allergies aspirin (ASA) Allergy (Intermediate, Verified 02/06/25 07:17) SWELLING Sulfa (Sulfonamide Antibiotics) (SULFA (SULFONAMIDE ANTIBIOTICS)) Allergy (Intermediate, Verified 02/06/25 07:17) RASH, SWELLING ibuprofen Allergy (Unknown, Uncoded 02/06/25 07:17) swelling HPI HPI s/P double; Dr. Nguyen: Details: 59 yr old f with hx of OA, hematuria, called for f/u of GI sx RECAP--originally pt of erik Patient was seen in April 2018- by her and by me 2019 last h/o persistent loose movements and cramping Labs in [facility] from 2012 and 2013 were negative for celiac sprue but patient wanted to be sure via EGD biopsy. Patient underwent an EGD with Dr Lazar on 07/17. Was noted for a small hiatal hernia with gastric cobblestoning. The small intestine villi were normal. Biopsy were negative for celiac sprue but positive for h.pylori. received treatment for H pylori she was also seen for MEANS, imaging studies with fatty liver. has seen urology for abdo pain and hematuria colonoscopy 2013--normal but no rando bx taken, minor diverticulosis EGD done 08/2019 with savary dilation with small tear seen - esophageal bx were nml Ba swallow by PCP: 09/22 Mild esophageal hypomotility with occasional tertiary contractions, mild cricopharyngeal thickening EGD/colo 02/06/25: Balloon dilation esophagus Endoscopy Findings: gastritis esophagitis duodenitis Colonoscopy Findings: diverticulosis colon polyp internal hemorrhoids Path: active esophagitis, polyp was lymphoid aggregate INTERIM: reviewed results of path she has not been taking omeprazole regulalry as it makes her constipated dilation has helped no dysphagia A/P: 1/ dysphagia, likely related to GERD, or due to cricopharyngeal hypertrophy--better with dilation, 2/ diarrhea, 2/2 to lactose intolerance PLAN: 1/ change to pantoprazole and see if better, EGD repeat prn 2/ colonoscopy rept in 10 yrs or earlier if any concerns f/u prn PFSH Medical History Empty sella syndrome PVC (premature ventricular contraction) HTN (hypertension) COVID-19 Surgical History History of esophagogastroduodenoscopy (EGD) Hx of colonoscopy Social History Alcohol intake: never Patient Tobacco Use Status: Never used Tobacco e-Cigarette/Vaping Use: Never Used Telehealth Telehealth Telehealth Platform: Telephone Location of provider rendering services: practice address Location of patient: address on file Patient Identification confirmed using: Name, : Yes Telehealth method: voice only Patient verbally consented to treatment: Yes Patient verbally consented to billing insurance company: Yes Patient informed of any privacy concerns related to visit: Yes Minutes spent on Phone/Video with Pt.: 7 Assessment & Plan Assessment & Plan (1) GERD with stricture: Code(s): K21.9 - Gastro-esophageal reflux disease without esophagitis; K22.2 - Esophageal obstruction Category: Medical Plan as above Medications: New pantoprazole 40 mg PO DAILY 90 tabs 2RF Bifidobacterium infantis (Align (B.infantis)) 4 mg PO DAILY 90 caps 2RF Discontinued omeprazole Discontinued Reason: Doctor's Order 40 mg PO DAILY 90 caps 2RF Coding Level of Care Code Tele Est Pt Level 3 (05370) Diagnoses GERD with stricture K21.9; K22.2
== END 2025-02-17 09:32 | disposition home or self-care (01) ==
LOC: HO.HGI 07:52
PROVIDERS: PCP Family Medicine; Visit Provider Internal Medicine Gastroenterology
DX: K21.9 Gastro-esophageal reflux disease without esophagitis (principal); K22.2 Esophageal obstruction
CPT/HCPCS: 98012

== ENCOUNTER 2025-04-14 12:40 | Outpatient (REF) | payer OTHER, SELFPAY ==
--- NOTE | ~2025-04-14 | MM_ITS ---
EXAMINATION: MM SCREENING DIGITAL BREAST TOMOSYNTHESIS, BILATERAL CLINICAL INFORMATION: Screening. Asymptomatic. COMPARISON: Comparison made to multiple prior, most recent March 12, 2024, and most remote November 23, 2017. TECHNIQUE: Digital breast tomosynthesis is performed in mediolateral oblique and craniocaudal views along with computer-aided detection (CAD). Synthesized 2D images are generated from the tomosynthesis. FINDINGS: BREAST COMPOSITION: There are scattered areas of fibroglandular density (ACR BI-RADS breast composition Category b). BILATERAL BREASTS: No significant masses, suspicious calcifications or other abnormalities are seen in either breast. MM/MM tomosynthesis screening BI IMPRESSION: BILATERAL BREASTS: Negative, no mammographic evidence of malignancy. Normal interval follow-up is recommended in 12 months. ASSESSMENT: BI-RADS 1 - Negative RECOMMENDATION: Routine annual mammography screening. FOLLOW-UP: 1 year F/U This examination should not preclude the clinical evaluation of a suspicious palpable abnormality. This patient's information was entered into a reminder system with a target due date for their next mammogram. Electronically signed by: Magda Hercules MD 04/15/2025 05:54 PM EDT
--- OUTSIDE RECORDS SUMMARY | 2025-04-14 17:22 | XMS_ITS | Clinical Summary ---
Author Organization [employer] Address [address] [facility] [address] [place] [address] Care Team Providers Care Evaluation Advisor Name Role Phone Peyton Multani DO Primary [...] as directed by MD. 30 patch 5 12/16/19 23 Active omeprazole OTC (PriLOSEC OTC) 20 MG EC tablet Take 1 tablet (20 mg) by mouth before breakfast. Do not crush, chew, or split. 30 tablet 11 10/17/19 24 Active meclizine (Antivert) 12.5 MG tabletIndicati ons:Vertigo TAKE 1 TABLET BY MOUTH THREE TIMES DAILY IN THE MORNING, AT NOON, AND AT BEDTIME NEEDED FOR DIZZINESS OR FOR NAUSEA 30 tablet 10/19/19 24 Active ondansetron (Zofran) 4 MG tablet TAKE 1 TABLET BY MOUTH EVERY 8 HOURS NEEDED FOR NAUSEA FOR UP TO 7 DAYS 10 tablet 10/19/19 24 Active DULoxetine (Cymbalta) [address] capsuleIndicat ions:Mood disorder (CMS/HCC) Take 1 capsule (60 mg) by mouth 2 times daily. Do not crush or chew. 180 capsule 3 12/14/19 24 Active hydrOXYzine HCl (Atarax) 25 MG tabletIndicati ons:Mood disorder (CMS/HCC) Take 1 tablet (25 mg) by mouth every 6 (six) hours if needed for anxiety. 200 tablet 11 12/14/19 24 Active baclofen (Lioresal) 10 MG tablet Take 1 tablet (10 mg) by mouth if needed in the morning, at noon, and at bedtime for muscle spasms. 60 tablet 3 02/19/20 24 Active famotidine (Pepcid) 40 MG tablet Take 1 tablet (40 mg) by mouth at bedtime. 30 tablet 3 02/19/20 24 Active metoprolol succinate XL (Toprol-XL) 50 MG 24 hr tablet Take 1 tablet (50 mg) by mouth 2 times daily. Do not crush or chew.TAKE 1 TABLET BY MOUTH TWICE DAILY IN THE MORNING AND IN THE EVENING 90 tablet 1 03/06/20 24 Active naloxone (Narcan) 4 mg/0.1 mL nasal sprayIndicatio ns:Mood disorder (CMS/HCC) Administer 1 spray (4 mg) into affected nostril(s) if needed for opioid reversal. May repeat every 2-3 minutes if needed, alternating nostrils, until medical assistance becomes available. 2 each 3 07/16/20 24 025 Active cetirizine (ZyrTEC) 10 MG tablet TAKE 1 TABLET BY MOUTH EVERY DAY 30 tablet 5 07/17/20 24 Active traZODone (Desyrel) 100 MG tabletIndicati ons:Mood disorder (CMS/HCC) Take 2 tablets (200 mg) by mouth at bedtime. 180 tablet 3 01/14/20 25 Active atorvastatin (Lipitor) 10 MG tablet Take 1 tablet (10 mg) by mouth Once per day. 30 tablet 11 02/29/20 25 026 Active FREESTYLE LITE test strip Use to test blood sugar 2 times daily 100 each 02/29/20 25 026 Active Lancets misc Use to test blood sugar 2 times daily 100 each 02/29/20 25 Active Alcohol Swabs 70 % pads Use to test blood sugar 2 times daily 100 each 02/29/20 25 Active Blood Glucose Monitoring Suppl (FreeStyle [place] Lite) w/Device kit Use to test blood sugar 2 times daily 1 kit 02/29/20 25 Active empagliflozin (Jardiance) 10 MG Take 1 tablet (10 mg) by mouth Once per day. 30 tablet 3 03/12/20 25 026 Active clonazePAM (KlonoPIN) 0.5 MG tabletIndicati ons:Mood disorder (CMS/HCC) TAKE 1 TABLET BY MOUTH TWICE DAILY 56 tablet 03/19/20 25 Active clonazePAM (KlonoPIN) 0.5 MG tabletIndicati ons:Mood disorder (CMS/HCC) TAKE 1 TABLET BY MOUTH TWICE DAILY 56 tablet 01/14/20 25 025 Discontinued Active Problems Problem Noted Date Diagnosed Date BMI 32.0-32.9,adult 02/28/2025 Long-term current use of benzodiazepine 12/21/19 25 PVC (premature ventricular contraction) 10/17/19 24 Vertigo 10/17/2023 Polyarthralgia 10/17/2023 Assessment & Plan (10/17/2023 [...] on MRI -referred to endo for eval Hyperlipidemia 12/15/2022 Assessment & Plan (10/17/2023 2:16 PM EDT): LDL unchanged JUL 2023 -ASCVD 10-year risk 3.8% -cont lifestyle modifications Allergic rhinitis 12/15/2022 History of COVID-19 09/20/2022 Assessment & Plan [...] any issues or concerns, she should contact [facility]. All her questions were answered. I have [...] Resolved Date Acute facial pain 10/17/2023 02/19/2024 Gastroenteritis 10/17/2023 02/28/2025 Unsteady gait 10/17/2023 02/28/2025 Zoster 10/17/2023 02/28/2025 Imbalance 08/25/2023 02/28/2025 Assessment & Plan (08/25/2023 6:20 AM EST): Pt w 2 weeks of imbalance sensation does appears vertigo for description but also dizziness sometimes CN exam normal II to XII , Strength in 4 extremities 4/5-noted some generalized weakness but per pt is at her baseline ,normal sensory evaluation in all extremities. Normal finger to nose test, Normal gait. Dona -Hallpike maneuver did elicit intense symptoms , no nystagmus seen on exam Possible vertigo but concerning w presyncope when did [place] -Hallpike maneuver and then recover quickly From [...] inflammatory markers --already in eval by PCP BMI 31.0-31.9,adult 12/15/2022 02/29/20 Prediabetes 12/15/2022 02/28/2025 Assessment & Plan (10/17/2023 2:17 PM EDT): A1c 6.1% JUL 2023 -encouraged dietary changes and weight loss for prevention of DM Generalized anxiety disorder 05/20/2015 09/20/2022 Hyperlipidemia LDL goal <130 05/20/2015 12/15/2022 Major depression, recurrent, chronic 05/20/2015 09/20/2022 Encounters Date Type Department Care Team Description 03/18/2025 Refill [facility] [address] [place] [phone] Peyton Multani DO Mood disorder (CMS/HCC) 03/04/2025 Telephone [facility] [address] [place] [address] Peyton Multani DO Prior Authorization ( PA: Derick) 02/28/2025 11:15 AM EDT Office Visit [facility] [address] [place] [phone] Peyton Multani DO BMI 32.0-32.9,adult (Primary Dx); New onset type 2 diabetes mellitus (CMS/HCC) 02/28/2025 Travel 02/27/[address] [address] Peyton Multani DO Chart Prep 02/19/[address] [phone] Peyton Multani DO Results 02/13/2025 2:00 PM EDT Clinical Support [address] [phone] Odalis Anderson, MAO Long-term current use of benzodiazepine (Primary Dx) 02/13/[address] [address] Peyton Multani DO telephone call 02/13/[address] [address] Odalis Anderson RN JOVANNY scoring 02/13/2025 Travel 02/06/2025 Orders Only GENERIC EXTERNAL DATA DEPARTMENT Provider, Generic External Data 01/13/2025 Refill [facility] [address] [place] [address] Peyton Multani, DO Mood disorder ([facility]/HCC) 01/13/2025 Refill [facility] [address] [place] [address] Peyton Multani, Mood disorder ([facility]) from Last 3 Months Immunizations Immunization Administration Dates Next Due Hep A, Adult [...] Answer Date Recorded Patient Health Questionnaire-9 Score 14 02/28/2025 Patient Health Questionnaire-9 Score 14 02/28/2025 Last PHQ-9: Questionnaire Data Not on file 0 02/28/2025 Housing Stability Answer Date Recorded What is your housing situation today? I have courtney silva 02/28/[address] you li ve. Do you have problems with any of the following? I am not sure 02/28/2025 Food Insecurity Answer Date Recorded Within the past 12 months, y ou worried that your food would run out before you got money to buy more: Never True 02/28/2025 Within the past 12 months,th e food you bought just didn't last and you didn't have enough money to get more: Never True 07/2024 Transportation Answer Date Recorded In the past 12 months, has l ack of transportation kept you from medical appts, meetings, work or from getting things needed for daily living? No 02/28/2025 Utilities Answer Date Recorded In the past 12 months, has t he electric, gas, oil or water company threatened to shut off services in your home? No 02/28/2025 Depression Answer Date Recorded Patient Health Questionnaire-2 Score 4 02/28/2025 Internet Access Answer Date Recorded Internet Access Q1 Yes 02/28/2025 Internet Access Q2 Not on file 02/28/2025 Comments Unknown Sex and Gender Information Value Date Recorded Sex Assigned at Female 05/30/2022 10:22 AM EDT Legal Sex Female 10:22 AM EDT Gender Identity Female 05/30/2022 10:22 AM EDT Sexual Orientation Straight 05/30/2022 10 :22 AM EDT Last Filed Vital Signs Vital Sign Reading Time Taken Comments Blood Pressure 124/80 02/28/2025 10:51 AM EDT Pulse 68 02/28/2025 10:51 AM EDT Temperature 36.8 C (98.3 F) 02/28/2025 10:51 AM EDT Respiratory Rate 18 02/28/2025 10:51 AM EDT Oxygen Saturation 98% 10/01/2024 11:14 AM EST Inhaled Oxygen Concentration - - Weight 75 kg (165 lb 6.4 oz) 02/28/2025 10:51 AM EDT Height 154.9 cm (5' 1 ) 02/28/2025 10:51 AM EDT Body Mass Index 31.25 02/28/2025 10:51 AM EDT Plan of Treatment Upcoming Encounters Date Type Department Care Team (Late st Contact Info) Description 05/08/2025 1:30 PM EDT Clinical Support [facility] [address] [place] [address] Odalis Anderson, RN Health Maintenance Due Date Last Done Comments CT Colonography 1963 FIT DNA/Cologuard 1963 FIT 1963 FOBT 1963 Sigmoidoscopy 1963 Diabetes: Foot Exam 1973 Eye Exam 1973 Alcohol/Substance Use Screening 1975 Pneumococcal Vaccine: 50+ Years (1 of 2 - PCV) 1982 Pap Smear 1984 Cervical Cancer Screening 1993 HPV/Cotest 1993 RSV Patients and Patients Aged 60 years or older (1 - Risk 60-74 years 1-dose series) 2023 COVID-19 Vaccine ( season) 2025 07/29/2021, 12/31/2020, 12/02/2020 Influenza Vaccine (#1) 2025 , 07/28/2023, 05/12/2022, Additional history exists Depression Monitoring 08/31/2025 02/28/2025, 025 Diabetes: Hemoglobin A1C 08/31/2025 025, 02/14/2025, 08/23/2023, Additional history exists Diabetes: Urine Protein Screening 02/14/2026 02/14/2025, 09/05/2022, 12/31/2020 Lipid Panel 02/14/2026 02/14/2025, 08/01, 09/05/2022, Additional history exists Disability Screening 02/28/2026 02/28/2025 SDOH Screening 02/28/2026 02/28/2025 Tobacco Screening 02/28/2026 02/28/2025 Mammogram 03/12/2026 03/12/2024, 08/0 07/2022, 05/03/2021, Additional history exists DTaP/Tdap/Td Vaccines (3 - Td or Tdap) 07/28/2033 07/28/2023, 06/18/2013 Colonoscopy 02/06/2035 02/06/2025 Colorectal Cancer Screening 02/06/2035 Hepatitis A Vaccines Completed 07/01/2014, 10/18/19 14 Hepatitis B Vaccines Completed 07/01/2014, 12/30/2013, 10/17/2013 Zoster Vaccines Completed 06/18/2021, 04/15/2021 HIV Screening Completed 02/14/2025, 08/01, 09/05/2022, Additional history exists Hepatitis C Screening Completed 02/14/2025 , 08/23/2023, 09/05/2022, Additional history exists HIB Vaccines Aged Out [...] Name Priority Date/Time Associated Diagnosis Comments POCT GLYCATED HEMOGLOBIN, TOTAL Routine 02/28/2025 11:03 AM EDT New onset type 2 diabetes mellitus (CMS/HCC) POCT GLUCOSE Routine 02/28/2025 11:03 AM EDT New onset type 2 diabetes mellitus (CMS/HCC) VITAMIN B12/FOLATE, SERUM PANEL Routine 02/14/2025 10:47 AM EDT Essential hypertension Other hyperlipidemia Fatty liver Mood disorder (CMS/HCC) Prediabetes Supraventricular tachycardia (CMS/HCC) Chronic gastroesophageal reflux disease Irritable bowel syndrome with diarrhea Adenoma of left adrenal gland Polyarthralgia Sleep-disordered breathing Empty sella (CMS/HCC) Acute pain of left knee Forgetfulness Healthcare maintenance Encounter for immunization ALPHA FETOPROTEIN, TUMOR MARKER Routine 02/14/2025 10:47 AM EDT Essential hypertension Other hyperlipidemia Fatty liver Mood disorder (CMS/HCC) Prediabetes Supraventricular tachycardia (CMS/HCC) Chronic gastroesophageal reflux disease Irritable bowel syndrome with diarrhea Adenoma of left adrenal gland Polyarthralgia Sleep-disordered breathing Empty sella (CMS/HCC) Acute pain of left knee Forgetfulness Healthcare maintenance Encounter for immunization RPR (MONITOR) W/REFL TITER Routine 02/14/2025 10:47 AM EDT Essential hypertension Other hyperlipidemia Fatty liver Mood disorder (CMS/HCC) Prediabetes Supraventricular tachycardia (CMS/HCC) Chronic gastroesophageal reflux disease Irritable bowel syndrome with diarrhea Adenoma of left adrenal gland Polyarthralgia Sleep-disordered breathing Empty sella (CMS/HCC) Acute pain of left knee Forgetfulness Healthcare maintenance Encounter for immunization HEPATITIS C AB W/REFL TO HCV RNA, QN, PCR Routine 02/14/2025 10:47 AM EDT Essential hypertension Other hyperlipidemia Fatty liver Mood disorder (CMS/HCC) Prediabetes Supraventricular tachycardia (CMS/HCC) Chronic gastroesophageal reflux disease Irritable bowel syndrome with diarrhea Adenoma of left adrenal gland Polyarthralgia Sleep-disordered breathing Empty sella (CMS/HCC) Acute pain of left knee Forgetfulness Healthcare maintenance Encounter for immunization HIV 1/2 ANTIGEN/ANTIBODY, FOURTH GENERATION W/RFL Routine 02/14/2025 10:47 AM EDT Essential hypertension Other hyperlipidemia Fatty liver Mood disorder (CMS/HCC) Prediabetes Supraventricular tachycardia (CMS/HCC) Chronic gastroesophageal reflux disease Irritable bowel syndrome with diarrhea Adenoma of left adrenal gland Polyarthralgia Sleep-disordered breathing Empty sella (CMS/HCC) Acute pain of left knee Forgetfulness Healthcare maintenance Encounter for immunization ALBUMIN, RANDOM URINE W/CREATININE Routine 02/14/2025 10:47 AM EDT Essential hypertension Other hyperlipidemia Fatty liver Mood disorder (CMS/HCC) Prediabetes Supraventricular tachycardia (CMS/HCC) Chronic gastroesophageal reflux disease Irritable bowel syndrome with diarrhea Adenoma of left adrenal gland Polyarthralgia Sleep-disordered breathing Empty sella (CMS/HCC) Acute pain of left knee Forgetfulness Healthcare maintenance Encounter for immunization CBC Routine 02/14/2025 10:47 AM EDT Essential hypertension Other hyperlipidemia Fatty liver Mood disorder (CMS/HCC) Prediabetes Supraventricular tachycardia (CMS/HCC) Chronic gastroesophageal reflux disease Irritable bowel syndrome with diarrhea Adenoma of left adrenal gland Polyarthralgia Sleep-disordered breathing Empty sella (CMS/HCC) Acute pain of left knee Forgetfulness Healthcare maintenance Encounter for immunization BASIC METABOLIC PANEL Routine 02/14/2025 10:47 AM EDT Essential hypertension Other hyperlipidemia Fatty liver Mood disorder (CMS/HCC) Prediabetes Supraventricular tachycardia (CMS/HCC) Chronic gastroesophageal reflux disease Irritable bowel syndrome with diarrhea Adenoma of left adrenal gland Polyarthralgia Sleep-disordered breathing Empty sella (CMS/HCC) Acute pain of left knee Forgetfulness Healthcare maintenance Encounter for immunization HEMOGLOBIN A1C Routine 02/14/2025 10:47 AM EDT Essential hypertension Other hyperlipidemia Fatty liver Mood disorder (CMS/HCC) Prediabetes Supraventricular tachycardia (CMS/HCC) Chronic gastroesophageal reflux disease Irritable bowel syndrome with diarrhea Adenoma of left adrenal gland Polyarthralgia Sleep-disordered breathing Empty sella (CMS/HCC) Acute pain of left knee Forgetfulness Healthcare maintenance Encounter for immunization HEPATIC FUNCTION PANEL Routine 10:47 AM EDT Essential hypertension Other hyperlipidemia Fatty liver Mood disorder (CMS/HCC) Prediabetes Supraventricular tachycardia (CMS/HCC) Chronic gastroesophageal reflux disease Irritable bowel syndrome with diarrhea Adenoma of left adrenal gland Polyarthralgia Sleep-disordered breathing Empty sella (CMS/HCC) Acute pain of left knee Forgetfulness Healthcare maintenance Encounter for immunization TSH Routine 02/14/2025 10:47 AM EDT Essential hypertension Other hyperlipidemia Fatty liver Mood disorder (CMS/HCC) Prediabetes Supraventricular tachycardia (CMS/HCC) Chronic gastroesophageal reflux disease Irritable bowel syndrome with diarrhea Adenoma of left adrenal gland Polyarthralgia Sleep-disordered breathing Empty sella (CMS/HCC) Acute pain of left knee Forgetfulness Healthcare maintenance Encounter for immunization LIPID PANEL, STANDARD Routine 02/14/2025 10:47 AM EDT Essential hypertension Other hyperlipidemia Fatty liver Mood disorder (CMS/HCC) Prediabetes Supraventricular tachycardia (CMS/HCC) Chronic gastroesophageal reflux disease Irritable bowel syndrome with diarrhea Adenoma of left adrenal gland Polyarthralgia Sleep-disordered breathing Empty sella (CMS/HCC) Acute pain of left knee Forgetfulness Healthcare maintenance Encounter for immunization VITAMIN D,25-OH,TOTAL,IA Routine 02/14/2025 10:47 AM EDT Essential hypertension Other hyperlipidemia Fatty liver Mood disorder (CMS/HCC) Prediabetes Supraventricular tachycardia (CMS/HCC) Chronic gastroesophageal reflux disease Irritable bowel syndrome with diarrhea Adenoma of left adrenal gland Polyarthralgia Sleep-disordered breathing Empty sella (CMS/HCC) Acute pain of left knee Forgetfulness Healthcare maintenance Encounter for immunization T4, FREE Routine 02/14/2025 10:47 AM EDT Essential hypertension Other hyperlipidemia Fatty liver Mood disorder (CMS/HCC) Prediabetes Supraventricular tachycardia (CMS/HCC) Chronic gastroesophageal reflux disease Irritable bowel syndrome with diarrhea Adenoma of left adrenal gland Polyarthralgia Sleep-disordered breathing Empty sella (CMS/HCC) Acute pain of left knee Forgetfulness Healthcare maintenance Encounter for immunization POCT JESENIA-14 URINE DRUG SCREEN Routine 02/13/2025 2:18 PM EDT Long-term current use of benzodiazepine HEMATOXYLIN AND EOSIN STAIN Routine 02/06/2025 8:33 AM EDT DISACCHARIDASES Routine 02/06/2025 8:26 AM EDT HM COLONOSCOPY Routine 02/06/2025 BI MAMMOGRAM SCREENING TOMOSYNTHESIS BILATERAL Routine 03/12/2024 3:05 PM EDT Encounter for screening mammogram for breast cancer from Last 3 Months or Most Recently Relevant to Health Maintenance Results * (ABNORMAL) POCT HGB A1C (02/28/2025 11:03 AM EDT) Hemoglobin A1C 6.6(A) 4.0 - 5.7 % QC Media Lot # [id number] Lot# Expiration Date [id number] Blood 02/28/2025 11:0 3 AM EDT Peyton Multani DO POINT OF CARE TEST ENTER/DANNIE T ORDERABLES Final Result * POCT Glucose (02/28/2025 11:03 AM EDT) Glucose Blood, POC 186 60 - 200 mg/dL Blood Capillary blood specimen / Unknown 02/28/2025 11:03 AM EDT Peyton Multani DO POINT OF CARE TEST ENTER/DANNIE T ORDERABLES Final Result * Vitamin D, 25-Hydroxy, Total, Immunoassay (02/14/2025 10:47 AM EDT) Vitamin D 25-OH Total 30.2 >30 ng/mL [facility] Comment: Health Based Reference Values*< 20 ng/mL [id number] ng/mL Insufficient> 30 ng/mL Sufficient*Azam ANDERSON. N Engl J Med. 2007;357:266-280There is no well-established upper level of normal vitamin Dlevels. Some laboratories use 50 ng/mL as an upper limit ofnormal. However, toxicity is patient-dependent and may occurat any level. Careful correlation with the patient'spresentation is necessary and, if there is concern forvitamin D toxicity, treatment should be consideredirrespective of the serum level.Care must be taken in interpreting Vitamin D results fromdifferent laboratories and methodologies. Published datademonstrated that results from patients undergoinghemodialysis may show a negative bias when tested withvarious automated 25-OH vitamin D assays when compared toLC-MS/MS.When testing samples from patients whose predominant form ofVitamin D is Vitamin D2, such as patients receiving VitaminD2 supplementation, results that are subtherapeutic shouldbe confirmed with another method such as LC-MS/MS. Blood Venous blood specimen / Unknown 02/14/2025 10:47 AM EDT 02/14/2025 12:58 PM EDT Peyton Multani DO LAB BLOOD ORDERABLES Final R esult [facility] [address] [place] [phone] * Vitamin B12 (Cobalamin) and Folate Panel, Serum (02/14/2025 10:47 AM EDT) Vitamin B12 586 200 - 900 pg/mL [facility] Comment:NORMAL 200-900 PG/ML INDETERMINATE 160-199 PG/ML DEFICIENT < 160 PG/ML Folate 9.2 > or = 4.0 ng/mL [facility] Comment:Reference Values:> o r = 4.0 ng/mL< 4.0 ng/mL suggests folate deficiency Methotrexate, aminopterin and folinic acid(leucovorin) are chemotherapeutic agents whose molecularstructures are similar to folate; therefore, the Architectfolate assay cannot be used for patients using these drugs. Blood Venous blood specimen / Unknown 02/14/2025 10:47 AM EDT 02/14/2025 12:55 PM EDT us Peyton Multani DO LAB BLOOD ORDERABLES Final R esult Performing Organization Address [facility] Co de Phone Number [facility] [address] [place] [phone] * Albumin, Random Urine W/Creatinine (02/14/2025 10:47 AM EDT) Creatinine, Urine 223.08 mg/dL [facility] Microalbumin Urine 55.0 mg/L [facility] Microalbum Creatinine Ratio Ur 24.6 <30 ug/mg cr [facility] Comment:Albumin/Creatinine R atio Reference Ranges: Normal: < 30 ug/mg creatinine Microalbuminuria: 30 - 300 ug/mg creatinineClinical Albuminuria: > 300 ug/mg creatinine Urine (Urine, Random) 02/14/2025 10:47 AM EDT 02/14/2025 12:47 PM EDT us Peyton Multani DO LAB URINE ORDERABLES Final R esult Performing Organization Address City/[facility]/ZIP Co de Phone Number [facility] [address] [place] [address] [phone] * Hepatitis C Antibody with Reflex to HCV, RNA, Quantitative, Real-Time PCR (02/14/2025 10:47 AM EDT) Pathologist [facility] Hepatitis C Antibody Nonreactive Nonreactive [facility] Comment:Antibodies to HCV no t detected; does not exclude early acuteHCV infection. Blood Venous blood specimen / Unknown 02/14/2025 10:47 AM EDT 02/14/2025 12:55 PM EDT Peyton Nerissa DO LAB BLOOD ORDERABLES Final R esult Performing Organization Address City/[facility]/ZIP Co de Phone Number [facility] [address] [place] [address] [phone] * Alpha-Fetoprotein, Tumor Marker (02/14/2025 10:47 AM EDT) Pathologist [facility] Alpha Fetoprotein 2.4 ng/mL [facility] Comment:Reference Range: <6. 1The use of AFP as a tumor marker in females is not recommended.This test was performed using the Markr Coulterchemiluminescent method. Values obtained fromdifferent assay methods cannot be usedinterchangeably. AFP levels, regardless ofvalue, should not be interpreted as absoluteevidence of the presence or absence of disease.THIS TEST WAS PERFORMED AT:[employer] [place] [phone] CARSON MD Blood Venous blood specimen / Unknown 02/14/2025 10:47 AM EDT 02/14/2025 12:55 PM EDT Peyton Multani DO LAB BLOOD ORDERABLES Final R esult Performing Organization Address [facility]/ZIP Co de Phone Number [facility] [address] [place] [address] [phone] * RPR (Monitor) with Reflex to??Titer (02/14/2025 10:47 AM EDT) Pathologist [facility] RPR (Monitor) w/Refl Titer NON-REACTI VE NON-REACT VALERIY [facility] Comment:THIS TEST WAS PERFOR MED AT:[employer] [address] [phone] CARSON MD Rapid Plasma Reagin Ab Titer TNP [facility] Blood Venous blood specimen / Unknown 02/14/2025 10:47 AM EDT 02/14/2025 12:55 PM EDT Peyton Francisdemartiffany LOW LAB BLOOD ORDERABLES Final R esult Performing Organization Address [facility]/ZIP Co de Phone Number [facility] [address] [place] [phone] * HIV-1/2 Antigen and Antibodies, Fourth Generation, with Reflexes (02/14/2025 10:47 AM EDT) Pathologist [facility] HIV AB/AG Nonreactive Nonreactive [facility] Comment:HIV-1 p24 Ag and/or HIV-1/HIV-2 Ab not detected.A test result that is nonreactive does not exclude thepossibility of exposure to or infection with HIV-1 and/orHIV-2. Nonreactive results in this assay for individualswith prior exposure to HIV-1 and/or HIV-2 may be due toantigen and antibody levels that are below the limit ofdetection of this assay.The [employer] HIV Ag/Ab Combo assay result andsupplemental assay results should be interpreted inconjunction with the patient's clinical presentation,history and other laboratory results. If the results areinconsistent with clinical evidence, additional testing issuggested to confirm the result. Blood Venous blood specimen / Unknown 02/14/2025 10:47 AM EDT 02/14/2025 12:55 PM EDT us Peyton Nerissa DO LAB BLOOD ORDERABLES Final R esult Performing Organization Address [facility]/ZIP Co de Phone Number [facility] [address] [place] [phone] * (ABNORMAL) CBC (02/14/2025 10:47 AM EDT) White Blood Count 6.6 4.8 - 10.8 X10*3/uL [facility] Red Blood Count 4.75 4.20 - 5.50 X10*6/uL [facility] Hemoglobin 12.5 12.0 - 16.0 g/dl [facility] Hematocrit 39.1 37.0 - 47.0 % [facility] Mean Corpuscular Volume 82.3 80.0 - 98.0 fL [facility] Mean Corpuscular Hemoglobin 26.3(L) 27.0 - 33.0 pg [facility] Mean Corpuscular HGB Conc 32.0 31.0 - 35.0 g/dl [facility] Red Cell Distribution Width 14.1 11.0 - 16.0 % [facility] Platelet Count 290 160 - 400 X10*3/uL [facility] Mean Platelet Volume 10.3 9.4 - 12.3 fL [facility] NRBC Pct Auto 0.0 0.0 - 0.2 /100WBC [facility] NRBC Abs Auto 0.000 0.0 - 0.012 X10*3/uL [facility] Blood Venous blood specimen / Unknown 02/14/2025 10:47 AM EDT 02/14/2025 12:55 PM EDT Peyton Multani DO LAB BLOOD ORDERABLES Final R esult [facility] [address] [place] [address] [phone] * TSH (02/14/2025 10:47 AM EDT) Thyroid Stimulating Hormone 2.57 0.32 - 4.0 uIU/mL [facility] Comment:TSH 3rd Generation ( popAD) Blood Venous blood specimen / Unknown 02/14/2025 10:47 AM EDT 02/14/2025 12:58 PM EDT Peyton Multani DO LAB BLOOD ORDERABLES Final R esult Performing Organization Address City/[facility]/ZIP Co de Phone Number [facility] [address] [place] [address] [phone] * T4, Free (02/14/2025 10:47 AM EDT) Free T4 (Free Thyroxine) 1.05 0.71 - 1.85 ng/dL [facility] Blood Venous blood specimen / Unknown 02/14/2025 10:47 AM EDT 02/14/2025 12:58 PM EDT Peyton Multani LAB BLOOD ORDERABLES Final R esult Performing Organization Address [facility] Co de Phone Number [facility] [address] [place] [address] [phone] * (ABNORMAL) Hemoglobin A1c (02/14/2025 10:47 AM EDT) Pathologist [facility] Hemoglobin A1c 6.8(H) <6.0 % [facility] Comment:Hemoglobin A1C Refer ence Range Adults: 4.8 - 6.0 % Non diabetic: < 6.0 % Goal: < 7.0 %Additional Action Suggested: > 8.0 %Note: Hemoglobin A1c results are invalid for patients with abnormal amounts of HbF. Blood transfusions may impact the HbA1c concentration in the patient sample. Estimated Average Glucose 148 mg/dL [facility] Comment:eAG = Estimated ave rage glucose which is %A1C expressed asaverage glucose, using the formula of the V2N-TqhrckoXumtlid Glucose study (ADAG), Diabetes Care, Vol.31,#8,2007 Blood Venous blood specimen / Unknown 02/14/2025 10:47 AM EDT 02/14/2025 12:55 PM EDT Peyton Multani DO LAB BLOOD ORDERABLES Final R esult Performing Organization Address [facility]/ZIP Co de Phone Number [facility] [address] [place] [address] [phone] * (ABNORMAL) Hepatic Function Panel (02/14/2025 10:47 AM EDT) Bilirubin, Total 0.6 0.0 - 1.0 mg/dL [facility] Bilirubin, Direct 0.2 0.0 - 0.5 mg/dL [facility] Aspartate Amino Transferase 32(H) 5 - 31 U/L [facility] Alanine Aminotransferase 42(H) 0 - 31 U/L [facility] Total Protein 7.8 6.5 - 8.0 g/dL [facility] Albumin Level 4.2 3.5 - 5.0 g/dL [facility] Alkaline Phosphatase 124(H) 39 - 117 U/L [facility] Blood Venous blood specimen / Unknown 02/14/2025 10:47 AM EDT 02/14/2025 12:58 PM EDT Peyton Multani DO LAB BLOOD ORDERABLES Final R esult [facility] [address] [place] [address] [phone] * (ABNORMAL) Lipid Panel, Standard (02/14/2025 10:47 AM EDT) Triglycerides 122 <150 mg/dL [facility] Comment:Desirable Triglyceri de: less than 150 mg/dLBorderline High Triglyceride 150-199 mg/dLHigh Triglyceride: 200-499 mg/dLVery High Triglyceride: greater than or equal to 5OO mg/dL Cholesterol 200(H) <200 mg/dL [facility] Comment:Desirable Cholestero l: less than 200 mg/dLBorderline High Cholesterol: 200-239 mg/dLHigh Cholesterol: greater than 239 mg/dL LDL Cholesterol Calculated 126(H) <100 mg/dL [facility] Comment:Desirable LDL: less than 100 mg/dLNear Optimal/Above Optimal LDL: 110- 129 mg/dLBorderline High LDL: 130-159 mg/dLHigh LDL: 160-189 mg/dLVery High LDL: greater than or equal to 190 mg/dL HDL Cholesterol 50 >40 mg/dL [facility] Comment:Desirable HDL: great er than 40 mg/dL Note: This HDL assay may give artificially low results in patients with liver disease. Blood Venous blood specimen / Unknown 02/14/2025 10:47 AM EDT 02/14/2025 12:58 PM EDT Peyton Multani LAB BLOOD ORDERABLES Final R esult Performing Organization Address [facility] Co de Phone Number [facility] [address] [place] [phone] [phone] * (ABNORMAL) Basic Metabolic Panel (02/14/2025 10:47 AM EDT) Sodium 141 135 - 145 mmol/L [facility] Potassium 3.9 3.3 - 5.1 mmol/L [facility] Chloride 107 96 - 108 mmol/L [facility] Carbon Dioxide 26 22 - 29 mmol/L [facility] Anion Gap 12 12 - 20 [facility] Urea Nitrogen (BUN) 16 9 - 16 mg/dL [facility] Creatinine, Serum 0.95 0.5 - 1.4 mg/dL [facility] Estimated Glomerular Filt Rate 60 [facility] Comment:Chronic Kidney Disea se: Estimated GFR < 60 mL/min/1.11h7Vxndin Kidney Disease: Estimated GFR < 15 mL/min/1.73m2 Glucose 132(H) 60 - 115 mg/dL [facility] Calcium 9.0 8.4 - 10.2 mg/dL [facility] Blood Venous blood specimen / Unknown 02/14/2025 10:47 AM EDT 02/14/2025 12:58 PM EDT Peyton Multani DO LAB BLOOD ORDERABLES Final R esult Performing Organization Address [facility]/ZIP Co de Phone Number [facility] [address] [place] [address] [phone] * POCT JESENIA-14 Urine Drug Screen (02/13/2025 2:18 PM EDT) THC Negative Negative Cocaine Screen, Urine Negative Negative Opiate Screen, Urine Negative Negative Methamphetamine Screen Urine Negative Negative Amphetamine Screen, Urine Negative Negative Benzodiazepines Screen, Urine Positive Negative Barbiturate Screen, Urine Negative Negative Methadone Screen, Urine Negative Negative Buprenophine Screen, Urine Negative Negative TCA, Urine Negative Negative MDMA Urine Negative Negative ng/mL Oxycodone Screen, Urine Negative Negative Phencyclidine (PCP), Urine Negative Negative Propoxyphene, Urine Negative Negative Fentanyl, Urine Negative Negative Urine Urine specimen obtained by clean catch procedure / Unknown 02/13/2025 2:18 PM EDT Odalis Hay RN - 02/13/2025 2:18 PM EDT UTOX cup Lot#[id number] Exp. 05/06/26 Internal Pass Control Peyton Multani DO POINT OF CARE TEST ENTER/DANNIE T ORDERABLES Final Result * Hematoxylin and Eosin Stain (02/06/2025 8:33 AM EDT) 02/06/2025 8:33 AM EDT 02/06/2025 9:20 AM EDT Mert [facility] - 02/10/2025 9:48 AM EDT ----- ------- Name: Savi Henderson Age/Sex: 59/F : 1965 Unit#: [id number] Attend Dr: Manjinder Nguyen MD Re02/06/25 Status: [facility] Location: [facility] Disch: ----- ------- SPEC : [id number] RECD: 02/06/25 STATUS: ELISA BARTLETT NUM: [id number] RENAN: 02/06/25 [facility] DR: Manjinder Nguyen MD ENTERED: 02/06/25 SP TYPE: Surgical OTHR DR: Peyton Multani DO ORDERED: HE Stain/12, Gross Micro L4/6, IHC, Special st. 2/, H. pylori, AB/PAS/ Diagnosis A. Duodenum, biopsy: Duodenal mucosa within normal limits. B. Stomach, biopsy: Stomach, random, biopsy: Reactive gastropathy with background mild chronic inactive inflammation and focal intestinal metaplasia; negative for dysplasia; no Helicobacter organisms seen. C. EG junction, biopsy: - Cardiac-type mucosa with moderate chronic active inflammation; no intestinal metaplasia seen. - Active esophagitis (mostly neutrophils). D. Esophagus, distal, biopsy: Squamous epithelium within normal limits; no inflammation seen. E. Esophagus, proximal, biopsy: - Cardiac-type mucosa with mild chronic inactive inflammation; no intestinal metaplasia seen. See comment. - Squamous epithelium within normal limits. F. Colon, sigmoid, polypectomy: Colonic mucosa with prominent lymphoid aggregate. Comment: The findings in the proximal esophagus may represent an inlet patch. Clinical History Pre-Op Dx: GERD with esophageal stricture Post-Op Dx: Fundic gland polyp, mild duodenitis, gastritis, esophagitis colon polyp, diverticulosis, hemorrhoids Microscopic Description A-F. Microscopic sections examined. Focal intestinal metaplasia is present in part B and no metaplastic changes are seen in A and C, supported by AB/PAS stains; no Helicobacter organisms are seen, supported by H. pylori immunostain (B). Material Received A. Duodenum bx B. Stomach bx C. EG junction bx D. Distal esophagus bx E. Proximal esophagus bx CONTINUED ON NEXT PAGE ----- ------- Name: Savi Henderson Age/Sex: 59/F : 1965 [id number] Unit#: [id number] Attend Dr: Manjinder Nguyen MD Re02/06/25 Status: [facility] Location: [facility] Disch: ----- ------- SPEC : [id number] RECD: 02/06/25 STATUS: ELISA B[facility]LETT NUM: [id number] RENAN: 02/06/25 [facility] DR: Manjinder Nguyen MD ENTERED: 02/06/25 SP TYPE: Surgical OTHR DR: Peyton Multani DO ORDERED: HE Stain/12, Gross Micro L4/6, IHC, Special st. 2/3, H. pylori, AB/PAS/3 Material Received (Continued) F. Sigmoid colon polyp Gross Description Received in 6 parts. A. Received in formalin labeled biopsy duodenum are 3 fragments of pink white soft tissue measuring 0.2-0.3 cm in greatest dimension which are wrapped in lens paper and entirely submitted for microscopic examination, 3 pieces in cassette A. B. Received in formalin labeled stomach biopsy are 2 fragments of esparza-white soft tissue measuring 0.3 and 0.4 cm in greatest dimension which are wrapped in lens paper and entirely submitted for microscopic examination, 2 pieces in cassette B. C. Received in formalin labeled EG junction biopsy are 2 fragments of translucent, white soft tissue measuring 0.2 and 0.2 cm in greatest dimension which are wrapped in lens paper and entirely submitted for microscopic examination, 2 pieces in cassette C. D. Received in formalin labeled distal esophagus biopsy are 3 fragments of translucent, white soft tissue measuring 0.2-0.3 cm in greatest dimension which are wrapped in lens paper and entirely submitted for microscopic examination, 3 pieces in cassette D. E. Received in formalin labeled proximal esophagus biopsy are 3 fragments of translucent, white soft tissue measuring 0.1-0.2 cm in greatest dimension which are wrapped in lens paper and entirely submitted for microscopic examination, 3 pieces in cassette E. F. Received in formalin labeled polyp sigmoid colon is a fragment of esparza-white soft tissue measuring 0.3 cm in greatest dimension which is wrapped in lens paper and entirely submitted for microscopic examination, 1 piece in cassette F. ([facility]) Special studies ordered and performed: Immunostain for H. pylori on B; AB/PAS stains on A, B and C IHC S/NG Disclaimer NOTE: Unless otherwise stated, all tissue is formalin-fixed and paraffin-embedded. Some or all of the immunohistochemical tests reported herein may have been developed and their performance characteristics determined by [facility]. They have not been cleared or approved by the U.S. Food and Drug Administration (FDA). However, the FDA has determined that such clearance or approval is not necessary. This laboratory is certified under the Clinical Laboratory Improvement Amendments of 1988 (CLIA) as qualified to perform high complexity clinical laboratory testing. CONTINUED ON NEXT PAGE ----- ------- Name: Savi Henderson Age/Sex: 59/F : 1965 Unit#: [id number] Attend Dr: Manjinder Nguyen MD Re02/06/25 Status: [facility] Location: [facility] Disch: ----- ------- SPEC : [id number] RECD: 02/06/25 STATUS: ELISA BARTLETT NUM: [id number] RENAN: 02/06/25 [facility] DR: Manjinder Nguyen MD ENTERED: 02/06/25 SP TYPE: Surgical OTHR DR: Peyton Multani DO ORDERED: HE Stain/, Gross Micro L4/6, IHC, Special st. 2/, H. pylori, AB/PAS/3 Copies To: Manjinder Nguyen MD [facility] [address] [place] [address] [phone] Peyton Multani DO [address] [phone] ----- ------- Signed (signature on file) Camron Marks MD 02/10/25 0948 ----- ------- END OF REPORT us Generic External Data Provider LAB BLOOD ORDERAB LES Final Result [facility] [address] [place] [address] [phone] * Disaccharidases (02/06/2025 8:26 AM EDT) Lactase [facility] Comment:Result Units: uM/min /g prot Test Not Performed. There is insufficient total protein detected, and accurate results are unable to be calculated. THIS TEST WAS PERFORMED AT:[employer] [id number] [place] [address]BHYCKÁNGEL MOREUA MD,PHD,KOLE Sucrase [facility] Maltase [facility] Palatinase [facility] 02/06/2025 8:26 AM EDT 02/06/2025 8:43 AM EDT Narrative [facility] - 02/14/2025 9:18 AM EDT Comment Quest test code 25966 Generic External Data Provider LAB CYTOLOGY ORDE RABLES Final Result [facility] [address] [facility] [place] [phone] * Hm Colonoscopy (02/06/2025) Colonoscopy Normal Normal us Historical Provider HEALTH MAINTENANCE Final Result * BI Mammogram Screening Tomosynthesis Bilateral (03/12/2024 3:05 PM EDT) Anatomical Region Laterality Modality Breast Bilateral Mammography 03/12/2024 3:05 PM EDT Narrative 04/10/2024 8:05 AM EDT [facility] [address] [place] [address] Mammography Report Signed with Addenda Patient: Savi Henderson MR#: [id number] 79 : 1965 Acct:[id number] Age/Sex: 58 / F ADM Date: 03/12/24 Loc: [facility] Attending Dr: Peyton Multani DO Ordering Physician: Peyton Multani DO Results: 1N egative Date of Service: 03/12/24 Follow Up: 1 Year From Orig inal Mammogram Procedure(s): MM tomosynthesis screening BI Accession Number(s): [id number] cc: Peyton Multani DO ADDENDUM ADDENDUM #1 [...] Soco Faith MD 04/10/2024 08:02 AM EDT RP Dictated By: Soco Faith MD Signed By: <Electronically signed by Soco Faith MD in OV> 04/10/24 0802 DD/ 1505 TD/TT: 03/12/24 1520 Process Engineering Technician: Procedure Note Donotuseinterpreter, Image - 04/16/[facility] [address] [place], [place] [address] Mammography Report Signed with Addenda Patient: Ismael Henderson#: [id number] 79 : 1965Acct:[id number] Age/Sex: 58 / FADM Date: 03/12/24 Loc: [facility] Attending Dr: Peyton Multani DO Ordering Physician: Peyton Multaniults: 1N egative Date of Service: 03/12/24Follow Up: 1 Year From Orig inal Mammogram Procedure(s): MM tomosynthesis screening BI Accession Number(s): [id number] cc: Peyton Multani DO ADDENDUM ADDENDUM #1 [...] 04/10/24 0802 DD/ 1505 TD/TT: 03/12/24 1520 Process Engineering Technician: Peyton Multani DO IMG BI PROCEDURES Edited Res ult - Final from Last 3 Months or Most Recently Relevant to Health Maintenance Insurance [facility] Care Teams Evaluation Advisor Relationship Specialty Start Date End Date Peyton Multani DO [address] [place] [address] PCP - General Family Medicine 04/17/13 Betito Irving FNP [address] [place] [address] Nurse Practitioner Family Medicine 06/13/23
--- OUTSIDE RECORDS SUMMARY | 2025-04-14 17:22 | XMS_ITS | Clinical Summary ---
Author Organization [facility] Address [address] [place] [address] Phone Care Team Providers Care Supervisor Abattoir Name Role Phone Peyton Multani Primary Care Provider [phone] Allergies Active Allergy Reactions Criticality Noted Date [...] Problems Problem Noted Date Diagnosed Date Meningioma ([facility] V24, [facility] V28) 10/04/2024 Assessment & Plan (10/04/2024 4:27 PM EST): I reviewed the MRI findings in detail with Ms. Henderson describing the partially empty sella the small incidental meningioma and that there is no posterior fossa lesion to cause her dizziness and imbalance. I suspect she does have vertigo as PT with Hallpike Dona maneuvers did help for short time. She had no improvement on meclizine and continues to have symptoms. She describes extreme imbalance and episodes of nystagmus however I found nothing worrisome on exam today. I recommended that she see her computer consultant for the blurry and cloudy vision and we will repeat the MRI of the brain in 1 year to follow this meningioma. Encounters Date Type Department Care Team Description 04/09/2025 Telephone Neurosurgery [place] [address] [place] [address] Haley Osuna MA from Last 3 Months Surgical History Surgery [...] - Risk 60-74 years 1-dose series) 2023 Depression Screening 07/31/2024 Hypertension/CHF/CAD Annual BMP Blood Test 10/05/2024 COVID-19 Vaccine ( season) 2025 07/29/2021, 12/31/2020, [...] patient's age to complete this topic Insurance [facility] Care Teams Supervisor Abattoir Relationship Specialty Start Date End Date Peyton Multani DO [address] [place] [address] PCP - General Internal Medicine 11/11/21
--- OUTSIDE RECORDS SUMMARY | 2025-04-14 17:22 | XMS_ITS | Encounter Summary ---
Author Organization [facility] Address [address] [place] [address] Care Team Providers Care Wet Crown Blocking Operator Name Role Phone Sandra Multanifer Clarissa LOW Primary Care Provider [phone] Reason for Visit * Reason Onset Date Comments Radiology PA 04/09/2025 Gretta MANUEL [id number], EFF 03/10/25- 06/08/25, for MR Brain sent to [facility] Radiology. Pt scheduled 04/18/25. Encounter Details Date Type Department Care Team (Late st Contact Info) Description 04/09/2025 Telephone Neurosurgery [facility] [address] [facility] [address] [place] [address] Haley Osuna MA Social History Tobacco Use Types Packs/Day Years Used Date Smoking Tobacco: Never Assessed Comments Unknown Sex and Gender Information Value Date Recorded Sex Assigned at Not on file Legal Sex Female 3:14 PM EST Gender Identity Not on file Sexual Orientation Not on file documented as of this encounter Progress Notes * Haley Osuna MA - 04/09/2025 8:58 AM EDT Gretta MANUEL [id number], EFF 03/10/25- 06/08/25, for MR Brain sent to [facility] Radiology. Pt scheduled 04/18/25. documented in this encounter Plan of Treatment Not on file documented as of this encounter Visit Diagnoses Not on filedocumented in this encounter Care Teams Wet Crown Blocking Operator Relationship Specialty Start Date End Date Peyton Multani DO [address] [place] [address] PCP - General Internal Medicine 11/11/21 documented as of this encounter
--- OUTSIDE RECORDS SUMMARY | 2025-04-14 17:22 | XMS_ITS | Encounter Summary ---
Author Organization [employer] Address [address] [facility] [address] [place] [address] Care Team Providers Care Conveyor Line Bakery Worker Name Role Phone Peyton Multani DO Primary Care Provider + [phone] Betito Irving Unavailable Unavailable Reason for Visit * Reason Onset Date Comments Med Refill 02/23/2024 Encounter Details Date Type Department Care Team ([facility] st Contact Info) Description 02/23/2024 Telephone [facility] [address] [place] [address] Peyton Multani DO [address] [place] [address] Med Refill Social History Tobacco Use Types [...] 24 hr tablet To be sent to: [facility] documented in this encounter Plan of Treatment Upcoming Encounters Date Type Department Care Team (Late st Contact Info) Description 05/08/2025 1:30 PM EDT Clinical Support [facility] [address] [place] [address] Odalis Anderson RN documented as of this encounter Visit Diagnoses Not on filedocumented in this encounter Additional Health Concerns Assessment Noted Time PHQ-9 Depression Total Score: 6 10/10/19 24 10:49 AM EDT documented as of this encounter Care Teams Conveyor Line Bakery Worker Relationship Specialty Start Date End Date Peyton Multani DO [address] [place] [address] PCP - General Family Medicine 04/17/13 Betito Irving FNP [address] [place] [address] Nurse Practitioner Family Medicine 06/13/23 documented as of this encounter
--- OUTSIDE RECORDS SUMMARY | 2025-04-14 17:22 | XMS_ITS | Encounter Summary ---
Author Organization [employer] Address [address] [facility] [address] [place] [address] Care Team Providers Care Home Paraprofessional Name Role Phone Peyton Multani DO Primary Care Provider + [phone] Betito Irving Unavailable Unavailable Reason for Visit * Reason Onset Date Comments Referral 09/25/2024 Encounter Details Date Type Department Care Team ([facility] st Contact Info) Description 09/25/2024 Telephone [facility] [address] [place] [address] Peyton Multani DO [address] [place], [place] [phone] Referral Social History Tobacco Use Types Packs/Day [...] from pt requesting to Change Location from [facility] for referral for Neurology on 08/12/24 due to [facility] not dealing with PT Diagnosis. Contact pt at [phone] documented in this encounter Plan of Treatment Upcoming Encounters Date Type Department Care Team (Late st Contact Info) Description 05/08/2025 1:30 PM EDT Clinical Support [facility] [address] [place] [address] Odalis Anderson, RN documented as of this encounter Visit Diagnoses Not on filedocumented in this encounter Additional Health Concerns Assessment Noted Time PHQ-9 Depression Total Score: 6 10/10/19 24 10:49 AM EDT documented as of this encounter Care Teams Home Paraprofessional Relationship Specialty Start Date End Date Peyton Multani DO [address] [place] [address] PCP - General Family Medicine 04/17/13 Betito Irving FNP [address] [place] [address] Nurse Practitioner Family Medicine 06/13/23 documented as of this encounter
--- OUTSIDE RECORDS SUMMARY | 2025-04-14 17:22 | XMS_ITS | Encounter Summary ---
Author Organization [employer] Address [address] [facility] [address] 7t [place] [address] Care Team Providers Care Associate Professor Of Philosophy Name Role Phone Peyton Multani DO Primary Care Provider + [phone] Betito Irving Unavailable Unavailable Encounter Details Date Type Department Care Team (Late st Contact Info) Description 07/18/2024 Telephone [facility] 230 [place] [address] Peyton Multani DO 230 [place] [address] Social History Tobacco Use Types Packs/Day Years [...] Description 05/08/2025 1:30 PM EDT Clinical Support [facility] [address] [place] [address] Odalis Anderson RN documented as of this encounter Visit Diagnoses Not on filedocumented in this encounter Additional Health Concerns Assessment Noted Time PHQ-9 Depression Total Score: 6 10/10/19 24 10:49 AM EDT documented as of this encounter Care Teams Associate Professor Of Philosophy Relationship Specialty Start Date End Date Peyton Multani DO [address] [place] [address] PCP - General Family Medicine 04/17/13 Betito Irving FNP [address] [place] [address] Nurse Practitioner Family Medicine 06/13/23 documented as of this encounter
--- OUTSIDE RECORDS SUMMARY | 2025-04-14 17:23 | XMS_ITS | Encounter Summary ---
Author Organization [employer] Address 75 [facility] 7t [place] [address] Care Team Providers Care Day Habilitation Specialist Name Role Phone Peyton Multani DO Primary Care Provider + [phone] Betito Irving Unavailable Unavailable Reason for Visit * Reason Comments Med Refill Encounter Details Date Type Department Care Team ([facility] st Contact Info) Description 07/16/2024 Refill [facility] 230 [place] [address] Peyton Multani DO 230 [place] [address] Mood disorder (CMS/HCC) Social History Tobacco Use [...] Description 05/08/2025 1:30 PM EDT Clinical Support [facility] [address] [place] [address] Odalis Anderson RN documented as of this encounter Visit Diagnoses Diagnosis Mood disorder (CMS/HCC) Unspecified episodic mood disorder documented in this encounter Additional Health Concerns Assessment Noted Time PHQ-9 Depression Total Score: 6 10/10/19 24 10:49 AM EDT documented as of this encounter Care Teams Day Habilitation Specialist Relationship Specialty Start Date End Date Peyton Multani DO [address] [place] [address] PCP - General Family Medicine 04/17/13 Betito Irving FNP [address] [place] [address] Nurse Practitioner Family Medicine 06/13/23 documented as of this encounter
--- OUTSIDE RECORDS SUMMARY | 2025-04-14 17:23 | XMS_ITS | Encounter Summary ---
Author Organization [employer] Address 75 [facility] 7t [place] [address] Care Team Providers Care Electric Deicer Inspector Name Role Phone Peyton Multani DO Primary Care Provider + [phone] Betito Irving Unavailable Unavailable Reason for Visit * Reason Comments Med Refill Encounter Details Date Type Department Care Team ([facility] st Contact Info) Description 01/08/2024 Refill [facility] [address] [place] [address] Peyton Multani DO 230 [place] [address] Social History Tobacco Use Types Packs/Day Years [...] Description 05/08/2025 1:30 PM EDT Clinical Support [facility] [address] [place] [address] Odalis Anderson, MAO documented as of this encounter Visit Diagnoses Not on filedocumented in this encounter Additional Health Concerns Assessment Noted Time PHQ-9 Depression Total Score: 6 10/10/19 24 10:49 AM EDT documented as of this encounter Care Teams Electric Deicer Inspector Relationship Specialty Start Date End Date Peyton Multani DO [address] [place] [address] PCP - General Family Medicine 04/17/13 Betito Irving FNP [address] [place] [address] Nurse Practitioner Family Medicine 06/13/23 documented as of this encounter
--- OUTSIDE RECORDS SUMMARY | 2025-04-14 17:23 | XMS_ITS | Encounter Summary ---
Author Organization [employer] Address 75 [facility] 7t [place] [address] Care Team Providers Care Furnace Setter Name Role Phone Peyton Multani DO Primary Care Provider + [phone] Betito Irving Unavailable Unavailable Reason for Visit * Reason Onset Date Comments Nurse Triage 01/23/2024 Encounter Details Date Type Department Care Team ([facility] st Contact Info) Description 01/23/2024 Telephone [facility] 230 [place] [address] Peyton Multani DO 230 [place] [address] Nurse Triage Social History Tobacco Use Types [...] denies hitting head. Pt reports today has much pain especially in left knee and back of thigh. Pt is having difficulty walking due to the knee pain. Pt denies any open areas. Pt hasn't taken tylenol/ibuprofen but, reports taking baclofen and hasseveral other meds so didn't want to take anything else. Pt is advised to come to [facility] today and it is open till [...] returning call and requesting a call back, czech speaker. * Telephone Encounter - Yuliya Anderson [...] Description 05/08/2025 1:30 PM EDT Clinical Support [facility] [address] [place] [address] Odalis Anderson, MAO documented as of this encounter Visit Diagnoses Not on filedocumented in this encounter Additional Health Concerns Assessment Noted Time PHQ-9 Depression Total Score: 6 10/10/19 24 10:49 AM EDT documented as of this encounter Care Teams Furnace Setter Relationship Specialty Start Date End Date Peyton Multani DO [address] [place] [address] PCP - General Family Medicine 04/17/13 Betito Irving FNP [address] [place] [address] Nurse Practitioner Family Medicine 06/13/23 documented as of this encounter
--- OUTSIDE RECORDS SUMMARY | 2025-04-14 17:23 | XMS_ITS | Encounter Summary ---
Author Organization [employer] Address 75 [facility] 7t [place] [address] Care Team Providers Care Teacher Emotionally Impaired Name Role Phone Peyton Multani DO Primary Care Provider +[phone] Betito Irving Unavailable Unavailable Reason for Visit * Reason Onset Date Comments call back 09/06/2022 Encounter Details Date Type Department Care Team ([facility] st Contact Info) Description 09/06/2022 Telephone [facility] 230 [place] [address] Peyton Multani DO 230 [place] [address] call back Social History Tobacco Use Types [...] back regarding pt Please contact Renita at [phone] documented in this encounter Plan of Treatment Upcoming Encounters Date Type Department Care Team (Late st Contact Info) Description 05/08/2025 1:30 PM EDT Clinical Support [facility] [address] [place] [address] Odalis Anderson RN documented as of this encounter Visit Diagnoses Not on filedocumented in this encounter Additional Health Concerns Assessment Noted Time PHQ-9 Depression Total Score: 16 023 10:00 AM EST documented as of this encounter Care Teams Teacher Emotionally Impaired Relationship Specialty Start Date End Date Peyton Multani DO [address] [place] [address] PCP - General Family Medicine 04/17/13 Betito Irving FNP [address] [place] [address] Nurse Practitioner Family Medicine 06/13/23 documented as of this encounter
--- OUTSIDE RECORDS SUMMARY | 2025-04-14 17:23 | XMS_ITS | Encounter Summary ---
Author Organization [employer] Address 75 [facility] 7t [place] [address] Care Team Providers Care Multiple Games Dealer Name Role Phone Peyton Multani DO Primary Care Provider + [phone] Betito Irving Unavailable Unavailable Reason for Visit * Reason Onset Date Comments Results 01/24/2024 Encounter Details Date Type Department Care Team ([facility] st Contact Info) Description 01/24/2024 Telephone [facility] 230 [place] [address] Peyton Multani DO 230 [place], [place] [phone] Results Social History Tobacco Use Types Packs/Day [...] yet. Advised that will give call once [facility] receive result. Pt. Verbally agreed and understood. * Telephone Encounter - Sang Watson - 01/24/2024 12:02 PM EDT TC from pt requesting call back regarding Results. Type of results: Xray Date when done: 01/22 Facility: [facility] Maltese Speaker documented in this encounter Plan of Treatment Upcoming Encounters Date Type Department Care Team (Late st Contact Info) Description 05/08/2025 1:30 PM EDT Clinical Support [facility] [address] [place] [address] Odalis Anderson RN documented as of this encounter Visit Diagnoses Not on filedocumented in this encounter Additional Health Concerns Assessment Noted Time PHQ-9 Depression Total Score: 6 10/10/19 24 10:49 AM EDT documented as of this encounter Care Teams Multiple Games Dealer Relationship Specialty Start Date End Date Peyton Multani DO [address] [place] [address] PCP - General Family Medicine 04/17/13 Betito Irving FNP [address] [place] [address] Nurse Practitioner Family Medicine 06/13/23 documented as of this encounter
== END 2025-04-14 12:41 | disposition home or self-care (01) ==
LOC: HO.MAMMO 12:40
PROVIDERS: PCP Family Medicine; Visit Provider Family Medicine
DX: Z12.31 Encounter for screening mammogram for malignant neoplasm of breast (principal)
CPT/HCPCS: 77063; 77067

== ENCOUNTER → 2025-04-14 12:45 | Outpatient (BNV) | payer OTHER, SELFPAY | PROVIDERS: PCP Family Medicine; Visit Provider Radiology Body Imaging | DX: Z12.31 Encounter for screening mammogram for malignant neoplasm of breast (principal) | CPT/HCPCS: 77063; 77067 ==

== ENCOUNTER → 2025-04-18 12:43 | Outpatient (BNV) | payer OTHER, SELFPAY | PROVIDERS: PCP Family Medicine; Visit Provider Radiology Diagnostic Radiology | DX: D32.9 Benign neoplasm of meninges, unspecified (principal) | CPT/HCPCS: 70553 ==

== ENCOUNTER 2025-04-18 12:44 | Outpatient (REF) | payer OTHER, SELFPAY ==
--- NOTE | ~2025-04-18 | MR_ITS ---
CLINICAL HISTORY: F U MENINGIOMA MR brain without and with contrast Comparison: 10/08/2023, 04/19/2024 Findings: No acute signal abnormalities noted on diffusion-weighted imaging. No acute intracranial fluid collection, hematoma or signal abnormality. Mild chronic ischemic white matter disease without volume loss. 1.2 cm right frontal enhancing meningioma is unchanged. Midline structures are intact and within normal limits. Normal flow voids are noted within the vascular structures. Sinuses and mastoids are clear. Impression: No significant abnormalities. This document has been electronically signed by: Chris Hernandez MD on 04/20/2025 20:20:48
--- OUTSIDE RECORDS SUMMARY | 2025-04-18 12:47 | XMS_ITS | Clinical Summary ---
Author Organization [address] [facility] Address [address] [place] [address] Phone Care Team Providers Care Sanitation Lead Name Role Phone Peyton Multani Primary Care Provider +[phone] Allergies Active Allergy Reactions Criticality Noted Date [...] Problems Problem Noted Date Diagnosed Date Meningioma ([facility] V24, [facility] V28) 10/04/2024 Assessment & Plan (10/04/2024 4:27 [...] today. I recommended that she see her supervisor front for the blurry and cloudy vision and we will repeat the MRI of the brain in 1 year to follow this meningioma. Encounters Date Type Department Care Team Description 04/09/2025 Telephone [facility] [address] [place] [address] Haley Osuna MA from Last [...] patient's age to complete this topic Insurance [facility] PL[facility] Care Teams Sanitation Lead Relationship Specialty Start Date End Date Peyton Multani DO [address] [place] [address] PCP - General Internal Medicine 11/11/21
--- OUTSIDE RECORDS SUMMARY | 2025-04-18 12:47 | XMS_ITS | Encounter Summary ---
Author Organization [email or web address] Address 75 [facility] 7t [place] [address] Care Team Providers Care Cardiac Exercise Physiologist Name Role Phone Peyton Multani DO Primary Care Provider + [phone] Betito Irving Unavailable Unavailable Reason for Visit * Reason Onset Date Comments Referral 09/25/2024 Encounter Details Date Type Department Care Team ([facility] st Contact Info) Description 09/25/2024 Telephone [facility] 230 [place] [address] Peyton Multani DO 230 [place], [place] [phone] Referral Social History Tobacco Use Types Packs/Day [...] from pt requesting to Change Location from [facility] for referral for Neurology on 08/12/24 due to [facility] not dealing with PT Diagnosis. Contact pt at [phone] documented in this encounter Plan of Treatment Upcoming Encounters Date Type Department Care Team (Late st Contact Info) Description 05/08/2025 1:30 PM EDT Clinical Support [facility] [address] [place] [address] Odalis Anderson, RN documented as of this encounter Visit Diagnoses Not on filedocumented in this encounter Additional Health Concerns Assessment Noted Time PHQ-9 Depression Total Score: 6 10/10/19 24 10:49 AM EDT documented as of this encounter Care Teams Cardiac Exercise Physiologist Relationship Specialty Start Date End Date Peyton Multani DO 230 [place] [address] PCP - General Family Medicine 04/17/13 Betito Irving FNP 230 [place] [address] Nurse Practitioner Family Medicine 06/13/23 documented as of this encounter
--- OUTSIDE RECORDS SUMMARY | 2025-04-18 12:47 | XMS_ITS | Encounter Summary ---
Author Organization [employer] Address [address] [facility] [address] 7t [place] [address] Care Team Providers Care Scientific Director Name Role Phone Peyton Multani DO Primary Care Provider + [phone] Betito Irving Unavailable Unavailable Encounter Details Date Type Department Care Team (Late st Contact Info) Description 07/18/2024 Telephone [facility] 230 [place] [address] Peyton Multani DO 230 [place] [address] Social History Tobacco Use Types Packs/Day Years [...] Description 05/08/2025 1:30 PM EDT Clinical Support [facility] [address] [place] [address] Odalis Anderson RN documented as of this encounter Visit Diagnoses Not on filedocumented in this encounter Additional Health Concerns Assessment Noted Time PHQ-9 Depression Total Score: 6 10/10/19 24 10:49 AM EDT documented as of this encounter Care Teams Scientific Director Relationship Specialty Start Date End Date Peyton Multani DO [address] [place] [address] PCP - General Family Medicine 04/17/13 Betito Irving FNP [address] [place] [address] Nurse Practitioner Family Medicine 06/13/23 documented as of this encounter
--- OUTSIDE RECORDS SUMMARY | 2025-04-18 12:47 | XMS_ITS | Encounter Summary ---
Author Organization [employer] Address [address] [facility] 7t [place] [address] Care Team Providers Care Woodworking Belt Sander Name Role Phone Peyton Multani DO Primary Care Provider + [phone] Betito Ivring Unavailable Unavailable Reason for Visit * Reason Onset Date Comments Med Refill 02/23/2024 Encounter Details Date Type Department Care Team ([facility] st Contact Info) Description 02/23/2024 Telephone [facility] 230 [place] [address] Peyton Multani DO 230 [place] [address] Med Refill Social History Tobacco Use Types [...] 24 hr tablet To be sent to: [facility] documented in this encounter Plan of Treatment Upcoming Encounters Date Type Department Care Team (Late st Contact Info) Description 05/08/2025 1:30 PM EDT Clinical Support [facility] [address] [place] [address] Odalis Anderson RN documented as of this encounter Visit Diagnoses Not on filedocumented in this encounter Additional Health Concerns Assessment Noted Time PHQ-9 Depression Total Score: 6 10/10/19 24 10:49 AM EDT documented as of this encounter Care Teams Woodworking Belt Sander Relationship Specialty Start Date End Date Peyton Multani DO 230 [place] [address] PCP - General Family Medicine 04/17/13 Betito Irving FNP [address] [place] [address] Nurse Practitioner Family Medicine 06/13/23 documented as of this encounter
--- OUTSIDE RECORDS SUMMARY | 2025-04-18 12:48 | XMS_ITS | Encounter Summary ---
Author Organization [employer] Address 75 [facility] 7t [place] [address] Care Team Providers Care Car Ferrier Name Role Phone Peyton Multani DO Primary Care Provider +[phone] Betito Irving Unavailable Unavailable Reason for Visit * Reason Onset Date Comments call back 09/06/2022 Encounter Details Date Type Department Care Team ([facility] st Contact Info) Description 09/06/2022 Telephone [facility] [address] [place] [address] Peyton Multani DO 230 [place] [address] call back Social History Tobacco Use Types [...] back regarding pt Please contact Renita at [phone] documented in this encounter Plan of Treatment Upcoming Encounters Date Type Department Care Team (Late st Contact Info) Description 05/08/2025 1:30 PM EDT Clinical Support [facility] [address] [place] [address] Odalis Anderson RN documented as of this encounter Visit Diagnoses Not on filedocumented in this encounter Additional Health Concerns Assessment Noted Time PHQ-9 Depression Total Score: 16 023 10:00 AM EST documented as of this encounter Care Teams Car Ferrier Relationship Specialty Start Date End Date Peyton Multani DO [address] [place] [address] PCP - General Family Medicine 04/17/13 Betito Irving FNP [address] [place] [address] Nurse Practitioner Family Medicine 06/13/23 documented as of this encounter
--- OUTSIDE RECORDS SUMMARY | 2025-04-18 12:48 | XMS_ITS | Clinical Summary ---
Author Organization [employer] Address [address] [facility] [address] [place] [address] Care Team Providers Care Senior Mobile Solutions Architect Name Role Phone Peyton Multani DO Primary [...] for anxiety. 200 tablet 11 4 Active baclofen (Lioresal) 10 MG tablet Take 1 tablet (10 mg) by mouth if needed in the morning, at noon, and at bedtime for muscle spasms. 60 tablet 3 4 Active famotidine (Pepcid) 40 MG tablet Take 1 tablet (40 mg) by mouth at bedtime. 30 tablet 3 4 Active metoprolol succinate XL (Toprol-XL) 50 MG [...] 2 each 3 4 07/16/20 25 Active cetirizine (ZyrTEC) 10 MG tablet TAKE 1 TABLET BY MOUTH EVERY DAY 30 tablet 5 4 Active traZODone (Desyrel) 100 MG tabletIndicatio ns:Mood disorder (CMS/HCC) Take 2 tablets (200 mg) by mouth at bedtime. 180 tablet 3 5 Active atorvastatin (Lipitor) 10 MG tablet Take 1 tablet (10 mg) by mouth Once per day. 30 tablet 11 5 02/29/20 26 Active FREESTYLE LITE test strip Use to test blood sugar 2 times daily 100 each 5 02/29/20 26 Active Lancets misc Use to test blood sugar 2 times daily 100 each 5 Active Alcohol Swabs 70 % pads Use to test blood sugar 2 times daily 100 each 5 Active Blood Glucose Monitoring Suppl (FreeStyle Newton Lite) w/Device kit Use to test blood sugar 2 times daily 1 kit 5 Active empagliflozin (Jardiance) 10 MG Take 1 tablet (10 mg) by mouth Once per day. 30 tablet 3 5 03/12/20 26 Active clonazePAM (KlonoPIN) 0.5 MG tabletIndicatio ns:Mood disorder (CMS/HCC) TAKE 1 TABLET BY MOUTH TWICE DAILY 56 tablet 5 Active Active Problems Problem Noted Date Diagnosed [...] any issues or concerns, she should contact [facility]. All her questions were answered. I have [...] EKG in chart -s/p optho visit with [facility] 2022 Irritable bowel syndrome with diarrhea 5 [...] Normal finger to nose test, Normal gait. Wren -Hallpike maneuver did elicit intense symptoms , no nystagmus seen on exam Possible vertigo but concerning w presyncope when did Wren -Hallpike maneuver and then recover quickly From [...] Encounters Date Type Department Care Team Description 04/14/2025 Orders Only [address] [place] [address] Peyton Multani DO 03/18/[address] [address] Peyton Multani DO Mood disorder (CMS/HCC) 03/04/2025 Telephone [facility] [address] [place] [address] Peyton Multani DO Prior Authorization ( PA: Derick) 02/28/2025 11:15 AM EDT [address] [facility] [place] [address] Peyton Multani DO BMI 32.0-32.9,adult (Primary Dx); New onset type 2 diabetes mellitus (CMS/HCC) 02/28/2025 Travel 02/27/[address] [address] Peyton Multani DO Chart Prep 02/19/[address] [address] Peyton Multani DO Results 02/13/2025 2:00 PM EDT Clinical Support [facility] [place] [address] Odalis Anderson, RN Long-term current use of benzodiazepine (Primary Dx) 02/13/[address] [place] [address] Peyton Multani DO telephone call 02/13/[address] [place] [address] Odalis Anderson, RN JOVANNY scoring 02/13/2025 Travel 02/06/2025 Orders Only GENERIC EXTERNAL DATA DEPARTMENT Provider, Generic External Data from Last 3 Months Immunizations Immunization Administration [...] Description 05/08/2025 1:30 PM EDT Clinical Support [facility] MEDICINE [address] [place] [phone] Odalis Anderson, MAO Health Maintenance Due Date [...] 02/28/2026 02/28/2025 Tobacco Screening 02/28/2026 02/28/2025 Mammogram 04/14/2026 04/14/2025, 02/28, 02/28/2023, Additional history exists DTaP/Tdap/Td Vaccines (3 - [...] Procedure Name Priority Date/Time Associated Diagnosis Comments BI MAMMOGRAM SCREENING TOMOSYNTHESIS BILATERAL Routine 04/14/2025 12:45 PM EDT POCT GLYCATED HEMOGLOBIN, TOTAL Routine 02/28/2025 11:03 [...] 8:26 AM EDT HM COLONOSCOPY Routine 02/06/2025 from Last 3 Months Results * BI Mammogram Screening Tomosynthesis Bilateral (04/14/2025 12:45 PM EDT) Anatomical Region Laterality Modality Breast Bilateral Mammography 04/14/2025 12:4 5 PM EDT Narrative 04/15/2025 5:58 PM EDT [facility] [address] [place] [address] Mammography Report Signed Patient: Savi Henderson MR#: [id number] 79 : 1965 Acct:[id number] Age/Sex: 59 / F ADM Date: 04/14/25 Loc: HO.MAMMO Attending Dr: Peyton Multani DO Ordering Physician: Peyton Multani DO Results: 1N egative Date of Service: 04/14/25 Follow Up: 1 Year From [facility] Mammogram Procedure(s): MM tomosynthesis screening BI Accession Number(s): [id number] cc: Peyton Multani DO Reason For Exam: SCREENING EXAMINATION: MM SCREENING DIGITAL BREAST TOMOSYNTHESIS, BILATERAL CLINICAL INFORMATION: Screening. Asymptomatic. COMPARISON: Comparison made to multiple prior, most recent March 12, 2024, and most remote November 23, 2017. TECHNIQUE: Digital breast tomosynthesis is performed in mediolateral oblique and craniocaudal views along with computer-aided detection (CAD). Synthesized 2D images are generated from the tomosynthesis. FINDINGS: BREAST COMPOSITION: There are scattered areas of fibroglandular density (ACR BI-RADS breast composition Category b). BILATERAL BREASTS: No significant masses, suspicious calcifications or other abnormalities are seen in either breast. MM/MM tomosynthesis screening BI IMPRESSION: BILATERAL BREASTS: Negative, no mammographic evidence of malignancy. Normal interval follow-up is recommended in 12 months. ASSESSMENT: BI-RADS 1 - Negative RECOMMENDATION: Routine annual mammography screening. FOLLOW-UP: 1 year F/U This examination should not preclude the clinical evaluation of a suspicious palpable abnormality. This patient's information was entered into a reminder system with a target due date for their next mammogram. Electronically signed by: Magda Hercules MD 04/15/2025 05:54 PM EDT Workstation: [employer] Dictated By: Magda Hercules MD Signed By: <Electronically signed by Magda Hercules MD in OV> 04/15/25 1754 DD/ 1245 TD/TT: 04/14/25 1300 Developer Advocate: Procedure Note Donotuseinterpreter, Image - 04/15/2025 [facility] [address] [place] [address] Mammography Report Signed Patient: Ismael Henderson#: [id number] 79 : 1965Acct:[id number] Age/Sex: 59 / FADM Date: 04/14/25 Loc: HO.MAMMO Attending Dr: Peyton Multani DO Ordering Physician: Peyton Multaniults: 1N egative Date of Service: 04/14/25Follow Up: 1 Year From Orig inal Mammogram Procedure(s): MM tomosynthesis screening BI Accession Number(s): [id number] cc: Peyton Multani DO Reason For Exam: SCREENING EXAMINATION: MM SCREENING DIGITAL BREAST TOMOSYNTHESIS, BILATERAL CLINICAL INFORMATION: Screening. Asymptomatic. COMPARISON: Comparison made to multiple prior, most recent March 12, 2024, and most remote November 23, 2017. TECHNIQUE: Digital breast tomosynthesis is performed in mediolateral oblique and craniocaudal views along with computer-aided detection (CAD). Synthesized 2D images are generated from the tomosynthesis. FINDINGS: BREAST COMPOSITION: There are scattered areas of fibroglandular density (ACR BI-RADS breast composition Category b). BILATERAL BREASTS: No significant masses, suspicious calcifications or other abnormalities are seen in either breast. MM/MM tomosynthesis screening BI IMPRESSION: BILATERAL BREASTS: Negative, no mammographic evidence of malignancy. Normal interval follow-up is recommended in 12 months. ASSESSMENT: BI-RADS 1 - Negative RECOMMENDATION: Routine annual mammography screening. FOLLOW-UP: 1 year F/U This examination should not preclude the clinical evaluation of a suspicious palpable abnormality. This patient's information was entered into a reminder system with a target due date for their next mammogram. Electronically signed by: Magda Hercules MD 04/15/2025 05:54 PM EDT Dictated By: Magda Hercules MD Signed By: <Electronically signed by Magda Hercules MD in OV> 04/15/25 1754 DD/ 1245 TD/TT: 04/14/25 1300 Developer Advocate: Peyton Multani DO IMG BI PROCEDURES Edited Res ult - Final * (ABNORMAL) POCT HGB A1C (02/28/2025 11:03 AM EDT) Hemoglobin A1C 6.6(A) 4.0 - 5.7 % QC Media Lot # [id number] Lot# Expiration Date Blood 02/28/2025 11:0 3 AM EDT Peyton [...] Vitamin D 25-OH Total 30.2 >30 ng/mL [facility] Comment: Health Based Reference Values*< 20 ng/mL Vcsqxtcha47-40 ng/mL Insufficient> 30 ng/mL Sufficient*Azam ANDERSON. N [...] DO LAB BLOOD ORDERABLES Final R esult [facility] [address] [place] [phone] * Vitamin B12 (Cobalamin) and Folate Panel, Serum (02/14/2025 10:47 AM EDT) Vitamin B12 586 200 - 900 pg/mL [facility] Comment:NORMAL 200-900 PG/ML INDETERMINATE 160-199 PG/ML DEFICIENT < 160 PG/ML Folate 9.2 > or = 4.0 ng/mL [facility] Comment:Reference Values:> o r = [...] ORDERABLES Final R esult Performing Organization Address City/[facility] Co de Phone Number [facility] [address] [place] [phone] * Albumin, Random Urine W/Creatinine (02/14/2025 10:47 AM EDT) Creatinine, Urine 223.08 mg/dL [facility] Microalbumin Urine 55.0 mg/L [facility] Microalbum Creatinine Ratio Ur 24.6 <30 ug/mg cr [facility] Comment:Albumin/Creatinine R atio Reference Ranges: Normal: < 30 ug/mg creatinine Microalbuminuria: 30 - 300 ug/mg creatinineClinical Albuminuria: > 300 ug/mg creatinine Urine (Urine, Random) 02/14/2025 10:47 AM EDT 02/14/2025 12:47 PM EDT us Peyton Multani DO LAB URINE ORDERABLES Final R esult Performing Organization Address [facility]/ZIP Co de Phone Number [facility] [address] [place] [phone] * Hepatitis C Antibody with Reflex to HCV, RNA, Quantitative, Real-Time PCR (02/14/2025 10:47 AM EDT) Hepatitis C Antibody Nonreactive Nonreactive [facility] Comment:Antibodies to HCV no t detected; does not exclude early acuteHCV infection. Blood Venous blood specimen / Unknown 02/14/2025 10:47 AM EDT 02/14/2025 12:55 PM EDT Peyton Multani DO LAB BLOOD ORDERABLES Final R esult Performing Organization Address [facility]/ZIP Co de Phone Number [facility] [address] [place] [address] [phone] * Alpha-Fetoprotein, Tumor Marker (02/14/2025 10:47 AM EDT) Pathologist [facility] Alpha Fetoprotein 2.4 ng/mL [facility] Comment:Reference Range: <6. 1The use of AFP as a tumor marker in females is not recommended.This test was performed using the MorphoS[employer] Coulterchemiluminescent method. Values obtained fromdifferent assay methods cannot be usedinterchangeably. AFP levels, regardless ofvalue, should not be interpreted as absoluteevidence of the presence or absence of disease.THIS TEST WAS PERFORMED AT:[facility] [place] [phone] CARSON MD Blood Venous blood specimen / Unknown 02/14/2025 10:47 AM EDT 02/14/2025 12:55 PM EDT us Peyton Multani DO LAB BLOOD ORDERABLES Final R esult Performing Organization Address [facility]/ZIP Co de Phone Number [facility] [address] [place], [place] [phone] * RPR (Monitor) with Reflex to??Titer (02/14/2025 10:47 AM EDT) Pathologist [facility] RPR (Monitor) w/Refl Titer NON-REACTI VE NON-REACT VALERIY [facility] Comment:THIS TEST WAS PERFOR MED AT:[facility] [place] [phone] CARSON MD Rapid Plasma Reagin Ab Titer TNP [facility] Blood Venous blood specimen / Unknown 02/14/2025 10:47 AM EDT 02/14/2025 12:55 PM EDT Peyton Nerissa LAB BLOOD ORDERABLES Final R esult Performing Organization Address City/[facility]/ZIP Co de Phone Number [facility] [address] [place] [phone] * HIV-1/2 Antigen and Antibodies, Fourth Generation, with Reflexes (02/14/2025 10:47 AM EDT) HIV AB/AG Nonreactive Nonreactive [facility] Comment:HIV-1 p24 Ag and/or HIV-1/HIV-2 Ab not detected.A test result that is nonreactive does not exclude thepossibility of exposure to or infection with HIV-1 and/orHIV-2. Nonreactive results in this assay for individualswith prior exposure to HIV-1 and/or HIV-2 may be due toantigen and antibody levels that are below the limit ofdetection of this assay.The [email or web address] HIV Ag/Ab Combo assay result andsupplemental assay results should be interpreted inconjunction with the patient's clinical presentation,history and other laboratory results. If the results areinconsistent with clinical evidence, additional testing issuggested to confirm the result. Blood Venous blood specimen / Unknown 02/14/2025 10:47 AM EDT 02/14/2025 12:55 PM EDT Peyton Multani LAB BLOOD ORDERABLES Final R esult Performing Organization Address City/[facility]/ZIP Co de Phone Number [facility] [address] [place] [phone] * (ABNORMAL) CBC (02/14/2025 10:47 AM EDT) White Blood Count 6.6 4.8 - 10.8 X10*3/uL [facility] Red Blood Count 4.75 4.20 - 5.50 X10*6/uL [facility] Hemoglobin 12.5 12.0 - 16.0 g/dl [facility] Hematocrit 39.1 37.0 - 47.0 % [facility] Mean Corpuscular Volume 82.3 80.0 - 98.0 fL [facility] Mean Corpuscular Hemoglobin 26.3(L) 27.0 - 33.0 pg [facility] Mean Corpuscular HGB Conc 32.0 31.0 - 35.0 g/dl [facility] Red Cell Distribution Width 14.1 11.0 - 16.0 % [facility] Platelet Count 290 160 - 400 X10*3/uL [facility] Mean Platelet Volume 10.3 9.4 - 12.3 fL [facility] NRBC Pct Auto 0.0 0.0 - 0.2 /100WBC [facility] NRBC Abs Auto 0.000 0.0 - 0.012 X10*3/uL [facility] Blood Venous blood specimen / Unknown 02/14/2025 10:47 AM EDT 02/14/2025 12:55 PM EDT us Peyton Multani DO LAB BLOOD ORDERABLES Final R esult [facility] [address] [place] [phone] * TSH (02/14/2025 10:47 AM EDT) Thyroid Stimulating Hormone 2.57 0.32 - 4.0 uIU/mL [facility] Comment:TSH 3rd Generation ( [facility]) Blood Venous blood specimen / Unknown 02/14/2025 10:47 AM EDT 02/14/2025 12:58 PM EDT us Peyton Multani DO LAB BLOOD ORDERABLES Final R esult [facility] [address] [place] [phone] * T4, Free (02/14/2025 10:47 AM EDT) Free T4 (Free Thyroxine) 1.05 0.71 - 1.85 ng/dL [facility] Blood Venous blood specimen / Unknown 02/14/2025 10:47 AM EDT 02/14/2025 12:58 PM EDT Peyton Multani LAB BLOOD ORDERABLES Final R esult Performing Organization Address [facility] Co de Phone Number [facility] [address] [place] [phone] * (ABNORMAL) Hemoglobin A1c (02/14/2025 10:47 AM EDT) Hemoglobin A1c 6.8(H) <6.0 % [facility] Comment:Hemoglobin A1C Refer ence Range Adults: 4.8 - 6.0 % Non diabetic: < 6.0 % Goal: < 7.0 %Additional Action Suggested: > 8.0 %Note: Hemoglobin A1c results are invalid for patients with abnormal amounts of HbF. Blood transfusions may impact the HbA1c concentration in the patient sample. Estimated Average Glucose 148 mg/dL [facility] Comment:eAG = Estimated ave rage glucose which is %A1C expressed asaverage glucose, using the formula of the V4W-KgbkodfCfxmwde Glucose study (ADAG), Diabetes Care, Vol.31,#8,2007 Blood Venous blood specimen / Unknown 02/14/2025 10:47 AM EDT 02/14/2025 12:55 PM EDT Peyton Multani DO LAB BLOOD ORDERABLES Final R esult Performing Organization Address City/[facility]/ZIP Co de Phone Number [facility] [address] [place] [phone] * (ABNORMAL) Hepatic Function Panel (02/14/2025 10:47 AM EDT) Bilirubin, Total 0.6 0.0 - 1.0 mg/dL [facility] Bilirubin, Direct 0.2 0.0 - 0.5 mg/dL [facility] Aspartate Amino Transferase 32(H) 5 - 31 U/L [facility] Alanine Aminotransferase 42(H) 0 - 31 U/L [facility] Total Protein 7.8 6.5 - 8.0 g/dL [facility] Albumin Level 4.2 3.5 - 5.0 g/dL [facility] Alkaline Phosphatase 124(H) 39 - 117 U/L [facility] Blood Venous blood specimen / Unknown 02/14/2025 10:47 AM EDT 02/14/2025 12:58 PM EDT Peyton Multani DO LAB BLOOD ORDERABLES Final R esult [facility] [address] [place] [phone] * (ABNORMAL) Lipid Panel, Standard (02/14/2025 10:47 AM EDT) Triglycerides 122 <150 mg/dL [facility] Comment:Desirable Triglyceri de: less than 150 mg/dLBorderline High Triglyceride 150-199 mg/dLHigh Triglyceride: 200-499 mg/dLVery High Triglyceride: greater than or equal to 5OO mg/dL Cholesterol 200(H) <200 mg/dL [facility] Comment:Desirable Cholestero l: less than 200 mg/dLBorderline High Cholesterol: 200-239 mg/dLHigh Cholesterol: greater than 239 mg/dL LDL Cholesterol Calculated 126(H) <100 mg/dL [facility] Comment:Desirable LDL: less than 100 mg/dLNear Optimal/Above Optimal LDL: 110- 129 mg/dLBorderline High LDL: 130-159 mg/dLHigh LDL: 160-189 mg/dLVery High LDL: greater than or equal to 190 mg/dL HDL Cholesterol 50 >40 mg/dL [facility] Comment:Desirable HDL: great er than 40 mg/dL Note: This HDL assay may give artificially low results in patients with liver disease. Blood Venous blood specimen / Unknown 02/14/2025 10:47 AM EDT 02/14/2025 12:58 PM EDT us Peyton Multani DO LAB BLOOD ORDERABLES Final R esult Performing Organization Address City/[facility] Co de Phone Number [facility] [address] [place] [address] [phone] * (ABNORMAL) Basic Metabolic Panel (02/14/2025 10:47 AM EDT) Sodium 141 135 - 145 mmol/L [facility] Potassium 3.9 3.3 - 5.1 mmol/L [facility] Chloride 107 96 - 108 mmol/L [facility] Carbon Dioxide 26 22 - 29 mmol/L [facility] Anion Gap 12 12 - 20 [facility] Urea Nitrogen (BUN) 16 9 - 16 mg/dL [facility] Creatinine, Serum 0.95 0.5 - 1.4 mg/dL [facility] Estimated Glomerular Filt Rate 60 [facility] Comment:Chronic Kidney Disea se: Estimated GFR < 60 mL/min/1.20u0Lxzdrj Kidney Disease: Estimated GFR < 15 mL/min/1.73m2 Glucose 132(H) 60 - 115 mg/dL [facility] Calcium 9.0 8.4 - 10.2 mg/dL [facility] Blood Venous blood specimen / Unknown 02/14/2025 10:47 AM EDT 02/14/2025 12:58 PM EDT Peyton Multani DO LAB BLOOD ORDERABLES Final R esult Performing Organization Address City/[facility]/ZIP Co de Phone Number [facility] [address] [place] [phone] * POCT JESENIA-14 Urine Drug Screen [...] - 02/13/2025 2:18 PM EDT UTOX cup Lot#[id number] Exp. 05/06/26 Internal Pass Control Peyton Multani DO POINT OF CARE TEST ENTER/DANNIE T ORDERABLES Final Result * Hematoxylin and Eosin Stain (02/06/2025 8:33 AM EDT) 02/06/2025 8:33 AM EDT 02/06/2025 9:20 AM EDT Mert [facility] - 02/10/2025 9:48 AM EDT ----- ------- Name: Savi Henderson Age/Sex: 59/F : 1965 Unit#: [id number] Attend Dr: Manjinder Nguyen MD Re02/06/25 Status: [facility] Location: HO.SSS Disch: ----- ------- SPEC : [id number] RECD: 02/06/25 STATUS: ELISA [place] NUM: [id number] RENAN: 02/06/25 [facility] DR: Manjinder Nguyen MD ENTERED: 02/06/25 SP TYPE: Surgical OTHR DR: Peyton Multani DO ORDERED: HE Stain/12, Gross Micro L4/6, IHC, Special st. 2/, H. pylori, AB/PAS/3 Diagnosis A. Duodenum, biopsy: Duodenal mucosa within [...] Name: Savi Henderson Age/Sex: 59/F : 1965 [id number] Unit#: [id number] Attend Dr: Manjinder Nguyen MD Re02/06/25 Status: [facility] Location: [facility] Disch: ----- ------- SPEC : [id number] RECD: 02/06/25 STATUS: ELISA RE NUM: [id number] RENAN: 02/06/25 [facility] DR: Manjinder Nguyen MD ENTERED: 02/06/25 SP [...] microscopic examination, 1 piece in cassette F. ([facility]) Special studies ordered and performed: Immunostain for H. pylori on B; AB/PAS stains on A, B and C IHC S/NG Disclaimer NOTE: Unless otherwise stated, all tissue is formalin-fixed and paraffin-embedded. Some or all of the immunohistochemical tests reported herein may have been developed and their performance characteristics determined by [facility]. They have not been cleared [...] Savi Henderson Age/Sex: 59/F : 1965 Unit#: [id number] Attend Dr: Manjinder Nguyen MD Re02/06/25 Status: [facility] Location: [facility] Disch: ----- ------- SPEC : [id number] RECD: 02/06/25 STATUS: ELISA [place] NUM: [id number] RENAN: 02/06/25 [facility] DR: Manjinder Nguyen MD ENTERED: 02/06/25 SP TYPE: Surgical OTHR DR: Peyton Multani DO ORDERED: HE Stain, Gross Micro L4/6, IHC, Special st. 2, H. pylori, AB/PAS/ Copies To: Manjinder Nguyen MD [facility] [address] [place] [phone] Peyton Multani DO [address] [address] ----- ------- Signed (signature on file) Camron Marks MD 02/10/25 0948 ----- ------- END OF REPORT us Generic External Data Provider LAB BLOOD ORDERAB LES Final Result [facility] [address] [place] [phone] * Disaccharidases (02/06/2025 8:26 AM EDT) Lactase [facility] Comment:Result Units: uM/min /g prot Test Not Performed. There is insufficient total protein detected, and accurate results are unable to be calculated. THIS TEST WAS PERFORMED AT:[employer] [id number] [place] [address]BLXIIÁNGEL MOREAU MD,PHD,KOLE Sucrase [facility] Maltase [facility] Palatinase [facility] 02/06/2025 8:26 AM EDT 02/06/2025 8:43 AM EDT Narrative [facility] - 02/14/2025 9:18 AM EDT Comment [facility] test code 14437 Generic External Data Provider LAB CYTOLOGY ORDE RABLES Final Result Performing Organization Address City/State/[facility] Co de Phone Number [facility] [address] [place] [phone] * Hm Colonoscopy (02/06/2025) Colonoscopy Normal Normal Historical Provider HEALTH MAINTENANCE Final Result from Last 3 Months Insurance [facility] Care Teams Senior Mobile Solutions Architect Relationship Specialty Start Date End Date Peyton Multani DO [address] [place] [address] PCP - General Family Medicine 04/17/13 Betito Irving FNP [address] [place] [address] Nurse Practitioner Family Medicine 06/13/23
--- OUTSIDE RECORDS SUMMARY | 2025-04-18 12:48 | XMS_ITS | Encounter Summary ---
Author Organization [employer] Address 75 [facility] 7t [place] [address] Care Team Providers Care Cash Register Servicer Name Role Phone Peyton Multani DO Primary Care Provider + [phone] Betito Irving Unavailable Unavailable Reason for Visit * Reason Onset Date Comments Nurse Triage 01/23/2024 Encounter Details Date Type Department Care Team ([facility] st Contact Info) Description 01/23/2024 Telephone [facility] MEDICINE [address] [place] [address] Peyton Multani DO [address] [place] [address] Nurse Triage Social History Tobacco Use Types [...] else. Pt is advised to come to [facility] today and it is open till 8pm. [...] returning call and requesting a call back, lithuanian speaker. * Telephone Encounter - Yuliya Anderson [...] Description 05/08/2025 1:30 PM EDT Clinical Support [facility] [address] [place] [phone] Odalis Anderson, MAO documented as of this encounter Visit Diagnoses Not on filedocumented in this encounter Additional Health Concerns Assessment Noted Time PHQ-9 Depression Total Score: 6 10/10/19 24 10:49 AM EDT documented as of this encounter Care Teams Cash Register Servicer Relationship Specialty Start Date End Date Peyton Multani DO [address] [place] [id number] PCP - General Family Medicine 04/17/13 Betito Irving FNP [address] [place] [phone] Nurse Practitioner Family Medicine 06/13/23 documented as of this encounter
--- OUTSIDE RECORDS SUMMARY | 2025-04-18 12:48 | XMS_ITS | Encounter Summary ---
Author Organization [employer] Address 75 [facility] 7t [place] [address] Care Team Providers Care Networking Specialist Name Role Phone Peyton Multani DO Primary Care Provider + [phone] Betito Irving Unavailable Unavailable Reason for Visit * Reason Onset Date Comments Results 01/24/2024 Encounter Details Date Type Department Care Team ([facility] st Contact Info) Description 01/24/2024 Telephone [facility] MEDICINE [address] [place] [address] Peyton Multani DO [address] [place], [place] [phone] Results Social History Tobacco Use Types Packs/Day [...] yet. Advised that will give call once [facility] receive result. Pt. Verbally agreed and understood. * Telephone Encounter - Sang Watson - 01/24/2024 12:02 PM EDT TC from pt requesting call back regarding Results. Type of results: Xray Date when done: 01/22 Facility: [facility] Speaker documented in this encounter Plan of Treatment Upcoming Encounters Date Type Department Care Team (Late st Contact Info) Description 05/08/2025 1:30 PM EDT Clinical Support [facility] MEDICINE [address] [place] [address] Odalis Anderson RN documented as of this encounter Visit Diagnoses Not on filedocumented in this encounter Additional Health Concerns Assessment Noted Time PHQ-9 Depression Total Score: 6 10/10/19 24 10:49 AM EDT documented as of this encounter Care Teams Networking Specialist Relationship Specialty Start Date End Date Peyton Multani DO [address] [place] [phone] PCP - General Family Medicine 04/17/13 Betito Irving FNP [address] [place] [phone] Nurse Practitioner Family Medicine 06/13/23 documented as of this encounter
--- OUTSIDE RECORDS SUMMARY | 2025-04-18 12:48 | XMS_ITS | Encounter Summary ---
Author Organization [employer] Address [address] [facility] [address] [place] [address] Care Team Providers Care Edge Molder Name Role Phone Peyton Multani DO Primary Care Provider + [phone] Betito Irving Unavailable Unavailable Reason for Visit * Reason Comments Med Refill Encounter Details Date Type Department Care Team ([facility] st Contact Info) Description 01/08/2024 Refill [facility] MEDICINE [address] [place] [address] Peyton Multani DO [address] [place] [address] Social History Tobacco Use Types Packs/Day Years [...] Description 05/08/2025 1:30 PM EDT Clinical Support [facility] MEDICINE [address] [place] [address] Odalis Anderson, MAO documented as of this encounter Visit Diagnoses Not on filedocumented in this encounter Additional Health Concerns Assessment Noted Time PHQ-9 Depression Total Score: 6 10/10/19 24 10:49 AM EDT documented as of this encounter Care Teams Edge Molder Relationship Specialty Start Date End Date Peyton Multani DO [address] [place] [id number] PCP - General Family Medicine 04/17/13 Betito Irving FNP [address] [place] [phone] Nurse Practitioner Family Medicine 06/13/23 documented as of this encounter
--- OUTSIDE RECORDS SUMMARY | 2025-04-18 12:48 | XMS_ITS | Encounter Summary ---
Author Organization [employer] Address [address] [facility] [address] 7[address] [place] [address] Care Team Providers Care Nursery Laborer Name Role Phone Peyton Multani DO Primary Care Provider + [phone] Betito Irving Unavailable Unavailable Encounter Details Date Type Department Care Team (Late st Contact Info) Description 04/14/2025 Orders Only [facility] MEDICINE [address] [place] [address] Peyton Multani DO [address] [place] [address] Social History Tobacco Use Types Packs/Day Years [...] Description 05/08/2025 1:30 PM EDT Clinical Support [address] [place] [address] Odalis Anderson RN documented as of this encounter Procedures Procedure Name Priority Date/Time Associated Diagnosis Comments BI MAMMOGRAM SCREENING TOMOSYNTHESIS BILATERAL Routine 04/14/2025 12:45 PM EDT documented in this encounter Results * BI Mammogram Screening Tomosynthesis Bilateral (04/14/2025 12:45 PM EDT) Anatomical Region Laterality Modality Breast Bilateral Mammography 04/14/2025 12:4 5 PM EDT Narrative 04/15/2025 5:58 PM EDT [facility] [address] [place] [address] Mammography Report Signed Patient: Savi Henderson MR#: [id number] 81 : 1965 Acct:[id number] Age/Sex: 59 / F ADM Date: 04/14/25 Loc: HO.MAMMO Attending Dr: Peyton Multani DO Ordering Physician: Peyton Multani DO Results: 1N egative Date of Service: 04/14/25 Follow Up: 1 Year From Orig inal Mammogram Procedure(s): MM tomosynthesis screening BI Accession Number(s): [id number] cc: Peyton Multani DO Reason For Exam: [...] 04/15/25 1754 DD/ 1245 TD/TT: 04/14/25 1300 Tripe Cooker: Procedure Note Donotuseinterpreter, Image - 04/15/2025 Kathy [facility] [address] [place] [address] Mammography Report Signed Patient: Ismael Henderson#: [id number] [birth year] : 1965Acct:[id number] Age/Sex: 59 / FADM Date: 04/14/25 Loc: HO.MAMMO Attending Dr: Peyton Multani DO Ordering Physician: Jurcsak,Peyton A DOResults: 1N egative Date of Service: 04/14/25Follow Up: 1 Year From Orig inal Mammogram Procedure(s): MM tomosynthesis screening BI Accession Number(s): [id number] cc: Peyton Multani DO Reason For Exam: [...] 04/15/25 1754 DD/ 1245 TD/TT: 04/14/25 1300 Tripe Cooker: us Peyton Multani DO IMG BI PROCEDURES Edited Res ult - Final documented in this encounter Visit Diagnoses Not on filedocumented in this encounter Additional Health Concerns Assessment Noted Time PHQ-9 Depression Total Score: 14 025 12:15 PM EDT documented as of this encounter Care Teams Nursery Laborer Relationship Specialty Start Date End Date Peyton Multani DO [address] [place] [address] PCP - General Family Medicine 04/17/13 Betito Irving FNP [address] [place] [address] Nurse Practitioner Family Medicine 06/13/23 documented as of this encounter
--- OUTSIDE RECORDS SUMMARY | 2025-04-18 12:48 | XMS_ITS | Encounter Summary ---
Author Organization [employer] Address 75 [facility] 7t [place] [address] Care Team Providers Care Air Sealing Technician Name Role Phone Peyton Multani DO Primary Care Provider + [phone] Betito Irving Unavailable Unavailable Reason for Visit * Reason Comments Med Refill Encounter Details Date Type Department Care Team ([facility] st Contact Info) Description 07/16/2024 Refill [facility] MEDICINE [address] [place] [address] Peyton Multani DO [address] [place] [address] Mood disorder (CMS/HCC) Social History Tobacco Use [...] Description 05/08/2025 1:30 PM EDT Clinical Support [facility] MEDICINE [address] [place] [address] Odalis Anderson RN documented as of this encounter Visit Diagnoses Diagnosis Mood disorder (CMS/HCC) Unspecified episodic mood disorder documented in this encounter Additional Health Concerns Assessment Noted Time PHQ-9 Depression Total Score: 6 10/10/19 24 10:49 AM EDT documented as of this encounter Care Teams Air Sealing Technician Relationship Specialty Start Date End Date Peyton Multani DO [address] [place] [phone] PCP - General Family Medicine 04/17/13 Betito Ivring FNP [address] [place] [phone] Nurse Practitioner Family Medicine 06/13/23 documented as of this encounter
== END 2025-04-18 12:45 | disposition home or self-care (01) ==
LOC: HO.MRI 12:44
PROVIDERS: PCP Family Medicine; Visit Provider Neurological Surgery
DX: D32.9 Benign neoplasm of meninges, unspecified (principal)
CPT/HCPCS: 70553; A9585

== ENCOUNTER 2025-05-09 02:36 | Emergency (ER) | payer OTHER, SELFPAY ==
[2025-05-09] VITALS (7 sets, daily range): BP systolic 106–193; BP diastolic 66–98; PULSE 65–74; RESP 14–16; TEMP 36.2–36.6; O2SAT 87–98; BMI 31.0
--- NOTE | ~2025-05-09 | CT_ITS ---
CLINICAL HISTORY: severe RLQ pain, n v CT abdomen and pelvis with contrast Comparison: None provided Findings: The lung bases are clear. There is right perinephric edema with moderate hydroureteronephrosis. There is a 3 mm intravesicular calculus. Right renal Bosniak 1 cyst is not significantly changed. 2.2 x 2.0 cm left adrenal mass is unchanged. Otherwise unremarkable gallbladder and solid organs. No bowel obstruction, pneumoperitoneum, or pneumatosis. Pelvic contents unremarkable. Normal appendix. No acute fracture. IMPRESSION: 1. Moderate right hydroureteronephrosis possibly from recently passed calculus, currently intravesicular in location. This document has been electronically signed by: Feliciano Wyatt MD on 05/09/2025 06:08:21
[2025-05-09 02:54] LABS: Hematocrit 38.6 % (37.0-47.0); Hemoglobin 12.2 g/dl (12.0-16.0); Imm Gran Abs Auto 0.03 X10*3/uL (0.00-0.03); Imm Gran Pct Auto 0.3 % (0.0-0.4); Lymphocytes Absolute Auto 2.6 X10*3/uL (1.2-4.9); MANUAL DIFF FLAG NO; Mean Corpuscular HGB Conc 31.6 g/dl (31.0-35.0); Mean Corpuscular Hemoglobin 26.1 pg (27.0-33.0); Mean Corpuscular Volume 82.7 fL (80.0-98.0); NRBC Abs Auto 0.000 X10*3/uL (0.0-0.012); NRBC Pct Auto 0.0 /100WBC (0.0-0.2); Platelet Count 277 X10*3/uL (160-400); Red Blood Count 4.67 X10*6/uL (4.20-5.50); White Blood Count 11.3 X10*3/uL (4.8-10.8)
--- NOTE | 2025-05-09 03:05 | ED.ABDPAIN ---
HPI - Abdominal Pain General Chief Complaint: Abdominal Pain Stated Complaint: Abd Pain Time Seen by Provider: 05/09/25 02:49 Source: patient, family and old records reviewed Mode of arrival: ambulatory Limitations: no limitations History of Present Illness ED Provider: NADIRA OLIVEROS narrative: 59 yo female with PMH of HTN, GERD, HLD, DM, s/p appendectomy, hysterectomy here with c/o abrupt onset R flank/RLQ pain with n/v and loose stools starting yesterday night. She notes pain is severe. She had milder symptoms after starting statin last month. She denies hematuria. She has no hx of renal colic. MD elicited complaint: abdominal pain and flank pain Pertinent past history: none Onset (ago): day(s) (1) Pain Consistency: constant Location: RLQ and R flank Severity: severe Quality: stabbing Radiation: none Migration to: no migration Exacerbating factors: vomiting and medication Relieving factors: nothing Context: other Associated symptoms: nausea, vomiting and diarrhea Related Data Home Medications ?Medication ?Instructions ?Recorded ?Confirmed baclofen 20 mg tablet 20 mg PO TID 06/18/21 02/06/25 clonazepam 0.5 mg tablet 0.5 mg PO BID PRN Anxiety 06/18/21 02/06/25 duloxetine 60 mg capsule,delayed 120 mg PO DAILY 06/18/21 02/06/25 release hydroxyzine HCl 25 mg tablet 25 mg PO QID 06/18/21 02/06/25 trazodone 100 mg tablet 200 mg PO BEDTIME 09/21/23 02/06/25 cetirizine 10 mg tablet 10 mg PO DAILY 02/12/24 02/06/25 acetaminophen 650 mg 650 mg PO Q12H PRN Pain 04/02/24 02/06/25 tablet,extended release Previous Rx's ?Medication ?Instructions ?Recorded metoprolol tartrate 50 mg tablet 50 mg PO BID #180 tabs 02/05/25 Bifidobacterium infantis 4 mg 4 mg PO DAILY #90 caps 02/17/25 capsule (Align (B.infantis)) pantoprazole 40 mg tablet,delayed 40 mg PO DAILY #90 tabs 02/17/25 release cefuroxime axetil 500 mg tablet 500 mg PO BID 7 days #14 tabs 05/09/25 hydrocodone 5 mg-acetaminophen 325 1 tab PO Q6H PRN pain #10 tabs 05/09/25 mg tablet ondansetron 4 mg disintegrating 4 mg PO Q8H PRN nausea and 05/09/25 tablet vomiting #20 tabs Allergies Allergy/AdvReac Type Severity Reaction Status Date / Time aspirin (ASA) Allergy Intermediate SWELLING Verified 05/09/25 02:42 Sulfa (Sulfonamide Allergy Intermediate RASH, Verified 05/09/25 02:42 Antibiotics) (SULFA SWELLING (SULFONAMIDE ANTIBIOTICS)) ibuprofen Allergy Unknown swelling Uncoded 02/06/25 07:17 Review of Systems Review of Systems Constitutional : No Weight loss, No Fever, No Chills ENT/Mouth : No sore throat, No Rhinorrhea Eyes: No Swelling, No Redness Cardiovascular : No Chest Pain, No SOB, NoEdema Respiratory : No Cough, No Sputum, No Wheezing Gastrointestinal : Positive Nausea, Positive Vomiting, positive Diarrhea, positive abdominal Pain, No Hematochezia, No Melena Genitourinary : No Dysuria, No Urinary Frequency, No Hematuria, No Urgency Musculoskeletal : No joint pain, No Myalgias, No Joint Swelling Skin : No Skin Lesions, No rash Neuro : No Weakness, No Numbness, No Dizziness, No Headache All other systems reviewed and are negative. [facility] Past Medical History Attestation statement: The following information was validated with the patient. Source: old records reviewed Medical History Empty sella syndrome PVC (premature ventricular contraction) HTN (hypertension) COVID-19 Surgical History History of esophagogastroduodenoscopy (EGD) Hx of colonoscopy Social History Social History Alcohol intake: never Patient Tobacco Use Status: Never used Tobacco Smoked in Last 30 Days: No e-Cigarette/Vaping Use: Never Used Use of substances other than those prescribed or required for medical reasons: No Advance Directives: No Advance Directives Information Provided: Yes Do you have a plan to hurt others: No Plan Physical Exam ED Vital Signs: Vital Signs - 24 hr 05/09/25 02:39 05/09/25 02:52 05/09/25 04:26 Temperature 97.1 F 97.1 F Pulse Rate 65 65 Respiratory Rate 16 16 Blood Pressure 193/95 H 193/95 H 189/98 H Pulse Oximetry 98 98 Oxygen Delivery Method Room Air Room Air Oxygen Flow Rate 05/09/25 05:25 05/09/25 05:32 Temperature Pulse Rate Respiratory Rate Blood Pressure Pulse Oximetry 87 L 94 Oxygen Delivery Method Room Air Nasal Cannula Oxygen Flow Rate 2 BMI result Body Mass Index 31.0 Appearance: Alert. Oriented X3. No acute distress. Eyes: Pupils equal, round and reactive to light. ENT: Pharynx normal. Neck: Normal inspection. Neck supple. CVS: Normal heart rate and rhythm. Pulses normal. Respiratory: No respiratory distress. Breath sounds normal. Abdomen: Soft and moderate RLQ ttp no rebound or guarding Skin: Skin warm and dry. Normal skin color. Extremities: No lower extremity edema. Neuro: Oriented X 3. No motor deficit. No sensory deficit. Medical Decision Making Medical Decision Making [facility] Narrative: 59 yo female with PMH of HTN, GERD, HLD, DM, s/p appendectomy, hysterectomy here with c/o severe RLQ pain and n/v/d. At this time will need labs, UA, CT scan for renal colic, diverticular ds, colon inflammation, IV morphine for pain ordered. Differential Diagnosis Differential Diagnoses: The differential diagnosis associated with the presentation includes renal colic, colon inflammation, viral syndrome Admission/Observation Consideration of admission/observation: Escalation of care including admission/observation considered not toxic, stone passed, stable VS, off O2 was transient related to dilaudid pain improved able to tolerate PO given ceftriaxone in ED Lab Data [facility] Lab Attestation statement: I reviewed the patient's lab results. 05/09/25 02:50 05/09/25 02:50 Labs: Lab Results 05/09/25 05/09/25 Range/Units 02:50 04:36 WBC 11.3 H (4.8-10.8) X10*3/uL RBC 4.67 (4.20-5.50) X10*6/uL Hgb 12.2 (12.0-16.0) g/dl Hct 38.6 (37.0-47.0) % MCV 82.7 (80.0-98.0) fL MCH 26.1 L (27.0-33.0) pg MCHC 31.6 (31.0-35.0) g/dl RDW 14.1 (11.0-16.0) % Plt Count 277 (160-400) X10*3/uL MPV 10.3 (9.4-12.3) fL Immature Gran % (Auto) 0.3 (0.0-0.4) % Neut % (Auto) 69.0 (45-73) % Lymph % (Auto) 23.2 (20-40) % [place] % (Auto) 6.2 (2-11) % Eos % (Auto) 0.9 (0-4) % Baso % (Auto) 0.4 (0-2) % Lymph # (Auto) 2.6 (1.2-4.9) X10*3/uL [place] # (Auto) 0.7 (0.1-1.2) X10*3/uL Eos # (Auto) 0.1 (0.0-0.4) X10*3/uL Baso # (Auto) 0.1 (0.0-0.2) X10*3/uL Abs Immat Gran (auto) 0.03 (0.00-0.03) X10*3/uL Absolute Neuts (auto) 7.8 (2.0-8.3) x10*3/uL Absolute Nucleated RBC 0.000 (0.0-0.012) X10*3/uL Nucleated RBC % (auto) 0.0 (0.0-0.2) /100WBC Sodium 140 (135-145) mmol/L Potassium 3.9 (3.3-5.1) mmol/L Chloride 110 H (96-108) mmol/L Carbon Dioxide 21 L (22-29) mmol/L Anion Gap 13 (12-20) BUN 18 H (9-16) mg/dL Creatinine 1.20 (0.5-1.4) mg/dL Estim Creat Clear Calc 45.4 Estimated GFR 46 Random Glucose 215 H (60-115) mg/dL Calcium 9.0 (8.4-10.2) mg/dL Magnesium 1.9 (1.6-2.6) mg/dL Total Bilirubin 0.4 (0.0-1.0) mg/dL Direct Bilirubin 0.1 (0.0-0.5) mg/dL AST 26 (5-31) U/L ALT 26 (0-31) U/L Alkaline Phosphatase 133 H (39-117) U/L Total Protein 7.5 (6.5-8.0) g/dL Albumin 4.2 (3.5-5.0) g/dL Lipase 42 (8-78) U/L Urine Color Yellow Urine Appearance Clear Urine pH 6.5 (5.0-9.0) Ur Specific [place] 1.025 (1.005-1.025) Urine Protein 30 (1+) H (Neg-Trace) mg/dL Urine Glucose (UA) 100 H (Negative) mg/dL Urine Ketones Negative (Negative) mg/dL Urine Blood Trace H (Negative) Urine Nitrite Positive H (Negative) Ur Leukocyte Esterase Trace H (Negative) Urine RBC 0-2 (0-2) /HPF Urine WBC 11-20 H (0-5) /HPF Ur Squamous Epith Cells 0-2 (0-2) /HPF Urine Bacteria 4+ (None Seen) Hyaline Casts 0-2 (0-2) /LPF Independent Interpretation I performed an independent interpretation of an: CT Scan (passed stone) Radiology Impression Discussion of test interpretation with radiology: I have reviewed the radiologist's reading. Independent Historian Clinical information obtained from an independent historian. History obtained from or confirmed by: Spouse External Record Review External record reviewed: Outpatient record Prescription Management I considered prescription management with: Pain Medication and Antibiotic Medications Administered Discontinued Medications Generic Name Dose Route Start Last Admin Trade Name Freq PRN Reason Stop Dose Admin Ceftriaxone Sodium 1 gm 05/09/25 05:40 05/09/25 06:01 Ceftriaxone Sodium 1 Gm Vial IVPUSH 05/09/25 05:41 1 gm ONCE ONE Administration Hydromorphone HCl 1 mg 05/09/25 04:22 05/09/25 04:35 Hydromorphone Hcl 1 Mg/Ml Syringe IVPUSH 05/09/25 04:23 1 mg ONCE ONE Administration Protocol Iohexol 85 ml 05/09/25 04:20 05/09/25 04:21 Iohexol 350 Mg/Ml 100 Ml Infus..Btl IV 05/09/25 04:21 85 ml ONCE ONE Administration Morphine Sulfate 4 mg 05/09/25 02:56 05/09/25 03:11 Morphine Sulfate 4 Mg/Ml Cartridge IVPUSH 05/09/25 02:57 4 mg ONCE ONE Administration Protocol Ondansetron HCl 4 mg 05/09/25 02:56 05/09/25 03:11 Ondansetron Hcl 4 Mg/2 Ml Vial IVPUSH 05/09/25 02:57 4 mg ONCE ONE Administration Discharge Plan Discharge Clinical Impression: Acute UTI, Renal colic Patient Disposition: Home, Self-Care Instructions: Urinary Tract Infection in Women (ED), Renal Colic (ED) Additional Instructions: urine has an infection, next dose of antibiotics is tonight please stay hydrated and drink about 40 ounces of water a day return for vomiting, severe pain, fever over 100.4, unable to eat or drink, unable to urinate, or any other concerns There is right perinephric edema with moderate hydroureteronephrosis. There is a 3 mm intravesicular calculus. Right renal Bosniak 1 cyst is not significantly changed. 2.2 x 2.0 cm left adrenal mass is unchanged. Otherwise unremarkable gallbladder and solid organs. No bowel obstruction, pneumoperitoneum, or pneumatosis. Pelvic contents unremarkable. Normal appendix. No acute fracture. IMPRESSION: 1. Moderate right hydroureteronephrosis possibly from recently passed calculus, currently intravesicular in location. On a cephalosporin?antibiotic, softer bowel movements are to be expected. Call your provider if you move your bowels more than 4 times a day, your bowel movements are almost all liquid, or you get a rash.?? Prescriptions: New hydrocodone-acetaminophen 5-325 mg tablet 1 tab PO Q6H PRN (Reason: pain) Qty: 10 0RF Rx Instructions: partial fill okay; Partial Fill upon patient request. cefuroxime axetil 500 mg tablet 500 mg PO BID 7 Days Qty: 14 0RF ondansetron 4 mg tablet,disintegrating 4 mg PO Q8H PRN (Reason: nausea and vomiting) Qty: 20 0RF No Action metoprolol tartrate 50 mg tablet 50 mg PO BID Qty: 180 3RF duloxetine 60 mg capsule,delayed release(DR/EC) 120 mg PO DAILY clonazepam 0.5 mg tablet 0.5 mg PO BID PRN (Reason: Anxiety) baclofen 20 mg tablet 20 mg PO TID hydroxyzine HCl 25 mg tablet 25 mg PO QID cetirizine 10 mg tablet 10 mg PO DAILY trazodone 100 mg tablet 200 mg PO BEDTIME acetaminophen 650 mg tablet extended release 650 mg PO Q12H PRN (Reason: Pain) pantoprazole 40 mg tablet,delayed release (DR/EC) 40 mg PO DAILY Qty: 90 2RF Align (B.infantis) 4 mg capsule 4 mg PO DAILY Qty: 90 2RF Print Language: Bahraini
[2025-05-09 03:12] LABS: Alanine Aminotransferase 26 U/L (0-31); Albumin Level 4.2 g/dL (3.5-5.0); Alkaline Phosphatase 133 U/L (39-117); Anion Gap 13 (12-20); Aspartate Amino Transferase 26 U/L (5-31); Blood Urea Nitrogen 18 mg/dL (9-16); Calcium 9.0 mg/dL (8.4-10.2); Carbon Dioxide 21 mmol/L (22-29); Chloride 110 mmol/L (96-108); Creatinine Clr Calc Pharmacy 45.4; Estimated Glomerular Filt Rate 46; Lipase 42 U/L (8-78); Magnesium 1.9 mg/dL (1.6-2.6); Potassium 3.9 mmol/L (3.3-5.1); Sodium 140 mmol/L (135-145); Total Protein 7.5 g/dL (6.5-8.0)
--- NOTE | 2025-05-09 03:16 | PC.NURSE ---
this rn assumed care of pt @ 0300. pt medicated according to mar pending to be taken to CT scan
[2025-05-09] MEDS: iohexoL 350 MG/ML 100 ML INFUS..BTL 85 ML IV (04:21)
--- NOTE | 2025-05-09 04:38 | PC.NURSE ---
pt reporting returned pain 02/[address] velazquez aware. pt medicated according to mar pt remains at bedside ct scan results pending
[2025-05-09 04:41] LABS: Appearance Urine Clear; Glucose Urine UA 100 mg/dL (Negative); PH 6.5 (5.0-9.0); Specific Gravity - Urine 1.025 (1.005-1.025); UMIC TRIGGER UACC YES
[2025-05-09 04:43] LABS: UACC Culture Trigger YES
--- NOTE | 2025-05-09 05:30 | PC.NURSE ---
spo2 noted to be 87-88% RA pt states has hx sleep apnea. dr velazquez made aware pt placed on 2l NC. pt tolerated well. spo2 94% while sleeping on 2L
== END 2025-05-09 06:59 | disposition home or self-care (01) ==
PROVIDERS: Emergency Provider Emergency Medicine; PCP Family Medicine
DX: N39.0 Urinary tract infection, site not specified (principal); N23 Unspecified renal colic; I10 Essential (primary) hypertension; Z87.19 Personal history of other diseases of the digestive system; Z79.899 Other long term (current) drug therapy
CPT/HCPCS: 36415; 74177; 80053; 81001; 82248; 83690; 83735; 85025; 87086; 87088; 87186; 96374; 96375; 99284; 99285; J0696; J1171; J2270; J2405; Q9967

== ENCOUNTER → 2025-05-09 02:56 | Outpatient (BNV) | payer OTHER, SELFPAY | PROVIDERS: Emergency Provider Emergency Medicine; PCP Family Medicine; Visit Provider Specialist | DX: N13.30 Unspecified hydronephrosis (principal) | CPT/HCPCS: 74177 ==

== ENCOUNTER → 2025-05-28 10:51 | Outpatient (REF) | payer OTHER, SELFPAY ==
--- NOTE | 2025-05-28 10:53 | HM_ITS ---
* Total monitoring time 2 days. * Underlying rhythm is sinus with an average rate of 74/Min. * Frequent supraventricular ectopy with a burden of 4.8%. * Rare ventricular ectopy. * No significant pauses or high-grade AV blocks. * No patient markers or diary events. MTDD
--- OUTSIDE RECORDS SUMMARY | 2025-05-28 13:38 | XMS_ITS | Clinical Summary ---
Author Organization [address] [facility] Address [address] [place] [address] Phone Care Team Providers Care Cargo Trimmer Name Role Phone Peyton Multani Primary Care Provider [phone]- [phone] Allergies Active Allergy Reactions Criticality Noted Date [...] Problems Problem Noted Date Diagnosed Date Meningioma ([facility] V24, [facility] V28) 10/04/2024 Assessment & Plan (10/04/2024 4:27 PM EST): I reviewed the MRI findings in detail with Ms. Henderson describing the partially empty sella the small incidental meningioma and that there is no posterior fossa lesion to cause her dizziness and imbalance. I suspect she does have vertigo as PT with Hallpike Knott maneuvers did help for short time. She had no improvement on meclizine and continues to have symptoms. She describes extreme imbalance and episodes of nystagmus however I found nothing worrisome on exam today. I recommended that she see her building energy retrofit technician for the blurry and cloudy vision and we will repeat the MRI of the brain in 1 year to follow this meningioma. Encounters Date Type Department Care Team Description 04/09/2025 Telephone Neurosurgery [place] [address] [place] [address] Haley Osuna MA from Last [...] Last Done Comments Breast Cancer Screening 1965 Colorectal Cancer Screening: Colonoscopy 1963 Cervical Cancer Screening: Pap Smear 1984 Pneumococcal Vaccine: 50+ Years (1 of 1 - PCV) 2013 RSV Immunization Adult Patients (1 - Risk 50-74 years 1-dose series) 2013 Social Influencers of Health Screening 06/29/2022 Depression Screening 07/31/2024 Hypertension/CHF/CAD Annual BMP Blood [...] patient's age to complete this topic Insurance [facility] Care Teams Cargo Trimmer Relationship Specialty Start Date End Date Peyton Multani DO [address] [place] [address] PCP - General Internal Medicine 11/11/21
--- OUTSIDE RECORDS SUMMARY | 2025-05-28 13:38 | XMS_ITS | Encounter Summary ---
Author Organization [employer] Address [address] [place] [address] Care Team Providers Care Tape Sewing Machine Operator Name Role Phone Peyton Multani DO Primary Care Provider + [phone] Betito Irving Unavailable Unavailable Encounter Details Date Type Department Care Team (Late st Contact Info) Description 07/18/2024 Telephone [facility] [address] [place] [address] Peyton Multani DO [address] [place] [address] Social History Tobacco Use Types Packs/Day Years [...] documented as of this encounter Care Teams Tape Sewing Machine Operator Relationship Specialty Start Date End Date Peyton Multani DO [address] [place] [address] PCP - General Family Medicine 04/17/13 Betito Irving FNP [address] [place] [address] Nurse Practitioner Family Medicine 06/13/23 documented as of this encounter
--- OUTSIDE RECORDS SUMMARY | 2025-05-28 13:38 | XMS_ITS | Encounter Summary ---
Author Organization [employer] Address [address] [facility] [address] [place] [address] Care Team Providers Care Head Of Art Name Role Phone Peyton Multani DO Primary Care Provider + [phone] Betito Irving Unavailable Unavailable Reason for Visit * Reason Onset Date Comments Referral 09/25/2024 Encounter Details Date Type Department Care Team ([facility] Contact Info) Description 09/25/2024 Telephone [facility] [address] [place] [address] Peyton Multani DO [address] [place], [place] [id number] Referral Social History Tobacco Use Types Packs/Day [...] from pt requesting to Change Location from [facility] for referral for Neurology on 08/12/24 due to [facility] not dealing with PT Diagnosis. Contact pt at [phone] documented in this encounter Plan of Treatment Not on file documented as of this encounter Visit Diagnoses Not on filedocumented in this encounter Additional Health Concerns Assessment Noted Time PHQ-9 Depression Total Score: 6 10/10/19 24 10:49 AM EDT documented as of this encounter Care Teams Head Of Art Relationship Specialty Start Date End Date Peyton Multani DO [address] [place] [address] PCP - General Family Medicine 04/17/13 Betito Irving FNP [address] [place] [address] Nurse Practitioner Family Medicine 06/13/23 documented as of this encounter
--- OUTSIDE RECORDS SUMMARY | 2025-05-28 13:38 | XMS_ITS | Clinical Summary ---
Author Organization [employer] Address [address] [facility] 7[address] [place] [address] Care Team Providers Care International Coordinator Name Role Phone Peyton Multani DO [...] chew. 180 capsule 3 12/14/19 24 Active baclofen (Lioresal) 10 MG [...] 25 Active Blood Glucose Monitoring Suppl (FreeStyle [place] Lite) w/Device kit Use to test blood sugar 2 times daily 1 kit 02/29/20 25 Active empagliflozin (Jardiance) 10 MG Take 1 tablet (10 mg) by mouth Once per day. 30 tablet 3 03/12/20 25 026 Active hydrOXYzine HCl (Atarax) 25 MG tabletIndicati ons:Mood disorder (CMS/HCC) Take 1 tablet (25 mg) by mouth every 6 (six) hours if needed for anxiety. 200 tablet 11 04/23/20 25 Active clonazePAM (KlonoPIN) 0.5 MG tabletIndicati ons:Mood disorder (CMS/HCC) Take 1 tablet (0.5 mg) by mouth 2 times daily for 7 days. 14 tablet 05/13/20 25 Active clonazePAM (KlonoPIN) 0.5 MG tabletIndicati ons:Mood disorder (CMS/HCC) TAKE 1 TABLET BY MOUTH TWICE DAILY 56 tablet 03/19/20 25 025 Discontinued Active Problems Problem Noted [...] any issues or concerns, she should contact [facility]. All her questions were answered. I [...] EKG in chart -s/p optho visit with [facility] 2022 Irritable bowel syndrome with diarrhea 5 [...] Normal finger to nose test, Normal gait. Prospect -Hallpike maneuver did elicit intense symptoms , no nystagmus seen on exam Possible vertigo but concerning w presyncope when did Prospect -Hallpike maneuver and then recover quickly From [...] eval by PCP BMI 31.0-31.9,adult 12/15/2022 02/29/20 25 Prediabetes 12/15/2022 02/28/2025 Assessment & Plan (10/17/2023 2:17 PM EDT): A1c 6.1% JUL 2023 -encouraged dietary changes and weight loss for prevention of DM Generalized anxiety disorder 05/20/2015 09/20/2022 Hyperlipidemia LDL goal <130 05/20/2015 12/15/2022 Major depression, recurrent, chronic 05/20/2015 09/20/2022 Encounters Date Type Department Care Team Description 05/23/2025 [employer] [facility] [address] [place] [phone] Peyton Multani DO 05/12/2025 Refill [facility] MEDICINE [address] [place] [phone] Peyton Multani DO Mood disorder ([facility]/HCC) 05/09/2025 Orders Only GENERIC EXTERNAL DATA DEPARTMENT Provider, Generic External Data 05/08/2025 Telephone [facility] MEDICINE [address] [place] [phone] Odalis Anderson RN [employer] Renewal appt today 04/25/2025 Refill [facility] MEDICINE [address] [place] [address] Peyton Multani DO 04/22/2025 Refill [facility] PEDS [address] [place] [address] Peyton Multani DO Mood disorder (CMS/HCC) 04/14/2025 Orders Only [facility] MEDICINE [address] [place] [address] Peyton Multani DO 03/18/2025 Refill [facility] MED[facility]INE [address] [place] [address] Peyton Multani DO Mood disorder (CMS/HCC) 03/04/2025 Telephone [facility] [address] [place] [address] Peyton Multani DO Prior Authorization ( PA: Derick) 02/28/2025 11:15 AM EDT Office Visit [facility]INE [address] [place] [address] Peyton Multani DO New onset type 2 diabetes mellitus (CMS/HCC) (Primary Dx); Supraventricular tachycardia (CMS/HCC) 02/28/2025 Travel 02/27/2025 Telephone [facility] MEDICINE [address] [place] [address] Peyton Multani DO Chart Prep from Last 3 Months Immunizations Immunization Administration [...] the past 12 months, has t he [employer], gas, oil or water company threatened to [...] 02/28/2025 10:51 AM EDT Plan of Treatment Health Maintenance Due Date [...] years 1-dose series) 2023 COVID-19 Vaccine ( - season) 2025 07/29/2021, 12/31/2020, 12/02/2020 Influenza Vaccine [...] Procedure Name Priority Date/Time Associated Diagnosis Comments CT ABDOMEN PELVIS W CONTRAST Routine 05/09/2025 6:08 AM EDT URINALYSIS, COMPLETE, WITH REFLEX TO CULTURE Routine 05/09/2025 4:36 AM EDT CBC WITH AUTO DIFFERENTIAL Routine 05/09/2025 2:50 AM EDT CULTURE, URINE, ROUTINE Routine 05/09/2025 12:00 AM EDT MR BRAIN W AND WO CONTRAST Routine 04/20/2025 8:20 PM EDT BI MAMMOGRAM SCREENING TOMOSYNTHESIS BILATERAL Routine 04/14/2025 12:45 PM EDT POCT GLYCATED HEMOGLOBIN, TOTAL Routine 02/28/2025 11:03 AM EDT New onset type 2 diabetes mellitus (CMS/HCC) POCT GLUCOSE Routine 02/28/2025 11:03 AM EDT New onset type 2 diabetes mellitus (CMS/HCC) HEPATITIS C AB W/REFL TO HCV RNA, [...] knee Forgetfulness Healthcare maintenance Encounter for immunization HM COLONOSCOPY Routine 02/06/2025 from Last 3 Months or Most Recently Relevant to Health Maintenance Results * CT Abdomen Pelvis w/ Contrast (05/09/2025 6:08 AM EDT) Anatomical Region Laterality Modality Body, Pelvis, Abdomen Computed T omography 05/09/2025 6:08 AM EDT Narrative 05/09/2025 6:10 AM EDT [address] [address] [address] Scan Report Signed Patient: Savi Henderson MR#: [id number] 81 : 1965 Acct:[id number] Age/Sex: 59 / F ADM Date: 05/09/25 Loc: HO.ED Attending Dr: Ordering Physician: Ginger Cardenas DO Date of Service: 05/09/25 Procedure(s): CT abdomen pelvis w IV con Accession Number(s): [id number] cc: Ginger Cardenas DO; Peyton Multani DO Report Number: [id number]: Total DLP = 567.00 mGy-cm Reason for Exam: severe RLQ pain, n/v CLINICAL HISTORY: severe RLQ pain, n v CT abdomen and pelvis with contrast Comparison: None provided Findings: The lung bases are clear. There is right perinephric edema with moderate hydroureteronephrosis. There is a 3 mm intravesicular calculus. Right renal Bosniak 1 cyst is not significantly changed. 2.2 x 2.0 cm left adrenal mass is unchanged. Otherwise unremarkable gallbladder and solid organs. No bowel obstruction, pneumoperitoneum, or pneumatosis. Pelvic contents unremarkable. Normal appendix. No acute fracture. IMPRESSION: 1. Moderate right hydroureteronephrosis possibly from recently passed calculus, currently intravesicular in location. This document has been electronically signed by: Feliciano Wyatt MD on 05/09/2025 06:08:21 Dictated By: Feliciano Wyatt MD Signed By: <Electronically signed by Feliciano Wyatt MD in OV> 05/09/25608 DD/ 7 TD/TT: 05/09/25607 Senior Instructional Designer: Procedure Note Donotuseinterpreter, Image - 05/09/[address] [place] [address] [address] Scan Report Signed Patient: Ismael Henderson#: [id number] [birth year] : 1965Acct:[id number] Age/Sex: 59 / FADM Date: 05/09/25 Loc: .ED Attending Dr: Ordering Physician: Ginger Cardenas DO Date of Service: 05/09/25 Procedure(s): CT abdomen pelvis w IV con Accession Number(s): [id number] cc: Ginger Cardenas DO; Peyton Multani DO Report Number: [id number]: Total DLP = 567.00 mGy-cm Reason for Exam: severe RLQ pain, n/v CLINICAL HISTORY: severe RLQ pain, n v CT abdomen and pelvis with contrast Comparison: None provided Findings: The lung bases are clear. There is right perinephric edema with moderate hydroureteronephrosis. There is a 3 mm intravesicular calculus. Right renal Bosniak 1 cyst is not significantly changed. 2.2 x 2.0 cm left adrenal mass is unchanged. Otherwise unremarkable gallbladder and solid organs. No bowel obstruction, pneumoperitoneum, or pneumatosis. Pelvic contents unremarkable. Normal appendix. No acute fracture. IMPRESSION: 1. Moderate right hydroureteronephrosis possibly from recently passed calculus, currently intravesicular in location. This document has been electronically signed by: Feliciano Wyatt MD on 05/09/2025 06:08:21 Dictated By: Feliciano Wyatt MD Signed By: <Electronically signed by Feliciano Wyatt MD in OV> 05/09/25608 DD/ 7 TD/TT: 05/09/25607 Senior Instructional Designer: [facility] External Provider IMG CT PROCEDURES Final Result * (ABNORMAL) Urinalysis, Complete, with Reflex to Culture (05/09/2025 4:36 AM EDT) Color Urine Yellow [facility] Appearance Urine Clear [facility] PH 6.5 5.0 - 9.0 [facility] Glucose Urine UA 100(A) Negative mg/dL [facility] Urine Blood Trace(A) Negative [facility] Specific [place] - Urine 1.025 1.005 - 1.025 [facility] Urine Protein 30 (1+)(A) Neg-Trace mg/dL [facility] Urine Ketones Negative Negative mg/dL [facility] Nitrite Urine Positive(A) Negative [facility] Leukocyte Esterase Urine Trace(A) Negative [facility] RBC Urine 0-2 0 - 2 /HPF [facility] Urine WBC 11-20(A) 0 - 5 /HPF [facility] Urine Squamous Epithelial Cell 0-2 0 - 2 /HPF [facility] Urine Bacteria 4+ None Seen [facility] Hyaline Casts, Urine 0-2 0 - 2 /LPF [facility] 05/09/2025 4:36 AM EDT 05/09/2025 4:39 AM EDT Narrative [facility] - 05/09/2025 4:44 AM EDT Urine, Clean Catch us Generic External Data Provider LAB URINE ORDERAB LES Final Result [facility] [address] [place] [address] [phone] * (ABNORMAL) CBC auto differential (05/09/2025 2:50 AM EDT) White Blood Count 11.3(H) 4.8 - 10.8 X10*3/uL [facility] Red Blood Count 4.67 4.20 - 5.50 X10*6/uL [facility] Hemoglobin 12.2 12.0 - 16.0 g/dl [facility] Hematocrit 38.6 37.0 - 47.0 % [facility] Mean Corpuscular Volume 82.7 80.0 - 98.0 fL [facility] Mean Corpuscular Hemoglobin 26.1(L) 27.0 - 33.0 pg [facility] Mean Corpuscular HGB Conc 31.6 31.0 - 35.0 g/dl [facility] Red Cell Distribution Width 14.1 11.0 - 16.0 % [facility] Platelet Count 277 160 - 400 X10*3/uL [facility] Mean Platelet Volume 10.3 9.4 - 12.3 fL [facility] Neutrophils Percent Auto 69.0 45 - 73 % [facility] Imm Gran Pct Auto 0.3 0.0 - 0.4 % [facility] Lymphocytes Percent Auto 23.2 20 - 40 % [facility] Monocytes Percent Auto 6.2 2 - 11 % [facility] Eosinophils Percent Auto 0.9 0 - 4 % [facility] Basophils Percent Auto 0.4 0 - 2 % [facility] NRBC Pct Auto 0.0 0.0 - 0.2 /100WBC [facility] Neutrophils Absolute Auto 7.8 2.0 - 8.3 x10*3/uL [facility] Imm Gran Abs Auto 0.03 0.00 - 0.03 X10*3/uL [facility] Lymphocytes Absolute Auto 2.6 1.2 - 4.9 X10*3/uL [facility] Monocytes Absolute Auto 0.7 0.1 - 1.2 X10*3/uL [facility] Eosinophils Absolute Auto 0.1 0.0 - 0.4 X10*3/uL [facility] Basophils Absolute Auto 0.1 0.0 - 0.2 X10*3/uL [facility] NRBC Abs Auto 0.000 0.0 - 0.012 X10*3/uL [facility] 05/09/2025 2:50 AM EDT 05/09/2025 2:53 AM EDT us Generic External Data Provider LAB BLOOD ORDERAB LES Final Result Performing Organization Address City/State/[facility] Co de Phone Number [facility] [address] [place] [phone] * Culture, Urine, Routine (05/09/2025 12:00 AM EDT) Urine Urine specimen obtained by clean catch procedure / Unknown 05/09/2025 05/09/2025 Comment:[facility] Narrative [facility] - 05/11/2025 8:01 AM EDT Klebsiella ozaenae Quant > 100,000 cfu/mL Klebsiella ozaenae: Ampicillin 16(R) Klebsiella ozaenae: Cefazolin <=1(S) Klebsiella ozaenae: Cefepime <=0.12(S) Klebsiella ozaenae: Ceftriaxone <=0.25(S) Klebsiella ozaenae: Ciprofloxacin <=0.06(S) Klebsiella ozaenae: Gentamicin <=1(S) Klebsiella ozaenae: Nitrofurantoin 64(I) Klebsiella ozaenae: Trimethoprim/Sulfamethoxazole <=20(S) Specimen Source: Urine clean catch us Generic External Data Provider LAB MICROBIOLOGY - GENERAL ORDERABLES Final Result [facility] [address] [place] [phone] * Mr Brain w/ and w/o Contrast (04/20/2025 8:20 PM EDT) Anatomical Region Laterality Modality Brain Magnetic Resonan ce 04/20/2025 8:20 PM EDT Narrative 04/20/2025 8:21 PM EDT [address] [address] Magnetic Resonance Report Signed Patient: Savi Henderson MR#: [id number] [birth year] : 1965 Acct:[id number] Age/Sex: 59 / F ADM Date: 04/18/25 Loc: HO.MRI Attending Dr: Lani Russell MD Ordering Physician: Lani Russell MD Date of Service: 04/18/25 Procedure(s): MR head/brain wo/w con Accession Number(s): [id number] cc: Peyton Multani DO; Lani Russell MD Reason for Exam: F/U MENINGIOMA CLINICAL HISTORY: F U MENINGIOMA MR brain without and with contrast Comparison: 10/08/2023, 04/19/2024 Findings: No acute signal abnormalities noted on diffusion-weighted imaging. No acute intracranial fluid collection, hematoma or signal abnormality. Mild chronic ischemic white matter disease without volume loss. 1.2 cm right frontal enhancing meningioma is unchanged. Midline structures are intact and within normal limits. Normal flow voids are noted within the vascular structures. Sinuses and mastoids are clear. Impression: No significant abnormalities. This document has been electronically signed by: Chris Hernandez MD on 04/20/2025 20:20:48 Dictated By: Chris Hernandez MD Signed By: <Electronically signed by Chris Hernandez MD in OV> 04/20/252020 DD/ 19 TD/TT: 04/20/252019 Senior Instructional Designer: Procedure Note Donotuseinterpreter, Image - 04/20/[address] [place] [address] Magnetic Resonance Report Signed Patient: Ismael Henderson#: [id number] [birth year] : 1965Acct:[id number] Age/Sex: 59 / FADM Date: 04/18/25 Loc: HO.MRI Attending Dr: Lani Russell MD Ordering Physician: Lani Russell MD Date of Service: 04/18/25 Procedure(s): MR head/brain wo/w con Accession Number(s): [id number] cc: Peyton Multani DO; Lani Russell MD Reason for Exam: F/U MENINGIOMA CLINICAL HISTORY: F U MENINGIOMA MR brain without and with contrast Comparison: 10/08/2023, 04/19/2024 Findings: No acute signal abnormalities noted on diffusion-weighted imaging. No acute intracranial fluid collection, hematoma or signal abnormality. Mild chronic ischemic white matter disease without volume loss. 1.2 cm right frontal enhancing meningioma is unchanged. Midline structures are intact and within normal limits. Normal flow voids are noted within the vascular structures. Sinuses and mastoids are clear. Impression: No significant abnormalities. This document has been electronically signed by: Chris Hernandez MD on 04/20/2025 20:20:48 Dictated By: Chris Hernandez MD Signed By: <Electronically signed by Chris Hernandez MD in OV> 04/20/252020 DD/ 19 TD/TT: 04/20/252019 Senior Instructional Designer: us [facility] External Provider IMG MRI PROCEDURES Edited Result - Final * BI Mammogram Screening Tomosynthesis Bilateral (04/14/2025 12:45 PM EDT) Anatomical Region Laterality Modality Breast Bilateral Mammography 04/14/2025 12:4 5 PM EDT Narrative 04/15/2025 5:58 PM EDT [address] [place] [address] Mammography Report Signed Patient: Savi Henderson MR#: [id number] [birth year] : 1965 Acct:[id number] Age/Sex: 59 / F ADM Date: 04/14/25 Loc: HO.MAMMO Attending Dr: Peyton Multani DO Ordering Physician: Peyton Multani DO Results: 1N egative Date of Service: 04/14/25 Follow Up: 1 Year From Orig inal Mammogram Procedure(s): MM tomosynthesis screening BI Accession Number(s): [id number] cc: Peyton Multani DO Reason For Exam: [...] by Magda Hercules MD in OV> 04/15/25 2477 DD/ 1245 TD/TT: 04/14/25 1300 Senior Instructional Designer: Procedure Note Donotuseinterpreter, Image - 04/15/2025 [facility] [address] [place] [address] Mammography Report Signed Patient: Ismael Henderson#: [id number] [birth year] : 1965Acct:[id number] Age/Sex: 59 / FADM Date: 04/14/25 Loc: HO.MAMMO Attending Dr: Peyton Multani DO Ordering Physician: Peyton Multaniults: 1N egative Date of Service: 04/14/25Follow Up: 1 Year From Orig ina Mammogram Procedure(s): MM tomosynthesis screening BI Accession Number(s): [id number] cc: Peyton Multani DO Reason For Exam: [...] 04/15/25 1754 DD/ 1245 TD/TT: 04/14/25 1300 Senior Instructional Designer: Peyton Multani DO IMG BI PROCEDURES Edited [...] TEST ENTER/DANNIE T ORDERABLES Final Result * Albumin, Random Urine W/Creatinine (02/14/2025 10:47 AM EDT) Creatinine, Urine 223.08 mg/dL [facility] Microalbumin Urine 55.0 mg/L [facility] Microalbum Creatinine Ratio Ur 24.6 <30 ug/mg cr [facility] Comment:Albumin/Creatinine R atio Reference Ranges: Normal: < 30 ug/mg creatinine Microalbuminuria: 30 - 300 ug/mg creatinineClinical Albuminuria: > 300 ug/mg creatinine Urine (Urine, Random) 02/14/2025 10:47 AM EDT 02/14/2025 12:47 PM EDT Peyton Multani DO LAB URINE ORDERABLES Final R esult [facility] [address] [place] [phone] * Hepatitis C Antibody with Reflex to HCV, RNA, Quantitative, Real-Time PCR (02/14/2025 10:47 AM EDT) Hepatitis C Antibody Nonreactive Nonreactive [facility] Comment:Antibodies to HCV no t detected; does not exclude early acuteHCV infection. Blood Venous blood specimen / Unknown 02/14/2025 10:47 AM EDT 02/14/2025 12:55 PM EDT us Peyton Multani LAB BLOOD ORDERABLES Final R esult Performing Organization Address [facility]/ZIP Co de Phone Number [facility] [address] [place] [phone] * HIV-1/2 Antigen and Antibodies, Fourth Generation, with Reflexes (02/14/2025 10:47 AM EDT) Pathologist [facility] [place] HIV AB/AG Nonreactive Nonreactive [facility] Comment:HIV-1 p24 Ag and/or HIV-1/HIV-2 Ab not detected.A test result that is nonreactive does not exclude thepossibility of exposure to or infection with HIV-1 and/orHIV-2. Nonreactive results in this assay for individualswith prior exposure to HIV-1 and/or HIV-2 may be due toantigen and antibody levels that are below the limit ofdetection of this assay.The [facility] HIV Ag/Ab Combo assay result andsupplemental assay results should be interpreted inconjunction with the patient's clinical presentation,history and other laboratory results. If the results areinconsistent with clinical evidence, additional testing issuggested to confirm the result. Blood Venous blood specimen / Unknown 02/14/2025 10:47 AM EDT 02/14/2025 12:55 PM EDT us Peyton Jurkarlos DO LAB BLOOD ORDERABLES Final R esult Performing Organization Address City/[facility]/ZIP Co de Phone Number [facility] [address] [place] [phone] * (ABNORMAL) Lipid Panel, Standard (02/14/2025 10:47 AM EDT) Triglycerides 122 <150 mg/dL [facility] Comment:Desirable Triglyceri de: less than 150 mg/dLBorderline High Triglyceride 150-199 mg/dLHigh Triglyceride: 200-499 mg/dLVery High Triglyceride: greater than or equal to 5OO mg/dL Cholesterol 200(H) <200 mg/dL [facility] Comment:Desirable Cholestero l: less than 200 mg/dLBorderline High Cholesterol: 200-239 mg/dLHigh Cholesterol: greater than 239 mg/dL LDL Cholesterol Calculated 126(H) <100 mg/dL [facility] Comment:Desirable LDL: less than 100 mg/dLNear Optimal/Above Optimal LDL: 110- 129 mg/dLBorderline High LDL: 130-159 mg/dLHigh LDL: 160-189 mg/dLVery High LDL: greater than or equal to 190 mg/dL HDL Cholesterol 50 >40 mg/dL [facility] Comment:Desirable HDL: great er than 40 mg/dL Note: This HDL assay may give artificially low results in patients with liver disease. Blood Venous blood specimen / Unknown 02/14/2025 10:47 AM EDT 02/14/2025 12:58 PM EDT Peyton Multani DO LAB BLOOD ORDERABLES Final R esult [facility] [address] [place] [phone] * Hm Colonoscopy (02/06/2025) Colonoscopy Normal Normal Historical Provider HEALTH MAINTENANCE Final Result from Last 3 Months or Most Recently Relevant to Health Maintenance Insurance [facility] Care Teams International Coordinator Relationship Specialty Start Date End Date Peyton Multani DO [address] [place] [address] PCP - General Family Medicine 04/17/13 Betito Irving FNP [address] [place] [address] Nurse Practitioner Family Medicine 06/13/23
--- OUTSIDE RECORDS SUMMARY | 2025-05-28 13:38 | XMS_ITS | Encounter Summary ---
Author Organization [employer] Address [address] [facility] [address]t [place] [address] Care Team Providers Care Livery Car Driver Name Role Phone Peyton Multani DO Primary Care Provider + [phone] Betito Irving Unavailable Unavailable Reason for Visit * Reason Onset Date Comments Med Refill 02/23/2024 Encounter Details Date Type Department Care Team ([facility] st Contact Info) Description 02/23/2024 Telephone [facility] MEDICINE [address] [place] [address] Peyton Multani DO [address] [place] [address] Med Refill Social History Tobacco Use Types [...] enough money to get more: Never True 03/ Transportation Answer Date Recorded In the past [...] 24 hr tablet To be sent to: [facility] Pharmacy documented in this encounter Plan of Treatment Not on file documented as of this encounter Visit Diagnoses Not on filedocumented in this encounter Additional Health Concerns Assessment Noted Time PHQ-9 Depression Total Score: 6 10/10/19 24 10:49 AM EDT documented as of this encounter Care Teams Livery Car Driver Relationship Specialty Start Date End Date Peyton Multani DO [address] [place] [address] PCP - General Family Medicine 04/17/13 Betito Irving FNP [address] [place] [address] Nurse Practitioner Family Medicine 06/13/23 documented as of this encounter
--- OUTSIDE RECORDS SUMMARY | 2025-05-28 13:39 | XMS_ITS | Encounter Summary ---
Author Organization [employer] Address [address] [facility] 7t [place] [address] Care Team Providers Care Corrugated Fastener Driver Name Role Phone Peyton Multani DO Primary Care Provider + [phone] Betito Irving Unavailable Unavailable Reason for Visit * Reason Comments Med Refill Encounter Details Date Type Department Care Team ([facility] st Contact Info) Description 07/16/2024 Refill [facility] MEDICINE [address] [place] [address] Peyton Multani DO [address] [place] [address] Mood disorder (CMS/HCC) Social History Tobacco Use [...] documented as of this encounter Care Teams Corrugated Fastener Driver Relationship Specialty Start Date End Date Peyton Multani DO [address] [place] [address] PCP - General Family Medicine 04/17/13 Betito Irving FNP [address] [place] [address] Nurse Practitioner Family Medicine 06/13/23 documented as of this encounter
--- OUTSIDE RECORDS SUMMARY | 2025-05-28 13:39 | XMS_ITS | Encounter Summary ---
Author Organization [employer] Address [address] [facility] [address]t [place] [address] Care Team Providers Care Retail Seasonal Specialist Name Role Phone Peyton Multani DO Primary Care Provider + [phone] Betito Irving Unavailable Unavailable Reason for Visit * Reason Comments Med Refill Encounter Details Date Type Department Care Team ([facility] st Contact Info) Description 01/08/2024 Refill [facility] MEDICINE [address] [place] [address] Peyton Multani DO [address] [place] [address] Social History Tobacco Use Types Packs/Day Years [...] documented as of this encounter Care Teams Retail Seasonal Specialist Relationship Specialty Start Date End Date Peyton Multani DO [address] [place] [address] PCP - General Family Medicine 04/17/13 Betito Irving FNP [address] [place] [address] Nurse Practitioner Family Medicine 06/13/23 documented as of this encounter
--- OUTSIDE RECORDS SUMMARY | 2025-05-28 13:39 | XMS_ITS | Encounter Summary ---
Author Organization [employer] Address [address] [facility] [address] [place] [address] Care Team Providers Care Laundry Tub Maker Name Role Phone Peyotn Multani DO Primary Care Provider +[phone] Betito Irving Unavailable Unavailable Reason for Visit * Reason Onset Date Comments call back 09/06/2022 Encounter Details Date Type Department Care Team ([facility] st Contact Info) Description 09/06/2022 Telephone [facility] [address] [place] [address] Peyton Multani DO [address] [place] [address] call back Social History Tobacco Use Types [...] back regarding pt Please contact Renita at [phone] documented in this encounter Plan of Treatment Not on file documented as of this encounter Visit Diagnoses Not on filedocumented in this encounter Additional Health Concerns Assessment Noted Time PHQ-9 Depression Total Score: 16 023 10:00 AM EST documented as of this encounter Care Teams Laundry Tub Maker Relationship Specialty Start Date End Date Peyton Multani DO [address] [place] [address] PCP - General Family Medicine 04/17/13 Betito Irving FNP [address] [place] [address] Nurse Practitioner Family Medicine 06/13/23 documented as of this encounter
--- OUTSIDE RECORDS SUMMARY | 2025-05-28 13:39 | XMS_ITS | Encounter Summary ---
Author Organization [employer] Address [address] [facility] [address] [place] [address] Care Team Providers Care Editor Department Name Role Phone Peyton Multani DO Primary Care Provider + [phone] Betito Irving Unavailable Unavailable Reason for Visit * Reason Onset Date Comments Results 01/24/2024 Encounter Details Date Type Department Care Team ([facility] st Contact Info) Description 01/24/2024 Telephone [facility] [address] [place] [address] Peyton Multani DO [address] [place], [place] [phone] Results Social History Tobacco Use Types Packs/Day [...] yet. Advised that will give call once [facility] receive result. Pt. Verbally agreed and understood. * Telephone Encounter - Sang Watson - 01/24/2024 12:02 PM EDT TC from pt requesting call back regarding Results. Type of results: Xray Date when done: 01/22 Facility: [facility] Slovenian Speaker documented in this encounter Plan of Treatment Not on file documented as of this encounter Visit Diagnoses Not on filedocumented in this encounter Additional Health Concerns Assessment Noted Time PHQ-9 Depression Total Score: 6 10/10/19 24 10:49 AM EDT documented as of this encounter Care Teams Editor Department Relationship Specialty Start Date End Date Peyton Multani DO [address] [place] [address] PCP - General Family Medicine 04/17/13 Betito Irving FNP [address] [place] [address] Nurse Practitioner Family Medicine 06/13/23 documented as of this encounter
--- OUTSIDE RECORDS SUMMARY | 2025-05-28 13:39 | XMS_ITS | Encounter Summary ---
Author Organization [employer] Address [address] [facility] [address] [place] [address] Care Team Providers Care Women'S Activities Adviser Name Role Phone Peyton Multani DO Primary Care Provider + [phone] Betito Irving Unavailable Unavailable Reason for Visit * Reason Onset Date Comments Medication Problem 04/25/2025 Encounter Details Date Type Department Care Team (Late st Contact Info) Description 04/25/2025 Refill [facility] [address] [place] [address] Peyton Multani DO [address] [place] [address] Social History Tobacco Use Types Packs/Day Years [...] as of this encounter Miscellaneous Notes * Addendum Note - Brigida Bhatti RN - 05/28/2025 9:51 AM EDTAddended by: BRIGIDA BHATTI on: 05/28/2025 09:51 AM Modules accepted: Orders * Telephone Encounter - Brigida Bhatti RN - 05/28/2025 9:42 AM EDT TC placed to patient [phone] however automated recording the wireless caller you are calling is not available . RN unable to leave . TC placed to [phone], spoke to patient who reports the jardiance caused her vaginal itchiness. Patient reports she took the medication for 1 week and then stopped it for one week and her s/s resolved. Patient reports she re-attempted the medication and developed the same s/s. Patient reports she has now been off the medication for 1.5-2 months. RN spoke to provider who will send faxiga 5mg daily for patient to trial. Patient verbalized understandingand is aware to report any side effects. Patient to f/u PRN. * Telephone Encounter - Mechelle Argueta - 04/25/2025 1:08 PM EDT Pt walked in requesting pcp chance prescription for jardiance 10mg due to it giving her secondary effects. documented in this encounter Plan of Treatment Not on file documented as of this encounter Visit Diagnoses Not on filedocumented in this encounter Additional Health Concerns Assessment Noted Time PHQ-9 Depression Total Score: 14 025 12:15 PM EDT documented as of this encounter Care Teams Women'S Activities Adviser Relationship Specialty Start Date End Date Peyton Multani DO [address] [place] [address] PCP - General Family Medicine 04/17/13 Betito Irving FNP [address] [place] [address] Nurse Practitioner Family Medicine 06/13/23 documented as of this encounter
--- OUTSIDE RECORDS SUMMARY | 2025-05-28 13:39 | XMS_ITS | Encounter Summary ---
Author Organization [employer] Address [address] [facility] [address] [place] [address] Care Team Providers Care Die Casting Machine Operator Name Role Phone Petyon Multani DO Primary Care Provider + [phone] Betito Irving Unavailable Unavailable Encounter Details Date Type Department Care Team ([facility] st Contact Info) Description 05/23/2025 Telephone [facility] [address] [place] [address] Peyton Multani DO [address] [place] [address] Social History Tobacco Use Types Packs/Day Years [...] encounter Miscellaneous Notes * Telephone Encounter - Juan Meier - 05/23/2025 10:30 AM EDT Prior authorization for Echocardiogram has been Denied, Insurance decision letter scanned. documented in this encounter Plan of Treatment Not on file documented as of this encounter Visit Diagnoses Not on filedocumented in this encounter Additional Health Concerns Assessment Noted Time PHQ-9 Depression Total Score: 14 025 12:15 PM EDT documented as of this encounter Care Teams Die Casting Machine Operator Relationship Specialty Start Date End Date Peyton Multani DO [address] [place] [address] PCP - General Family Medicine 04/17/13 Betito Irving FNP [address] [place] [address] Nurse Practitioner Family Medicine 06/13/23 documented as of this encounter
--- OUTSIDE RECORDS SUMMARY | 2025-05-28 13:39 | XMS_ITS | Encounter Summary ---
Author Organization [employer] Address [address] [facility] [address] [place] [address] Care Team Providers Care Crossband Layer Name Role Phone Peyton Multani DO Primary Care Provider + [phone] Betito Irving Unavailable Unavailable Reason for Visit * Reason Onset Date Comments Nurse Triage 01/23/2024 Encounter Details Date Type Department Care Team ([facility] st Contact Info) Description 01/23/2024 Telephone [facility] [address] [place] [address] Peyton Multani DO [address] [place] [address] Nurse Triage Social History Tobacco Use Types [...] else. Pt is advised to come to [facility] today and it is open till 8pm. [...] returning call and requesting a call back, greenlandic speaker. * Telephone Encounter - Yuliya Anderson [...] documented as of this encounter Care Teams Crossband Layer Relationship Specialty Start Date End Date Peyton Multani DO [address] [place] [address] PCP - General Family Medicine 04/17/13 Betito Irving FNP [address] [place] [address] Nurse Practitioner Family Medicine 06/13/23 documented as of this encounter
== END ==
LOC: HO.CARD 10:51
PROVIDERS: Visit Provider Family Medicine
DX: I47.10 Supraventricular tachycardia, unspecified (principal)
CPT/HCPCS: 93225

== ENCOUNTER → 2025-05-28 10:53 | Outpatient (BNV) | payer OTHER, SELFPAY | PROVIDERS: Visit Provider Internal Medicine | DX: I49.3 Ventricular premature depolarization (principal); I47.10 Supraventricular tachycardia, unspecified | CPT/HCPCS: 93227 ==

== ENCOUNTER 2025-06-24 14:19 | Outpatient (AMB) | payer OTHER, SELFPAY ==
--- NOTE | 2025-06-24 14:23 | A.OFFVIS_ITS ---
Vital Signs 06/24/25 14:24 Height 5 ft 1 in Weight 163 lb 2.273 oz BMI 30.8 BP 128/78 Blood Pressure Location Lt brachial Position Sitting Pulse 74 Intake Visit Reasons: fu req by Dr. Davidson to go over holter NS Intake Note: Follow-up after holter c/o chest pain all day yesterday when she pressed on it Customer Sales Advisor Required: No Building Dismantler: Building Dismantler Present Accompanied by: Family/Other Allergies aspirin (ASA) Allergy (Intermediate, Verified 05/09/25 02:42) SWELLING Sulfa (Sulfonamide Antibiotics) (SULFA (SULFONAMIDE ANTIBIOTICS)) Allergy (Int ermediate, Verified 05/09/25 02:42) RASH, SWELLING ibuprofen Allergy (Unknown, Uncoded 02/06/25 07:17) swelling Medication List - Last Reconciled 06/24/25 by JAQUELIN Corral acetaminophen ER 650 mg PO Q12H PRN baclofen 20 mg PO TID PRN cetirizine 10 mg PO DAILY clonazepam 0.5 mg PO BID PRN duloxetine 120 mg PO DAILY hydrocodone-acetaminophen 5-325 mg 1 tab PO Q6H PRN hydroxyzine HCl 25 mg PO QID metoprolol tartrate 50 mg PO BID ondansetron 4 mg PO Q8H PRN pantoprazole 40 mg PO DAILY trazodone 200 mg PO BEDTIME HPI HPI fu req by Dr. Davidson to go over holter NS: Details: The patient is a 59 year old individual presenting for follow-up of heart palpitations and hypertension. The patient experiences intermittent palpitations without a clear pattern or trigger, describing the sensation as choking or feeling the heart in the throat, which can last for a while . a recent Holter monitor did show sinus rhythm with average heart rate 74 beats per minute, supraventricular ectopy 4.8% of the time. The patient reports adherence to metoprolol tartrate 50 mg twice daily. The patient's medical history is notable for fainting episodes, though the last occurrence was over three months ago. During these episodes, the patient could hear and see but was unable to move. She says her tractor technician noted multiple areas of high signal intensity on brain imaging, suggesting the possibility of seizures. She does not , but the believe the fainting is correlated with palpitations. The patient reports a history of a small, asymptomatic brain tumor. The patient leads a mostly sedentary lifestyle, consumes one cup of coffee daily, and eats sweets such as cake and cookies. Her Son is present. [facility] Medical History Empty sella syndrome PVC (premature ventricular contraction) HTN (hypertension) COVID-19 Surgical History History of esophagogastroduodenoscopy (EGD) Hx of colonoscopy Social History Alcohol intake: never Patient Tobacco Use Status: Never used Tobacco e-Cigarette/Vaping Use: Never Used Review of Systems Const All systems reviewed & are unremarkable except as noted in HPI and below Denies chills, Denies fatigue, Denies fever(s), Denies frequent falls, Denies weakness, Denies weight gain and Denies weight loss ENT Denies dizziness Card Details: palpitations in throat Denies chest pain, Denies leg edema, Denies lightheadedness, Denies palpitations, Denies dyspnea, Denies dyspnea on exertion, Denies orthopnea and Denies other (loss of consciousness) Resp Denies cough, Denies dyspnea and Denies dyspnea on exertion GI Denies hematochezia and Denies change in stool character Musc Denies abnormal gait, Denies muscle weakness, Denies numbness, Denies radiating pain into limb and Denies tingling Neuro Denies abnormal gait, Denies dizziness, Denies frequent falls, Denies numbness, Denies tingling and Denies weakness Endo Denies fatigue and Denies palpitations Physical Exam Vital Signs: Last Vital Signs Pulse 74 06/24/25 14:24 BP 128/78 06/24/25 14:24 BMI result Body Mass Index 30.8 Const General: cooperative, healthy appearing, comfortable and no acute distress Orientation/consciousness: patient oriented x3 Neck Neck: Yes normal visual inspection Resp Effort & Inspection: normal respiratory effort Auscultation: clear to auscultation bilaterally, no crackles, no rales, no rhonchi and no wheezes Cardio Rate: regular rate Rhythm: regular rhythm Heart sounds: S1 normal heart sound present, S2 normal heart sound present, no gallops, no murmurs and no rubs Neuro General: patient oriented x3 Extrem General: Yes normal to inspection, No no pedal edema and No calf tenderness Psych Appearance: grossly normal Mental Status: mental status grossly normal Speech and movement: Normal speech and movement present Assessment & Plan Assessment & Plan (1) Palpitations: Code(s): R00.2 - Palpitations Category: Medical Plan: Report of heart palpitations that she can feel into her throat. A Holter monitor confirms frequent SVE, 4.8%. She is on metoprolol tartrate 50 mg b.i.d.. A prior stress echo done 10/18/2022 was normal. Labs done 02/14/2025 showed TSH 1.05, labs 05/09/2025 showed hematocrit 38.6. Will check an echocardiogram to assess for structural heart disease particularly atrial size and EF. Instructed on reduction in sugar foods. Limit caffeine to 1 beverage per day. Increase physical activity as tolerated. Going forward we may increase her metoprolol dose if symptoms persist. (2) PAC (premature atrial contraction): Code(s): I49.1 - Atrial premature depolarization Category: Medical Plan: Frequent PACs as above. In some patients frequent PACs can lead to atrial fibrillation. Will continue to follow. (3) HTN (hypertension): Code(s): I10 - Essential (primary) hypertension Category: Medical Plan: Blood pressure goal less than 130/80. Well controlled at this time. No medi cation changes being made. Plan I explained to the patient that the symptoms of heart palpitations are caused by extra, or early, heartbeats, as shown on the recent Holter monitor. I reassured the patient that while these beats can be felt, they are not considered harmful or life-threatening. I have ordered an echocardiogram to assess the heart's s tructure and function, particularly the size of the atria and the strength of the heart muscle. We discussed that the current medication, metoprolol, is the correct treatment, but the dose may need to be increased if palpitations persist and remain bothersome after we review the echocardiogram. I also advised that lifestyle modifications, including reducing sugar intake and increasing physical activity, could potentially lessen the frequency of palpitations. We will follow up in two months to review the test results and re-evaluate. Patient Instructions: - Please schedule and complete the ordered echocardiogram, which is an ultrasound of your heart. - Continue to take your metoprolol 50 mg twice daily as prescribed. - Try to cut back on sugary foods like cakes and cookies, as this may help reduce your palpitations. - Try to be a little more physically active, as this is good for your heart. - Plan to follow up in our office in about two months to review your test results and see how you are doing. Patient was informed and verbally consented to the use of an ambient scribe for clinic note documentation during this visit. Visit time spent on chart review, interview, assessment, orders, documentation. Coding Level of Care Code Est Pt Level 4 (01703) Complex visit Add On G2211 Diagnoses Palpitations R00.2 PAC (premature atrial contraction) I49.1 HTN (hypertension) I10 Time Spent (min) 28
[2025-06-24 14:24] VITALS: BP 128/78; PULSE 74; BMI 30.8
--- OUTSIDE RECORDS SUMMARY | 2025-06-24 18:12 | XMS_ITS | Encounter Summary ---
Author Organization [employer] Address [address] [facility] [address] [place] [address] Care Team Providers Care Crime Victim Specialist Name Role Phone Peyton Multani DO Primary Care Provider + [phone] Betito Irving Unavailable Unavailable Reason for Visit * Reason Onset Date Comments Results 01/24/2024 Encounter Details Date Type Department Care Team ([facility] st Contact Info) Description 01/24/2024 Telephone [facility] [address] [place] [address] Peyton Multani DO [address] [place], [place] [phone] Results Social History Tobacco Use Types Packs/Day [...] yet. Advised that will give call once [facility] receive result. Pt. Verbally agreed and understood. * Telephone Encounter - Sang Watson - 01/24/2024 12:02 PM EDT TC from pt requesting call back regarding Results. Type of results: Xray Date when done: 01/22 Facility: [facility] [employer] Speaker documented in this encounter Plan of Treatment Not on file documented as of this encounter Visit Diagnoses Not on filedocumented in this encounter Additional Health Concerns Assessment Noted Time PHQ-9 Depression Total Score: 6 10/10/19 24 10:49 AM EDT documented as of this encounter Care Teams Crime Victim Specialist Relationship Specialty Start Date End Date Peyton Multani DO [address] [place] [address] PCP - General Family Medicine 04/17/13 Betito Irving FNP [address] [place] [address] Nurse Practitioner Family Medicine 06/13/23 documented as of this encounter
--- OUTSIDE RECORDS SUMMARY | 2025-06-24 18:12 | XMS_ITS | Encounter Summary ---
Author Organization [employer] Address [address] [facility] [address] [place] [address] Care Team Providers Care Cattle Dehorner Name Role Phone Peyton Multani DO Primary Care Provider + [phone] Betito Irving Unavailable Unavailable Reason for Visit * Reason Onset Date Comments Med Refill 02/23/2024 Encounter Details Date Type Department Care Team ([facility] st Contact Info) Description 02/23/2024 Telephone [facility] [address] [place] [address] Peyton Multani DO [address] [place] [address] Med Refill Social History Tobacco Use Types [...] 24 hr tablet To be sent to: [facility] documented in this encounter Plan of Treatment Not on file documented as of this encounter Visit Diagnoses Not on filedocumented in this encounter Additional Health Concerns Assessment Noted Time PHQ-9 Depression Total Score: 6 10/10/19 24 10:49 AM EDT documented as of this encounter Care Teams Cattle Dehorner Relationship Specialty Start Date End Date Peyton Multani DO [address] [place] [address] PCP - General Family Medicine 04/17/13 Betito Irving FNP [address] [place] [address] Nurse Practitioner Family Medicine 06/13/23 documented as of this encounter
--- OUTSIDE RECORDS SUMMARY | 2025-06-24 18:12 | XMS_ITS | Clinical Summary ---
Author Organization [employer] Address [address] [facility] [address] [place] [address] Care Team Providers Care Crust Sorter Name Role Phone Peyton Multani Primary Care Provider Betito Irving Unavailable Unavailable [...] 10/17/19 24 Active meclizine (Antivert) 12.5 MG tabletIndicat ions:Vertigo TAKE 1 TABLET BY MOUTH THREE TIMES DAILY IN THE MORNING, AT NOON, AND AT BEDTIME NEEDED FOR DIZZINESS OR FOR NAUSEA 30 tablet 10/19/19 24 Active ondansetron (Zofran) 4 MG tablet TAKE 1 TABLET BY MOUTH EVERY 8 HOURS NEEDED FOR NAUSEA FOR UP TO 7 DAYS 10 tablet 10/19/19 24 Active baclofen (Lioresal) 10 MG tablet [...] Active naloxone (Narcan) 4 mg/0.1 mL nasal sprayIndicati ons:Mood disorder (CMS/HCC) Administer 1 spray (4 mg) into affected nostril(s) if needed for opioid reversal. May repeat every 2-3 minutes if needed, alternating nostrils, until medical assistance becomes available. 2 each 3 07/16/20 24 025 Active cetirizine (ZyrTEC) 10 MG tablet TAKE 1 TABLET BY MOUTH EVERY DAY 30 tablet 5 07/17/20 24 Active traZODone (Desyrel) 100 MG tabletIndicat ions:Mood disorder (CMS/HCC) Take 2 tablets (200 mg) [...] 25 Active Blood Glucose Monitoring Suppl (FreeStyle Pax Lite) w/Device kit Use to test blood sugar 2 times daily 1 kit 02/29/20 25 Active empagliflozin (Jardiance) 10 MG Take 1 tablet (10 mg) by mouth Once per day. 30 tablet 3 03/12/20 25 026 Active hydrOXYzine HCl (Atarax) 25 MG tabletIndicat ions:Mood disorder (CMS/HCC) Take 1 tablet (25 mg) by mouth every 6 (six) hours if needed for anxiety. 200 tablet 11 04/23/20 25 Active dapagliflozin (Farxiga) 5 MG Take 1 tablet (5 mg) by mouth Once per day. 90 tablet 3 05/28/20 25 Active clonazePAM (KlonoPIN) 0.5 MG tabletIndicat ions:Mood disorder (CMS/HCC) TAKE 1 TABLET BY MOUTH TWICE DAILY FOR 7 DAYS 14 tablet 05/29/20 25 Active DULoxetine (Cymbalta) [address] capsuleIndica tions:Mood disorder (CMS/HCC) Take 1 capsule (60 mg) by mouth 2 times daily. Do not crush or chew. 180 capsule 3 05/30/20 25 Active DULoxetine (Cymbalta) [address] capsuleIndica tions:Mood disorder (CMS/HCC) Take 1 capsule (60 mg) by mouth 2 times daily. Do not crush or chew. 180 capsule 3 12/14/19 24 025 Discontinued(Re order (will not trigger notification to Pharmacy)) clonazePAM (KlonoPIN) 0.5 MG tabletIndicat ions:Mood disorder (CMS/HCC) Take 1 tablet (0.5 mg) by mouth 2 times daily for 7 days. 14 tablet 05/13/20 25 025 Discontinued Active Problems Problem Noted [...] EDT): Heavy snoring with daytime fatigue, possible EEF -keep sleep study next mos as scheduled [...] any issues or concerns, she should contact [facility]. All her questions were answered. I [...] Normal finger to nose test, Normal gait. Harriman -Hallpike maneuver did elicit intense symptoms , [...] Encounters Date Type Department Care Team Description 06/24/2025 Refill [facility] [address] [place] [address] Peyton Multani DO Mood disorder ([facility]/HCC) 06/10/2025 Telephone [facility] [address] [place] [address] Peyton Multani DO Holter monitor results 05/30/2025 Refill [facility] [address] [place] [address] Peyton Multani DO Mood disorder (CMS/HCC) 05/29/2025 Refill [facility] [address] [place] [address] Peyton Multani DO Mood disorder ([facility]/HCC) 05/23/2025 Telephone [facility] [address] [place] [address] Peyton Multani DO 05/12/2025 Refill [facility] [address] [place] [address] Peyton Multani DO Mood disorder ([facility]/HCC) 05/09/2025 Orders Only GENERIC EXTERNAL DATA DEPARTMENT Provider, Generic External Data 05/08/2025 Telephone [facility] [address] [place] [address] Odalis Anderson RN [employer] Renewal appt today 04/25/2025 Refill [facility] [address] [place], [place] [phone] Peyton Multani DO 04/22/2025 Refill [facility] [address] [facility], [place] [phone] Peyton Multani DO Mood disorder ([facility]) 04/14/2025 Orders Only [facility] [address] [facility] [place] [address] Peyton Multani DO from Last 3 Months Immunizations Immunization Administration [...] 60 years or older (1 - Risk 50-74 years 1-dose series) 2013 COVID-19 Vaccine ( season) 2025 07/29/2021, 12/31/2020, [...] knee Forgetfulness Healthcare maintenance Encounter for immunization COLONOSCOPY Routine 02/06/2025 from Last 3 Months or Most Recently Relevant to Health Maintenance Results * CT Abdomen Pelvis w/ Contrast (05/09/2025 6:08 AM EDT) Anatomical Region Laterality Modality Body, Pelvis, Abdomen Computed T omography 05/09/2025 6:08 AM EDT Narrative 05/09/2025 6:10 AM EDT [address] [address] [address] Scan Report Signed Patient: Savi Henderson MR#: [id number] 81 : 1965 Acct:[id number] Age/Sex: 59 / F ADM Date: 05/09/25 Loc: HO.ED Attending Dr: Ordering Physician: Ginger Cardenas DO Date of Service: 05/09/25 Procedure(s): CT abdomen pelvis w IV con Accession Number(s): [id number] cc: Ginger Cardenas DO; Peyton Multani DO Report Number: [id number]: Total DLP = 567.00 mGy-cm Reason for [...] signed by Feliciano Wyatt MD in OV> 05/09/25 0609 DD/ TD/TT: 05/09/25 06 Doughnut Batter Mixer: Procedure Note Donotuseinterpreter, Image - 05/09/[address] [place] [address] [address] Scan Report Signed Patient: Ismael Henderson#: [id number] [birth year] : 1965Acct:[id number] Age/Sex: 59 / FADM Date: 05/09/25 Loc: HO.ED Attending Dr: Ordering Physician: Ginger Cardenas DO Date of Service: 05/09/25 Procedure(s): CT abdomen pelvis w IV con Accession Number(s): [id number] cc: Ginger Cardenas DO; Peyton Multani Report Number: [id number]: Total DLP = 567.00 mGy-cm Reason for [...] in OV> 05/09/25608 DD/ 7 TD/TT: 05/09/25607 Doughnut Batter Mixer: [facility] External Provider IMG CT PROCEDURES Final Result * (ABNORMAL) Urinalysis, Complete, with Reflex to Culture (05/09/2025 4:36 AM EDT) Color Urine Yellow [facility] Appearance Urine Clear [facility] PH 6.5 5.0 - 9.0 [facility] Glucose Urine UA 100(A) Negative mg/dL [facility] Urine Blood Trace(A) Negative [facility] Specific [place] - Urine 1.025 1.005 - 1.025 [facility] Urine Protein 30 (1+)(A) Neg-Trace mg/dL [facility] Urine Ketones Negative Negative mg/dL [facility] Nitrite Urine Positive(A) Negative [facility] Leukocyte Esterase Urine Trace(A) Negative [facility] RBC Urine 0-2 0 - 2 /HPF [facility] Urine WBC 11-20(A) 0 - 5 /HPF [facility] Urine Squamous Epithelial Cell 0-2 0 - 2 /HPF [facility] Urine Bacteria 4+ None Seen [facility] Hyaline Casts, Urine 0-2 0 - 2 /LPF [facility] 05/09/2025 4:36 AM EDT 05/09/2025 4:39 AM EDT Narrative [facility] - 05/09/2025 4:44 AM EDT Urine, Clean Catch us Generic External Data Provider LAB URINE ORDERAB LES Final Result [facility] [address] [place] [phone] * (ABNORMAL) CBC auto differential (05/09/2025 2:50 AM EDT) White Blood Count 11.3(H) 4.8 - 10.8 X10*3/uL [facility] Red Blood Count 4.67 4.20 - 5.50 X10*6/uL [facility] Hemoglobin 12.2 12.0 - 16.0 g/dl [facility] Hematocrit 38.6 37.0 - 47.0 % [facility] Mean Corpuscular Volume 82.7 80.0 - 98.0 fL [facility] Mean Corpuscular Hemoglobin 26.1(L) 27.0 - 33.0 pg [facility] Mean Corpuscular HGB Conc 31.6 31.0 - 35.0 g/dl [facility] Red Cell Distribution Width 14.1 11.0 - 16.0 % [facility] Platelet Count 277 160 - 400 X10*3/uL [facility] Mean Platelet Volume 10.3 9.4 - 12.3 fL [facility] Neutrophils Percent Auto 69.0 45 - 73 % [facility] Imm Gran Pct Auto 0.3 0.0 - 0.4 % [facility] Lymphocytes Percent Auto 23.2 20 - 40 % [facility] Monocytes Percent Auto 6.2 2 - 11 % [facility] Eosinophils Percent Auto 0.9 0 - 4 % [facility] Basophils Percent Auto 0.4 0 - 2 % [facility] NRBC Pct Auto 0.0 0.0 - 0.2 /100WBC [facility] Neutrophils Absolute Auto 7.8 2.0 - 8.3 x10*3/uL [facility] Imm Gran Abs Auto 0.03 0.00 - 0.03 X10*3/uL [facility] Lymphocytes Absolute Auto 2.6 1.2 - 4.9 X10*3/uL [facility] Monocytes Absolute Auto 0.7 0.1 - 1.2 X10*3/uL [facility] Eosinophils Absolute Auto 0.1 0.0 - 0.4 X10*3/uL [facility] Basophils Absolute Auto 0.1 0.0 - 0.2 X10*3/uL [facility] NRBC Abs Auto 0.000 0.0 - 0.012 X10*3/uL [facility] 05/09/2025 2:50 AM EDT 05/09/2025 2:53 AM EDT us Generic External Data Provider LAB BLOOD ORDERAB LES Final Result [facility] [address] [place] [phone] * Culture, Urine, Routine (05/09/2025 12:00 AM EDT) Urine Urine specimen obtained by clean catch procedure / Unknown 05/09/2025 05/09/2025 Comment:CC Narrative [facility] - 05/11/2025 8:01 AM EDT Klebsiella ozaenae Quant > 100,000 cfu/mL Klebsiella ozaenae: Ampicillin 16(R) Klebsiella ozaenae: Cefazolin <=1(S) Klebsiella ozaenae: Cefepime <=0.12(S) Klebsiella ozaenae: Ceftriaxone <=0.25(S) Klebsiella ozaenae: Ciprofloxacin <=0.06(S) Klebsiella ozaenae: Gentamicin <=1(S) Klebsiella ozaenae: Nitrofurantoin 64(I) Klebsiella ozaenae: Trimethoprim/Sulfamethoxazole <=20(S) Specimen Source: Urine clean catch us Generic External Data Provider LAB MICROBIOLOGY - GENERAL ORDERABLES Final Result Performing Organization Address City/State/[facility] Co de Phone Number [facility] [address] [place] [phone] * Mr Brain w/ and w/o Contrast (04/20/2025 8:20 PM EDT) Anatomical Region Laterality Modality Brain Magnetic Resonan ce 04/20/2025 8:20 PM EDT Narrative 04/20/2025 8:21 PM EDT [address] [address] Magnetic Resonance Report Signed Patient: Savi Henderson MR#: [id number] [birth year] : 1965 Acct:[id number] Age/Sex: 59 / F ADM Date: 04/18/25 Loc: HO.MRI Attending Dr: Lani Russell MD Ordering Physician: Lani Russell MD Date of Service: 04/18/25 Procedure(s): MR head/brain wo/w con Accession Number(s): [id number] cc: Peyton Multani DO; Lani Russell MD [...] in OV> 04/20/252020 DD/ 19 TD/TT: 04/20/252019 Doughnut Batter Mixer: Procedure Note Nathanaelter, Image - 04/20/2025 [place] [address] Magnetic Resonance Report Signed Patient: Ismael Henderson#: [id number] [birth year] : 1965Acct:[id number] Age/Sex: 59 / FADM Date: 04/18/25 Loc: HO.MRI Attending Dr: Lani Russell MD Ordering Physician: Lani Russell MD Date of Service: 04/18/25 Procedure(s): MR head/brain wo/w con Accession Number(s): [id number] cc: Peyton Multani DO; Lani Russell MD [...] in OV> 04/20/252020 DD/ 19 TD/TT: 04/20/252019 Doughnut Batter Mixer: [facility] External Provider IMG MRI PROCEDURES Edited Result - Final * BI Mammogram Screening Tomosynthesis Bilateral (04/14/2025 12:45 PM EDT) Anatomical Region Laterality Modality Breast Bilateral Mammography 04/14/2025 12:4 5 PM EDT Narrative 04/15/2025 5:58 PM EDT [facility] [address] [place] [address] Mammography Report Signed Patient: Savi Henderson MR#: [id number] [birth year] : 1965 Acct:[id number] Age/Sex: 59 / F ADM Date: 04/14/25 Loc: HO.MAMMO Attending Dr: Peyton Multani DO Ordering Physician: Peyton Multani DO Results: 1N egative Date of Service: 04/14/25 Follow Up: 1 Year From Orig ina Mammogram Procedure(s): MM tomosynthesis screening BI Accession Number(s): [id number] cc: Peyton Multani DO Reason For Exam: [...] by Magda Hercules MD in OV> 04/15/25 175 DD/ 1245 TD/TT: 04/14/25 1300 Doughnut Batter Mixer: Procedure Note Donotmaryinterpreter, Image - 04/15/2025 [facility] [address] [place], [place] [address] Mammography Report Signed Patient: Ismael Henderson#: [id number] [birth year] : 1965Acct:[id number] Age/Sex: 59 / FADM Date: 04/14/25 Loc: HO.MAMMO Attending Dr: Peyton Multani DO Ordering Physician: Peyton Multaniults: 1N egative Date of Service: 04/14/25Follow Up: 1 Year From Orig inal Mammogram Procedure(s): MM tomosynthesis screening BI Accession Number(s): [id number] cc: Peyton Multani DO Reason For Exam: [...] Hercules MD Signed By: <Electronically signed by Madga Hercules MD in OV> 04/15/25 1754 DD/ 1245 TD/TT: 04/14/25 1300 Doughnut Batter Mixer: Peyton Multani DO IMG BI PROCEDURES Edited Res ult - Final * (ABNORMAL) POCT HGB A1C (02/28/2025 11:03 AM EDT) Hemoglobin A1C 6.6(A) 4.0 - 5.7 % QC Media Lot # [id number] Lot# Expiration Date [id number] Blood 02/28/2025 11:0 3 AM EDT Peyton Multani DO POINT OF CARE TEST ENTER/DANNIE T ORDERABLES Final Result * Albumin, Random Urine W/Creatinine (02/14/2025 10:47 AM EDT) Creatinine, Urine 223.08 mg/dL [facility] Microalbumin Urine 55.0 mg/L [facility] Microalbum Creatinine Ratio Ur 24.6 <30 ug/mg cr [facility] Comment:Albumin/Creatinine R atio Reference Ranges: Normal: < 30 ug/mg creatinine Microalbuminuria: 30 - 300 ug/mg creatinineClinical Albuminuria: > 300 ug/mg creatinine Urine (Urine, Random) 02/14/2025 10:47 AM EDT 02/14/2025 12:47 PM EDT us Peyton Multani DO LAB URINE ORDERABLES Final R esult [facility] [address] [place] [phone] * Hepatitis C Antibody with Reflex to HCV, RNA, Quantitative, Real-Time PCR (02/14/2025 10:47 AM EDT) Hepatitis C Antibody Nonreactive Nonreactive [facility] Comment:Antibodies to HCV no t detected; does not exclude early acuteHCV infection. Blood Venous blood specimen / Unknown 02/14/2025 10:47 AM EDT 02/14/2025 12:55 PM EDT Peyton Multani [employer] LAB BLOOD ORDERABLES Final R esult Performing Organization Address City/[facility]/ZIP Co de Phone Number [facility] [address] [place] [phone] * HIV-1/2 Antigen and Antibodies, Fourth Generation, with Reflexes (02/14/2025 10:47 AM EDT) HIV AB/AG Nonreactive Nonreactive [facility] Comment:HIV-1 p24 Ag and/or HIV-1/HIV-2 Ab not detected.A test result that is nonreactive does not exclude thepossibility of exposure to or infection with HIV-1 and/orHIV-2. Nonreactive results in this assay for individualswith prior exposure to HIV-1 and/or HIV-2 may be due toantigen and antibody levels that are below the limit ofdetection of this assay.The [email or web address] HIV Ag/Ab Combo assay result andsupplemental assay results should be interpreted inconjunction with the patient's clinical presentation,history and other laboratory results. If the results areinconsistent with clinical evidence, additional testing issuggested to confirm the result. Blood Venous blood specimen / Unknown 02/14/2025 10:47 AM EDT 02/14/2025 12:55 PM EDT us Peyton Nerissa DO LAB BLOOD ORDERABLES Final R esult Performing Organization Address City/[facility]/ZIP Co de Phone Number [facility] [address] [place] [phone] * (ABNORMAL) Lipid Panel, Standard (02/14/2025 10:47 AM EDT) Triglycerides 122 <150 mg/dL [facility] Comment:Desirable Triglyceri de: less than 150 mg/dLBorderline High Triglyceride 150-199 mg/dLHigh Triglyceride: 200-499 mg/dLVery High Triglyceride: greater than or equal to 5OO mg/dL Cholesterol 200(H) <200 mg/dL [facility] Comment:Desirable Cholestero l: less than 200 mg/dLBorderline High Cholesterol: 200-239 mg/dLHigh Cholesterol: greater than 239 mg/dL LDL Cholesterol Calculated 126(H) <100 mg/dL [facility] Comment:Desirable LDL: less than 100 mg/dLNear Optimal/Above Optimal LDL: 110- 129 mg/dLBorderline High LDL: 130-159 mg/dLHigh LDL: 160-189 mg/dLVery High LDL: greater than or equal to 190 mg/dL HDL Cholesterol 50 >40 mg/dL [facility] Comment:Desirable HDL: great er than 40 mg/dL Note: This HDL assay may give artificially low results in patients with liver disease. Blood Venous blood specimen / Unknown 02/14/2025 10:47 AM EDT 02/14/2025 12:58 PM EDT Peyton Multani DO LAB BLOOD ORDERABLES Final R esult [facility] [address] [place] [phone] * Hm Colonoscopy (02/06/2025) Colonoscopy Normal Normal Historical Provider HEALTH MAINTENANCE Final Result from Last 3 Months or Most Recently Relevant to Health Maintenance Insurance [facility] Care Teams Crust Sorter Relationship Specialty Start Date End Date Peyton Multani DO [address] [place] [address] PCP - General Family Medicine 04/17/13 Betito Irving FNP [address] [place] [address] Nurse Practitioner Family Medicine 06/13/23
--- OUTSIDE RECORDS SUMMARY | 2025-06-24 18:12 | XMS_ITS | Encounter Summary ---
Author Organization [employer] Address [address] [facility] [address] [place] [address] Care Team Providers Care Quality Control Operator Name Role Phone Peyton Multani DO Primary Care Provider + [phone] Betito Irving Unavailable Unavailable Encounter Details Date Type Department Care Team (Late st Contact Info) Description 07/18/2024 Telephone [facility] [address] [place] [address] Peyton Multani DO [address] [place] [address] Social History Tobacco Use Types Packs/Day Years [...] documented as of this encounter Care Teams Quality Control Operator Relationship Specialty Start Date End Date Peyton Multani DO [address] [place] [address] PCP - General Family Medicine 04/17/13 Betito Irving FNP [address] [place] [address] Nurse Practitioner Family Medicine 06/13/23 documented as of this encounter
--- OUTSIDE RECORDS SUMMARY | 2025-06-24 18:12 | XMS_ITS | Encounter Summary ---
Author Organization [employer] Address [address] [facility] [address] [place] [address] Care Team Providers Care Protozoology Teacher Name Role Phone Peyton Multani DO Primary Care Provider [phone] Betito Irving Unavailable Unavailable Reason for Visit * Reason Onset Date Comments call back 09/06/2022 Encounter Details Date Type Department Care Team ([facility] st Contact Info) Description 09/06/2022 Telephone [facility] [address] [place] [address] Peyton Multani DO [address] [place] [address] call back Social History Tobacco Use Types [...] back regarding pt Please contact Renita at [phone] documented in this encounter Plan of Treatment Not on file documented as of this encounter Visit Diagnoses Not on filedocumented in this encounter Additional Health Concerns Assessment Noted Time PHQ-9 Depression Total Score: 16 023 10:00 AM EST documented as of this encounter Care Teams Protozoology Teacher Relationship Specialty Start Date End Date Peyton Multani DO [address] [place] [address] PCP - General Family Medicine 04/17/13 Betito Irving FNP [address] [place] [address] Nurse Practitioner Family Medicine 06/13/23 documented as of this encounter
--- OUTSIDE RECORDS SUMMARY | 2025-06-24 18:12 | XMS_ITS | Encounter Summary ---
Author Organization [employer] Address [address] [facility] [address]t [place] [address] Care Team Providers Care Neonatal Doctor Name Role Phone Peyton Multani DO Primary Care Provider + [phone] Betito Irving Unavailable Unavailable Reason for Visit * Reason Onset Date Comments Referral 09/25/2024 Encounter Details Date Type Department Care Team ([facility] st Contact Info) Description 09/25/2024 Telephone [facility] [address] [place] [address] Peyton Multani DO [address] [place], [place] [phone] Referral Social History Tobacco Use Types Packs/Day [...] from pt requesting to Change Location from [facility] for referral for Neurology on 08/12/24 due to [facility] not dealing with PT Diagnosis. Contact pt at [phone] documented in this encounter Plan of Treatment Not on file documented as of this encounter Visit Diagnoses Not on filedocumented in this encounter Additional Health Concerns Assessment Noted Time PHQ-9 Depression Total Score: 6 10/10/19 24 10:49 AM EDT documented as of this encounter Care Teams Neonatal Doctor Relationship Specialty Start Date End Date Peyton Multani DO [address] [place] [address] PCP - General Family Medicine 04/17/13 Betito Irving FNP [address] [place] [address] Nurse Practitioner Family Medicine 06/13/23 documented as of this encounter
--- OUTSIDE RECORDS SUMMARY | 2025-06-24 18:12 | XMS_ITS | Encounter Summary ---
Author Organization [employer] Address [address] [facility] [address]t [place] [address] Care Team Providers Care Deputy Sheriff Chief Name Role Phone Peyton Multani DO Primary Care Provider + [phone] Betito Irving Unavailable Unavailable Reason for Visit * Reason Comments Med Refill Encounter Details Date Type Department Care Team ([facility] st Contact Info) Description 07/16/2024 Refill [facility] [address] [place] [address] Peyton Multani DO [address] [place] [address] Mood disorder (CMS/HCC) Social History Tobacco Use [...] documented as of this encounter Care Teams Deputy Sheriff Chief Relationship Specialty Start Date End Date Peyton Multani DO [address] [place] [address] PCP - General Family Medicine 04/17/13 Betito Irving FNP [address] [place] [address] Nurse Practitioner Family Medicine 06/13/23 documented as of this encounter
--- OUTSIDE RECORDS SUMMARY | 2025-06-24 18:12 | XMS_ITS | Encounter Summary ---
Author Organization [employer] Address [address] [facility] [address]t [place] [address] Care Team Providers Care Auto Clutch Specialist Name Role Phone Peyton Multani DO Primary Care Provider + [phone] Betito Irving Unavailable Unavailable Reason for Visit * Reason Comments Med Refill Encounter Details Date Type Department Care Team ([facility] st Contact Info) Description 06/24/2025 Refill [facility] [address] [place] [address] Peyton Multani DO [address] [place] [address] Mood disorder (CMS/HCC) Social History Tobacco Use [...] documented as of this encounter Care Teams Auto Clutch Specialist Relationship Specialty Start Date End Date Peyton Multani DO [address] [place] [address] PCP - General Family Medicine 04/17/13 Betito Irving FNP [address] [place] [address] Nurse Practitioner Family Medicine 06/13/23 documented as of this encounter
--- OUTSIDE RECORDS SUMMARY | 2025-06-24 18:12 | XMS_ITS | Encounter Summary ---
Author Organization [email or web address] Address [address] [facility] [address]t [place] [address] Care Team Providers Care Dean Of Women Name Role Phone Peyton Multani DO Primary Care Provider + [phone] Betito Irving Unavailable Unavailable Reason for Visit * Reason Comments Med Refill Encounter Details Date Type Department Care Team ([facility] st Contact Info) Description 01/08/2024 Refill [facility] MED[facility]INE [address] [place] [address] Peyton Multani DO [address] [place] [address] Social History Tobacco Use Types Packs/Day Years [...] documented as of this encounter Care Teams Dean Of Women Relationship Specialty Start Date End Date Peyton Multani DO [address] [place] [address] PCP - General Family Medicine 04/17/13 Betito Irving FNP [address] [place] [address] Nurse Practitioner Family Medicine 06/13/23 documented as of this encounter
--- OUTSIDE RECORDS SUMMARY | 2025-06-24 18:12 | XMS_ITS | Clinical Summary ---
Author Organization [address] [facility] Address [address] [place] [address] Phone Care Team Providers Care Pig Conveyor Operator Name Role Phone Peyton Multani Primary Care Provider [phone]- [phone] Allergies Active Allergy Reactions Criticality Noted Date [...] Problems Problem Noted Date Diagnosed Date Meningioma ([facility] V24, [facility] V28) 10/04/2024 Assessment & Plan (10/04/2024 4:27 PM EST): I reviewed the MRI findings in detail with Ms. [place] describing the partially empty sella the small incidental meningioma and that there is no posterior fossa lesion to cause her dizziness and imbalance. I suspect she does have vertigo as PT with [facility] [place] maneuvers did help for short time. She had no improvement on meclizine and continues to have symptoms. She describes extreme imbalance and episodes of nystagmus however I found nothing worrisome on exam today. I recommended that she see her meat grader for the blurry and cloudy vision and we will repeat the MRI of the brain in 1 year to follow this meningioma. Encounters Date Type Department Care Team Description 04/09/2025 Telephone Neurosurgery [facility] [facility] [address] [place] [address] Haley Osuna MA from Last [...] patient's age to complete this topic Insurance [facility] Care Teams Pig Conveyor Operator Relationship Specialty Start Date End Date Peyton Multani DO [address] [place] [address] PCP - General Internal Medicine 11/11/21
--- OUTSIDE RECORDS SUMMARY | 2025-06-24 18:12 | XMS_ITS | Encounter Summary ---
Author Organization [employer] Address [address] 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 Pt is advised to come to [facility] today and it is open till 8pm. [...] returning call and requesting a call back, citizen of [place] speaker. * Telephone Encounter - Yuliya Anderson [...] documented as of this encounter Care Teams Marine Painter Relationship Specialty Start Date End Date Peyton Multani DO [address] [place] [address] PCP - General Family Medicine 04/17/13 Betito Irving FNP [address] [place] [address] Nurse Practitioner Family Medicine 06/13/23 documented as of this encounter
== END 2025-06-24 14:47 | disposition home or self-care (01) ==
LOC: HO.HCS 14:20
PROVIDERS: Visit Provider Nurse Practitioner Family
DX: R00.2 Palpitations (principal); I49.1 Atrial premature depolarization; I10 Essential (primary) hypertension
CPT/HCPCS: 99214

== ENCOUNTER → 2025-06-24 14:19 | Outpatient (BNVA) | payer OTHER, SELFPAY | PROVIDERS: Visit Provider Nurse Practitioner Family | DX: I10 Essential (primary) hypertension (principal); R00.2 Palpitations; I49.1 Atrial premature depolarization | CPT/HCPCS: 99212 ==